=== PATIENT | female | born 1945 | race American Indian/Alaskan Native ===

== ENCOUNTER → 2016-10-28 | Outpatient (CLI) | payer MEDICARE, OTHER ==
--- NOTE | 2016-11-01 11:00 | CR ---
EXAM DATE: 10/28/16 PATIENT'S AGE: 71 Patient: KARLEE GATES Facility: [place], [place] Site . Site : 1945 Study: XRay Chest [id number] 4:37:14 PM Ordering Physician: Jamal Calzada Final Report: INDICATIONS: COPD. TECHNIQUE: Chest 2 view. COMPARISON: Chest radiograph September 05, 2016. FINDINGS: No pneumothorax. Trace bilateral pleural effusions. Mild bibasilar atelectasis. Lungs are otherwise clear. No evidence of pulmonary edema. Aortic atherosclerosis. Cardiomegaly, unchanged. Upper abdomen and osseous structures show no acute abnormality. Degenerative changes of the spine. IMPRESSION: Trace bilateral pleural effusions and mild bibasilar atelectasis. . Cardiomegaly, unchanged. No evidence of pulmonary edema. Dictated by David Lou MD @ Nov 01 2016 12:25AM (Electronic Signature) Report Signed by Proxy and Original Signed Document filed in the Medical Record. MTDD
== END ==
LOC: MW.CHIM 16:19
PROVIDERS: ATTEND Internal Medicine
DX: J44.9 Chronic obstructive pulmonary disease, unspecified (principal); I50.9 Heart failure, unspecified; I48.91 Unspecified atrial fibrillation; I10 Essential (primary) hypertension
CPT/HCPCS: 71020; 71020-26; 99214

== ENCOUNTER 2018-12-02 12:41 | Emergency (ER) | payer MEDICARE, OTHER ==
--- NOTE | 2018-12-02 14:40 | EDM.PDOC ---
ED HPI GENERAL MEDICAL PROBLEM - General Chief Complaint: Lower Extremity Injury/Pain Stated Complaint: RIGHT FOOT PAIN Time Seen by Provider: 12/02/18 14:39 Source of Information: Reports: Patient - History of Present Illness INITIAL COMMENTS - FREE TEXT/NARRATIVE: HISTORY AND PHYSICAL: History of present illness: [Patient presents with right foot pain history of gout has redness and swelling over the right foot focal over the great toe consistent with gout She was initially noted to be slightly hypoxic after ambulation, which improved at rest, hence further workup however we have learned that she is home oxygen dependent and noncompliant Also noted be hypotensive she has been hypotensive in the past improved with fluid bolus, see Dr. Staton's previous note for details, I did provide a fluid bolus and Solu-Medrol for the gout With Coumadin therapy and creatinine of 1.4 and elected to treat with Medrol Dosepak also exacerbating her gout she requires diuretic as well as discontinued allopurinol increasing her acute flare Uric acid is elevated she has no fever nausea vomiting chills sweats chest pain shortness breath headache dizziness or palpitation no bowel or urine symptoms] Review of systems: As per history of present illness and below otherwise all systems reviewed and negative. Past medical history: As per history of present illness and as reviewed below otherwise noncontributory. Surgical history: As per history of present illness and as reviewed below otherwise noncontributory. Social history: No reported history of drug or alcohol abuse. Family history: As per history of present illness and as reviewed below otherwise noncontributory. Physical exam: HEENT: Atraumatic, normocephalic, pupils reactive, negative for conjunctival pallor or scleral icterus, mucous membranes moist, throat clear, neck supple, nontender, trachea midline. Lungs: Clear to auscultation, breath sounds equal bilaterally, chest nontender. Heart: S1S2, regular, negative for clicks, rubs, or JVD. Abdomen: Soft, nondistended, nontender. Negative for masses or hepatosplenomegaly. Negative for costovertebral tenderness. Pelvis: Stable nontender. Genitourinary: Deferred. Rectal: Deferred. Extremities: Atraumatic, negative for cords or calf pain. Neurovascular unremarkable. Neuro: Awake, alert, oriented. Cranial nerves II through XII unremarkable. Cerebellum unremarkable. Motor and sensory unremarkable throughout. Exam nonfocal. Diagnostics: [CBC CMP troponin UA uric acid EKG Chest 1 view ] Therapeutics: NS 500 mL bolus ] Impression: Foot pain-acute gout [Hypoxia-oxygen noncompliant "hypo Tension-improved baseline Chronic history of baseline ] Definitive disposition and diagnosis as appropriate pending reevaluation and review of above. Left Foot Pain Score (Numeric/FACES): 9 - Related Data Allergies Allergy/AdvReac Type Severity Reaction Status Date / Time amoxicillin [Amoxicillin] Allergy Cannot Verified 12/02/18 13:22 Remember tramadol Allergy Dizziness Verified 12/02/18 13:22 Home Meds: Home Meds Captopril [Capoten] 12.5 mg PO DAILY 02/27/14 [History] Omeprazole 20 mg PO DAILY 02/27/14 [History] Simvastatin [Zocor] 20 mg PO DAILY 02/27/14 [History] Warfarin [Coumadin] 5 mg PO ASDIRECTED 02/27/14 [History] Furosemide 2 tab PO DAILY 01/03/15 [History] Gabapentin [Neurontin] 300 mg PO BEDTIME #45 cap 01/10/15 [Rx] Carvedilol [Coreg] 1 tab PO BID 09/03/16 [History] Potassium Chloride 8 meq PO DAILY 09/03/16 [History] Warfarin [Coumadin] 2.5 mg ASDIRECTED 09/03/16 [History] Diltiazem [Cardizem CD] 180 mg PO DAILY 30 Days cap.cd 09/07/16 [Rx] hydrALAZINE [Apresoline] 50 mg PO Q8H 30 Days tablet 09/07/16 [Rx] Past Medical History HEENT History: Reports: None Cardiovascular History: Reports: Afib, Cardiomyopathy, Hypertension Respiratory History: Reports: COPD, SOB Other Respiratory History: history of pneumonia 5 years ago Gastrointestinal History: Reports: GERD Genitourinary History: Reports: Diabetic Nephropathy LEAD CASTER History: Reports: Other LEAD CASTER History: Hysterectomy Neurological History: Reports: Neuropathy, Peripheral Psychiatric History: Reports: None Endocrine/Metabolic History: Reports: Diabetes, Type II Hematologic History: Reports: None Immunologic History: Reports: None Oncologic (Cancer) History: Reports: None Dermatologic History: Reports: None - Infectious Disease History Infectious Disease History: Reports: Chicken Pox, Measles, Mumps - Past Surgical History HEENT Surgical History: Reports: None GI Surgical History: Reports: Appendectomy, Cholecystectomy, Hernia, Abdominal Musculoskeletal Surgical History: Reports: Knee Replacement Social & Family History - Family History Family Medical History: Noncontributory HEENT: Reports: None Cardiac: Reports: None Respiratory: Reports: Other (See Below) Other Respiratory Family Hisory: emphysema GI: Reports: None : Reports: None OBGYN: Reports: None Musculoskeletal: Reports: None Neurological: Reports: None Psychiatric: Reports: None Endocrine/Metabolic: Reports: Diabetes, type II Hematologic: Reports: None Immunologic: Reports: None Dermatologic: Reports: None Oncologic: Reports: None - Tobacco Use Smoking Status *Q: Never Smoker Second Hand Smoke Exposure: No - Caffeine Use Caffeine Use: Reports: None - Alcohol Use Days Per Week of Alcohol Use: 3 Number of Drinks Per Day: 3 Total Drinks Per Week: 9 - Recreational Drug Use Recreational Drug Use: No Review of Systems - Review of Systems Review Of Systems: See Below ED EXAM, GENERAL - Physical Exam Exam: See Below Course - Vital Signs Last Recorded V/S: Last Vital Signs Temp 98.2 F 12/02/18 13:19 Pulse 97 12/02/18 13:19 Resp 20 12/02/18 13:19 BP 94/52 L 12/02/18 13:19 Pulse Ox 88 L 12/02/18 13:19 - Orders/Labs/Meds Orders: Active Orders 24 hr Category Date Time Status EKG Documentation Completion [RC] STAT Care 12/02/18 14:36 Active Sodium Chloride 0.9% [Normal Saline] 1,000 ml Med 12/02/18 15:30 Active IV .Bolus Sodium Chloride 0.9% [Normal Saline] 500 ml Med 12/02/18 14:45 Active IV STAT Medication Orders Sodium Chloride (Normal Saline) 500 mls @ 999 mls/hr IV STAT KOBE Sodium Chloride (Normal Saline) 1,000 mls @ 999 mls/hr IV .Bolus ONE Stop: 12/02/18 16:30 Last Admin: 12/02/18 15:31 Dose: 999 mls/hr Labs: Laboratory Tests 12/02/18 12/02/18 Range/Units 14:46 14:46 WBC 10.09 (4.0-11.0) K/uL RBC 3.63 L (4.30-5.90) M/uL Hgb 11.5 L (12.0-16.0) g/dL Hct 34.8 L (36.0-46.0) % MCV 95.9 (80.0-98.0) fL MCH 31.7 (27.0-32.0) pg MCHC 33.0 (31.0-37.0) g/dL RDW Std Deviation 47.6 (28.0-62.0) fl RDW Coeff of Yovani 14 (11.0-15.0) % Plt Count 172 (150-400) K/uL MPV 9.70 (7.40-12.00) fL Neut % (Auto) 82.9 H (48.0-80.0) % Lymph % (Auto) 7.8 L (16.0-40.0) % [place] % (Auto) 8.6 (0.0-15.0) % Eos % (Auto) 0.5 (0.0-7.0) % Baso % (Auto) 0.2 (0.0-1.5) % Neut # (Auto) 8.4 H (1.4-5.7) K/uL Lymph # (Auto) 0.8 (0.6-2.4) K/uL [place] # (Auto) 0.9 H (0.0-0.8) K/uL Eos # (Auto) 0.1 (0.0-0.7) K/uL Baso # (Auto) 0.0 (0.0-0.1) K/uL Nucleated RBC % 0.0 /100WBC Nucleated RBCs # 0 K/uL Sodium 140 (136-145) mmol/L Potassium 3.9 (3.5-5.1) mmol/L Chloride 100 (98-107) mmol/L Carbon Dioxide 31.5 (21.0-32.0) mmol/L BUN 26 H (7.0-18.0) mg/dL Creatinine 1.4 H (0.6-1.0) mg/dL Est Cr Clr Drug Dosing 29.15 mL/min Estimated GFR (MDRD) 37.1 ml/min Glucose 157 H (74-106) mg/dL Uric Acid 8.6 H (2.6-7.2) mg/dL Calcium 9.7 (8.5-10.1) mg/dL Total Bilirubin 1.2 H (0.2-1.0) mg/dL AST 14 L (15-37) IU/L ALT 17 (14-63) IU/L Alkaline Phosphatase 78 (46-116) U/L Troponin I < 0.050 (0.000-0.056) ng/mL Total Protein 8.2 (6.4-8.2) g/dL Albumin 3.3 L (3.4-5.0) g/dL Globulin 4.9 H (2.6-4.0) g/dL Albumin/Globulin Ratio 0.7 L (0.9-1.6) Ethyl Alcohol < 3.0 mg/dL Meds: Medications Generic Name Dose Route Start Last Admin Trade Name Freq PRN Reason Stop Dose Admin Sodium Chloride 500 mls @ 999 mls/hr 12/02/18 14:45 Normal Saline IV STAT KOBE Sodium Chloride 1,000 mls @ 999 mls/hr 12/02/18 15:30 12/02/18 15:31 Normal Saline IV 12/02/18 16:30 999 mls/hr .Bolus ONE Administration Discontinued Medications Generic Name Dose Route Start Last Admin Trade Name Freq PRN Reason Stop Dose Admin Methylprednisolone Sodium Succinate 125 mg 12/02/18 15:16 12/02/18 15:35 Solu-Medrol IVPUSH 12/02/18 15:17 125 mg ONETIME ONE Administration Departure - Departure Time of Disposition: 16:18 Disposition: Home, Self-Care 01 Condition: Good Clinical Impression: Acute gout - Discharge Information Referrals: Mercedes Peres MD [Primary Care Provider] - Forms: ED Department Discharge Additional Instructions: Prednisone 20 mg by mouth daily #5 no refill Hydrocodone as prescribed Stop allopurinol during acute gout flare Follow-up with primary care as needed Current if symptoms persist or worsen Strongly encouraged to use home oxygen as directed [facility] [address] [place] [address] The following information is given to patients seen in the emergency department who are being discharged to home. This information is to outline your options for follow-up care. We provide all patients seen in our emergency department with a follow-up referral. The need for follow-up, as well as the timing and circumstances, are variable depending upon the specifics of your emergency department visit. If you don't have a primary care physician on staff, we will provide you with a referral. We always advise you to contact your personal physician following an emergency department visit to inform them of the circumstance of the visit and for follow-up with them and/or the need for any referrals to a consulting specialist. The emergency department will also refer you to a specialist when appropriate. This referral assures that you have the opportunity for follow-up care with a specialist. All of these measure are taken in an effort to provide you with optimal care, which includes your follow-up. Under all circumstances we always encourage you to contact your private physician who remains a resource for coordinating your care. When calling for follow-up care, please make the office aware that this follow-up is from your recent emergency room visit. If for any reason you are refused follow-up, please contact the [facility] emergency department at and asked to speak to the emergency department charge nurse. - My Orders Last 24 Hours: My Active Orders 12/02/18 14:36 EKG Documentation Completion [RC] STAT 12/02/18 14:45 Sodium Chloride 0.9% [Normal Saline] 500 ml IV STAT 12/02/18 15:30 Sodium Chloride 0.9% [Normal Saline] 1,000 ml IV .Bolus - Assessment/Plan Last 24 Hours: My Active Orders 12/02/18 14:36 EKG Documentation Completion [RC] STAT 12/02/18 14:45 Sodium Chloride 0.9% [Normal Saline] 500 ml IV STAT 12/02/18 15:30 Sodium Chloride 0.9% [Normal Saline] 1,000 ml IV .Bolus
[2018-12-02] MEDS ORDERED: Sodium Chloride 0.9% 500 ML IV SCH (14:45)
--- NOTE | 2018-12-02 14:51 | CR ---
HISTORY: Gout flare. TECHNIQUE: Two views of the right foot. COMPARISON: No prior. FINDINGS: Soft tissue swelling involves the dorsum of the foot. Mild degenerative changes at the midfoot-forefoot junction. Plantar calcaneal spur. No definite erosions. No acute fracture. Vascular calcifications. IMPRESSION: 1. Soft tissue swelling dorsally. 2. No erosions. Dictated by Nikolai Patel MD @ 12/02/2018 2:48:04 PM Dictated by: Nikolai Patel MD @ 12/02/2018 14:48:10 (Electronically Signed)
[2018-12-02] MEDS ORDERED: methylPREDNISolone Sodium Succinate 125 MG/2 ML SDV IVPUSH ONE (15:16)
[2018-12-02 15:26] LABS: CHLORIDE,CL 100 mmol/L (98-107); SODIUM,NA 140 mmol/L (136-145)
[2018-12-02] MEDS ORDERED: Sodium Chloride 0.9% 1,000 ML IV ONE (15:30)
--- NOTE | 2018-12-02 15:40 | CR ---
HISTORY: Hypoxia. TECHNIQUE: One view of the chest. COMPARISON: No prior. FINDINGS: Linear atelectasis or scarring within the left mid to lower lung zone. Slight thickening of the minor fissure on the right. There is no consolidation or pulmonary edema. No pneumothorax. No moderate or large pleural effusion. Cardiac size is prominent but exaggerated by the portable AP technique. IMPRESSION: 1. Linear atelectasis or scarring within the left lung. 2. No consolidation or definite pulmonary edema. 3. Cardiac size is prominent but exaggerated by the technique. Dictated by Nikolai Patel MD @ 12/02/2018 3:39:55 PM Dictated by: Nikolai Patel MD @ 12/02/2018 15:40:00 (Electronically Signed)
[2018-12-02 16:46] VITALS: BP 116/65
== END 2018-12-02 16:37 | disposition home or self-care (01) ==
LOC: MW.ED 12:41
DX: M10.9 Gout, unspecified (principal); I95.9 Hypotension, unspecified; Z88.1 Allergy status to other antibiotic agents; Z88.6 Allergy status to analgesic agent; Z79.899 Other long term (current) drug therapy; E11.21 Type 2 diabetes mellitus with diabetic nephropathy
CPT/HCPCS: 36415; 71045; 73620; 80053; 84484; 84550; 85025; 93005; 96374; 99284; G0480; J2930; J7040

== ENCOUNTER 2019-07-17 14:53 | Observation (INO) | payer MEDICARE, OTHER ==
--- NOTE | 2019-07-17 15:27 | EDM.PDOC ---
ED HPI GENERAL MEDICAL PROBLEM - General Chief Complaint: Chest Pain Stated Complaint: CHEST PAIN Time Seen by Provider: 07/17/19 14:57 Source of Information: Reports: Patient History Limitations: Reports: No Limitations - History of Present Illness INITIAL COMMENTS - FREE TEXT/NARRATIVE: HISTORY AND PHYSICAL: History of present illness: Patient is a 73-year-old female who presents to the ED today with concern of an episode of chest tightness since 5 this morning. Patient states the chest tightness woke her up from sleep. Patient states that over the course of the day this has improved and she is not currently having this symptom at this time. Patient states over the course of the past several weeks she's had worsening shortness of breath and dizziness so increased her oxygen at home from 2 L to 4 L without seeing a primary care provider. Patient denies any other symptoms or concerns. Patient has a history of atrial fibrillation, type 2 diabetes, and COPD on chronic oxygen at home on 4 L. Patient states she also has constant swelling of her lower extremities and has not noticed a change in the swelling. Patient denies fever, chills, chest pain, shortness of breath, or cough. Denies headache, neck stiff ness, change in vision, syncope, or near syncope. Denies nausea, vomiting, abdominal pain, diarrhea, constipation, or dysuria. Has not noted any blood in urine or stool. Patient has been eating and drinking appropriately. Review of systems: As per history of present illness and below otherwise all systems reviewed and negative. Past medical history: As per history of present illness and as reviewed below otherwise noncontributory. Surgical history: As per history of present illness and as reviewed below otherwise noncontributory. Social history: See social history for further information Family history: As per history of present illness and as reviewed below otherwise noncontributory. Physical exam: General: Patient is alert, oriented, and in no acute distress. Patient laying comfortably on exam table. HEENT: Atraumatic, normocephalic, pupils equal and reactive bilaterally, negative for conjunctival pallor or scleral icterus, mucous membranes moist, TMs normal bilaterally, throat clear, neck supple, nontender, trachea midline. No drooling or trismus noted. No meningeal signs. No hot potato voice noted. Lungs: Clear to auscultation, breath sounds equal bilaterally, chest nontender. Heart: S1S2, regular rate and rhythm with systolic ejection murmur best heard at the LUSB Abdomen: Soft, nondistended, nontender. Negative for masses or hepatosplenomegaly. Negative for costovertebral tenderness. Pelvis: Stable nontender. Genitourinary: Deferred. Rectal: Deferred. Skin: Intact, warm, dry. No lesions or rashes noted. Extremities: Atraumatic, negative for cords or calf pain. Neurovascular unremarkable. 2+ non pitting edema of bilateral lower extremities to the knees Neuro: Awake, alert, oriented. Cranial nerves II through XII unremarkable. Cerebellum unremarkable. Motor and sensory unremarkable throughout. Exam nonfocal. Notes: Dr. Natarajan consulted on patient and will admit to observation. Voices understanding and is agreeable to plan of care. Denies any further questions or concerns at this time. Diagnostics: CBC, CMP, UA, EKG, chest x-ray, troponin, lipase, BNP Therapeutics: ASA Impression: Chest pain r/o ACS Plan: Admit to observation to Dr. Natarajan with telemetry Definitive disposition and diagnosis as appropriate pending reevaluation and review of above. Left Chest Pain Score (Numeric/FACES): 7 - Related Data Allergies Allergy/AdvReac Type Severity Reaction Status Date / Time amoxicillin [Amoxicillin] Allergy Cannot Verified 07/17/19 15:05 Remember tramadol Allergy Dizziness Verified 07/17/19 15:05 Home Meds: Home Meds Omeprazole 20 mg PO DAILY 02/27/14 [History] Simvastatin [Zocor] 20 mg PO DAILY 02/27/14 [History] captopriL [Capoten] 12.5 mg PO DAILY 02/27/14 [History] Furosemide 2 tab PO DAILY 01/03/15 [History] Gabapentin [Neurontin] 300 mg PO BEDTIME #45 cap 01/10/15 [Rx] Carvedilol [Coreg] 1 tab PO BID 09/03/16 [History] Potassium Chloride 8 meq PO DAILY 09/03/16 [History] Diltiazem [Cardizem CD] 180 mg PO DAILY 30 Days cap.cd 09/07/16 [Rx] Allopurinol [Zyloprim] 100 mg PO DAILY 07/17/19 [History] Apixaban [Eliquis] 5 mg PO BID 07/17/19 [History] glipiZIDE [Glucotrol XL] 10 mg PO DAILY 07/17/19 [History] Past Medical History HEENT History: Reports: None Cardiovascular History: Reports: Afib, Heart Murmur, Hypertension, Other (See Below) Other Cardiovascular History: CHF Respiratory History: Reports: COPD, SOB Other Respiratory History: history of pneumonia 5 years ago Gastrointestinal History: Reports: GERD Genitourinary History: Reports: Diabetic Nephropathy TOPOGRAPHICAL SURVEYOR History: Reports: Other TOPOGRAPHICAL SURVEYOR History: Hysterectomy Neurological History: Reports: Neuropathy, Peripheral Psychiatric History: Reports: Depression, Mood Swings Endocrine/Metabolic History: Reports: Diabetes, Type II Hematologic History: Reports: None Immunologic History: Reports: None Oncologic (Cancer) History: Reports: None Dermatologic History: Reports: None - Infectious Disease History Infectious Disease History: Reports: Chicken Pox, Measles, Mumps - Past Surgical History HEENT Surgical History: Reports: None GI Surgical History: Reports: Appendectomy, Cholecystectomy, Colonoscopy, EGD, Hernia, Abdominal Musculoskeletal Surgical History: Reports: Knee Replacement Social & Family History - Family History Family Medical History: Noncontributory HEENT: Reports: None Cardiac: Reports: None Respiratory: Reports: Other (See Below) Other Respiratory Family Hisory: emphysema GI: Reports: None : Reports: None OBGYN: Reports: None Musculoskeletal: Reports: None Neurological: Reports: None Psychiatric: Reports: None Endocrine/Metabolic: Reports: Diabetes, type II Hematologic: Reports: None Immunologic: Reports: None Dermatologic: Reports: None Oncologic: Reports: None - Tobacco Use Smoking Status *Q: Former Smoker Used Tobacco, but Quit: Yes Month/Year Tobacco Last Used: 1998 - Caffeine Use Caffeine Use: Reports: None - Recreational Drug Use Recreational Drug Use: No ED ROS GENERAL - Review of Systems Review Of Systems: Comprehensive ROS is negative, except as noted in HPI. ED EXAM, GENERAL - Physical Exam Exam: See Below (see dictation) Course - Vital Signs Last Recorded V/S: Last Vital Signs Temp 97.5 F 07/17/19 15:02 Pulse 83 07/17/19 16:00 Resp 16 07/17/19 15:30 BP 134/63 07/17/19 16:00 Pulse Ox 97 07/17/19 16:00 - Orders/Labs/Meds Orders: Active Orders 24 hr Category Date Time Status Admission Status [Patient Status] [ADT] Stat ADT 07/17/19 16:47 Ordered EKG Documentation Completion [RC] STAT Care 07/17/19 15:14 Active B-TYPE NATRIURETIC PEPTIDE,BNP [CHEM] Stat Lab 07/17/19 15:09 Received CULTURE URINE [RM] Stat Lab 07/17/19 15:00 Received Labs: Laboratory Tests 07/17/19 07/17/19 07/17/19 Range/Units 15:00 15:01 15:09 WBC 7.30 (4.0-11.0) K/uL RBC 3.80 L (4.30-5.90) M/uL Hgb 11.9 L (12.0-16.0) g/dL Hct 35.8 L (36.0-46.0) % MCV 94.2 (80.0-98.0) fL MCH 31.3 (27.0-32.0) pg MCHC 33.2 (31.0-37.0) g/dL RDW Std Deviation 49.6 (28.0-62.0) fl RDW Coeff of Yovani 14 (11.0-15.0) % Plt Count 159 (150-400) K/uL MPV 9.80 (7.40-12.00) fL Neut % (Auto) 77.6 (48.0-80.0) % Lymph % (Auto) 14.0 L (16.0-40.0) % [place] % (Auto) 5.9 (0.0-15.0) % Eos % (Auto) 2.1 (0.0-7.0) % Baso % (Auto) 0.4 (0.0-1.5) % Neut # (Auto) 5.7 (1.4-5.7) K/uL Lymph # (Auto) 1.0 (0.6-2.4) K/uL [place] # (Auto) 0.4 (0.0-0.8) K/uL Eos # (Auto) 0.2 (0.0-0.7) K/uL Baso # (Auto) 0.0 (0.0-0.1) K/uL Nucleated RBC % 0.0 /100WBC Nucleated RBCs # 0 K/uL INR Sodium (136-145) mmol/L Potassium (3.5-5.1) mmol/L Chloride (98-107) mmol/L Carbon Dioxide (21.0-32.0) mmol/L BUN (7.0-18.0) mg/dL Creatinine (0.6-1.0) mg/dL Est Cr Clr Drug Dosing mL/min Estimated GFR (MDRD) ml/min Glucose (74-106) mg/dL POC Glucose 261 H (60-110) mg/dL Calcium (8.5-10.1) mg/dL Total Bilirubin (0.2-1.0) mg/dL AST (15-37) IU/L ALT (14-63) IU/L Alkaline Phosphatase (46-116) U/L Troponin I (0.000-0.056) ng/mL Total Protein (6.4-8.2) g/dL Albumin (3.4-5.0) g/dL Globulin (2.6-4.0) g/dL Albumin/Globulin Ratio (0.9-1.6) Lipase (73-393) U/L Urine Color YELLOW Urine Appearance CLEAR Urine pH 6.5 (5.0-8.0) Ur Specific [place] 1.010 (1.001-1.035) Urine Protein NEGATIVE (NEGATIVE) mg/dL Urine Glucose (UA) 100 H (NEGATIVE) mg/dL Urine Ketones NEGATIVE (NEGATIVE) mg/dL Urine Occult Blood NEGATIVE (NEGATIVE) Urine Nitrite NEGATIVE (NEGATIVE) Urine Bilirubin NEGATIVE (NEGATIVE) Urine Urobilinogen 0.2 (<2.0) EU/dL Ur Leukocyte Esterase TRACE H (NEGATIVE) Urine RBC 0-2 (0-2/HPF) Urine WBC 3-5 (0-5/HPF) Ur Epithelial Cells FEW (NONE-FEW) Urine Bacteria FEW (NEGATIVE) 07/17/19 07/17/19 07/17/19 Range/Units 15:09 15:09 15:09 WBC (4.0-11.0) K/uL RBC (4.30-5.90) M/uL Hgb (12.0-16.0) g/dL Hct (36.0-46.0) % MCV (80.0-98.0) fL MCH (27.0-32.0) pg MCHC (31.0-37.0) g/dL RDW Std Deviation (28.0-62.0) fl RDW Coeff of Yovani (11.0-15.0) % Plt Count (150-400) K/uL MPV (7.40-12.00) fL Neut % (Auto) (48.0-80.0) % Lymph % (Auto) (16.0-40.0) % [place] % (Auto) (0.0-15.0) % Eos % (Auto) (0.0-7.0) % Baso % (Auto) (0.0-1.5) % Neut # (Auto) (1.4-5.7) K/uL Lymph # (Auto) (0.6-2.4) K/uL [place] # (Auto) (0.0-0.8) K/uL Eos # (Auto) (0.0-0.7) K/uL Baso # (Auto) (0.0-0.1) K/uL Nucleated RBC % /100WBC Nucleated RBCs # K/uL INR 1.03 Sodium 141 (136-145) mmol/L Potassium 3.8 (3.5-5.1) mmol/L Chloride 100 (98-107) mmol/L Carbon Dioxide 32.8 H (21.0-32.0) mmol/L BUN 56 H (7.0-18.0) mg/dL Creatinine 2.0 H (0.6-1.0) mg/dL Est Cr Clr Drug Dosing 20.41 mL/min Estimated GFR (MDRD) 24.6 ml/min Glucose 267 H (74-106) mg/dL POC Glucose (60-110) mg/dL Calcium 9.6 (8.5-10.1) mg/dL Total Bilirubin 0.3 (0.2-1.0) mg/dL AST 12 L (15-37) IU/L ALT 17 (14-63) IU/L Alkaline Phosphatase 67 (46-116) U/L Troponin I < 0.050 (0.000-0.056) ng/mL Total Protein 8.4 H (6.4-8.2) g/dL Albumin 4.1 (3.4-5.0) g/dL Globulin 4.3 H (2.6-4.0) g/dL Albumin/Globulin Ratio 1.0 (0.9-1.6) Lipase 393 (73-393) U/L Urine Color Urine Appearance Urine pH (5.0-8.0) Ur Specific [place] (1.001-1.035) Urine Protein (NEGATIVE) mg/dL Urine Glucose (UA) (NEGATIVE) mg/dL Urine Ketones (NEGATIVE) mg/dL Urine Occult Blood (NEGATIVE) Urine Nitrite (NEGATIVE) Urine Bilirubin (NEGATIVE) Urine Urobilinogen (<2.0) EU/dL Ur Leukocyte Esterase (NEGATIVE) Urine RBC (0-2/HPF) Urine WBC (0-5/HPF) Ur Epithelial Cells (NONE-FEW) Urine Bacteria (NEGATIVE) Meds: Medications Discontinued Medications Generic Name Dose Route Start Last Admin Trade Name Freq PRN Reason Stop Dose Admin Aspirin 324 mg 07/17/19 16:37 Aspirin PO 07/17/19 16:38 ONETIME ONE Departure - Departure Time of Disposition: 16:49 Disposition: Refer to Observation Clinical Impression: Chest pain Qualifiers: Chest pain type: unspecified Qualified Code(s): R07.9 - Chest pain, unspecified - Discharge Information Referrals: Paloma Myers PA-C [Primary Care Provider] - Forms: ED Department Discharge - My Orders Last 24 Hours: My Active Orders 07/17/19 15:00 CULTURE URINE [RM] Stat 07/17/19 15:09 B-TYPE NATRIURETIC PEPTIDE,BNP [CHEM] Stat 07/17/19 15:14 EKG Documentation Completion [RC] STAT 07/17/19 16:47 Admission Status [Patient Status] [ADT] Stat - Assessment/Plan Last 24 Hours: My Active Orders 07/17/19 15:00 CULTURE URINE [RM] Stat 07/17/19 15:09 B-TYPE NATRIURETIC PEPTIDE,BNP [CHEM] Stat 07/17/19 15:14 EKG Documentation Completion [RC] STAT 07/17/19 16:47 Admission Status [Patient Status] [ADT] Stat
[2019-07-17 15:51] LABS: BLOOD UREA NITROGEN,BUN 56 mg/dL (7.0-18.0); CARBON DIOXIDE,CO2 32.8 mmol/L (21.0-32.0); CHLORIDE,CL 100 mmol/L (98-107); GLUCOSE RANDOM 267 mg/dL (74-106); POTASSIUM,K 3.8 mmol/L (3.5-5.1); SODIUM,NA 141 mmol/L (136-145)
--- NOTE | 2019-07-17 16:06 | CR ---
EXAM DATE: 07/17/19 PATIENT'S AGE: 73 Chest: AP view of the chest was obtained. Comparison: Prior chest x-ray of 12/02/18. Heart size is slightly enlarged but accentuated from AP technique. Scarring is noted within the left base. Lungs otherwise are clear with no acute parenchymal change. Bony structures are grossly intact. Impression: 1. Findings as noted above. 2. Nothing acute is definitely appreciated. Diagnostic code #2 This report was dictated in [place] Standard Time Report Signed by Proxy. [facility]ITALAng[facility]
[2019-07-17] MEDS ORDERED: Aspirin 81 MG Tab.Chew PO ONE (16:37)
[2019-07-17] MEDS ORDERED: Heparin Sodium 5,000 Units/ML Vial SUBCUT SCH (17:45)
[2019-07-17] MEDS: Pantoprazole 40 MG Tab.CR PO SCH (18:15)
[2019-07-17] MEDS ORDERED: Furosemide 40 MG Tab PO SCH (19:45)
[2019-07-17] MEDS ORDERED: Sodium Chloride 0.9% 500 ML IV ONE (20:19)
[2019-07-17] MEDS ORDERED: Aluminum Hydroxide/Magnesium Hydroxide/Simethicone Susp 30 ML Cup PO ONE (20:21)
[2019-07-17] MEDS ORDERED: Albuterol/Ipratropium 3.0-0.5 MG/3 ML Neb Soln NEB ONE (20:22)
[2019-07-17] MEDS ORDERED: Furosemide 40 MG in Sodium Chloride 0.9% 50 ML IV SCH (20:30)
[2019-07-17] MEDS: Apixaban 5 MG Tab PO SCH (20:45)
[2019-07-17] MEDS: Carvedilol 25 MG Tab PO SCH (20:47)
[2019-07-17] MEDS ORDERED: Gabapentin 300 MG Cap PO SCH (21:00)
--- NOTE | 2019-07-17 21:01 | PCM.HP.2 ---
<Michel Arreola M - Last Filed: 07/17/19 21:08> H&P History of Present Illness - General Date of Service: 07/17/19 Admit Problem/Dx: Admission Diagnosis/Problem Admission Diagnosis/Problem Chest pain Source of Information: Patient History Limitations: Reports: No Limitations - History of Present Illness Initial Comments - Free Text/Narative: 73-year-old female presents to ER with complaints of chest pain that started at 5 AM this morning. The pain is located substernally, characterized as "heavy" in nature, unrelated to activity, no radiation, 7/10 on a pain scale. She has a PMH of atrial fibrillation, DM type 2, COPD on home oxygen and CHF. Patient reports an increase in her home oxygen from 3L at baseline to 4L over the past week. Denies any fevers, sweats, nausea, vomiting, blurry vision or cough. She also denies any recent weight gain. Patient is a non-smoker. In the ER, patient was given a full-dose of aspirin. EKG showed rate-controlled atrial fibrillation. Patient admitted for further evaluation. Left Chest Pain Score (Numeric/FACES): 7 - Related Data Allergies/Adverse Reactions: Allergies Allergy/AdvReac Type Severity Reaction Status Date / Time amoxicillin [Amoxicillin] Allergy Cannot Verified 07/17/19 18:00 Remember tramadol Allergy Dizziness Verified 07/17/19 18:00 Home Medications: Home Meds Omeprazole 20 mg PO DAILY 02/27/14 [History] Simvastatin [Zocor] 20 mg PO DAILY 02/27/14 [History] captopriL [Capoten] 12.5 mg PO DAILY 02/27/14 [History] Gabapentin [Neurontin] 300 mg PO BEDTIME #45 cap 01/10/15 [Rx] Carvedilol [Coreg] 1 tab PO BID 09/03/16 [History] Potassium Chloride 8 meq PO BID 09/03/16 [History] Diltiazem [Cardizem CD] 180 mg PO DAILY 30 Days cap.cd 09/07/16 [Rx] Allopurinol [Zyloprim] 100 mg PO DAILY 07/17/19 [History] Apixaban [Eliquis] 5 mg PO BID 07/17/19 [History] Furosemide 1.5 tab PO BID 07/17/19 [History] glipiZIDE [Glucotrol XL] 10 mg PO DAILY 07/17/19 [History] Albuterol [Proventil Neb Soln] 2.5 mg NEB Q4H PRN #1 box 07/18/19 [Rx] Albuterol [Ventolin HFA] 1 - 2 puff INH Q4H PRN #1 inh 07/18/19 [Rx] predniSONE [Prednisone] 20 mg PO DAILY #6 tablet 07/18/19 [Rx] Past Medical History HEENT History: Reports: None Cardiovascular History: Reports: Afib, Heart Murmur, Hypertension, Other (See Below) Other Cardiovascular History: CHF Respiratory History: Reports: COPD, SOB Other Respiratory History: history of pneumonia 5 years ago Gastrointestinal History: Reports: GERD 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: Reports: Other OB/BYN History: Hysterectomy Neurological History: Reports: Neuropathy, Peripheral Psychiatric History: Reports: Depression, Mood Swings Endocrine/Metabolic History: Reports: Diabetes, Type II Hematologic History: Reports: None Immunologic History: Reports: None Oncologic (Cancer) History: Reports: None Dermatologic History: Reports: None - Infectious Disease History Infectious Disease History: Reports: Chicken Pox, Measles, Mumps - Past Surgical History HEENT Surgical History: Reports: None GI Surgical History: Reports: Appendectomy, Cholecystectomy, Colonoscopy, EGD, Hernia, Abdominal Female Surgical History: Reports: Hysterectomy Musculoskeletal Surgical History: Reports: Knee Replacement Social & Family History - Family History Family Medical History: Noncontributory HEENT: Reports: None Cardiac: Reports: None Respiratory: Reports: Other (See Below) Other Respiratory Family Hisory: emphysema GI: Reports: None : Reports: None OBGYN: Reports: None Musculoskeletal: Reports: None Neurological: Reports: None Psychiatric: Reports: None Endocrine/Metabolic: Reports: Diabetes, type II Hematologic: Reports: None Immunologic: Reports: None Dermatologic: Reports: None Oncologic: Reports: None - Tobacco Use Smoking Status *Q: Former Smoker Used Tobacco, but Quit: Yes Month/Year Tobacco Last Used: 1998 Second Hand Smoke Exposure: No - Caffeine Use Caffeine Use: Reports: Coffee - Alcohol Use Days Per Week of Alcohol Use: 7 Number of Drinks Per Day: 2 Total Drinks Per Week: 14 Date of Last Drink: 07/16/19 - Recreational Drug Use Recreational Drug Use: No H&P Review of Systems - Review of Systems: Review Of Systems: Comprehensive ROS is negative, except as noted in HPI. Exam - Exam Exam: See Below - Vital Signs Vital Signs: Last Vital Signs Temp 97.8 F 07/17/19 17:37 Pulse 84 07/17/19 17:37 Resp 18 07/17/19 17:37 BP 143/72 H 07/17/19 17:37 Pulse Ox 99 07/17/19 17:37 Weight: 118.3 kg - Exam General: Alert, Oriented, Cooperative, Other (NAD) HEENT: Conjunctiva Clear, EOMI Lungs: Other (quiet breath sounds bilaterally) Cardiovascular: Regular Rate, Regular Rhythm GI/Abdominal Exam: Normal Bowel Sounds, Soft, Non-Tender, No Distention Extremities: Other (trace edema bilaterally, no calf pain bilaterally) Skin: Warm, Dry, Intact Neurological: Cranial Nerves Intact, Strength Equal Bilateral, Normal Speech Psychiatric: Alert, Normal Affect, Normal Mood - Patient Data Lab Results Last 24 hrs: Laboratory Results - last 24 hr 07/17/19 07/17/19 07/17/19 Range/Units 15:00 15:01 15:09 WBC 7.30 (4.0-11.0) K/uL RBC 3.80 L (4.30-5.90) M/uL Hgb 11.9 L (12.0-16.0) g/dL Hct 35.8 L (36.0-46.0) % MCV 94.2 (80.0-98.0) fL MCH 31.3 (27.0-32.0) pg MCHC 33.2 (31.0-37.0) g/dL RDW Std Deviation 49.6 (28.0-62.0) fl RDW Coeff of Yovani 14 (11.0-15.0) % Plt Count 159 (150-400) K/uL MPV 9.80 (7.40-12.00) fL Neut % (Auto) 77.6 (48.0-80.0) % Lymph % (Auto) 14.0 L (16.0-40.0) % [place] % (Auto) 5.9 (0.0-15.0) % Eos % (Auto) 2.1 (0.0-7.0) % Baso % (Auto) 0.4 (0.0-1.5) % Neut # (Auto) 5.7 (1.4-5.7) K/uL Lymph # (Auto) 1.0 (0.6-2.4) K/uL [place] # (Auto) 0.4 (0.0-0.8) K/uL Eos # (Auto) 0.2 (0.0-0.7) K/uL Baso # (Auto) 0.0 (0.0-0.1) K/uL Nucleated RBC % 0.0 /100WBC Nucleated RBCs # 0 K/uL INR Sodium (136-145) mmol/L Potassium (3.5-5.1) mmol/L Chloride (98-107) mmol/L Carbon Dioxide (21.0-32.0) mmol/L BUN (7.0-18.0) mg/dL Creatinine (0.6-1.0) mg/dL Est Cr Clr Drug Dosing mL/min Estimated GFR (MDRD) ml/min Glucose (74-106) mg/dL POC Glucose 261 H (60-110) mg/dL Calcium (8.5-10.1) mg/dL Total Bilirubin (0.2-1.0) mg/dL AST (15-37) IU/L ALT (14-63) IU/L Alkaline Phosphatase (46-116) U/L Troponin I (0.000-0.056) ng/mL Total Protein (6.4-8.2) g/dL Albumin (3.4-5.0) g/dL Globulin (2.6-4.0) g/dL Albumin/Globulin Ratio (0.9-1.6) Lipase (73-393) U/L Urine Color YELLOW Urine Appearance CLEAR Urine pH 6.5 (5.0-8.0) Ur Specific [place] 1.010 (1.001-1.035) Urine Protein NEGATIVE (NEGATIVE) mg/dL Urine Glucose (UA) 100 H (NEGATIVE) mg/dL Urine Ketones NEGATIVE (NEGATIVE) mg/dL Urine Occult Blood NEGATIVE (NEGATIVE) Urine Nitrite NEGATIVE (NEGATIVE) Urine Bilirubin NEGATIVE (NEGATIVE) Urine Urobilinogen 0.2 (<2.0) EU/dL Ur Leukocyte Esterase TRACE H (NEGATIVE) Urine RBC 0-2 (0-2/HPF) Urine WBC 3-5 (0-5/HPF) Ur Epithelial Cells FEW (NONE-FEW) Urine Bacteria FEW (NEGATIVE) 07/17/19 07/17/19 07/17/19 Range/Units 15:09 15:09 15:09 WBC (4.0-11.0) K/uL RBC (4.30-5.90) M/uL Hgb (12.0-16.0) g/dL Hct (36.0-46.0) % MCV (80.0-98.0) fL MCH (27.0-32.0) pg MCHC (31.0-37.0) g/dL RDW Std Deviation (28.0-62.0) fl RDW Coeff of Yovani (11.0-15.0) % Plt Count (150-400) K/uL MPV (7.40-12.00) fL Neut % (Auto) (48.0-80.0) % Lymph % (Auto) (16.0-40.0) % [place] % (Auto) (0.0-15.0) % Eos % (Auto) (0.0-7.0) % Baso % (Auto) (0.0-1.5) % Neut # (Auto) (1.4-5.7) K/uL Lymph # (Auto) (0.6-2.4) K/uL [place] # (Auto) (0.0-0.8) K/uL Eos # (Auto) (0.0-0.7) K/uL Baso # (Auto) (0.0-0.1) K/uL Nucleated RBC % /100WBC Nucleated RBCs # K/uL INR 1.03 Sodium 141 (136-145) mmol/L Potassium 3.8 (3.5-5.1) mmol/L Chloride 100 (98-107) mmol/L Carbon Dioxide 32.8 H (21.0-32.0) mmol/L BUN 56 H (7.0-18.0) mg/dL Creatinine 2.0 H (0.6-1.0) mg/dL Est Cr Clr Drug Dosing 20.41 mL/min Estimated GFR (MDRD) 24.6 ml/min Glucose 267 H (74-106) mg/dL POC Glucose (60-110) mg/dL Calcium 9.6 (8.5-10.1) mg/dL Total Bilirubin 0.3 (0.2-1.0) mg/dL AST 12 L (15-37) IU/L ALT 17 (14-63) IU/L Alkaline Phosphatase 67 (46-116) U/L Troponin I < 0.050 (0.000-0.056) ng/mL Total Protein 8.4 H (6.4-8.2) g/dL Albumin 4.1 (3.4-5.0) g/dL Globulin 4.3 H (2.6-4.0) g/dL Albumin/Globulin Ratio 1.0 (0.9-1.6) Lipase 393 (73-393) U/L Urine Color Urine Appearance Urine pH (5.0-8.0) Ur Specific [place] (1.001-1.035) Urine Protein (NEGATIVE) mg/dL Urine Glucose (UA) (NEGATIVE) mg/dL Urine Ketones (NEGATIVE) mg/dL Urine Occult Blood (NEGATIVE) Urine Nitrite (NEGATIVE) Urine Bilirubin (NEGATIVE) Urine Urobilinogen (<2.0) EU/dL Ur Leukocyte Esterase (NEGATIVE) Urine RBC (0-2/HPF) Urine WBC (0-5/HPF) Ur Epithelial Cells (NONE-FEW) Urine Bacteria (NEGATIVE) 07/17/19 Range/Units 17:53 WBC (4.0-11.0) K/uL RBC (4.30-5.90) M/uL Hgb (12.0-16.0) g/dL Hct (36.0-46.0) % MCV (80.0-98.0) fL MCH (27.0-32.0) pg MCHC (31.0-37.0) g/dL RDW Std Deviation (28.0-62.0) fl RDW Coeff of Yovani (11.0-15.0) % Plt Count (150-400) K/uL MPV (7.40-12.00) fL Neut % (Auto) (48.0-80.0) % Lymph % (Auto) (16.0-40.0) % [place] % (Auto) (0.0-15.0) % Eos % (Auto) (0.0-7.0) % Baso % (Auto) (0.0-1.5) % Neut # (Auto) (1.4-5.7) K/uL Lymph # (Auto) (0.6-2.4) K/uL [place] # (Auto) (0.0-0.8) K/uL Eos # (Auto) (0.0-0.7) K/uL Baso # (Auto) (0.0-0.1) K/uL Nucleated RBC % /100WBC Nucleated RBCs # K/uL INR Sodium (136-145) mmol/L Potassium (3.5-5.1) mmol/L Chloride (98-107) mmol/L Carbon Dioxide (21.0-32.0) mmol/L BUN (7.0-18.0) mg/dL Creatinine (0.6-1.0) mg/dL Est Cr Clr Drug Dosing mL/min Estimated GFR (MDRD) ml/min Glucose (74-106) mg/dL POC Glucose (60-110) mg/dL Calcium (8.5-10.1) mg/dL Total Bilirubin (0.2-1.0) mg/dL AST (15-37) IU/L ALT (14-63) IU/L Alkaline Phosphatase (46-116) U/L Troponin I < 0.050 (0.000-0.056) ng/mL Total Protein (6.4-8.2) g/dL Albumin (3.4-5.0) g/dL Globulin (2.6-4.0) g/dL Albumin/Globulin Ratio (0.9-1.6) Lipase (73-393) U/L Urine Color Urine Appearance Urine pH (5.0-8.0) Ur Specific [place] (1.001-1.035) Urine Protein (NEGATIVE) mg/dL Urine Glucose (UA) (NEGATIVE) mg/dL Urine Ketones (NEGATIVE) mg/dL Urine Occult Blood (NEGATIVE) Urine Nitrite (NEGATIVE) Urine Bilirubin (NEGATIVE) Urine Urobilinogen (<2.0) EU/dL Ur Leukocyte Esterase (NEGATIVE) Urine RBC (0-2/HPF) Urine WBC (0-5/HPF) Ur Epithelial Cells (NONE-FEW) Urine Bacteria (NEGATIVE) Result Diagrams: 07/17/19 15:09 07/17/19 15:09 Problem List Initiated/Reviewed/Updated: Yes Orders Last 24hrs: Active Orders 24 hr Category Date Time Status Admission Status [Patient Status] [ADT] Stat ADT 07/17/19 16:47 Active Accu Check [Blood Glucose Check, Bedside] [RC] TIDAC Care 07/17/19 19:36 Active Oxygen Therapy [RC] PRN Care 07/17/19 17:37 Active RT Aerosol Therapy [RC] ASDIRECTED Care 07/17/19 20:22 Active Telemetry Monitoring [Cardiac Monitoring] [RC] . Care 07/17/19 17:42 Active DIRECTED Up ad Ashly [RC] ASDIRECTED Care 07/17/19 17:37 Active VTE/DVT Education [RC] PER UNIT ROUTINE Care 07/17/19 17:37 Active Vital Signs [RC] Q4H Care 07/17/19 17:37 Active [employer] Diet [DIET] Diet 07/17/19 Dinner Active B-TYPE NATRIURETIC PEPTIDE,BNP [CHEM] Stat Lab 07/17/19 15:09 Received CULTURE URINE [RM] Stat Lab 07/17/19 15:00 Received TROPONIN I [CHEM] Q3H Lab 07/17/19 21:00 Ordered Allopurinol [Zyloprim] Med 07/18/19 09:00 Active 100 mg PO DAILY Apixaban [Eliquis] Med 07/17/19 21:00 Active 5 mg PO BID Diltiazem [Cardizem CD] Med 07/18/19 09:00 Active 180 mg PO DAILY Gabapentin [Neurontin] Med 07/17/19 21:00 Active 300 mg PO BEDTIME Insulin Aspart [NovoLOG] Med 07/18/19 07:30 Active See Protocol SUBCUT TIDAC Pantoprazole [ProTONIX] Med 07/17/19 17:45 Active 40 mg PO DAILY Simvastatin [Zocor] Med 07/18/19 09:00 Active 20 mg PO DAILY captopriL [Capoten] Med 07/18/19 09:00 Active 12.5 mg PO DAILY carvediloL [Coreg] Med 07/17/19 21:00 Active 25 mg PO BID Resuscitation Status Routine Resus Stat 07/17/19 17:37 Ordered Medication Orders Allopurinol (Zyloprim) 100 mg PO DAILY [facility] Apixaban (Eliquis) 5 mg PO BID [facility] Captopril (Capoten) 12.5 mg PO DAILY [facility] Carvedilol (Coreg) 25 mg PO BID [facility] Diltiazem HCl (Cardizem Cd) 180 mg PO DAILY [facility] Gabapentin (Neurontin) 300 mg PO BEDTIME [facility] Insulin Aspart (Novolog) 0 unit SUBCUT TIDAC [facility]; Protocol Pantoprazole Sodium (Protonix) 40 mg PO DAILY [facility] Last Admin: 07/17/19 18:15 Dose: 40 mg Simvastatin (Zocor) 20 mg PO DAILY [facility] Assessment/Plan Comment:: Assessment: 1. Chest pain, ACS rule out. 2. Acute on chronic hypoxic respiratory failure likely secondary to COPD exacerbation. 3. Acute kidney injury. 4. Past medical history of atrial fibrillation, DM type 2 and CHF. Plan: 1. For chest pain, will trend troponins q3h and patient will be on telemetry. Initial troponin was negative. 2. For acute hypoxic respiratory failure, supplemental oxygen, duonebs x1 and prednisone 40 mg q12h. 3. For EUGENE, will fluid bolus 500 cc NS. 4. For PMH will continue with home medications. <Lavon Natarajan - Last Filed: 07/18/19 20:29> H&P History of Present Illness - General Admit Problem/Dx: Admission Diagnosis/Problem Admission Diagnosis/Problem Chest pain Exam - Vital Signs Vital Signs: Last Vital Signs Temp 36.1 C 07/18/19 08:10 Pulse 102 H 07/18/19 08:45 Resp 16 07/18/19 08:10 BP 126/75 07/18/19 08:47 Pulse Ox 96 07/18/19 08:10 - Patient Data Lab Results Last 24 hrs: Laboratory Results - last 24 hr 07/17/19 07/17/19 07/18/19 Range/Units 15:09 20:48 05:53 WBC 8.07 (4.0-11.0) K/uL RBC 3.61 L (4.30-5.90) M/uL Hgb 11.1 L (12.0-16.0) g/dL Hct 34.0 L (36.0-46.0) % MCV 94.2 (80.0-98.0) fL MCH 30.7 (27.0-32.0) pg MCHC 32.6 (31.0-37.0) g/dL RDW Std Deviation 48.9 (28.0-62.0) fl RDW Coeff of Yovani 14 (11.0-15.0) % Plt Count 151 (150-400) K/uL MPV 9.80 (7.40-12.00) fL Neut % (Auto) 88.4 H (48.0-80.0) % Lymph % (Auto) 10.0 L (16.0-40.0) % [place] % (Auto) 1.0 (0.0-15.0) % Eos % (Auto) 0.4 (0.0-7.0) % Baso % (Auto) 0.2 (0.0-1.5) % Neut # (Auto) 7.1 H (1.4-5.7) K/uL Lymph # (Auto) 0.8 (0.6-2.4) K/uL [place] # (Auto) 0.1 (0.0-0.8) K/uL Eos # (Auto) 0.0 (0.0-0.7) K/uL Baso # (Auto) 0.0 (0.0-0.1) K/uL Nucleated RBC % 0.0 /100WBC Nucleated RBCs # 0 K/uL Sodium (136-145) mmol/L Potassium (3.5-5.1) mmol/L Chloride (98-107) mmol/L Carbon Dioxide (21.0-32.0) mmol/L BUN (7.0-18.0) mg/dL Creatinine (0.6-1.0) mg/dL Est Cr Clr Drug Dosing mL/min Estimated GFR (MDRD) ml/min Glucose (74-106) mg/dL POC Glucose (60-110) mg/dL Calcium (8.5-10.1) mg/dL Total Bilirubin (0.2-1.0) mg/dL AST (15-37) IU/L ALT (14-63) IU/L Alkaline Phosphatase (46-116) U/L Troponin I < 0.050 (0.000-0.056) ng/mL B-Natriuretic Peptide 192 H (<100) PG/ML Total Protein (6.4-8.2) g/dL Albumin (3.4-5.0) g/dL Globulin (2.6-4.0) g/dL Albumin/Globulin Ratio (0.9-1.6) 07/18/19 07/18/19 Range/Units 05:53 06:17 WBC (4.0-11.0) K/uL RBC (4.30-5.90) M/uL Hgb (12.0-16.0) g/dL Hct (36.0-46.0) % MCV (80.0-98.0) fL MCH (27.0-32.0) pg MCHC (31.0-37.0) g/dL RDW Std Deviation (28.0-62.0) fl RDW Coeff of Yovani (11.0-15.0) % Plt Count (150-400) K/uL MPV (7.40-12.00) fL Neut % (Auto) (48.0-80.0) % Lymph % (Auto) (16.0-40.0) % [place] % (Auto) (0.0-15.0) % Eos % (Auto) (0.0-7.0) % Baso % (Auto) (0.0-1.5) % Neut # (Auto) (1.4-5.7) K/uL Lymph # (Auto) (0.6-2.4) K/uL [place] # (Auto) (0.0-0.8) K/uL Eos # (Auto) (0.0-0.7) K/uL Baso # (Auto) (0.0-0.1) K/uL Nucleated RBC % /100WBC Nucleated RBCs # K/uL Sodium 139 (136-145) mmol/L Potassium 4.2 (3.5-5.1) mmol/L Chloride 100 (98-107) mmol/L Carbon Dioxide 33.6 H (21.0-32.0) mmol/L BUN 56 H (7.0-18.0) mg/dL Creatinine 1.9 H (0.6-1.0) mg/dL Est Cr Clr Drug Dosing 21.48 mL/min Estimated GFR (MDRD) 26.1 ml/min Glucose 264 H (74-106) mg/dL POC Glucose 241 H (60-110) mg/dL Calcium 9.6 (8.5-10.1) mg/dL Total Bilirubin 0.5 (0.2-1.0) mg/dL AST 13 L (15-37) IU/L ALT 14 (14-63) IU/L Alkaline Phosphatase 61 (46-116) U/L Troponin I (0.000-0.056) ng/mL B-Natriuretic Peptide (<100) PG/ML Total Protein 8.1 (6.4-8.2) g/dL Albumin 3.9 (3.4-5.0) g/dL Globulin 4.2 H (2.6-4.0) g/dL Albumin/Globulin Ratio 0.9 (0.9-1.6) Result Diagrams: 07/18/19 05:53 07/18/19 05:53 Orders Last 24hrs: Active Orders 24 hr Category Date Time Status Accu Check [Blood Glucose Check, Bedside] [RC] TIDAC Care 07/17/19 19:36 Active RT Aerosol Therapy [RC] ASDIRECTED Care 07/17/19 20:22 Active Ready for Discharge [RC] PER UNIT ROUTINE Care 07/18/19 09:56 Active Assessment/Plan Comment:: I performed a history and physical exam of the patient and discussed management with resident. I have reviewed the residents note and agree with documented findings and plan unless otherwise specified in my note.
[2019-07-18] MEDS: predniSONE 10 MG Tab PO SCH ×2 (01:27→08:45)
[2019-07-18 06:29] LABS: CARBON DIOXIDE,CO2 33.6 mmol/L (21.0-32.0); POTASSIUM,K 4.2 mmol/L (3.5-5.1)
[2019-07-18] MEDS ORDERED: Insulin Aspart 100 Units/ML 3 ML Pen SUBCUT SCH (07:30)
[2019-07-18] MEDS ORDERED: Furosemide 40 MG Tab PO SCH (08:00)
[2019-07-18 08:12] VITALS: PULSE 102
[2019-07-18] MEDS: Carvedilol 25 MG Tab PO SCH (08:45)
[2019-07-18] MEDS: Pantoprazole 40 MG Tab.CR PO SCH (08:46)
[2019-07-18] MEDS: Apixaban 5 MG Tab PO SCH (08:46)
[2019-07-18 08:48] VITALS: BP 126/75
[2019-07-18] MEDS ORDERED: Simvastatin 20 MG Tab PO SCH (09:00)
[2019-07-18] MEDS ORDERED: Diltiazem 180 MG Cap.CD PO SCH (09:00)
[2019-07-18] MEDS ORDERED: Omeprazole 20 MG Cap.CR PO SCH (09:00)
[2019-07-18] MEDS ORDERED: Allopurinol 100 MG Tab PO SCH (09:00)
--- NOTE | 2019-07-18 11:17 | PCM.DCSUM1 ---
Discharge Summary - Hospital Course Brief History: 73-year-old female presents to ER with complaints of chest pain that started at 5 AM this morning. The pain is located substernally, characterized as "heavy" in nature, unrelated to activity, no radiation, 7/10 on a pain scale. She has a PMH of atrial fibrillation, DM type 2, COPD on home oxygen and CHF. Patient reports an increase in her home oxygen from 3L at baseline to 4L over the past week. Denies any fevers, sweats, nausea, vomiting, blurry vision or cough. She also denies any recent weight gain. Patient is a non -smoker. In the ER, patient was given a full-dose of aspirin. EKG showed rate- controlled atrial fibrillation. Patient admitted for further evaluation. Diagnosis: Stroke: No - Discharge Data Discharge Date: 07/18/19 Discharge Disposition: Home, Self-Care 01 Condition: Stable - Referral to Home Health Primary Care Physician: Paloma Myers PA-C - Discharge Diagnosis/Problem(s) (1) Chest pain SNOMED Code(s): 22521143 ICD Code: R07.9 - CHEST PAIN, UNSPECIFIED Status: Acute Qualifiers: Chest pain type: unspecified Qualified Code(s): R07.9 - Chest pain, unspecified (2) COPD exacerbation SNOMED Code(s): 587600331, 219696183 ICD Code: J44.1 - CHRONIC OBSTRUCTIVE PULMONARY DISEASE W (ACUTE) EXACERBATION Status: Acute Priority: High (3) Pulmonary hypertension SNOMED Code(s): 64358621 ICD Code: I27.2 - OTHER SECONDARY PULMONARY HYPERTENSION * DO NOT USE * Status: Acute - Patient Instructions Diet: Heart Healthy Diet, Diabetic Diet Activity: As Tolerated, No Strenuous Activities Notify Provider of: Fever, Increased Pain, Swelling and Redness, Drainage, Nausea and/or Vomiting - Discharge Plan *PRESCRIPTION DRUG MONITORING PROGRAM REVIEWED*: Not Applicable *COPY OF PRESCRIPTION DRUG MONITORING REPORT IN PATIENT JULISSA: Not Applicable Prescriptions/Med Rec: Albuterol [Ventolin HFA] 1 - 2 puff INH Q4H PRN #1 inh PRN Reason: shortness of breath/wheezing Albuterol [Proventil Neb Soln] 2.5 mg NEB Q4H PRN #1 box PRN Reason: sob/wheezing predniSONE [Prednisone] 20 mg PO DAILY #6 tablet Home Medications: Home Meds Omeprazole 20 mg PO DAILY 02/27/14 [History] Simvastatin [Zocor] 20 mg PO DAILY 02/27/14 [History] captopriL [Capoten] 12.5 mg PO DAILY 02/27/14 [History] Gabapentin [Neurontin] 300 mg PO BEDTIME #45 cap 01/10/15 [Rx] Carvedilol [Coreg] 1 tab PO BID 09/03/16 [History] Potassium Chloride 8 meq PO BID 09/03/16 [History] Diltiazem [Cardizem CD] 180 mg PO DAILY 30 Days cap.cd 09/07/16 [Rx] Allopurinol [Zyloprim] 100 mg PO DAILY 07/17/19 [History] Apixaban [Eliquis] 5 mg PO BID 07/17/19 [History] Furosemide 1.5 tab PO BID 07/17/19 [History] glipiZIDE [Glucotrol XL] 10 mg PO DAILY 07/17/19 [History] Albuterol [Proventil Neb Soln] 2.5 mg NEB Q4H PRN #1 box 07/18/19 [Rx] Albuterol [Ventolin HFA] 1 - 2 puff INH Q4H PRN #1 inh 07/18/19 [Rx] predniSONE [Prednisone] 20 mg PO DAILY #6 tablet 07/18/19 [Rx] Oxygen Therapy Mode: Nasal Cannula Patient Handouts: Albuterol inhalation aerosol, Nonspecific Chest Pain, Easy-to -Read, Prednisone tablets Referrals: Zheng Berry MD [Physician] - 08/03/19 10:00 am Mercedes Peres MD [Physician] - 07/23/19 2:30 pm - Discharge Summary/Plan Comment DC Time >30 min.: No Discharge Summary/Plan Comment: Admitting Diagnoses: Chest pain COPD exacerbation Discharge Diagnoses: Chest pain-resolved COPD exacerbation Debbi was admitted and monitored overnight for ACS, troponins negative, no EKG changes and no recurrent chest pain. She was started on Prednisone 40 mg PO BID and was weaned back to 3 L NC which is baseline. This morning she was feeling much improved and requested discharge home. I will send her home with short Prednisone taper, I also refilled her albuterol nebulizers. She is recommended to have stress test and consider PFTs as outpatient as well. She is to follow up with PCP and Dr Berry. Debbi is to return to ED or clinic if concerns should arise. - General Info Date of Service: 07/18/19 Admission Dx/Problem (Free Text: Admission Diagnosis/Problem Admission Diagnosis/Problem Chest pain Subjective Update: Denies concerns. No chest pain or SOB. Asking for discharge. Functional Status: Reports: Pain Controlled - Review of Systems HEENT: Reports: No Symptoms Pulmonary: Reports: No Symptoms. Denies: Shortness of Breath Cardiovascular: Reports: No Symptoms. Denies: Chest Pain Gastrointestinal: Reports: No Symptoms Skin: Reports: No Symptoms Neurological: Reports: No Symptoms Psychiatric: Reports: No Symptoms - Patient Data Vitals - Most Recent: Last Vital Signs Temp 97.0 F 07/18/19 08:10 Pulse 102 H 07/18/19 08:45 Resp 16 07/18/19 08:10 BP 126/75 07/18/19 08:47 Pulse Ox 96 07/18/19 08:10 Weight - Most Recent: 118.4 kg I&O - Last 24 hours: Intake & Output 07/17/19 07/18/19 07/18/19 22:59 06:59 14:59 Intake Total 1340 Output Total 1050 Balance 290 Lab Results - Last 24 hrs: Laboratory Results - last 24 hr 07/17/19 07/17/19 07/17/19 Range/Units 15:00 15:01 15:09 WBC 7.30 (4.0-11.0) K/uL RBC 3.80 L (4.30-5.90) M/uL Hgb 11.9 L (12.0-16.0) g/dL Hct 35.8 L (36.0-46.0) % MCV 94.2 (80.0-98.0) fL MCH 31.3 (27.0-32.0) pg MCHC 33.2 (31.0-37.0) g/dL RDW Std Deviation 49.6 (28.0-62.0) fl RDW Coeff of Yovani 14 (11.0-15.0) % Plt Count 159 (150-400) K/uL MPV 9.80 (7.40-12.00) fL Neut % (Auto) 77.6 (48.0-80.0) % Lymph % (Auto) 14.0 L (16.0-40.0) % [place] % (Auto) 5.9 (0.0-15.0) % Eos % (Auto) 2.1 (0.0-7.0) % Baso % (Auto) 0.4 (0.0-1.5) % Neut # (Auto) 5.7 (1.4-5.7) K/uL Lymph # (Auto) 1.0 (0.6-2.4) K/uL [place] # (Auto) 0.4 (0.0-0.8) K/uL Eos # (Auto) 0.2 (0.0-0.7) K/uL Baso # (Auto) 0.0 (0.0-0.1) K/uL Nucleated RBC % 0.0 /100WBC Nucleated RBCs # 0 K/uL INR Sodium (136-145) mmol/L Potassium (3.5-5.1) mmol/L Chloride (98-107) mmol/L Carbon Dioxide (21.0-32.0) mmol/L BUN (7.0-18.0) mg/dL Creatinine (0.6-1.0) mg/dL Est Cr Clr Drug Dosing mL/min Estimated GFR (MDRD) ml/min Glucose (74-106) mg/dL POC Glucose 261 H (60-110) mg/dL Calcium (8.5-10.1) mg/dL Total Bilirubin (0.2-1.0) mg/dL AST (15-37) IU/L ALT (14-63) IU/L Alkaline Phosphatase (46-116) U/L Troponin I (0.000-0.056) ng/mL Total Protein (6.4-8.2) g/dL Albumin (3.4-5.0) g/dL Globulin (2.6-4.0) g/dL Albumin/Globulin Ratio (0.9-1.6) Lipase (73-393) U/L Urine Color YELLOW Urine Appearance CLEAR Urine pH 6.5 (5.0-8.0) Ur Specific [place] 1.010 (1.001-1.035) Urine Protein NEGATIVE (NEGATIVE) mg/dL Urine Glucose (UA) 100 H (NEGATIVE) mg/dL Urine Ketones NEGATIVE (NEGATIVE) mg/dL Urine Occult Blood NEGATIVE (NEGATIVE) Urine Nitrite NEGATIVE (NEGATIVE) Urine Bilirubin NEGATIVE (NEGATIVE) Urine Urobilinogen 0.2 (<2.0) EU/dL Ur Leukocyte Esterase TRACE H (NEGATIVE) Urine RBC 0-2 (0-2/HPF) Urine WBC 3-5 (0-5/HPF) Ur Epithelial Cells FEW (NONE-FEW) Urine Bacteria FEW (NEGATIVE) 07/17/19 07/17/19 07/17/19 Range/Units 15:09 15:09 15:09 WBC (4.0-11.0) K/uL RBC (4.30-5.90) M/uL Hgb (12.0-16.0) g/dL Hct (36.0-46.0) % MCV (80.0-98.0) fL MCH (27.0-32.0) pg MCHC (31.0-37.0) g/dL RDW Std Deviation (28.0-62.0) fl RDW Coeff of Yovani (11.0-15.0) % Plt Count (150-400) K/uL MPV (7.40-12.00) fL Neut % (Auto) (48.0-80.0) % Lymph % (Auto) (16.0-40.0) % [place] % (Auto) (0.0-15.0) % Eos % (Auto) (0.0-7.0) % Baso % (Auto) (0.0-1.5) % Neut # (Auto) (1.4-5.7) K/uL Lymph # (Auto) (0.6-2.4) K/uL [place] # (Auto) (0.0-0.8) K/uL Eos # (Auto) (0.0-0.7) K/uL Baso # (Auto) (0.0-0.1) K/uL Nucleated RBC % /100WBC Nucleated RBCs # K/uL INR 1.03 Sodium 141 (136-145) mmol/L Potassium 3.8 (3.5-5.1) mmol/L Chloride 100 (98-107) mmol/L Carbon Dioxide 32.8 H (21.0-32.0) mmol/L BUN 56 H (7.0-18.0) mg/dL Creatinine 2.0 H (0.6-1.0) mg/dL Est Cr Clr Drug Dosing 20.41 mL/min Estimated GFR (MDRD) 24.6 ml/min Glucose 267 H (74-106) mg/dL POC Glucose (60-110) mg/dL Calcium 9.6 (8.5-10.1) mg/dL Total Bilirubin 0.3 (0.2-1.0) mg/dL AST 12 L (15-37) IU/L ALT 17 (14-63) IU/L Alkaline Phosphatase 67 (46-116) U/L Troponin I < 0.050 (0.000-0.056) ng/mL Total Protein 8.4 H (6.4-8.2) g/dL Albumin 4.1 (3.4-5.0) g/dL Globulin 4.3 H (2.6-4.0) g/dL Albumin/Globulin Ratio 1.0 (0.9-1.6) Lipase 393 (73-393) U/L Urine Color Urine Appearance Urine pH (5.0-8.0) Ur Specific [place] (1.001-1.035) Urine Protein (NEGATIVE) mg/dL Urine Glucose (UA) (NEGATIVE) mg/dL Urine Ketones (NEGATIVE) mg/dL Urine Occult Blood (NEGATIVE) Urine Nitrite (NEGATIVE) Urine Bilirubin (NEGATIVE) Urine Urobilinogen (<2.0) EU/dL Ur Leukocyte Esterase (NEGATIVE) Urine RBC (0-2/HPF) Urine WBC (0-5/HPF) Ur Epithelial Cells (NONE-FEW) Urine Bacteria (NEGATIVE) 07/17/19 07/17/19 07/18/19 Range/Units 17:53 20:48 05:53 WBC 8.07 (4.0-11.0) K/uL RBC 3.61 L (4.30-5.90) M/uL Hgb 11.1 L (12.0-16.0) g/dL Hct 34.0 L (36.0-46.0) % MCV 94.2 (80.0-98.0) fL MCH 30.7 (27.0-32.0) pg MCHC 32.6 (31.0-37.0) g/dL RDW Std Deviation 48.9 (28.0-62.0) fl RDW Coeff of Yovani 14 (11.0-15.0) % Plt Count 151 (150-400) K/uL MPV 9.80 (7.40-12.00) fL Neut % (Auto) 88.4 H (48.0-80.0) % Lymph % (Auto) 10.0 L (16.0-40.0) % [place] % (Auto) 1.0 (0.0-15.0) % Eos % (Auto) 0.4 (0.0-7.0) % Baso % (Auto) 0.2 (0.0-1.5) % Neut # (Auto) 7.1 H (1.4-5.7) K/uL Lymph # (Auto) 0.8 (0.6-2.4) K/uL [place] # (Auto) 0.1 (0.0-0.8) K/uL Eos # (Auto) 0.0 (0.0-0.7) K/uL Baso # (Auto) 0.0 (0.0-0.1) K/uL Nucleated RBC % 0.0 /100WBC Nucleated RBCs # 0 K/uL INR Sodium (136-145) mmol/L Potassium (3.5-5.1) mmol/L Chloride (98-107) mmol/L Carbon Dioxide (21.0-32.0) mmol/L BUN (7.0-18.0) mg/dL Creatinine (0.6-1.0) mg/dL Est Cr Clr Drug Dosing mL/min Estimated GFR (MDRD) ml/min Glucose (74-106) mg/dL POC Glucose (60-110) mg/dL Calcium (8.5-10.1) mg/dL Total Bilirubin (0.2-1.0) mg/dL AST (15-37) IU/L ALT (14-63) IU/L Alkaline Phosphatase (46-116) U/L Troponin I < 0.050 < 0.050 (0.000-0.056) ng/mL Total Protein (6.4-8.2) g/dL Albumin (3.4-5.0) g/dL Globulin (2.6-4.0) g/dL Albumin/Globulin Ratio (0.9-1.6) Lipase (73-393) U/L Urine Color Urine Appearance Urine pH (5.0-8.0) Ur Specific [place] (1.001-1.035) Urine Protein (NEGATIVE) mg/dL Urine Glucose (UA) (NEGATIVE) mg/dL Urine Ketones (NEGATIVE) mg/dL Urine Occult Blood (NEGATIVE) Urine Nitrite (NEGATIVE) Urine Bilirubin (NEGATIVE) Urine Urobilinogen (<2.0) EU/dL Ur Leukocyte Esterase (NEGATIVE) Urine RBC (0-2/HPF) Urine WBC (0-5/HPF) Ur Epithelial Cells (NONE-FEW) Urine Bacteria (NEGATIVE) 07/18/19 07/18/19 Range/Units 05:53 06:17 WBC (4.0-11.0) K/uL RBC (4.30-5.90) M/uL Hgb (12.0-16.0) g/dL Hct (36.0-46.0) % MCV (80.0-98.0) fL MCH (27.0-32.0) pg MCHC (31.0-37.0) g/dL RDW Std Deviation (28.0-62.0) fl RDW Coeff of Yovani (11.0-15.0) % Plt Count (150-400) K/uL MPV (7.40-12.00) fL Neut % (Auto) (48.0-80.0) % Lymph % (Auto) (16.0-40.0) % [place] % (Auto) (0.0-15.0) % Eos % (Auto) (0.0-7.0) % Baso % (Auto) (0.0-1.5) % Neut # (Auto) (1.4-5.7) K/uL Lymph # (Auto) (0.6-2.4) K/uL [place] # (Auto) (0.0-0.8) K/uL Eos # (Auto) (0.0-0.7) K/uL Baso # (Auto) (0.0-0.1) K/uL Nucleated RBC % /100WBC Nucleated RBCs # K/uL INR Sodium 139 (136-145) mmol/L Potassium 4.2 (3.5-5.1) mmol/L Chloride 100 (98-107) mmol/L Carbon Dioxide 33.6 H (21.0-32.0) mmol/L BUN 56 H (7.0-18.0) mg/dL Creatinine 1.9 H (0.6-1.0) mg/dL Est Cr Clr Drug Dosing 21.48 mL/min Estimated GFR (MDRD) 26.1 ml/min Glucose 264 H (74-106) mg/dL POC Glucose 241 H (60-110) mg/dL Calcium 9.6 (8.5-10.1) mg/dL Total Bilirubin 0.5 (0.2-1.0) mg/dL AST 13 L (15-37) IU/L ALT 14 (14-63) IU/L Alkaline Phosphatase 61 (46-116) U/L Troponin I (0.000-0.056) ng/mL Total Protein 8.1 (6.4-8.2) g/dL Albumin 3.9 (3.4-5.0) g/dL Globulin 4.2 H (2.6-4.0) g/dL Albumin/Globulin Ratio 0.9 (0.9-1.6) Lipase (73-393) U/L Urine Color Urine Appearance Urine pH (5.0-8.0) Ur Specific [place] (1.001-1.035) Urine Protein (NEGATIVE) mg/dL Urine Glucose (UA) (NEGATIVE) mg/dL Urine Ketones (NEGATIVE) mg/dL Urine Occult Blood (NEGATIVE) Urine Nitrite (NEGATIVE) Urine Bilirubin (NEGATIVE) Urine Urobilinogen (<2.0) EU/dL Ur Leukocyte Esterase (NEGATIVE) Urine RBC (0-2/HPF) Urine WBC (0-5/HPF) Ur Epithelial Cells (NONE-FEW) Urine Bacteria (NEGATIVE) Med Orders - Current: Current Medications Allopurinol (Zyloprim) 100 mg PO DAILY [facility] Last Admin: 07/18/19 08:45 Dose: 100 mg Apixaban (Eliquis) 5 mg PO BID [facility] Last Admin: 07/18/19 08:46 Dose: 5 mg Captopril (Capoten) 12.5 mg PO DAILY [facility] Last Admin: 07/18/19 08:47 Dose: 12.5 mg Carvedilol (Coreg) 25 mg PO BID [facility] Last Admin: 07/18/19 08:45 Dose: 25 mg Diltiazem HCl (Cardizem Cd) 180 mg PO DAILY [facility] Last Admin: 07/18/19 08:47 Dose: 180 mg Furosemide (Lasix) 60 mg PO BIDDIURETIC [facility] Last Admin: 07/18/19 08:46 Dose: 60 mg Gabapentin (Neurontin) 300 mg PO BEDTIME [facility] Last Admin: 07/17/19 20:45 Dose: 300 mg Insulin Aspart (Novolog) 0 unit SUBCUT TIDAC [facility]; Protocol Last Admin: 07/18/19 08:43 Dose: 4 units Pantoprazole Sodium (Protonix) 40 mg PO DAILY [facility] Last Admin: 07/18/19 08:46 Dose: 40 mg Prednisone (Prednisone) 40 mg PO BID [facility] Last Admin: 07/18/19 08:45 Dose: 40 mg Simvastatin (Zocor) 20 mg PO DAILY [facility] Last Admin: 07/18/19 08:47 Dose: 20 mg Discontinued Medications Al Hydroxide/Mg Hydroxide (Mag-Al Plus) 30 ml PO ONETIME ONE Stop: 07/17/19 20:22 Last Admin: 07/17/19 20:46 Dose: 30 ml Albuterol/Ipratropium (Duoneb 3.0-0.5 Mg/3 Ml) 3 ml NEB ONETIME ONE Stop: 07/17/19 20:23 Last Admin: 07/17/19 20:50 Dose: 3 ml Aspirin (Aspirin) 324 mg PO ONETIME ONE Stop: 07/17/19 16:38 Last Admin: 07/17/19 16:56 Dose: 324 mg Furosemide (Lasix) 120 mg PO BIDDIURETIC [facility] Last Admin: 07/18/19 02:04 Dose: Not Given Heparin Sodium (Porcine) (Heparin Sodium) 5,000 units SUBCUT Q8H [facility] Furosemide 40 mg/ Sodium (Chloride) 54 mls @ 100 mls/hr IV DAILY [facility] Sodium Chloride (Normal Saline) 500 mls @ 999 mls/hr IV .BOLUS ONE Stop: 07/17/19 20:49 Last Admin: 07/17/19 20:45 Dose: 999 mls/hr Omeprazole (Omeprazole) 20 mg PO DAILY [facility] - Exam Quality Assessment: Reports: Supplemental Oxygen (at baseline, 3 L) General: Reports: Alert, Oriented Lungs: Reports: Clear to Auscultation, Normal Respiratory Effort Cardiovascular: Reports: Regular Rate, Regular Rhythm GI/Abdominal Exam: Normal Bowel Sounds, Soft, Non-Tender Extremities: Pedal Edema (+2 edema, at baseline, no change.) Neurological: Reports: No New Focal Deficit Psy/Mental Status: Reports: Alert, Normal Affect, Normal Mood
== END 2019-07-18 11:35 | disposition home or self-care (01) ==
LOC: MW.ED 14:53 → MW.MS 17:06
PROVIDERS: ADMIT Student in an Organized Health Care Education/Training Program; ATTEND Student in an Organized Health Care Education/Training Program
DX: R07.2 Precordial pain (principal); J44.1 Chronic obstructive pulmonary disease with (acute) exacerbation; J96.21 Acute and chronic respiratory failure with hypoxia; I11.0 Hypertensive heart disease with heart failure; I50.9 Heart failure, unspecified; I27.29 Other secondary pulmonary hypertension; I48.91 Unspecified atrial fibrillation; E11.9 Type 2 diabetes mellitus without complications; K21.9 Gastro-esophageal reflux disease without esophagitis; N17.9 Acute kidney failure, unspecified; Z99.81 Dependence on supplemental oxygen; Z79.899 Other long term (current) drug therapy; Z79.01 Long term (current) use of anticoagulants; Z88.0 Allergy status to penicillin; Z79.891 Long term (current) use of opiate analgesic; Z87.891 Personal history of nicotine dependence
CPT/HCPCS: 36415; 71045; 80053; 81001; 82962; 83690; 83880; 84484; 85025; 85610; 87086; 87088; 87186; 93005; 94640; 99285; A9270; J1815; J7040; G0378; J7620-GY

== ENCOUNTER 2020-01-28 13:51 | Observation (INO) | payer MEDICARE, OTHER ==
--- NOTE | 2020-01-28 14:23 | EDM.PDOC ---
ED HPI GENERAL MEDICAL PROBLEM - General Chief Complaint: Neuro Symptoms/Deficits Stated Complaint: STROKE CODE Time Seen by Provider: 01/28/20 13:51 Source of Information: Reports: Patient History Limitations: Reports: No Limitations - History of Present Illness INITIAL COMMENTS - FREE TEXT/NARRATIVE: 74-year-old female with history of CHF, Afib with RVR, aortic stenosis, COPD on 2.5L oxygen, diabetes presents with right-sided numbness upon waking up at 7 AM. She went to sleep last night at midnight. She denies fever, chills, nausea , vomiting, chest pain, shortness of breath, abdominal pain. She did wake up with a mild right-sided frontal headache that is nonradiating. She is currently on Eliquis. ROS: A 10-point review of systems, other than pertinent positives and negatives as stated per HPI, is otherwise negative PHYSICAL EXAM General: AOx4, GCS = 15, No distress, morbid obesity HEENT: dry mucous membrane Neck: supple, no meningismus, no Kernig or Brudzinski Cardiac: S1S2 RRR with systolic murmur Respiratory: CTAB, no crackles or rales, no wheezing Abdomen: Soft, nontender, no rebound or guarding, nondistended, no pulsatile mass. Back: nontender Musculoskeletal: NVI distally, no deformity Neuro: No focal deficits, CN 2 - 12 WNL. NIHSS = 0 MEDICAL DECISION MAKING: I reviewed the patients past medical records, lab and radiographic findings. I discussed the case with family members. My differential diagnosis included: CVA, TIA, electrolyte abnormality. tPA was considered but withheld due to NIHSS = 0 and prolonged last known well. Patient 's creatinine is 1.8 today, which is at baseline. - Related Data Allergies Allergy/AdvReac Type Severity Reaction Status Date / Time amoxicillin [Amoxicillin] Allergy Cannot Verified 01/28/20 14:27 Remember tramadol Allergy Dizziness Verified 01/28/20 14:27 Home Meds: Home Meds Omeprazole 20 mg PO ACBREAKFAST 02/27/14 [History] Simvastatin [Zocor] 20 mg PO DAILY 02/27/14 [History] Carvedilol [Coreg] 1 tab PO BID 09/03/16 [History] Potassium Chloride 8 meq PO BID 09/03/16 [History] Apixaban [Eliquis] 5 mg PO BID 07/17/19 [History] Furosemide 120 tab PO DAILY 07/17/19 [History] allopurinoL [Zyloprim] 100 mg PO BID 07/17/19 [History] glipiZIDE [Glucotrol XL] 10 mg PO DAILY 07/17/19 [History] Bumetanide 1 mg PO DAILY 01/28/20 [History] ClonazePAM [KlonoPIN] 0.5 mg PO BEDTIME 01/28/20 [History] Diltiazem [Dilacor XR] 120 mg PO DAILY 01/28/20 [History] Insulin Detemir [Levemir Flextouch] 30 unit SQ QAM 01/28/20 [History] metOLazone [Metolazone] 2.5 mg PO DAILY 01/28/20 [History] Past Medical History HEENT History: Reports: None Cardiovascular History: Reports: Afib, Heart Murmur, Hypertension, Other (See Below) Other Cardiovascular History: CHF Respiratory History: Reports: COPD, SOB Other Respiratory History: history of pneumonia 5 years ago Gastrointestinal History: Reports: GERD Genitourinary History: Reports: Diabetic Nephropathy GENERAL DENTIST/OWNER History: Reports: Other GENERAL DENTIST/OWNER History: Hysterectomy Neurological History: Reports: Neuropathy, Peripheral Psychiatric History: Reports: Depression, Mood Swings Endocrine/Metabolic History: Reports: Diabetes, Type II Hematologic History: Reports: None Immunologic History: Reports: None Oncologic (Cancer) History: Reports: None Dermatologic History: Reports: None - Infectious Disease History Infectious Disease History: Reports: Chicken Pox, Measles, Mumps - Past Surgical History HEENT Surgical History: Reports: None GI Surgical History: Reports: Appendectomy, Cholecystectomy, Colonoscopy, EGD, Hernia, Abdominal Female Surgical History: Reports: Hysterectomy Musculoskeletal Surgical History: Reports: Knee Replacement Social & Family History - Family History Family Medical History: Noncontributory HEENT: Reports: None Cardiac: Reports: None Respiratory: Reports: Other (See Below) Other Respiratory Family Hisory: emphysema GI: Reports: None : Reports: None OBGYN: Reports: None Musculoskeletal: Reports: None Neurological: Reports: None Psychiatric: Reports: None Endocrine/Metabolic: Reports: Diabetes, type II Hematologic: Reports: None Immunologic: Reports: None Dermatologic: Reports: None Oncologic: Reports: None - Caffeine Use Caffeine Use: Reports: Coffee ED ROS GENERAL - Review of Systems Review Of Systems: See Below (see dictation) ED EXAM, NEURO - Physical Exam Exam: See Below (see dictation) EKG INTERPRETATION EKG Interpretation Comments: 92 Bpm, Afib, normal QRS interval, no STEMI. EKG and rhythm strip interpreted by me at 1425 Course - Vital Signs Last Recorded V/S: Last Vital Signs Temp 97.5 F 01/28/20 13:51 Pulse 100 01/28/20 13:51 Resp 17 01/28/20 13:51 BP 145/91 H 01/28/20 13:51 Pulse Ox 93 L 01/28/20 13:51 - Orders/Labs/Meds Orders: Active Orders 24 hr Category Date Time Status EKG Documentation Completion [RC] STAT Care 01/28/20 14:05 Active Labs: Laboratory Tests 01/28/20 01/28/20 01/28/20 Range/Units 13:57 13:57 13:57 WBC 7.33 (4.0-11.0) K/uL RBC 3.94 L (4.30-5.90) M/uL Hgb 12.2 (12.0-16.0) g/dL Hct 36.6 (36.0-46.0) % MCV 92.9 (80.0-98.0) fL MCH 31.0 (27.0-32.0) pg MCHC 33.3 (31.0-37.0) g/dL RDW Std Deviation 51.4 (28.0-62.0) fl RDW Coeff of Yovani 15 (11.0-15.0) % Plt Count 161 (150-400) K/uL MPV 9.70 (7.40-12.00) fL Neut % (Auto) 74.2 (48.0-80.0) % Lymph % (Auto) 14.3 L (16.0-40.0) % [place] % (Auto) 7.5 (0.0-15.0) % Eos % (Auto) 3.5 (0.0-7.0) % Baso % (Auto) 0.5 (0.0-1.5) % Neut # (Auto) 5.4 (1.4-5.7) K/uL Lymph # (Auto) 1.1 (0.6-2.4) K/uL [place] # (Auto) 0.6 (0.0-0.8) K/uL Eos # (Auto) 0.3 (0.0-0.7) K/uL Baso # (Auto) 0.0 (0.0-0.1) K/uL Nucleated RBC % 0.0 /100WBC Nucleated RBCs # 0 K/uL INR 1.07 Sodium 140 (136-145) mmol/L Potassium 3.5 (3.5-5.1) mmol/L Chloride 95 L (98-107) mmol/L Carbon Dioxide 34.6 H (21.0-32.0) mmol/L BUN 35 H (7.0-18.0) mg/dL Creatinine 1.8 H (0.6-1.0) mg/dL Est Cr Clr Drug Dosing TNP Estimated GFR (MDRD) 27.7 ml/min Glucose 73 L (74-106) mg/dL Calcium 9.0 (8.5-10.1) mg/dL Total Bilirubin 0.6 (0.2-1.0) mg/dL AST 23 (15-37) IU/L ALT 15 (14-63) IU/L Alkaline Phosphatase 59 (46-116) U/L Troponin I < 0.050 (0.000-0.056) ng/mL Total Protein 7.9 (6.4-8.2) g/dL Albumin 3.9 (3.4-5.0) g/dL Globulin 4.0 (2.6-4.0) g/dL Albumin/Globulin Ratio 1.0 (0.9-1.6) Urine Color Urine Appearance Urine pH (5.0-8.0) Ur Specific [place] (1.001-1.035) Urine Protein (NEGATIVE) mg/dL Urine Glucose (UA) (NEGATIVE) mg/dL Urine Ketones (NEGATIVE) mg/dL Urine Occult Blood (NEGATIVE) Urine Nitrite (NEGATIVE) Urine Bilirubin (NEGATIVE) Urine Urobilinogen (<2.0) EU/dL Ur Leukocyte Esterase (NEGATIVE) 01/28/20 Range/Units 14:46 WBC (4.0-11.0) K/uL RBC (4.30-5.90) M/uL Hgb (12.0-16.0) g/dL Hct (36.0-46.0) % MCV (80.0-98.0) fL MCH (27.0-32.0) pg MCHC (31.0-37.0) g/dL RDW Std Deviation (28.0-62.0) fl RDW Coeff of Yovani (11.0-15.0) % Plt Count (150-400) K/uL MPV (7.40-12.00) fL Neut % (Auto) (48.0-80.0) % Lymph % (Auto) (16.0-40.0) % [place] % (Auto) (0.0-15.0) % Eos % (Auto) (0.0-7.0) % Baso % (Auto) (0.0-1.5) % Neut # (Auto) (1.4-5.7) K/uL Lymph # (Auto) (0.6-2.4) K/uL [place] # (Auto) (0.0-0.8) K/uL Eos # (Auto) (0.0-0.7) K/uL Baso # (Auto) (0.0-0.1) K/uL Nucleated RBC % /100WBC Nucleated RBCs # K/uL INR Sodium (136-145) mmol/L Potassium (3.5-5.1) mmol/L Chloride (98-107) mmol/L Carbon Dioxide (21.0-32.0) mmol/L BUN (7.0-18.0) mg/dL Creatinine (0.6-1.0) mg/dL Est Cr Clr Drug Dosing Estimated GFR (MDRD) ml/min Glucose (74-106) mg/dL Calcium (8.5-10.1) mg/dL Total Bilirubin (0.2-1.0) mg/dL AST (15-37) IU/L ALT (14-63) IU/L Alkaline Phosphatase (46-116) U/L Troponin I (0.000-0.056) ng/mL Total Protein (6.4-8.2) g/dL Albumin (3.4-5.0) g/dL Globulin (2.6-4.0) g/dL Albumin/Globulin Ratio (0.9-1.6) Urine Color YELLOW Urine Appearance CLEAR Urine pH 7.0 (5.0-8.0) Ur Specific [place] 1.010 (1.001-1.035) Urine Protein NEGATIVE (NEGATIVE) mg/dL Urine Glucose (UA) NEGATIVE (NEGATIVE) mg/dL Urine Ketones NEGATIVE (NEGATIVE) mg/dL Urine Occult Blood NEGATIVE (NEGATIVE) Urine Nitrite NEGATIVE (NEGATIVE) Urine Bilirubin NEGATIVE (NEGATIVE) Urine Urobilinogen 0.2 (<2.0) EU/dL Ur Leukocyte Esterase NEGATIVE (NEGATIVE) Meds: Medications Discontinued Medications Generic Name Dose Route Start Last Admin Trade Name Freq PRN Reason Stop Dose Admin Dextrose/Water 10 ml 01/28/20 14:45 01/28/20 14:38 Dextrose 25% In Water IVPUSH 01/28/20 14:46 10 ml ONETIME ONE Administration Iopamidol 100 ml 01/28/20 14:30 01/28/20 14:31 Isovue Multipack-370 (76%) IVPUSH 01/28/20 14:31 100 ml ONETIME ONE Administration - Re-Assessments/Exams Free Text/Narrative Re-Assessment/Exam: 01/28/20 15:48 Case discussed with FP resident, will admit to obs/tele and assume care at this point. The hospitalist's documentation supersedes all other documentation on this patient with regard to any conflicts or discrepancies from this point forward. Any emergency conditions have been treated to the ability of the ED prior to admission. Departure - Departure Time of Disposition: 15:48 Disposition: Refer to Observation Condition: Good Clinical Impression: TIA (transient ischemic attack), Paresthesia of arm - Discharge Information *PRESCRIPTION DRUG MONITORING PROGRAM REVIEWED*: Not Applicable *COPY OF PRESCRIPTION DRUG MONITORING REPORT IN PATIENT JULISSA: Not Applicable Referrals: Mercedes Peres MD [Primary Care Provider] - Forms: ED Department Discharge Sepsis Event Note - Focused Exam Vital Signs: Vital Signs Temp Pulse Resp BP Pulse Ox 01/28/20 13:51 97.5 F 100 17 145/91 H 93 L Date Exam was Performed: 01/28/20 Time Exam was Performed: 15:47 - My Orders Last 24 Hours: My Active Orders 01/28/20 14:05 EKG Documentation Completion [RC] STAT - Assessment/Plan Last 24 Hours: My Active Orders 01/28/20 14:05 EKG Documentation Completion [RC] STAT
[2020-01-28] MEDS ORDERED: 25% Dextrose in Water 10 ML Syringe IVPUSH ONE ×2 (14:24→14:45)
[2020-01-28] MEDS ORDERED: Iopamidol 755 MG/ML 500 ML Multipack Bottle IVPUSH ONE (14:30)
[2020-01-28 14:32] LABS: BLOOD UREA NITROGEN,BUN 35 mg/dL (7.0-18.0); CARBON DIOXIDE,CO2 34.6 mmol/L (21.0-32.0); CHLORIDE,CL 95 mmol/L (98-107); GLUCOSE RANDOM 73 mg/dL (74-106); POTASSIUM,K 3.5 mmol/L (3.5-5.1); SODIUM,NA 140 mmol/L (136-145)
--- NOTE | 2020-01-28 14:50 | CT ---
CT angiogram of brain Technique: Multiple axial sections through the brain were obtained. Intravenous contrast was utilized. Study center to the [facility] [place]. Findings: Both distal vertebral arteries are patent into the basilar artery. Basilar artery is patent into the posterior cerebral arteries. Carotid siphon is patent into the middle and anterior cerebral arteries. No focal areas of stenosis or occlusion are appreciated. No discrete aneurysm is appreciated. Impression: 1. No abnormality is appreciated on CT angiogram of the brain Diagnostic code #[address] Technique: Multiple axial sections through the brain were obtained. Intravenous contrast was not utilized. Cesar: No prior intracranial imaging is available. Findings: Ventricles along with basal cisterns and sulci over the convexities are mildly prominent. Atherosclerotic calcification is seen within the vertebral vessels and carotid siphon. Minimal diminished density is noted within the periventricular white matter most likely due to small vessel ischemic demyelination change. No other abnormal parenchymal densities are seen. No evidence of intracranial hemorrhage. No midline shift or mass-effect is seen. Bone window settings were reviewed which show minimal retention cyst within the right maxillary sinus. No acute paranasal sinus findings are seen. No acute mastoid sinus findings are seen. Are no acute calvarial finding is seen. Impression: 1. Mild senescent change as noted above. 2. Small retention cyst within the left maxillary sinus. 3. No acute intracranial abnormality is appreciated. Diagnostic code #3 This report was dictated in MDT
--- NOTE | 2020-01-28 14:52 | CT ---
CT angiogram of neck Technique: Multiple axial sections through the neck were obtained. Intravenous contrast was utilized. Multiple MIP images were obtained. Findings: Atherosclerotic calcification is seen within the thoracic aorta and branch vessels. Both common carotid arteries are patent. Atherosclerotic calcification is seen within the carotid bulb which limits evaluation for stenosis in this area. More proximal and distal internal carotid arteries are patent into the carotid siphon. External carotid arteries are felt to be patent. Both vertebral arteries are patent. Impression: 1. Common carotid arteries and vertebral arteries are patent without significant stenosis or occlusion. 2. Significant calcified plaque within the carotid bulb which makes evaluation for stenosis in this area impossible. MR angiogram with contrast would be needed or ultrasound study. 3. Other portions of the internal carotid artery are patent. Diagnostic code #3 This report was dictated in MDT
--- NOTE | 2020-01-28 15:34 | CR ---
Chest: Portable view of the chest was obtained. Comparison: Prior chest x-ray of 07/17/19. Heart is enlarged. Lungs are clear with no acute parenchymal change. Bony structures are grossly intact. Impression: 1. Stable cardiomegaly. 2. Nothing acute is otherwise seen. Diagnostic code #2 This report was dictated in MDT
[2020-01-28] MEDS ORDERED: Aspirin 325 MG Tab PO ONE (16:18)
--- NOTE | 2020-01-28 16:32 | PCM.HP.2 ---
H&P History of Present Illness - General Date of Service: 01/28/20 Admit Problem/Dx: Admission Diagnosis/Problem Admission Diagnosis/Problem TIA, Transient ischemic attack Source of Information: Patient History Limitations: Reports: No Limitations - History of Present Illness Initial Comments - Free Text/Narative: 74 old female with a significant past medical history of congestive heart failure, A. fib with RVR, aortic stenosis, COPD requiring supplemental oxygen, diabetes presenting to the ED via personal vehicle secondary to right-sided numbness of upper and right lower extremity. Symptoms began at 7 AM upon awakening; contacted son and proceeded to emergency department denied fevers, chills, body aches, shortness of breath did have a mild right-sided headache however no longer complaining of headache. pt slept at around midnight yesterday; went to sleep w.o symptoms. ED course: stroke code called. CT had: No acute intracranial abnormality CTA neck: Significant calcified plaque within the carotid bulb; requiring further analysis however internal carotid arteries are patent Chest x-ray: No acute infiltrates; stable cardiomegaly vitals stable in the ED; irregular however rate controlled. Afebrile. O2 sats 90% on 2 L however patient has COPD Bedside; patient endorsing some mild weakness and fatigue; denies fevers, chills , body aches, chest pain, shortness of breath. Endorses lower extremity edema but this has been going on and is a chronic issue. Does endorse right arm and right lower extremity weakness however sensation is intact. No other acute complaints at this time. Onset of Symptoms: Reports: Today - Related Data Allergies/Adverse Reactions: Allergies Allergy/AdvReac Type Severity Reaction Status Date / Time amoxicillin [Amoxicillin] Allergy Cannot Verified 01/28/20 22:58 Remember tramadol Allergy Dizziness Verified 01/28/20 22:58 Home Medications: Home Meds Omeprazole 20 mg PO ACBREAKFAST 02/27/14 [History] Simvastatin [Zocor] 20 mg PO BEDTIME 02/27/14 [History] Carvedilol [Coreg] 25 mg PO BID 09/03/16 [History] Potassium Chloride 8 meq PO BID 09/03/16 [History] Apixaban [Eliquis] 5 mg PO BID 07/17/19 [History] Furosemide 120 mg PO DAILY 07/17/19 [History] allopurinoL [Zyloprim] 100 mg PO BID 07/17/19 [History] glipiZIDE [Glucotrol XL] 10 mg PO DAILY 07/17/19 [History] Bumetanide 1 mg PO DAILY 01/28/20 [History] ClonazePAM [KlonoPIN] 0.5 mg PO BEDTIME 01/28/20 [History] Diltiazem [Dilacor XR] 120 mg PO DAILY 01/28/20 [History] Insulin Detemir [Levemir Flextouch] 30 unit SQ QAM 01/28/20 [History] metOLazone [Metolazone] 2.5 mg PO DAILY 01/28/20 [History] Past Medical History HEENT History: Reports: None Cardiovascular History: Reports: Afib, Heart Murmur, Hypertension, Other (See Below) Other Cardiovascular History: CHF Respiratory History: Reports: COPD, SOB Other Respiratory History: history of pneumonia 5 years ago Gastrointestinal History: Reports: GERD Genitourinary History: Reports: Diabetic Nephropathy RADAR TESTER History: Reports: Other OB/BYN History: Hysterectomy Musculoskeletal History: Reports: None Neurological History: Reports: Neuropathy, Peripheral Psychiatric History: Reports: Depression, Mood Swings Endocrine/Metabolic History: Reports: Diabetes, Type II Hematologic History: Reports: None Immunologic History: Reports: None Oncologic (Cancer) History: Reports: None Dermatologic History: Reports: None - Infectious Disease History Infectious Disease History: Reports: Chicken Pox, Measles, Mumps - Past Surgical History HEENT Surgical History: Reports: None GI Surgical History: Reports: Appendectomy, Cholecystectomy, Colonoscopy, EGD, Hernia, Abdominal Female Surgical History: Reports: Hysterectomy Musculoskeletal Surgical History: Reports: Knee Replacement Social & Family History - Family History Family Medical History: Noncontributory HEENT: Reports: None Cardiac: Reports: None Respiratory: Reports: Other (See Below) Other Respiratory Family Hisory: emphysema GI: Reports: None : Reports: None OBGYN: Reports: None Musculoskeletal: Reports: None Neurological: Reports: None Psychiatric: Reports: None Endocrine/Metabolic: Reports: Diabetes, type II Hematologic: Reports: None Immunologic: Reports: None Dermatologic: Reports: None Oncologic: Reports: None - Tobacco Use Smoking Status *Q: Never Smoker - Caffeine Use Caffeine Use: Reports: Coffee - Alcohol Use Days Per Week of Alcohol Use: 7 Number of Drinks Per Day: 3 Total Drinks Per Week: 21 - Recreational Drug Use Recreational Drug Use: No H&P Review of Systems - Review of Systems: Review Of Systems: See Below General: Denies: Fever, Chills, Malaise, Weakness, Fatigue HEENT: Reports: No Symptoms Pulmonary: Reports: No Symptoms. Denies: Shortness of Breath, Cough Cardiovascular: Reports: No Symptoms, Orthopnea, Edema. Denies: Chest Pain Gastrointestinal: Reports: No Symptoms. Denies: Abdominal Pain Genitourinary: Reports: No Symptoms Musculoskeletal: Reports: No Symptoms Skin: Reports: No Symptoms Psychiatric: Reports: No Symptoms Neurological: Reports: Numbness, Paresthesia, Trouble Speaking. Denies: Confusion, Dizziness, Headache, Seizure Hematologic/Lymphatic: Reports: No Symptoms Immunologic: Reports: No Symptoms Exam - Exam Exam: See Below - Vital Signs Vital Signs: Last Vital Signs Temp 97.5 F 01/28/20 13:51 Pulse 100 01/28/20 13:51 Resp 17 01/28/20 13:51 BP 145/91 H 01/28/20 13:51 Pulse Ox 93 L 01/28/20 13:51 Weight: 126 kg - Exam Quality Assessment: No: Supplemental Oxygen General: Alert, Oriented, Cooperative HEENT: EOMI, Hearing Intact, Mucosa Moist & [place] Neck: Supple, Trachea Midline Lungs: Clear to Auscultation, Normal Respiratory Effort Cardiovascular: Regular Rate, Regular Rhythm, Other (+systolic heart murmur ) GI/Abdominal Exam: Soft, Non-Tender, Other (obese; no fluid wave ) Extremities: Other (b/l lower extremity +4 pitting edema; skin tense but no breakdown ; sensation intact ) Skin: Warm, Dry, Intact Neurological: Other (mild slurring of speech; right lower lip droop; can furrow brow b/l ; right hand dominant : 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 Sensation of lower extrmeity intact. Oriontation to person/ place/time. no tongue deviation. ) Neuro Extensive - Motor, Sensory, Reflexes: Facial Palsy (R). No: Tongue Deviation (L), Tongue Deviation (R) Psychiatric: Alert, Normal Affect, Normal Mood - Patient Data Lab Results Last 24 hrs: Laboratory Results - last 24 hr 01/28/20 01/28/20 01/28/20 Range/Units 13:57 13:57 13:57 WBC 7.33 (4.0-11.0) K/uL RBC 3.94 L (4.30-5.90) M/uL Hgb 12.2 (12.0-16.0) g/dL Hct 36.6 (36.0-46.0) % MCV 92.9 (80.0-98.0) fL MCH 31.0 (27.0-32.0) pg MCHC 33.3 (31.0-37.0) g/dL RDW Std Deviation 51.4 (28.0-62.0) fl RDW Coeff of Yovani 15 (11.0-15.0) % Plt Count 161 (150-400) K/uL MPV 9.70 (7.40-12.00) fL Neut % (Auto) 74.2 (48.0-80.0) % Lymph % (Auto) 14.3 L (16.0-40.0) % [place] % (Auto) 7.5 (0.0-15.0) % Eos % (Auto) 3.5 (0.0-7.0) % Baso % (Auto) 0.5 (0.0-1.5) % Neut # (Auto) 5.4 (1.4-5.7) K/uL Lymph # (Auto) 1.1 (0.6-2.4) K/uL [place] # (Auto) 0.6 (0.0-0.8) K/uL Eos # (Auto) 0.3 (0.0-0.7) K/uL Baso # (Auto) 0.0 (0.0-0.1) K/uL Nucleated RBC % 0.0 /100WBC Nucleated RBCs # 0 K/uL INR 1.07 Sodium 140 (136-145) mmol/L Potassium 3.5 (3.5-5.1) mmol/L Chloride 95 L (98-107) mmol/L Carbon Dioxide 34.6 H (21.0-32.0) mmol/L BUN 35 H (7.0-18.0) mg/dL Creatinine 1.8 H (0.6-1.0) mg/dL Est Cr Clr Drug Dosing TNP Estimated GFR (MDRD) 27.7 ml/min Glucose 73 L (74-106) mg/dL Calcium 9.0 (8.5-10.1) mg/dL Total Bilirubin 0.6 (0.2-1.0) mg/dL AST 23 (15-37) IU/L ALT 15 (14-63) IU/L Alkaline Phosphatase 59 (46-116) U/L Troponin I < 0.050 (0.000-0.056) ng/mL Total Protein 7.9 (6.4-8.2) g/dL Albumin 3.9 (3.4-5.0) g/dL Globulin 4.0 (2.6-4.0) g/dL Albumin/Globulin Ratio 1.0 (0.9-1.6) Urine Color Urine Appearance Urine pH (5.0-8.0) Ur Specific [place] (1.001-1.035) Urine Protein (NEGATIVE) mg/dL Urine Glucose (UA) (NEGATIVE) mg/dL Urine Ketones (NEGATIVE) mg/dL Urine Occult Blood (NEGATIVE) Urine Nitrite (NEGATIVE) Urine Bilirubin (NEGATIVE) Urine Urobilinogen (<2.0) EU/dL Ur Leukocyte Esterase (NEGATIVE) 01/28/20 Range/Units 14:46 WBC (4.0-11.0) K/uL RBC (4.30-5.90) M/uL Hgb (12.0-16.0) g/dL Hct (36.0-46.0) % MCV (80.0-98.0) fL MCH (27.0-32.0) pg MCHC (31.0-37.0) g/dL RDW Std Deviation (28.0-62.0) fl RDW Coeff of Yovani (11.0-15.0) % Plt Count (150-400) K/uL MPV (7.40-12.00) fL Neut % (Auto) (48.0-80.0) % Lymph % (Auto) (16.0-40.0) % [place] % (Auto) (0.0-15.0) % Eos % (Auto) (0.0-7.0) % Baso % (Auto) (0.0-1.5) % Neut # (Auto) (1.4-5.7) K/uL Lymph # (Auto) (0.6-2.4) K/uL [place] # (Auto) (0.0-0.8) K/uL Eos # (Auto) (0.0-0.7) K/uL Baso # (Auto) (0.0-0.1) K/uL Nucleated RBC % /100WBC Nucleated RBCs # K/uL INR Sodium (136-145) mmol/L Potassium (3.5-5.1) mmol/L Chloride (98-107) mmol/L Carbon Dioxide (21.0-32.0) mmol/L BUN (7.0-18.0) mg/dL Creatinine (0.6-1.0) mg/dL Est Cr Clr Drug Dosing Estimated GFR (MDRD) ml/min Glucose (74-106) mg/dL Calcium (8.5-10.1) mg/dL Total Bilirubin (0.2-1.0) mg/dL AST (15-37) IU/L ALT (14-63) IU/L Alkaline Phosphatase (46-116) U/L Troponin I (0.000-0.056) ng/mL Total Protein (6.4-8.2) g/dL Albumin (3.4-5.0) g/dL Globulin (2.6-4.0) g/dL Albumin/Globulin Ratio (0.9-1.6) Urine Color YELLOW Urine Appearance CLEAR Urine pH 7.0 (5.0-8.0) Ur Specific [place] 1.010 (1.001-1.035) Urine Protein NEGATIVE (NEGATIVE) mg/dL Urine Glucose (UA) NEGATIVE (NEGATIVE) mg/dL Urine Ketones NEGATIVE (NEGATIVE) mg/dL Urine Occult Blood NEGATIVE (NEGATIVE) Urine Nitrite NEGATIVE (NEGATIVE) Urine Bilirubin NEGATIVE (NEGATIVE) Urine Urobilinogen 0.2 (<2.0) EU/dL Ur Leukocyte Esterase NEGATIVE (NEGATIVE) Result Diagrams: 01/29/20 05:20 01/29/20 05:20 Problem List Initiated/Reviewed/Updated: Yes Orders Last 24hrs: Active Orders 24 hr Category Date Time Status Admission Status [Patient Status] [ADT] Stat ADT 01/28/20 15:50 Active EKG Documentation Completion [RC] STAT Care 01/28/20 14:05 Active Up With Assistance [RC] ASDIRECTED Care 01/28/20 16:14 Active Vital Signs [RC] PER UNIT ROUTINE Care 01/28/20 16:13 Active Ang Head wo Cont [MR] Urgent Exams 01/28/20 16:24 Ordered Ang Neck w Cont [MR] Urgent Exams 01/28/20 16:22 Ordered Brain w wo Cont [MR] Urgent Exams 01/28/20 16:21 Ordered MRA Head Without Contrast [Ang Head wo Cont] [MR] Exams 01/28/20 16:22 Stop Req Routine Code Status [Resuscitation Status] Stat Resus Stat 01/28/20 16:13 Ordered Assessment/Plan Comment:: Assessment 1. Upper and lower extremity paresthesias/weakness in the setting of possible TIA versus stroke with a negative head CT. 2. Past medical history: Diabetes, congestive heart failure, COPD, hypertension , obesity, alcohol use Plan Admit to observation. Full code. Up with assistance. Vitals routine. Neurochecks every 4 hours. ASA ordered. Diet; diabetic. Telemetry DVT prophylaxis; Eliquis/home medication GI prophylaxis omeprazole daily pt. was not a TPA candidate per ED 1. TIA versus stroke; CT head negative; symptoms improving subjectively per patient; right facial mild drooping: Imaging; brain MRI with and without contrast; MRA head without contrast; angio neck with contrast We will follow-up with imaging and treat and consult as necessary. Continue neurochecks every 4 hours for now. Echocardiogram also ordered; last echo greater than 1 year; awaiting outside facility records. 2. Continue home medications except for p.o. diabetic drugs and blood pressure medications. Will allow for permissive hypertension; advised to notify provider if blood pressure greater than 180 systolics. 3. Past medical history; continue home medication unless otherwise specified. 4. We will consult physical therapy/Occupational Therapy to assess for balance and strength; dexterity of right upper extremity. 5. Sepsis Event Note - Evaluation Sepsis Screening Result: No Definite Risk - Focused Exam Vital Signs: Vital Signs Temp Pulse Resp BP Pulse Ox 01/28/20 13:51 97.5 F 100 17 145/91 H 93 L Date Exam was Performed: 01/29/20 Time Exam was Performed: 11:46
[2020-01-28] MEDS ORDERED: ClonazePAM 0.5 MG Tab PO SCH (21:00)
[2020-01-28] MEDS: Apixaban 5 MG Tab PO SCH (22:01)
[2020-01-28] MEDS ORDERED: 25% Dextrose in Water 10 ML Syringe IVPUSH PRN (23:36)
[2020-01-29 06:19] LABS: CARBON DIOXIDE,CO2 37.8 mmol/L (21.0-32.0); POTASSIUM,K 2.9 mmol/L (3.5-5.1)
[2020-01-29] MEDS: Insulin Aspart 100 Units/ML 3 ML Pen SUBCUT SCH ×3 (07:25→17:35)
[2020-01-29] MEDS ORDERED: Omeprazole 20 MG Cap.CR PO SCH (07:30)
[2020-01-29] MEDS ORDERED: Bumetanide 1 MG Tab PO SCH (09:00)
[2020-01-29] MEDS ORDERED: Insulin Detemir 100 Units/ML 3 ML Pen SUBCUT SCH (09:00)
[2020-01-29] MEDS ORDERED: Furosemide 80 MG Tab PO SCH (09:00)
[2020-01-29] MEDS ORDERED: Potassium Chloride 20 MEQ Tab.ER PO SCH (09:00)
--- NOTE | 2020-01-29 09:15 | PCM.PN ---
- General Info Date of Service: 01/29/20 Subjective Update: No acute complaints; endorses weakness is improving; exertional dyspnea which she states is her baseline - Review of Systems General: Reports: Fatigue HEENT: Reports: No Symptoms Pulmonary: Denies: Shortness of Breath, Pleuritic Chest Pain, Cough Cardiovascular: Reports: Dyspnea on Exertion, Edema. Denies: Chest Pain, Palpitations, Lightheadedness Gastrointestinal: Reports: No Symptoms Genitourinary: Reports: No Symptoms Musculoskeletal: Reports: Back Pain Skin: Reports: No Symptoms Neurological: Reports: Paresthesia (improving) Psychiatric: Reports: No Symptoms - Patient Data Vitals - Most Recent: Last Vital Signs Temp 99.0 F 01/29/20 04:00 Pulse 97 01/29/20 04:00 Resp 20 01/29/20 04:00 BP 118/59 L 01/29/20 04:00 Pulse Ox 92 L 01/29/20 04:00 Weight - Most Recent: 112.219 kg I&O - Last 24 Hours: Intake & Output 01/28/20 01/29/20 01/29/20 22:59 06:59 14:59 Intake Total 1360 Output Total 850 Balance 510 Lab Results Last 24 Hours: Laboratory Results - last 24 hr 01/28/20 01/28/20 01/28/20 Range/Units 13:57 13:57 13:57 WBC 7.33 (4.0-11.0) K/uL RBC 3.94 L (4.30-5.90) M/uL Hgb 12.2 (12.0-16.0) g/dL Hct 36.6 (36.0-46.0) % MCV 92.9 (80.0-98.0) fL MCH 31.0 (27.0-32.0) pg MCHC 33.3 (31.0-37.0) g/dL RDW Std Deviation 51.4 (28.0-62.0) fl RDW Coeff of Yovani 15 (11.0-15.0) % Plt Count 161 (150-400) K/uL MPV 9.70 (7.40-12.00) fL Neut % (Auto) 74.2 (48.0-80.0) % Lymph % (Auto) 14.3 L (16.0-40.0) % Grant % (Auto) 7.5 (0.0-15.0) % Eos % (Auto) 3.5 (0.0-7.0) % Baso % (Auto) 0.5 (0.0-1.5) % Neut # (Auto) 5.4 (1.4-5.7) K/uL Lymph # (Auto) 1.1 (0.6-2.4) K/uL Grant # (Auto) 0.6 (0.0-0.8) K/uL Eos # (Auto) 0.3 (0.0-0.7) K/uL Baso # (Auto) 0.0 (0.0-0.1) K/uL Nucleated RBC % 0.0 /100WBC Nucleated RBCs # 0 K/uL INR 1.07 Sodium 140 (136-145) mmol/L Potassium 3.5 (3.5-5.1) mmol/L Chloride 95 L (98-107) mmol/L Carbon Dioxide 34.6 H (21.0-32.0) mmol/L BUN 35 H (7.0-18.0) mg/dL Creatinine 1.8 H (0.6-1.0) mg/dL Est Cr Clr Drug Dosing TNP Estimated GFR (MDRD) 27.7 ml/min Glucose 73 L (74-106) mg/dL POC Glucose (60-110) mg/dL Hemoglobin A1c (4.5-6.2) % Calcium 9.0 (8.5-10.1) mg/dL Total Bilirubin 0.6 (0.2-1.0) mg/dL AST 23 (15-37) IU/L ALT 15 (14-63) IU/L Alkaline Phosphatase 59 (46-116) U/L Troponin I < 0.050 (0.000-0.056) ng/mL Total Protein 7.9 (6.4-8.2) g/dL Albumin 3.9 (3.4-5.0) g/dL Globulin 4.0 (2.6-4.0) g/dL Albumin/Globulin Ratio 1.0 (0.9-1.6) Triglycerides (0-200) mg/dL Cholesterol (50-200) mg/dL LDL Cholesterol, Calc (60-180) mg/dL VLDL Cholesterol (5-55) mg/dL HDL Cholesterol (40-60) mg/dL Cholesterol/HDL Ratio (3.3-6.0) Urine Color Urine Appearance Urine pH (5.0-8.0) Ur Specific Good[place] (1.001-1.035) Urine Protein (NEGATIVE) mg/dL Urine Glucose (UA) (NEGATIVE) mg/dL Urine Ketones (NEGATIVE) mg/dL Urine Occult Blood (NEGATIVE) Urine Nitrite (NEGATIVE) Urine Bilirubin (NEGATIVE) Urine Urobilinogen (<2.0) EU/dL Ur Leukocyte Esterase (NEGATIVE) 01/28/20 01/28/20 01/28/20 Range/Units 13:57 13:57 14:46 WBC (4.0-11.0) K/uL RBC (4.30-5.90) M/uL Hgb (12.0-16.0) g/dL Hct (36.0-46.0) % MCV (80.0-98.0) fL MCH (27.0-32.0) pg MCHC (31.0-37.0) g/dL RDW Std Deviation (28.0-62.0) fl RDW Coeff of Yovani (11.0-15.0) % Plt Count (150-400) K/uL MPV (7.40-12.00) fL Neut % (Auto) (48.0-80.0) % Lymph % (Auto) (16.0-40.0) % Grant % (Auto) (0.0-15.0) % Eos % (Auto) (0.0-7.0) % Baso % (Auto) (0.0-1.5) % Neut # (Auto) (1.4-5.7) K/uL Lymph # (Auto) (0.6-2.4) K/uL Grant # (Auto) (0.0-0.8) K/uL Eos # (Auto) (0.0-0.7) K/uL Baso # (Auto) (0.0-0.1) K/uL Nucleated RBC % /100WBC Nucleated RBCs # K/uL INR Sodium (136-145) mmol/L Potassium (3.5-5.1) mmol/L Chloride (98-107) mmol/L Carbon Dioxide (21.0-32.0) mmol/L BUN (7.0-18.0) mg/dL Creatinine (0.6-1.0) mg/dL Est Cr Clr Drug Dosing Estimated GFR (MDRD) ml/min Glucose (74-106) mg/dL POC Glucose (60-110) mg/dL Hemoglobin A1c 6.0 (4.5-6.2) % Calcium (8.5-10.1) mg/dL Total Bilirubin (0.2-1.0) mg/dL AST (15-37) IU/L ALT (14-63) IU/L Alkaline Phosphatase (46-116) U/L Troponin I (0.000-0.056) ng/mL Total Protein (6.4-8.2) g/dL Albumin (3.4-5.0) g/dL Globulin (2.6-4.0) g/dL Albumin/Globulin Ratio (0.9-1.6) Triglycerides 78 (0-200) mg/dL Cholesterol 120 (50-200) mg/dL LDL Cholesterol, Calc 47 L (60-180) mg/dL VLDL Cholesterol 15 (5-55) mg/dL HDL Cholesterol 57 (40-60) mg/dL Cholesterol/HDL Ratio 2.1 L (3.3-6.0) Urine Color YELLOW Urine Appearance CLEAR Urine pH 7.0 (5.0-8.0) Ur Specific [place] 1.010 (1.001-1.035) Urine Protein NEGATIVE (NEGATIVE) mg/dL Urine Glucose (UA) NEGATIVE (NEGATIVE) mg/dL Urine Ketones NEGATIVE (NEGATIVE) mg/dL Urine Occult Blood NEGATIVE (NEGATIVE) Urine Nitrite NEGATIVE (NEGATIVE) Urine Bilirubin NEGATIVE (NEGATIVE) Urine Urobilinogen 0.2 (<2.0) EU/dL Ur Leukocyte Esterase NEGATIVE (NEGATIVE) 01/28/20 01/28/20 01/28/20 Range/Units 17:59 18:47 22:01 WBC (4.0-11.0) K/uL RBC (4.30-5.90) M/uL Hgb (12.0-16.0) g/dL Hct (36.0-46.0) % MCV (80.0-98.0) fL MCH (27.0-32.0) pg MCHC (31.0-37.0) g/dL RDW Std Deviation (28.0-62.0) fl RDW Coeff of Yovani (11.0-15.0) % Plt Count (150-400) K/uL MPV (7.40-12.00) fL Neut % (Auto) (48.0-80.0) % Lymph % (Auto) (16.0-40.0) % Grant % (Auto) (0.0-15.0) % Eos % (Auto) (0.0-7.0) % Baso % (Auto) (0.0-1.5) % Neut # (Auto) (1.4-5.7) K/uL Lymph # (Auto) (0.6-2.4) K/uL Grant # (Auto) (0.0-0.8) K/uL Eos # (Auto) (0.0-0.7) K/uL Baso # (Auto) (0.0-0.1) K/uL Nucleated RBC % /100WBC Nucleated RBCs # K/uL INR Sodium (136-145) mmol/L Potassium (3.5-5.1) mmol/L Chloride (98-107) mmol/L Carbon Dioxide (21.0-32.0) mmol/L BUN (7.0-18.0) mg/dL Creatinine (0.6-1.0) mg/dL Est Cr Clr Drug Dosing Estimated GFR (MDRD) ml/min Glucose (74-106) mg/dL POC Glucose 40 L 93 97 (60-110) mg/dL Hemoglobin A1c (4.5-6.2) % Calcium (8.5-10.1) mg/dL Total Bilirubin (0.2-1.0) mg/dL AST (15-37) IU/L ALT (14-63) IU/L Alkaline Phosphatase (46-116) U/L Troponin I (0.000-0.056) ng/mL Total Protein (6.4-8.2) g/dL Albumin (3.4-5.0) g/dL Globulin (2.6-4.0) g/dL Albumin/Globulin Ratio (0.9-1.6) Triglycerides (0-200) mg/dL Cholesterol (50-200) mg/dL LDL Cholesterol, Calc (60-180) mg/dL VLDL Cholesterol (5-55) mg/dL HDL Cholesterol (40-60) mg/dL Cholesterol/HDL Ratio (3.3-6.0) Urine Color Urine Appearance Urine pH (5.0-8.0) Ur Specific [place] (1.001-1.035) Urine Protein (NEGATIVE) mg/dL Urine Glucose (UA) (NEGATIVE) mg/dL Urine Ketones (NEGATIVE) mg/dL Urine Occult Blood (NEGATIVE) Urine Nitrite (NEGATIVE) Urine Bilirubin (NEGATIVE) Urine Urobilinogen (<2.0) EU/dL Ur Leukocyte Esterase (NEGATIVE) 01/29/20 01/29/20 Range/Units 05:20 05:20 WBC 6.98 (4.0-11.0) K/uL RBC 3.44 L (4.30-5.90) M/uL Hgb 10.5 L (12.0-16.0) g/dL Hct 32.6 L (36.0-46.0) % MCV 94.8 (80.0-98.0) fL MCH 30.5 (27.0-32.0) pg MCHC 32.2 (31.0-37.0) g/dL RDW Std Deviation 52.8 (28.0-62.0) fl RDW Coeff of Yovani 16 H (11.0-15.0) % Plt Count 137 L (150-400) K/uL MPV 9.70 (7.40-12.00) fL Neut % (Auto) 73.8 (48.0-80.0) % Lymph % (Auto) 13.6 L (16.0-40.0) % Grant % (Auto) 8.7 (0.0-15.0) % Eos % (Auto) 3.3 (0.0-7.0) % Baso % (Auto) 0.6 (0.0-1.5) % Neut # (Auto) 5.2 (1.4-5.7) K/uL Lymph # (Auto) 1.0 (0.6-2.4) K/uL Grant # (Auto) 0.6 (0.0-0.8) K/uL Eos # (Auto) 0.2 (0.0-0.7) K/uL Baso # (Auto) 0.0 (0.0-0.1) K/uL Nucleated RBC % 0.0 /100WBC Nucleated RBCs # 0 K/uL INR Sodium 141 (136-145) mmol/L Potassium 2.9 L (3.5-5.1) mmol/L Chloride 98 (98-107) mmol/L Carbon Dioxide 37.8 H (21.0-32.0) mmol/L BUN 37 H (7.0-18.0) mg/dL Creatinine 1.7 H (0.6-1.0) mg/dL Est Cr Clr Drug Dosing 23.66 Estimated GFR (MDRD) 29.5 ml/min Glucose 95 (74-106) mg/dL POC Glucose (60-110) mg/dL Hemoglobin A1c (4.5-6.2) % Calcium 8.0 L (8.5-10.1) mg/dL Total Bilirubin 0.4 (0.2-1.0) mg/dL AST 15 (15-37) IU/L ALT 15 (14-63) IU/L Alkaline Phosphatase 53 (46-116) U/L Troponin I (0.000-0.056) ng/mL Total Protein 6.8 (6.4-8.2) g/dL Albumin 3.2 L (3.4-5.0) g/dL Globulin 3.6 (2.6-4.0) g/dL Albumin/Globulin Ratio 0.9 (0.9-1.6) Triglycerides (0-200) mg/dL Cholesterol (50-200) mg/dL LDL Cholesterol, Calc (60-180) mg/dL VLDL Cholesterol (5-55) mg/dL HDL Cholesterol (40-60) mg/dL Cholesterol/HDL Ratio (3.3-6.0) Urine Color Urine Appearance Urine pH (5.0-8.0) Ur Specific [place] (1.001-1.035) Urine Protein (NEGATIVE) mg/dL Urine Glucose (UA) (NEGATIVE) mg/dL Urine Ketones (NEGATIVE) mg/dL Urine Occult Blood (NEGATIVE) Urine Nitrite (NEGATIVE) Urine Bilirubin (NEGATIVE) Urine Urobilinogen (<2.0) EU/dL Ur Leukocyte Esterase (NEGATIVE) Med Orders - Current: Current Medications Apixaban (Eliquis) 5 mg PO BID KOBE Last Admin: 01/28/20 22:01 Dose: 5 mg Bumetanide (Bumex) 1 mg PO DAILY KOBE Clonazepam (Klonopin) 0.5 mg PO BEDTIME KOBE Last Admin: 01/28/20 22:04 Dose: 0.5 mg Dextrose/Water (Dextrose 25% In Water) 10 ml IVPUSH ONETIME PRN PRN Reason: Hypoglycemia Last Admin: 01/29/20 07:13 Dose: 10 ml Insulin Aspart (Novolog) 0 unit SUBCUT TIDAC [facility]; Protocol Last Admin: 01/29/20 07:25 Dose: Not Given Insulin Detemir (Levemir) 30 unit SUBCUT QAM KOBE Omeprazole (Omeprazole) 20 mg PO ACBREAKFAST KOBE Last Admin: 01/29/20 07:12 Dose: 20 mg Potassium Chloride (Klor-Con M20) 40 meq PO BID KOBE Simvastatin (Zocor) 20 mg PO BEDTIME KOBE Discontinued Medications Aspirin (Aspirin) 325 mg PO ONETIME ONE Stop: 01/28/20 16:19 Last Admin: 01/28/20 17:13 Dose: Not Given Dextrose/Water (Dextrose 25% In Water) 10 ml IVPUSH ONETIME ONE Stop: 01/28/20 14:46 Last Admin: 01/28/20 14:38 Dose: 10 ml Furosemide (Lasix) 9,600 mg PO DAILY [facility] Iopamidol (Isovue Multipack-370 (76%)) 100 ml IVPUSH ONETIME ONE Stop: 01/28/20 14:31 Last Admin: 01/28/20 14:31 Dose: 100 ml - Exam Quality Assessment: Supplemental Oxygen General: Alert, Oriented, Cooperative, No Acute Distress HEENT: EOMI, Mucous Membr. Moist/Juda Neck: Supple Lungs: Clear to Auscultation, Normal Respiratory Effort Cardiovascular: Regular Rate, Regular Rhythm, Murmurs GI/Abdominal Exam: Soft, Non-Tender Extremities: Pedal Edema Skin: Warm, Dry Neurological: No New Focal Deficit, Normal Speech, Other (asymmetrical smile ) Psy/Mental Status: Alert, Normal Affect, Normal Mood - Problem List Review Problem List Initiated/Reviewed/Updated: Yes - My Orders Last 24 Hours: My Active Orders 01/28/20 16:13 Vital Signs [RC] Q4H Code Status [Resuscitation Status] Stat 01/28/20 16:14 Up With Assistance [RC] ASDIRECTED 01/28/20 16:21 Brain w wo Cont [MR] Urgent 01/28/20 16:22 Ang Neck w Cont [MR] Urgent MRA Head Without Contrast [Ang Head wo Cont] [MR] Routine 01/28/20 16:24 Ang Head wo Cont [MR] Urgent 01/28/20 17:11 Assess Neurological Status [RC] Q4H Consult to Physical Therapy [PT Evaluation and Treatment] [CONS] Routine 01/28/20 17:28 Accu Check [Blood Glucose Check, Bedside] [RC] TIDMEALS 01/28/20 21:00 Apixaban [Eliquis] 5 mg PO BID ClonazePAM [KlonoPIN] 0.5 mg PO BEDTIME 01/29/20 Echo Comp wo Cont [US] Urgent 01/29/20 07:30 Insulin Aspart [NovoLOG] See Protocol SUBCUT TIDAC Omeprazole 20 mg PO ACBREAKFAST 01/29/20 08:07 Fecal Occult Blood Collection [RC] ASDIRECTED 01/29/20 09:00 Bumetanide [Bumex] 1 mg PO DAILY Insulin Detemir [Levemir] 30 unit SUBCUT QAM Potassium Chloride [Klor-Con M20] 40 meq PO BID 01/29/20 21:00 Simvastatin [Zocor] 20 mg PO BEDTIME 01/29/20 Breakfast [place] Diet [DIET] 01/30/20 05:11 CBC WITH AUTO DIFF [HEME] AM COMPREHENSIVE METABOLIC PN,CMP [CHEM] AM - Plan Plan:: Assessment 1. Upper and lower extremity paresthesias/weakness in the setting of possible TIA versus stroke with a negative head CT. 2. Past medical history: Diabetes, congestive heart failure, COPD, hypertension , obesity, alcohol use Plan Admit to observation. Full code. Up with assistance. Vitals routine. Neurochecks every 4 hours. Diet; diabetic. Telemetry DVT prophylaxis; Eliquis/home medication GI prophylaxis omeprazole daily pt. was not a TPA candidate per ED 1. TIA versus stroke; CT head negative; symptoms improving subjectively per patient; right facial mild drooping: Imaging; brain MRI with and without contrast; MRA head without contrast; angio neck with contrast:pending We will follow-up with imaging and treat and consult as necessary. Continue neurochecks every 4 hours for now. Echocardiogram also ordered; last echo greater than 1 year; awaiting outside facility records. ASA was offered to patient ; pt. refused ASA secondary to concerns regarding increased bleeding. explained to pt. risks vs benefits of ASA despite anticoagulation in the setting for concerns of TIA vs. Stroke; pt understood but is still refusing. Will notify PCP on discharge about our recommendation. pt also states not being complaint with her diet/fluid intake (mentioned drinking multiple ETOH drinks w. high salt content recently); will continue to monitor; L/E edema is 4+; one time dose of IV 40 mg Lasix will be ordered this AM.; will continue to monitor; continue home Lasix/Bumex as well. 2. Continue home medications except for p.o. diabetic drugs and blood pressure medications. Will allow for permissive hypertension; advised to notify provider if blood pressure greater than 180 systolics. 3. Past medical history; continue home medication unless otherwise specified. 4. We will consult physical therapy/Occupational Therapy to assess for balance and strength; dexterity of right upper extremity. 5. Refusing ASA Sepsis Event Note - Evaluation Sepsis Screening Result: No Definite Risk - Focused Exam Vital Signs: Vital Signs Temp Pulse Resp BP BP Pulse Ox 01/29/20 04:00 99.0 F 97 20 118/59 L 92 L 01/29/20 00:00 99.4 F 97 20 107/55 L 92 L Date Exam was Performed: 01/29/20 Time Exam was Performed: 11:32
[2020-01-29] MEDS: Apixaban 5 MG Tab PO SCH (10:03)
[2020-01-29] MEDS ORDERED: Furosemide 40 MG/4 ML VIAL IVPUSH ONE ×2 (10:43→17:55)
[2020-01-29] MEDS ORDERED: Gadobenate Dimeglumine 529 MG/ML 20 ML SDV IVPUSH STA (10:45)
--- NOTE | 2020-01-29 12:04 | MR ---
MR angiogram of brain Comparison: Previous CT angiogram of brain dated 01/28/20. Technique: [id number] MR angiogram sequence was obtained centered of the pilot point of Sainz. Multiple MIP images were obtained. Findings: Both distal vertebral arteries are patent into the basilar artery. Both posterior cerebral arteries are patent without focal stenosis. Carotid siphon appears patent. Middle cerebral arteries are patent. Anterior cerebral arteries are patent. No focal stenosis or occlusion is seen. No discrete aneurysm is appreciated. Impression: 1. No abnormality is identified on MR angiogram study of the brain. Diagnostic code #1 This report was dictated in MDT
--- NOTE | 2020-01-29 12:22 | MR ---
MR angiogram of neck Technique: MR angiogram study was obtained following intravenous gadolinium administration of the neck. Multiple reconstructed MIP images were obtained. Findings: Motion artifact is noted. Mild diffuse stenosis appears to be present within the proximal left internal carotid artery. Stenosis appears to be less than 50 percent. Focal stenosis appears to be present within the proximal external carotid artery on the right side. Proximal right internal carotid artery shows minimal narrowing which is less than 50 percent. Other portions of the internal carotid arteries are patent. Vertebral arteries are felt to be patent. Impression: 1. Mild stenosis of less than 50 percent as described above. Diagnostic code #3 This report was dictated in MDT
--- NOTE | 2020-01-29 12:22 | MR ---
MRI brain (without and with intravenous contrast) Technique: T1 sagittal and coronal; T2, FLAIR, T1 and diffusion axial; postcontrast T1 fat-suppressed axial, coronal and sagittal images were obtained. Findings: Ventricles along with basal cisterns and sulci over the convexities are mildly prominent. Multiple areas of increased signal are noted within the subcortical and periventricular white matter most likely representing multiple areas of small vessel ischemic demyelination change. No acute diffusion abnormalities are appreciated. Normal signal void is seen within the renal arteries within the skull base. Motion artifact is noted most noticeable on the postcontrast images. No definite areas of abnormal enhancement are seen. Impression: 1. Motion artifact. 2. Multiple areas of increased signal best noted on the FLAIR sequence within the subcortical and periventricular white matter most likely representing small vessel ischemic demyelination change. 3. No acute diffusion abnormalities are seen. No definite abnormal enhancement is seen. Diagnostic code #3 This report was dictated in MDT
[2020-01-29 16:45] VITALS: BP 122/72; PULSE 108
--- NOTE | 2020-01-29 18:16 | PCM.DCSUM1 ---
Discharge Summary - Hospital Course Free Text/Narrative:: Patient is a 74-year-old female with a significant past medical history of hypertension, CHF, daily alcohol use, medical noncompliance presenting yesterday after waking up in the morning with right arm right leg weakness and slurring of the speech. Patient proceeded to the ED via personal vehicle and a stroke code was called. ED course ;CT head was negative CTA neck; significant calcified plaque within the carotid bulb Chest x-ray no acute infiltrates stable cardiomegaly. TIA versus stroke; CT head negative; symptoms improving subjectively per patient ; right facial mild drooping: Imaging; brain MRI with and without contrast; MRA head without contrast; angio neck with contrast:no acute findings Echocardiogram also ordered; last echo greater than 1 year; awaiting outside facility records:Pending ASA was offered to patient ; pt. refused ASA secondary to concerns regarding increased bleeding. explained to pt. risks vs benefits of ASA despite anticoagulation in the setting for concerns of TIA vs. Stroke; pt understood but is still refusing. Will notify PCP on discharge about our recommendation.pt also states not being complaint with her diet/fluid intake (mentioned drinking multiple ETOH drinks w. high salt content recently); L/E edema is 4+; additonal IV lasix 40 mg given. continued home Lasix/Bumex as well. Discharge: pt. at discharge was stable and at her baseline per patient. Echo results still pending. advised to discontinue use of ETOH and consumption of excess sodium. Advised to follow up in outpatient setting regarding her heart failure and concners for TIA. Again discussed benefits of daily ASA but pt. states she will like to think about this. - Discharge Data Discharge Date: 01/29/20 Discharge Disposition: Home, Self-Care 01 Condition: Fair - Referral to Home Health Primary Care Physician: Mercedes Peres MD - Patient Summary/Data Consults: Consultations 01/28/20 17:11 Consult to Physical Therapy [PT Evaluation and Treatment] [CONS] Routine - Patient Instructions Diet: Low Sodium, Fluid Restriction Notify Provider of: Fever, Increased Pain, Nausea and/or Vomiting Other/Special Instructions: At this time no signs of an acute stroke were appreciated. However, we belive you are a good candidate to be on Aspirin daily. If you are hesitant about being on this medication; please notify your Primary care regarding your hesitations. I would also advise you to avoid any alcoholic drinks and excess amount of salt in your diet as you have a history of heart failure. Heart failure is controlled with your water pills (Furosemide and Bumetanide); please continue your home medications and follow up with your primary care doctor regarding your baseline health. - Discharge Plan *PRESCRIPTION DRUG MONITORING PROGRAM REVIEWED*: Not Applicable *COPY OF PRESCRIPTION DRUG MONITORING REPORT IN PATIENT JULISSA: Not Applicable Prescriptions/Med Rec: Aspirin [Lo-Dose Aspirin EC] 81 mg PO DAILY 30 Days #30 tablet. Home Medications: Home Meds Omeprazole 20 mg PO ACBREAKFAST 02/27/14 [History] Simvastatin [Zocor] 20 mg PO BEDTIME 02/27/14 [History] Carvedilol [Coreg] 25 mg PO BID 09/03/16 [History] Potassium Chloride 8 meq PO BID 09/03/16 [History] Apixaban [Eliquis] 5 mg PO BID 07/17/19 [History] Furosemide 120 mg PO DAILY 07/17/19 [History] allopurinoL [Zyloprim] 100 mg PO BID 07/17/19 [History] glipiZIDE [Glucotrol XL] 10 mg PO DAILY 07/17/19 [History] Bumetanide 1 mg PO DAILY 01/28/20 [History] ClonazePAM [KlonoPIN] 0.5 mg PO BEDTIME 01/28/20 [History] Diltiazem [Dilacor XR] 120 mg PO DAILY 01/28/20 [History] Insulin Detemir [Levemir Flextouch] 30 unit SQ QAM 01/28/20 [History] metOLazone [Metolazone] 2.5 mg PO DAILY 01/28/20 [History] Aspirin [Lo-Dose Aspirin EC] 81 mg PO DAILY 30 Days #30 tablet. 01/29/20 [Rx] Patient Handouts: Transient Ischemic Attack, [id number] Referrals: Mercedes Peres MD [Primary Care Provider] - 02/05/20 2:15 pm - Discharge Summary/Plan Comment DC Time >30 min.: No - Patient Data Vitals - Most Recent: Last Vital Signs Temp 98 F 01/29/20 16:43 Pulse 108 H 01/29/20 16:43 Resp 18 01/29/20 16:43 BP 122/72 01/29/20 16:43 Pulse Ox 93 L 01/29/20 16:43 Weight - Most Recent: 126 kg I&O - Last 24 hours: Intake & Output 01/29/20 01/29/20 01/29/20 06:59 14:59 22:59 Intake Total 1360 540 Output Total 850 1300 Balance 510 -760 Lab Results - Last 24 hrs: Laboratory Results - last 24 hr 01/28/20 01/28/20 01/29/20 Range/Units 18:47 22:01 05:20 WBC 6.98 (4.0-11.0) K/uL RBC 3.44 L (4.30-5.90) M/uL Hgb 10.5 L (12.0-16.0) g/dL Hct 32.6 L (36.0-46.0) % MCV 94.8 (80.0-98.0) fL MCH 30.5 (27.0-32.0) pg MCHC 32.2 (31.0-37.0) g/dL RDW Std Deviation 52.8 (28.0-62.0) fl RDW Coeff of Yovani 16 H (11.0-15.0) % Plt Count 137 L (150-400) K/uL MPV 9.70 (7.40-12.00) fL Neut % (Auto) 73.8 (48.0-80.0) % Lymph % (Auto) 13.6 L (16.0-40.0) % [place] % (Auto) 8.7 (0.0-15.0) % Eos % (Auto) 3.3 (0.0-7.0) % Baso % (Auto) 0.6 (0.0-1.5) % Neut # (Auto) 5.2 (1.4-5.7) K/uL Lymph # (Auto) 1.0 (0.6-2.4) K/uL [place] # (Auto) 0.6 (0.0-0.8) K/uL Eos # (Auto) 0.2 (0.0-0.7) K/uL Baso # (Auto) 0.0 (0.0-0.1) K/uL Nucleated RBC % 0.0 /100WBC Nucleated RBCs # 0 K/uL Sodium (136-145) mmol/L Potassium (3.5-5.1) mmol/L Chloride (98-107) mmol/L Carbon Dioxide (21.0-32.0) mmol/L BUN (7.0-18.0) mg/dL Creatinine (0.6-1.0) mg/dL Est Cr Clr Drug Dosing mL/min Estimated GFR (MDRD) ml/min Glucose (74-106) mg/dL POC Glucose 93 97 (60-110) mg/dL Calcium (8.5-10.1) mg/dL Total Bilirubin (0.2-1.0) mg/dL AST (15-37) IU/L ALT (14-63) IU/L Alkaline Phosphatase (46-116) U/L Total Protein (6.4-8.2) g/dL Albumin (3.4-5.0) g/dL Globulin (2.6-4.0) g/dL Albumin/Globulin Ratio (0.9-1.6) 01/29/20 01/29/20 01/29/20 Range/Units 05:20 06:47 07:33 WBC (4.0-11.0) K/uL RBC (4.30-5.90) M/uL Hgb (12.0-16.0) g/dL Hct (36.0-46.0) % MCV (80.0-98.0) fL MCH (27.0-32.0) pg MCHC (31.0-37.0) g/dL RDW Std Deviation (28.0-62.0) fl RDW Coeff of Yovani (11.0-15.0) % Plt Count (150-400) K/uL MPV (7.40-12.00) fL Neut % (Auto) (48.0-80.0) % Lymph % (Auto) (16.0-40.0) % [place] % (Auto) (0.0-15.0) % Eos % (Auto) (0.0-7.0) % Baso % (Auto) (0.0-1.5) % Neut # (Auto) (1.4-5.7) K/uL Lymph # (Auto) (0.6-2.4) K/uL [place] # (Auto) (0.0-0.8) K/uL Eos # (Auto) (0.0-0.7) K/uL Baso # (Auto) (0.0-0.1) K/uL Nucleated RBC % /100WBC Nucleated RBCs # K/uL Sodium 141 (136-145) mmol/L Potassium 2.9 L (3.5-5.1) mmol/L Chloride 98 (98-107) mmol/L Carbon Dioxide 37.8 H (21.0-32.0) mmol/L BUN 37 H (7.0-18.0) mg/dL Creatinine 1.7 H (0.6-1.0) mg/dL Est Cr Clr Drug Dosing 23.66 mL/min Estimated GFR (MDRD) 29.5 ml/min Glucose 95 (74-106) mg/dL POC Glucose 87 138 H (60-110) mg/dL Calcium 8.0 L (8.5-10.1) mg/dL Total Bilirubin 0.4 (0.2-1.0) mg/dL AST 15 (15-37) IU/L ALT 15 (14-63) IU/L Alkaline Phosphatase 53 (46-116) U/L Total Protein 6.8 (6.4-8.2) g/dL Albumin 3.2 L (3.4-5.0) g/dL Globulin 3.6 (2.6-4.0) g/dL Albumin/Globulin Ratio 0.9 (0.9-1.6) 01/29/20 01/29/20 01/29/20 Range/Units 09:55 12:08 16:46 WBC (4.0-11.0) K/uL RBC (4.30-5.90) M/uL Hgb (12.0-16.0) g/dL Hct (36.0-46.0) % MCV (80.0-98.0) fL MCH (27.0-32.0) pg MCHC (31.0-37.0) g/dL RDW Std Deviation (28.0-62.0) fl RDW Coeff of Yovani (11.0-15.0) % Plt Count (150-400) K/uL MPV (7.40-12.00) fL Neut % (Auto) (48.0-80.0) % Lymph % (Auto) (16.0-40.0) % [place] % (Auto) (0.0-15.0) % Eos % (Auto) (0.0-7.0) % Baso % (Auto) (0.0-1.5) % Neut # (Auto) (1.4-5.7) K/uL Lymph # (Auto) (0.6-2.4) K/uL [place] # (Auto) (0.0-0.8) K/uL Eos # (Auto) (0.0-0.7) K/uL Baso # (Auto) (0.0-0.1) K/uL Nucleated RBC % /100WBC Nucleated RBCs # K/uL Sodium (136-145) mmol/L Potassium (3.5-5.1) mmol/L Chloride (98-107) mmol/L Carbon Dioxide (21.0-32.0) mmol/L BUN (7.0-18.0) mg/dL Creatinine (0.6-1.0) mg/dL Est Cr Clr Drug Dosing mL/min Estimated GFR (MDRD) ml/min Glucose (74-106) mg/dL POC Glucose 149 H 154 H 178 H (60-110) mg/dL Calcium (8.5-10.1) mg/dL Total Bilirubin (0.2-1.0) mg/dL AST (15-37) IU/L ALT (14-63) IU/L Alkaline Phosphatase (46-116) U/L Total Protein (6.4-8.2) g/dL Albumin (3.4-5.0) g/dL Globulin (2.6-4.0) g/dL Albumin/Globulin Ratio (0.9-1.6) Med Orders - Current: Current Medications Apixaban (Eliquis) 5 mg PO BID [facility] Last Admin: 01/29/20 10:03 Dose: 5 mg Bumetanide (Bumex) 1 mg PO DAILY [facility] Last Admin: 01/29/20 10:03 Dose: 1 mg Clonazepam (Klonopin) 0.5 mg PO BEDTIME [facility] Last Admin: 01/28/20 22:04 Dose: 0.5 mg Dextrose/Water (Dextrose 25% In Water) 10 ml IVPUSH ONETIME PRN PRN Reason: Hypoglycemia Last Admin: 01/29/20 07:13 Dose: 10 ml Insulin Aspart (Novolog) 0 unit SUBCUT TIDAC [facility]; Protocol Last Admin: 01/29/20 17:35 Dose: 2 units Insulin Detemir (Levemir) 30 unit SUBCUT QAM [facility] Last Admin: 01/29/20 09:59 Dose: 30 units Omeprazole (Omeprazole) 20 mg PO ACBREAKFAST [facility] Last Admin: 01/29/20 07:12 Dose: 20 mg Potassium Chloride (Klor-Con M20) 40 meq PO BID [facility] Last Admin: 01/29/20 10:03 Dose: 40 meq Simvastatin (Zocor) 20 mg PO BEDTIME [facility] Discontinued Medications Aspirin (Aspirin) 325 mg PO ONETIME ONE Stop: 01/28/20 16:19 Last Admin: 01/28/20 17:13 Dose: Not Given Dextrose/Water (Dextrose 25% In Water) 10 ml IVPUSH ONETIME ONE Stop: 01/28/20 14:46 Last Admin: 01/28/20 14:38 Dose: 10 ml Furosemide (Lasix) 9,600 mg PO DAILY [facility] Furosemide (Lasix) 40 mg IVPUSH NOW ONE Stop: 01/29/20 10:44 Last Admin: 01/29/20 11:59 Dose: 40 mg Furosemide (Lasix) 40 mg IVPUSH NOW ONE Stop: 01/29/20 17:56 Last Admin: 01/29/20 18:13 Dose: 40 mg Gadobenate Dimeglumine (Multihance) 20 ml IVPUSH ONETIME STA Stop: 01/29/20 10:46 Last Admin: 01/29/20 11:59 Dose: 17 ml Iopamidol (Isovue Multipack-370 (76%)) 100 ml IVPUSH ONETIME ONE Stop: 01/28/20 14:31 Last Admin: 01/28/20 14:31 Dose: 100 ml
[2020-01-29] MEDS ORDERED: Simvastatin 20 MG Tab PO SCH (21:00)
--- NOTE | 2020-02-01 16:22 | ECHO ---
The echocardiogram report can be seen in this patient's EMR (Electronic Medical Record) in the REPORTS section. The report has also been scanned into PACS. NATASHA
== END 2020-01-29 18:50 | disposition home or self-care (01) ==
LOC: MW.ED 13:51 → MW.MS 16:00
PROVIDERS: ADMIT Student in an Organized Health Care Education/Training Program; ATTEND Student in an Organized Health Care Education/Training Program
DX: R53.1 Weakness (principal); R20.2 Paresthesia of skin; R20.0 Anesthesia of skin; R47.81 Slurred speech; E11.9 Type 2 diabetes mellitus without complications; J44.9 Chronic obstructive pulmonary disease, unspecified; I11.0 Hypertensive heart disease with heart failure; I48.91 Unspecified atrial fibrillation; I35.0 Nonrheumatic aortic (valve) stenosis; I50.9 Heart failure, unspecified; E66.9 Obesity, unspecified; Z88.0 Allergy status to penicillin; Z88.8 Allergy status to other drugs, medicaments and biological substances; Z79.84 Long term (current) use of oral hypoglycemic drugs; Z79.899 Other long term (current) drug therapy; Z68.43 Body mass index [BMI] 50.0-59.9, adult
CPT/HCPCS: 36415; 70496; 70498; 70544; 70548; 70553; 71045; 80053; 80061; 81003; 82962; 83036; 84484; 85025; 85610; 93005; 93306; 96374; 96376; 97161; A9270; A9577; G0378; J1815; J1940; Q9967; 99285; 99285-25

== ENCOUNTER 2020-05-14 06:19 | Observation (INO) | payer MEDICARE, OTHER ==
[2020-05-14] MEDS ORDERED: Sodium Chloride 0.9% 2.5 ML Syringe FLUSH PRN ×2 (06:26→10:01)
[2020-05-14] MEDS ORDERED: Sodium Chloride 0.9% 10 ML Syringe FLUSH PRN (06:26)
[2020-05-14] MEDS ORDERED: Sodium Chloride 0.9% 10 ML SDV IV PRN (06:26)
--- NOTE | 2020-05-14 06:40 | EDM.PDOC ---
<Ashutosh Ordaz - Last Filed: 05/14/20 06:42> ED HPI GENERAL MEDICAL PROBLEM - General Stated Complaint: STROKE Time Seen by Provider: 05/14/20 06:25 - History of Present Illness INITIAL COMMENTS - FREE TEXT/NARRATIVE: HISTORY AND PHYSICAL: History of present illness: This is a 74-year-old female with a history significant for COPD, hypertension, diabetes, aortic stenosis, TIA, atrial fibrillation (currently on Eliquis), who presents to the ER today secondary to right upper and lower extremity weakness and slurred speech was noticed approximately 5:15 AM. Patient's last known well was 3 AM. According to EMS, the patient was watching TV at 3 the morning when her brother saw her and talked her and her brother reports that at that time she had normal speech. Patient reports that she fell asleep approximately 3:30 in the morning and woke up at 515 and noticed that she had slurring of her speech with weakness in her right upper and right lower extremity. Patient reports that up until this morning she was in her usual state of health. Patient denies any recent fevers, shakes, chills, nausea, vomiting, diarrhea, dysuria, frequency, urgency, chest pain, shortness of breath, abdominal pain. Patient reports that approximately 3-6 mo she had a TIA but had no residual symptoms after it. At the time of her TIA, she reports that she had right-sided upper and lower extremity weakness which completely resolved. Patient admits to tobacco use and drinking approximately 3 alcoholic beverages daily. Patient is allergic to amoxicillin and tramadol. Review of systems: As per history of present illness and below otherwise all systems reviewed and negative. Past medical history: As per history of present illness and as reviewed below otherwise noncontributory. Surgical history: As per history of present illness and as reviewed below otherwise noncontributory. Social history: No reported history of drug or alcohol abuse. Family history: As per history of present illness and as reviewed below otherwise noncontributory. Physical exam: HEENT: Atraumatic, normocephalic, pupils reactive, negative for conjunctival pallor or scleral icterus, mucous membranes moist, throat clear, neck supple, nontender, trachea midline. Lungs: Clear to auscultation, breath sounds equal bilaterally, chest nontender. Heart: Irregularly irregular Abdomen: Soft, nondistended, nontender. Negative for masses or hepatosplen omegaly. Negative for costovertebral tenderness. Pelvis: Stable nontender. Genitourinary: Deferred. Rectal: Deferred. Extremities: Atraumatic, negative for cords or calf pain. Neurovascular unremarkable. Neuro: Awake, alert, oriented. Cranial nerves II through XII unremarkable. Slight right facial droop. Cerebellum unremarkable. Patient still with slurring of her speech. Patient with slight difficulty with word finding. Patient has 5 out of 5 upper and lower extremity strength bilaterally. Patient reports objectively feels slightly weak. 1a) Level of consciousness: 0=alert; 1=not alert but arousable by minor stimulation; 2=not alert: requires repeated stimulation to attend or is obtunded and requires strong or painful stimulation to make movements; 3=responds only with reflex motor or autonomic effects or totally unresponsive, flaccid and areflexic SCORE 0 1b) LOC questions ("what month is it?", "how old are you?"): 0=answers both correctly; 1=answers one correctly; 2=answers neither correctly SCORE 0 1c) LOC commands (command patient to "open and close your eyes. Passenger Brakeman and release your hand.): 0=performs both correctly; 1=performs one correctly; 2=performs neither correctly SCORE 0 2) Best gaze ("follow my finger"): 0=normal; 1=partial gaze palsy; 2=forced deviation or total gaze paresis SCORE 0 3) Visual gonzales (use confrontation, finger counting, or visual threat. confront upper/lower quadrants of visual field): 0=no visual loss; 1=partial hemianopsia; 2=complete hemianopsia; 3=bilateral hemianopsia SCORE 0 4) Facial palsy (by words or pantomime, encourage patient to: "Show me your teeth. Raise your eyebrows. Close your eyes."): 0=normal symmetrical movement; 1=minor paralysis (flattened nasolabial fold, asymmetry on smiling); 2=partial p aralysis (lower face); 3=complete paralysis SCORE 1 5) Arm motor (alternately position patient's arms. extend each arm with palms down [90 degrees if sitting, 45 degrees if supine] - test each arm in turn and start with nonparetic arm first): 0=no drift; 1=drift (arm falls before 10 seconds); 2=some effort vs. gravity; 3=no effort vs. gravity; 4=no movement; UN (untestable)=amputation or joint fusion SCORE 0 6) Leg motor (alternately position patient's legs. extend each leg [30 degrees, always while supine] - test nonparetic leg first): 0=no drift; 1=drift (leg falls before 5 seconds); 2=some effort vs. gravity; 3= no effort vs. gravity; 4=no movement; UN=amputation or joint fusion SCORE 0 7) Limb ataxia (ask patient [eyes open] to: "touch your finger to your nose. touch your heel to your chandler"): 0=absent; 1=present in one limb; 2=present in two or more limbs; UN=amputation or joint fusion SCORE 0 8) Sensory (test as many body parts as possible [arms and not hands, legs, t runk, face] for sensation using pinprick or noxious stimuli [in the obtunded or aphasic patient]): 0=normal; 1=mild to moderate sensory loss; 2=severe to total sensory loss SCORE 0 9) Best language (using pictures and a sentence list, ask patient to "describe what you see in this picture. Name the items in this picture. Read these sentences"): 0=no aphasia, 1=mild to moderate aphasia; 2=severe aphasia; 3=mute, global aphasia SCORE 0 10) Dysarthria (using a simple word list, ask patient to: "read these words" or "repeat these words"): 0=normal articulation; 1=mild to moderate dysarthria; 2=severe dysarthria; UN=intubated or other physical barrier SCORE 0 11) Extinction and inattention (sufficient information to determine these scores may have been obtained during the prior testing): 0=no abnormality; 1=visual, tactile, auditory, spatial or personal inattention; 2=profound austin-inattention or extinction to more than one modality SCORE 1 TOTAL NIHSS Score: Diagnostics: CTA head and neck CT head EKG CBC, CMP, troponin Therapeutics: [] Assessment and plan: This is a 74-year-old lady with history significant for atrial fibrillation, diabetes, hypertension, TIA, COPD, who presents to the ER today secondary to weakness to her right upper and lower extremities with slurring her speech that started approximately 5:15 AM. Patient's last known well was 3 AM. In the ED upon arrival patient symptoms appear to have significantly improved. Patient's NIH score currently is 1. Patient speech is back to baseline and has normal motor function of her upper and lower extre mities. CT scan of the head and CTA of head and neck have been ordered. Definitive disposition and diagnosis as appropriate pending reevaluation and review of above. - Related Data Allergies Allergy/AdvReac Type Severity Reaction Status Date / Time amoxicillin [Amoxicillin] Allergy Cannot Verified 05/14/20 06:46 Remember tramadol Allergy Dizziness Verified 05/14/20 06:46 Home Meds: Home Meds Omeprazole 20 mg PO ACBREAKFAST 02/27/14 [History] Simvastatin [Zocor] 20 mg PO BEDTIME 02/27/14 [History] Carvedilol [Coreg] 25 mg PO BID 09/03/16 [History] Potassium Chloride 8 meq PO BID 09/03/16 [History] Apixaban [Eliquis] 5 mg PO BID 07/17/19 [History] Furosemide 120 mg PO DAILY 07/17/19 [History] allopurinoL [Zyloprim] 100 mg PO BID 07/17/19 [History] glipiZIDE [Glucotrol XL] 10 mg PO DAILY 07/17/19 [History] Bumetanide 1 mg PO DAILY 01/28/20 [History] ClonazePAM [KlonoPIN] 0.5 mg PO BEDTIME 01/28/20 [History] Diltiazem [Dilacor XR] 120 mg PO DAILY 01/28/20 [History] Insulin Detemir [Levemir Flextouch] 30 unit SQ QAM 01/28/20 [History] metOLazone [Metolazone] 2.5 mg PO DAILY 01/28/20 [History] Aspirin [Lo-Dose Aspirin EC] 81 mg PO DAILY 30 Days #30 tablet. 01/29/20 [Rx] Past Medical History HEENT History: Reports: None Cardiovascular History: Reports: Afib, Heart Murmur, Hypertension, Other (See Below) Other Cardiovascular History: CHF Respiratory History: Reports: COPD, SOB Other Respiratory History: history of pneumonia 5 years ago Gastrointestinal History: Reports: GERD Genitourinary History: Reports: Diabetic Nephropathy [employer] History: Reports: Other [employer] History: Hysterectomy Musculoskeletal History: Reports: None Neurological History: Reports: Neuropathy, Peripheral Psychiatric History: Reports: Depression, Mood Swings Endocrine/Metabolic History: Reports: Diabetes, Type II Hematologic History: Reports: None Immunologic History: Reports: None Oncologic (Cancer) History: Reports: None Dermatologic History: Reports: None Other Dermatologic History: scaley patchy skin over right leg - Infectious Disease History Infectious Disease History: Reports: Chicken Pox, Measles, Mumps - Past Surgical History HEENT Surgical History: Reports: None GI Surgical History: Reports: Appendectomy, Cholecystectomy, Colonoscopy, EGD, Hernia, Abdominal Female Surgical History: Reports: Hysterectomy Musculoskeletal Surgical History: Reports: Knee Replacement Social & Family History - Family History Family Medical History: Noncontributory HEENT: Reports: None Cardiac: Reports: None Respiratory: Reports: Other (See Below) Other Respiratory Family Hisory: emphysema GI: Reports: None : Reports: None OBGYN: Reports: None Musculoskeletal: Reports: None Neurological: Reports: None Psychiatric: Reports: None Endocrine/Metabolic: Reports: Diabetes, type II Hematologic: Reports: None Immunologic: Reports: None Dermatologic: Reports: None Oncologic: Reports: None Other Oncologic Family History: father had esophageal CA - Caffeine Use Caffeine Use: Reports: Coffee ED ROS GENERAL - Review of Systems Review Of Systems: See Below ED EXAM, GENERAL - Physical Exam Exam: See Below Departure - Departure Disposition: Refer to Observation Clinical Impression: Hypokalemia, TIA (transient ischemic attack) - Discharge Information Referrals: PCP,None [Primary Care Provider] - <Curry Martinez - Last Filed: 05/14/20 07:46> EKG INTERPRETATION EKG Date: 05/14/20 Time: 07:01 EKG Interpretation Comments: atrial fibrillation ventricular rate of 93, low voltage in the precordial leads, no acute ischemia and normal axis, QTc prolonged at 520 Course - Vital Signs Last Recorded V/S: Last Vital Signs Temp 97.4 F 05/14/20 06:30 Pulse 92 05/14/20 06:30 Resp 18 05/14/20 06:30 BP 150/76 H 05/14/20 06:30 Pulse Ox 92 L 05/14/20 06:30 - Orders/Labs/Meds Orders: Active Orders 24 hr Category Date Time Status Patient Status [ADT] Routine ADT 05/14/20 07:42 Ordered Assess Neurological Status [RC] ASDIRECTED Care 05/14/20 06:26 Active Bedrest [RC] ASDIRECTED Care 05/14/20 06:26 Active Cardiac Monitoring [RC] . DIRECTED Care 05/14/20 06:26 Active EKG Documentation Completion [RC] STAT Care 05/14/20 06:26 Active Height and Weight [RC] UPON Care 05/14/20 06:26 Active Initiate Acute Stroke Protocol [RC] STAT Care 05/14/20 06:26 Active NIH Stroke Scale [RC] ASDIRECTED Care 05/14/20 06:26 Active Nursing Bedside Swallow Screen [RC] ASDIRECTED Care 05/14/20 06:26 Active Oxygen Therapy [RC] ASDIRECTED Care 05/14/20 06:26 Active Stroke Education, General [] Click to Edit Care 05/14/20 06:26 Active Vital Signs [RC] Q15M Care 05/14/20 06:26 Active Potassium Chloride Riders [KCL 40 MEQ in Water 100 ML] Med 05/14/20 07:28 Active 40 meq Premix Bag 1 bag IV ONETIME Sodium Chloride 0.9% [Normal Saline] Med 05/14/20 06:26 Active 10 ml IV ASDIRECTED PRN Sodium Chloride 0.9% [Saline Flush] Med 05/14/20 06:26 Active 10 ml FLUSH ASDIRECTED PRN Sodium Chloride 0.9% [Saline Flush] Med 05/14/20 06:26 Active 2.5 ml FLUSH ASDIRECTED PRN Peripheral IV Insertion Adult [OM.PC] Stat Ot 05/14/20 06:26 Ordered Peripheral IV Insertion Adult [OM.PC] Stat Ot 05/14/20 06:26 Ordered Resuscitation Status Stat Resus Stat 05/14/20 06:26 Ordered Medication Orders Potassium Chloride 40 meq/ (Premix) 100 mls @ 25 mls/hr IV ONETIME ONE Stop: 05/14/20 11:27 Sodium Chloride (Saline Flush) 10 ml FLUSH ASDIRECTED PRN PRN Reason: Keep Vein Open Sodium Chloride (Saline Flush) 2.5 ml FLUSH ASDIRECTED PRN PRN Reason: Keep Vein Open Sodium Chloride (Normal Saline) 10 ml IV ASDIRECTED PRN PRN Reason: IV Use Labs: Laboratory Tests 05/14/20 05/14/2020 Range/Units 06:21 06:21 06:21 WBC 7.29 (4.0-11.0) K/uL RBC 3.64 L (4.30-5.90) M/uL Hgb 11.6 L (12.0-16.0) g/dL Hct 34.3 L (36.0-46.0) % MCV 94.2 (80.0-98.0) fL MCH 31.9 (27.0-32.0) pg MCHC 33.8 (31.0-37.0) g/dL RDW Std Deviation 48.7 (28.0-62.0) fl RDW Coeff of Yovani 14 (11.0-15.0) % Plt Count 153 (150-400) K/uL MPV 9.90 (7.40-12.00) fL Neut % (Auto) 72.8 (48.0-80.0) % Lymph % (Auto) 10.2 L (16.0-40.0) % [place]pson % (Auto) 7.8 (0.0-15.0) % Eos % (Auto) 8.8 H (0.0-7.0) % Baso % (Auto) 0.4 (0.0-1.5) % Neut # (Auto) 5.3 (1.4-5.7) K/uL Lymph # (Auto) 0.7 (0.6-2.4) K/uL Upson # (Auto) 0.6 (0.0-0.8) K/uL Eos # (Auto) 0.6 (0.0-0.7) K/uL Baso # (Auto) 0.0 (0.0-0.1) K/uL Nucleated RBC % 0.0 /100WBC Nucleated RBCs # 0 K/uL INR 1.06 APTT 31.1 (18.6-31.3) SEC Sodium 134 L (136-145) mmol/L Potassium 2.7 L (3.5-5.1) mmol/L Chloride 92 L (98-107) mmol/L Carbon Dioxide 30.8 (21.0-32.0) mmol/L BUN 52 H (7.0-18.0) mg/dL Creatinine 2.0 H (0.6-1.0) mg/dL Est Cr Clr Drug Dosing TNP Estimated GFR (MDRD) 24.5 ml/min Glucose 67 L (74-106) mg/dL Calcium 8.3 L (8.5-10.1) mg/dL Magnesium (1.8-2.4) mg/dL Total Bilirubin 0.3 (0.2-1.0) mg/dL AST 18 (15-37) IU/L ALT 17 (14-63) IU/L Alkaline Phosphatase 61 (46-116) U/L Troponin I < 0.050 (0.000-0.056) ng/mL Total Protein 8.2 (6.4-8.2) g/dL Albumin 4.0 (3.4-5.0) g/dL Globulin 4.2 H (2.6-4.0) g/dL Albumin/Globulin Ratio 1.0 (0.9-1.6) Free T4 (0.76-1.46) ng/dL TSH 3rd Generation 5.09 H (0.36-3.74) uIU/mL Urine Color Urine Appearance Urine pH (5.0-8.0) Ur Specific [place] (1.001-1.035) Urine Protein (NEGATIVE) mg/dL Urine Glucose (UA) (NEGATIVE) mg/dL Urine Ketones (NEGATIVE) mg/dL Urine Occult Blood (NEGATIVE) Urine Nitrite (NEGATIVE) Urine Bilirubin (NEGATIVE) Urine Urobilinogen (<2.0) EU/dL Ur Leukocyte Esterase (NEGATIVE) Urine RBC (0-2/HPF) Urine WBC (0-5/HPF) Ur Epithelial Cells (NONE-FEW) Urine Bacteria (NEGATIVE) Urine Mucus (NONE-MOD) Ethyl Alcohol 3 mg/dL 05/14/20 05/14/20 Range/Units 06:21 07:04 WBC (4.0-11.0) K/uL RBC (4.30-5.90) M/uL Hgb (12.0-16.0) g/dL Hct (36.0-46.0) % MCV (80.0-98.0) fL MCH (27.0-32.0) pg MCHC (31.0-37.0) g/dL RDW Std Deviation (28.0-62.0) fl RDW Coeff of Yovani (11.0-15.0) % Plt Count (150-400) K/uL MPV (7.40-12.00) fL Neut % (Auto) (48.0-80.0) % Lymph % (Auto) (16.0-40.0) % [place]pson % (Auto) (0.0-15.0) % Eos % (Auto) (0.0-7.0) % Baso % (Auto) (0.0-1.5) % Neut # (Auto) (1.4-5.7) K/uL Lymph # (Auto) (0.6-2.4) K/uL [place]pson # (Auto) (0.0-0.8) K/uL Eos # (Auto) (0.0-0.7) K/uL Baso # (Auto) (0.0-0.1) K/uL Nucleated RBC % /100WBC Nucleated RBCs # K/uL INR APTT (18.6-31.3) SEC Sodium (136-145) mmol/L Potassium (3.5-5.1) mmol/L Chloride (98-107) mmol/L Carbon Dioxide (21.0-32.0) mmol/L BUN (7.0-18.0) mg/dL Creatinine (0.6-1.0) mg/dL Est Cr Clr Drug Dosing Estimated GFR (MDRD) ml/min Glucose (74-106) mg/dL Calcium (8.5-10.1) mg/dL Magnesium 1.2 L (1.8-2.4) mg/dL Total Bilirubin (0.2-1.0) mg/dL AST (15-37) IU/L ALT (14-63) IU/L Alkaline Phosphatase (46-116) U/L Troponin I (0.000-0.056) ng/mL Total Protein (6.4-8.2) g/dL Albumin (3.4-5.0) g/dL Globulin (2.6-4.0) g/dL Albumin/Globulin Ratio (0.9-1.6) Free T4 0.92 (0.76-1.46) ng/dL TSH 3rd Generation (0.36-3.74) uIU/mL Urine Color YELLOW Urine Appearance HAZY Urine pH 5.5 (5.0-8.0) Ur Specific [place] 1.020 (1.001-1.035) Urine Protein NEGATIVE (NEGATIVE) mg/dL Urine Glucose (UA) NEGATIVE (NEGATIVE) mg/dL Urine Ketones NEGATIVE (NEGATIVE) mg/dL Urine Occult Blood NEGATIVE (NEGATIVE) Urine Nitrite NEGATIVE (NEGATIVE) Urine Bilirubin NEGATIVE (NEGATIVE) Urine Urobilinogen 0.2 (<2.0) EU/dL Ur Leukocyte Esterase SMALL H (NEGATIVE) Urine RBC 0-2 (0-2/HPF) Urine WBC 8-12 (0-5/HPF) Ur Epithelial Cells FEW (NONE-FEW) Urine Bacteria 2+ H (NEGATIVE) Urine Mucus LIGHT (NONE-MOD) Ethyl Alcohol mg/dL Meds: Medications Generic Name Dose Route Start Last Admin Trade Name Freq PRN Reason Stop Dose Admin Potassium Chloride 40 meq/ 100 mls @ 25 mls/hr 05/14/20 07:28 Premix IV 05/14/20 11:27 ONETIME ONE Sodium Chloride 10 ml 05/14/20 06:26 Saline Flush FLUSH ASDIRECTED PRN Keep Vein Open Sodium Chloride 2.5 ml 05/14/20 06:26 Saline Flush FLUSH ASDIRECTED PRN Keep Vein Open Sodium Chloride 10 ml 05/14/20 06:26 Normal Saline IV ASDIRECTED PRN IV Use Discontinued Medications Generic Name Dose Route Start Last Admin Trade Name Freq PRN Reason Stop Dose Admin Iopamidol 100 ml 05/14/20 07:15 05/14/20 07:16 Isovue-370 (76%) IVPUSH 05/14/20 07:16 100 ml ONETIME STA Administration - Re-Assessments/Exams Free Text/Narrative Re-Assessment/Exam: 05/14/20 07:24 I received this patient from Dr. Ordaz at 0700. The patient's current NIHSS score is 1 for right nasolabial fold flattening. Overall her symptoms have nearly completely resolved. Pt's EKG is w/out concerning finding. Her labs are notable again for significant hypokalemia, magnesium level added given her hx. Her renal insufficiency is minimally increased, barely meeting criteria for EUGENE. Trop is negative, UA w/out infection. CT brain is w/out acute process. CTA demonstrates a high grade stenosis at the right ICA which is unchanged from prior. 05/14/20 07:[address] Natarajan. Will admit for stroke / TIA work up and hypokalemia. Refer to tele obs. Departure - Departure Time of Disposition: 07:45 Condition: Good - Discharge Information *PRESCRIPTION DRUG MONITORING PROGRAM REVIEWED*: Not Applicable *COPY OF PRESCRIPTION DRUG MONITORING REPORT IN PATIENT JULISSA: Not Applicable Sepsis Event Note (ED) - Focused Exam Vital Signs: Vital Signs Temp Pulse Resp BP Pulse Ox 05/14/20 06:30 97.4 F 92 18 150/76 H 92 L - My Orders Last 24 Hours: My Active Orders 05/14/20 07:28 Potassium Chloride Riders [KCL 40 MEQ in Water 100 ML] 40 meq Premix Bag 1 bag IV ONETIME 05/14/20 07:42 Patient Status [ADT] Routine - Assessment/Plan Last 24 Hours: My Active Orders 05/14/20 07:28 Potassium Chloride Riders [KCL 40 MEQ in Water 100 ML] 40 meq Premix Bag 1 bag IV ONETIME 05/14/20 07:42 Patient Status [ADT] Routine
[2020-05-14 07:10] LABS: BLOOD UREA NITROGEN,BUN 52 mg/dL (7.0-18.0); CARBON DIOXIDE,CO2 30.8 mmol/L (21.0-32.0); CHLORIDE,CL 92 mmol/L (98-107); GLUCOSE RANDOM 67 mg/dL (74-106); POTASSIUM,K 2.7 mmol/L (3.5-5.1); SODIUM,NA 134 mmol/L (136-145)
--- NOTE | 2020-05-14 07:10 | CT ---
INDICATION: Stroke COMPARISON: None TECHNIQUE: CT examination of the head was performed as axial sections without intravenous contrast. Images were obtained from the vertex of the skull through the skull base. Please note that all CT scans at this facility use dose modulation, iterative reconstruction, and/or weight-based dosing when appropriate to reduce radiation dose to as low as reasonably achievable. FINDINGS: The brain shows no sign of mass lesion, mass effect, hemorrhage, or edema. There are involutional changes. There is mild cortical atrophy and there is mild white matter disease. There is no hydrocephalus. The visualized portions of the orbits are normal in appearance. The osseous structures are normal in appearance with no sign of abnormality in the skull base or calvarium. IMPRESSION: Involutional changes. No acute-appearing findings. Please note that all CT scans at this facility use dose modulation, iterative reconstruction, and/or weight-based dosing when appropriate to reduce radiation dose to as low as reasonably achievable. Dictated by Nelson Poole MD @ May 14 2020 7:08AM Signed by Dr. Nelson Poole @ May 14 2020 7:09AM
[2020-05-14] MEDS ORDERED: Iopamidol 755 Mg/ML 100 ML Bottle IVPUSH STA (07:15)
--- NOTE | 2020-05-14 07:22 | CT ---
CT ANGIOGRAM HEAD AND NECK DATE: 05/14/2020 CLINICAL HISTORY: Patient with focal neurological deficits. TECHNIQUE: Standard helical CT image acquisition through the head and neck was performed after intravenous contrast bolus enhancement. Multiplanar reconstructed images were performed and interpreted. COMPARISON: CTA 01/28/2020. FINDINGS: There is no proximal intracranial large vessel occlusion. There is mild intracranial atherosclerosis in the carotid siphons. The origins of the great vessels from the aortic arch are patent. The origin of the right vertebral artery is patent. The origin of the left vertebral artery is patent. The common carotid arteries are patent. There is a severe (77%) stenosis at the origin of the right internal carotid artery by NASCET criteria. This is caused by calcified and non-calcified plaque with a 1mm residual lumen. There is a mild (<50%) stenosis at the origin of the left internal carotid artery by NASCET criteria. This is caused by calcified plaque with a >2mm residual lumen. The rest of the cervical segments of the internal carotid arteries are patent up to their intracranial segments. The vertebral arteries are codominant. The cervical segments of the vertebral arteries are patent. The intracranial segments of the vertebral arteries are patent. The middle cerebral arteries are normal without aneurysm or proximal occlusion identified. The anterior cerebral arteries are normal without aneurysm or proximal occlusion identified. The anterior communicating artery is well visualized and appears normal. The basilar artery is normal without aneurysm or occlusion. The posterior cerebral arteries are normal without aneurysm or proximal occlusion. The visualized lung apices are unremarkable The thyroid gland is unremarkable. The soft tissues of the neck are unremarkable. There are degenerative changes in the cervical spine. IMPRESSION: 1. No proximal intracranial large vessel occlusion. Mild intracranial atherosclerosis in the carotid siphons. 2. Grossly unchanged severe (77%) stenosis at the origin of the right internal carotid artery by NASCET criteria caused by calcified and non-calcified plaque with a 1mm residual lumen. 3. Unchanged mild (<50%) stenosis at the origin of the left internal carotid artery by NASCET criteria caused by calcified plaque with a >2mm residual lumen. Please note that all CT scans at this facility use dose modulation, iterative reconstruction, and/or weight-based dosing when appropriate to reduce radiation dose to as low as reasonably achievable. Dictated by: Hanny Rodrigues MD @ 05/14/2020 14:19:12 (Electronically Signed)
[2020-05-14] MEDS ORDERED: Potassium Chloride Riders 40 MEQ in Premix Bag 1 BAG IV ONE (07:28)
--- NOTE | 2020-05-14 07:35 | CR ---
INDICATION: Stroke COMPARISON: January 28, 2020 TECHNIQUE: PA and lateral views of the chest were acquired FINDINGS: TUBES AND LINES: None. HEART AND MEDIASTINUM: The heart is enlarged but appears unchanged. There are atherosclerotic vascular calcifications.. LUNGS AND PLEURAL SPACES: Linear opacities in the mid and basilar portion of the lungs are likely related to atelectasis.No pleural effusion or pneumothorax. OSSEOUS STRUCTURES: Age-appropriate appearance. No acute focal finding. IMPRESSION: Enlarged heart. Linear opacities in the left midlung and left base are likely related to atelectasis. Dictated by Nelson Poole MD @ May 14 2020 7:31AM Signed by Dr. Nelson Poole @ May 14 2020 7:33AM
[2020-05-14] MEDS ORDERED: Sodium Chloride 0.9% 1,000 ML IV SCH (08:30)
[2020-05-14] MEDS ORDERED: SODIUM CHLORIDE 0.9% IV SCH (08:45)
[2020-05-14] MEDS ORDERED: MAGNESIUM SULFATE IV SCH (08:45)
[2020-05-14] MEDS ORDERED: Acetaminophen 325 MG Tab PO PRN (10:01)
[2020-05-14] MEDS ORDERED: Ondansetron 4 MG/2 ML SDV IVPUSH PRN (10:01)
[2020-05-14] MEDS ORDERED: LORazepam 2 MG/ML SDV IVPUSH ONE (12:38)
--- NOTE | 2020-05-14 12:38 | PCM.HP.2 ---
H&P History of Present Illness - General Date of Service: 05/14/20 Admit Problem/Dx: Admission Diagnosis/Problem Admission Diagnosis/Problem TIA/CVA and hypokalemia Source of Information: Patient History Limitations: Reports: No Limitations - History of Present Illness Initial Comments - Free Text/Narative: This 74 year old female with significant pmh of CHF, COPD with chronic oxygen, afib, aortic stenosis, DM Type 2, and R ICA stenosis presented to the ED with complaints of R sided upper and lower extremity starting at 5:15 am when she woke up. She reports she was awake at 3:30 am watching TV and felt fine. By the time she came to the ED she was nearly resolved. She denies fevers, chills or neck pain. No headache or blurred vision. She denies chest pain or SOB no p alpitations.She denies abdominal pain and no urinary concerns. She reports she was doing well up until this morning. She is feeling better now. She denies recreational drug use, no tobacco use. She uses alcohol daily, 3-4 drinks daily. She had similar events a couple months ago and was seen by Dr Modi. She has known ICA on R side. In the ED CBC WNL, BMP reveals mild EUGENE, with hypokalemia 2.7, Mg 1.2 glucose 67, head CT negative. CTA head and neck revealed no acute findings in the head, but high grade stenosis in the R ICA. She was given Potassium and Mg in the ED. UA revealed +1 bacteria with pyuria and small leukocyte esterase. She was admitted for TIA and hypokalemia - Related Data Allergies/Adverse Reactions: Allergies Allergy/AdvReac Type Severity Reaction Status Date / Time amoxicillin [Amoxicillin] Allergy Cannot Verified 05/14/20 11:16 Remember tramadol Allergy Dizziness Verified 05/14/20 11:16 Home Medications: Home Meds Omeprazole 20 mg PO ACBREAKFAST 02/27/14 [History] Simvastatin [Zocor] 20 mg PO BEDTIME 02/27/14 [History] Carvedilol [Coreg] 25 mg PO BID 09/03/16 [History] Potassium Chloride 24 meq PO BID 09/03/16 [History] Apixaban [Eliquis] 5 mg PO BID 07/17/19 [History] Furosemide 120 mg PO Q12H 07/17/19 [History] allopurinoL [Zyloprim] 200 mg PO DAILY 07/17/19 [History] glipiZIDE [Glucotrol XL] 10 mg PO DAILY 07/17/19 [History] Bumetanide 1 mg PO DAILY 01/28/20 [History] ClonazePAM [KlonoPIN] 0.5 mg PO BEDTIME PRN 01/28/20 [History] Diltiazem [Dilacor XR] 120 mg PO DAILY 01/28/20 [History] Insulin Detemir [Levemir Flextouch] 30 unit SQ QAM 01/28/20 [History] metOLazone [Metolazone] 2.5 mg PO DAILY 01/28/20 [History] Aspirin [Lo-Dose Aspirin EC] 81 mg PO DAILY 30 Days #30 tablet. 01/29/20 [Rx] Albuterol [Ventolin HFA] 1 - 2 inhalation IH Q4H PRN 05/14/20 [History] Benzonatate 100 mg PO TID PRN 05/14/20 [History] Budesonide [Pulmicort] 0.5 mg NEB BID 05/14/20 [History] Cyanocobalamin (Vitamin B-12) [Cyanocobalamin Injection] 1,000 mcg IM Q30D 05/14/20 [History] Mometasone Furoate 1 applic TOP DAILY PRN 05/14/20 [History] levalbuterol HCL [Levalbuterol HCl] 1.25 mg NEB Q6H PRN 05/14/20 [History] Past Medical History HEENT History: Reports: None Cardiovascular History: Reports: Afib, Heart Murmur, Hypertension, Other (See Below) Other Cardiovascular History: CHF Respiratory History: Reports: COPD, SOB Other Respiratory History: history of pneumonia 5 years ago Gastrointestinal History: Reports: GERD Genitourinary History: Reports: Diabetic Nephropathy 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 OB/BYN History: Hysterectomy Musculoskeletal History: Reports: None Neurological History: Reports: Neuropathy, Peripheral Psychiatric History: Reports: Depression, Mood Swings Endocrine/Metabolic History: Reports: Diabetes, Type II Hematologic History: Reports: None Immunologic History: Reports: None Oncologic (Cancer) History: Reports: None Dermatologic History: Reports: None Other Dermatologic History: scaley patchy skin over right leg - Infectious Disease History Infectious Disease History: Reports: Chicken Pox, Measles, Mumps - Past Surgical History HEENT Surgical History: Reports: None GI Surgical History: Reports: Appendectomy, Cholecystectomy, Colonoscopy, EGD, Hernia, Abdominal Female Surgical History: Reports: Hysterectomy Musculoskeletal Surgical History: Reports: Knee Replacement Social & Family History - Family History Family Medical History: Noncontributory HEENT: Reports: None Cardiac: Reports: None Respiratory: Reports: Other (See Below) Other Respiratory Family Hisory: emphysema GI: Reports: None : Reports: None OBGYN: Reports: None Musculoskeletal: Reports: None Neurological: Reports: None Psychiatric: Reports: None Endocrine/Metabolic: Reports: Diabetes, type II Hematologic: Reports: None Immunologic: Reports: None Dermatologic: Reports: None Oncologic: Reports: None Other Oncologic Family History: father had esophageal CA - Caffeine Use Caffeine Use: Reports: Coffee - Recreational Drug Use Recreational Drug Use: No H&P Review of Systems - Review of Systems: Review Of Systems: See Below General: Reports: No Symptoms. Denies: Fever, Chills, Malaise, Weakness HEENT: Reports: No Symptoms. Denies: Headaches, Sinus Congestion, Visual Changes Pulmonary: Reports: No Symptoms. Denies: Shortness of Breath Cardiovascular: Reports: No Symptoms. Denies: Chest Pain Gastrointestinal: Reports: No Symptoms. Denies: Abdominal Pain, Black Stool, Bloody Stool, Distension, Nausea Genitourinary: Reports: No Symptoms. Denies: Dysuria, Frequency, Burning Skin: Reports: No Symptoms Neurological: Reports: No Symptoms, Weakness (she did have R upper and lower extremity weakness, none now.). Denies: Headache, Numbness, Difficulty Walking Hematologic/Lymphatic: Reports: No Symptoms Immunologic: Reports: No Symptoms Exam - Exam Exam: See Below - Vital Signs Vital Signs: Last Vital Signs Temp 97.4 F 05/14/20 06:30 Pulse 85 05/14/20 09:41 Resp 18 05/14/20 06:30 BP 127/67 05/14/20 09:41 Pulse Ox 98 05/14/20 10:01 Weight: 102 kg - Exam Quality Assessment: Supplemental Oxygen, DVT Prophylaxis General: Alert, Oriented, Cooperative Neck: Supple, Trachea Midline Lungs: Clear to Auscultation, Normal Respiratory Effort Cardiovascular: Regular Rate, Irregular Rhythm GI/Abdominal Exam: Normal Bowel Sounds, Soft, No Distention Back Exam: Normal Inspection, Full Range of Motion Extremities: Normal Inspection, Normal Range of Motion, Non-Tender, No Pedal Edema Neurological: Cranial Nerves Intact, Normal Gait, Normal Speech Neuro Extensive - Mental Status: Alert, Oriented x3, Normal Mood/Affect Neuro Extensive - Motor, Sensory, Reflexes: CN II-XII Intact. No: Ataxia, Facial palsy (L), Facial Palsy (R) Psychiatric: Alert, Normal Affect, Normal Mood - Patient Data Lab Results Last 24 hrs: Laboratory Results - last 24 hr 05/14/20 05/14/20 05/14/20 Range/Units 06:21 06:21 06:21 WBC 7.29 (4.0-11.0) K/uL RBC 3.64 L (4.30-5.90) M/uL Hgb 11.6 L (12.0-16.0) g/dL Hct 34.3 L (36.0-46.0) % MCV 94.2 (80.0-98.0) fL MCH 31.9 (27.0-32.0) pg MCHC 33.8 (31.0-37.0) g/dL RDW Std Deviation 48.7 (28.0-62.0) fl RDW Coeff of Yovani 14 (11.0-15.0) % Plt Count 153 (150-400) K/uL MPV 9.90 (7.40-12.00) fL Neut % (Auto) 72.8 (48.0-80.0) % Lymph % (Auto) 10.2 L (16.0-40.0) % [place] % (Auto) 7.8 (0.0-15.0) % Eos % (Auto) 8.8 H (0.0-7.0) % Baso % (Auto) 0.4 (0.0-1.5) % Neut # (Auto) 5.3 (1.4-5.7) K/uL Lymph # (Auto) 0.7 (0.6-2.4) K/uL [place] # (Auto) 0.6 (0.0-0.8) K/uL Eos # (Auto) 0.6 (0.0-0.7) K/uL Baso # (Auto) 0.0 (0.0-0.1) K/uL Nucleated RBC % 0.0 /100WBC Nucleated RBCs # 0 K/uL INR 1.06 APTT 31.1 (18.6-31.3) SEC Sodium 134 L (136-145) mmol/L Potassium 2.7 L (3.5-5.1) mmol/L Chloride 92 L (98-107) mmol/L Carbon Dioxide 30.8 (21.0-32.0) mmol/L BUN 52 H (7.0-18.0) mg/dL Creatinine 2.0 H (0.6-1.0) mg/dL Est Cr Clr Drug Dosing TNP Estimated GFR (MDRD) 24.5 ml/min Glucose 67 L (74-106) mg/dL POC Glucose (60-110) mg/dL Calcium 8.3 L (8.5-10.1) mg/dL Magnesium (1.8-2.4) mg/dL Total Bilirubin 0.3 (0.2-1.0) mg/dL AST 18 (15-37) IU/L ALT 17 (14-63) IU/L Alkaline Phosphatase 61 (46-116) U/L Troponin I < 0.050 (0.000-0.056) ng/mL Total Protein 8.2 (6.4-8.2) g/dL Albumin 4.0 (3.4-5.0) g/dL Globulin 4.2 H (2.6-4.0) g/dL Albumin/Globulin Ratio 1.0 (0.9-1.6) Free T4 (0.76-1.46) ng/dL TSH 3rd Generation 5.09 H (0.36-3.74) uIU/mL Urine Color Urine Appearance Urine pH (5.0-8.0) Ur Specific [place] (1.001-1.035) Urine Protein (NEGATIVE) mg/dL Urine Glucose (UA) (NEGATIVE) mg/dL Urine Ketones (NEGATIVE) mg/dL Urine Occult Blood (NEGATIVE) Urine Nitrite (NEGATIVE) Urine Bilirubin (NEGATIVE) Urine Urobilinogen (<2.0) EU/dL Ur Leukocyte Esterase (NEGATIVE) Urine RBC (0-2/HPF) Urine WBC (0-5/HPF) Ur Epithelial Cells (NONE-FEW) Urine Bacteria (NEGATIVE) Urine Mucus (NONE-MOD) Ethyl Alcohol 3 mg/dL SARS-CoV-2 RNA (FLOYD) (NEGATIVE) 05/14/20 05/14/20 05/14/20 Range/Units 06:21 07:04 08:10 WBC (4.0-11.0) K/uL RBC (4.30-5.90) M/uL Hgb (12.0-16.0) g/dL Hct (36.0-46.0) % MCV (80.0-98.0) fL MCH (27.0-32.0) pg MCHC (31.0-37.0) g/dL RDW Std Deviation (28.0-62.0) fl RDW Coeff of Yovani (11.0-15.0) % Plt Count (150-400) K/uL MPV (7.40-12.00) fL Neut % (Auto) (48.0-80.0) % Lymph % (Auto) (16.0-40.0) % [place] % (Auto) (0.0-15.0) % Eos % (Auto) (0.0-7.0) % Baso % (Auto) (0.0-1.5) % Neut # (Auto) (1.4-5.7) K/uL Lymph # (Auto) (0.6-2.4) K/uL [place] # (Auto) (0.0-0.8) K/uL Eos # (Auto) (0.0-0.7) K/uL Baso # (Auto) (0.0-0.1) K/uL Nucleated RBC % /100WBC Nucleated RBCs # K/uL INR APTT (18.6-31.3) SEC Sodium (136-145) mmol/L Potassium (3.5-5.1) mmol/L Chloride (98-107) mmol/L Carbon Dioxide (21.0-32.0) mmol/L BUN (7.0-18.0) mg/dL Creatinine (0.6-1.0) mg/dL Est Cr Clr Drug Dosing Estimated GFR (MDRD) ml/min Glucose (74-106) mg/dL POC Glucose (60-110) mg/dL Calcium (8.5-10.1) mg/dL Magnesium 1.2 L (1.8-2.4) mg/dL Total Bilirubin (0.2-1.0) mg/dL AST (15-37) IU/L ALT (14-63) IU/L Alkaline Phosphatase (46-116) U/L Troponin I (0.000-0.056) ng/mL Total Protein (6.4-8.2) g/dL Albumin (3.4-5.0) g/dL Globulin (2.6-4.0) g/dL Albumin/Globulin Ratio (0.9-1.6) Free T4 0.92 (0.76-1.46) ng/dL TSH 3rd Generation (0.36-3.74) uIU/mL Urine Color YELLOW Urine Appearance HAZY Urine pH 5.5 (5.0-8.0) Ur Specific [place] 1.020 (1.001-1.035) Urine Protein NEGATIVE (NEGATIVE) mg/dL Urine Glucose (UA) NEGATIVE (NEGATIVE) mg/dL Urine Ketones NEGATIVE (NEGATIVE) mg/dL Urine Occult Blood NEGATIVE (NEGATIVE) Urine Nitrite NEGATIVE (NEGATIVE) Urine Bilirubin NEGATIVE (NEGATIVE) Urine Urobilinogen 0.2 (<2.0) EU/dL Ur Leukocyte Esterase SMALL H (NEGATIVE) Urine RBC 0-2 (0-2/HPF) Urine WBC 8-12 (0-5/HPF) Ur Epithelial Cells FEW (NONE-FEW) Urine Bacteria 2+ H (NEGATIVE) Urine Mucus LIGHT (NONE-MOD) Ethyl Alcohol mg/dL SARS-CoV-2 RNA (FLOYD) NEGATIVE (NEGATIVE) 05/14/20 Range/Units 11:50 WBC (4.0-11.0) K/uL RBC (4.30-5.90) M/uL Hgb (12.0-16.0) g/dL Hct (36.0-46.0) % MCV (80.0-98.0) fL MCH (27.0-32.0) pg MCHC (31.0-37.0) g/dL RDW Std Deviation (28.0-62.0) fl RDW Coeff of Yovani (11.0-15.0) % Plt Count (150-400) K/uL MPV (7.40-12.00) fL Neut % (Auto) (48.0-80.0) % Lymph % (Auto) (16.0-40.0) % [place] % (Auto) (0.0-15.0) % Eos % (Auto) (0.0-7.0) % Baso % (Auto) (0.0-1.5) % Neut # (Auto) (1.4-5.7) K/uL Lymph # (Auto) (0.6-2.4) K/uL [place] # (Auto) (0.0-0.8) K/uL Eos # (Auto) (0.0-0.7) K/uL Baso # (Auto) (0.0-0.1) K/uL Nucleated RBC % /100WBC Nucleated RBCs # K/uL INR APTT (18.6-31.3) SEC Sodium (136-145) mmol/L Potassium (3.5-5.1) mmol/L Chloride (98-107) mmol/L Carbon Dioxide (21.0-32.0) mmol/L BUN (7.0-18.0) mg/dL Creatinine (0.6-1.0) mg/dL Est Cr Clr Drug Dosing Estimated GFR (MDRD) ml/min Glucose (74-106) mg/dL POC Glucose 134 H (60-110) mg/dL Calcium (8.5-10.1) mg/dL Magnesium (1.8-2.4) mg/dL Total Bilirubin (0.2-1.0) mg/dL AST (15-37) IU/L ALT (14-63) IU/L Alkaline Phosphatase (46-116) U/L Troponin I (0.000-0.056) ng/mL Total Protein (6.4-8.2) g/dL Albumin (3.4-5.0) g/dL Globulin (2.6-4.0) g/dL Albumin/Globulin Ratio (0.9-1.6) Free T4 (0.76-1.46) ng/dL TSH 3rd Generation (0.36-3.74) uIU/mL Urine Color Urine Appearance Urine pH (5.0-8.0) Ur Specific [place] (1.001-1.035) Urine Protein (NEGATIVE) mg/dL Urine Glucose (UA) (NEGATIVE) mg/dL Urine Ketones (NEGATIVE) mg/dL Urine Occult Blood (NEGATIVE) Urine Nitrite (NEGATIVE) Urine Bilirubin (NEGATIVE) Urine Urobilinogen (<2.0) EU/dL Ur Leukocyte Esterase (NEGATIVE) Urine RBC (0-2/HPF) Urine WBC (0-5/HPF) Ur Epithelial Cells (NONE-FEW) Urine Bacteria (NEGATIVE) Urine Mucus (NONE-MOD) Ethyl Alcohol mg/dL SARS-CoV-2 RNA (FLOYD) (NEGATIVE) Result Diagrams: 05/14/20 06:21 05/14/20 06:21 Sepsis Event Note - Evaluation Sepsis Screening Result: No Definite Risk - Focused Exam Vital Signs: Vital Signs Temp Pulse Resp BP Pulse Ox Pulse Ox 05/14/20 10:01 98 05/14/20 09:41 85 127/67 93 L 05/14/20 08:41 80 124/57 L 94 L 05/14/20 07:56 93 107/54 L 93 L 05/14/20 07:11 84 112/60 95 05/14/20 06:30 97.4 F 92 18 150/76 H 92 L - Problem List (1) TIA (transient ischemic attack) SNOMED Code(s): 259407413 ICD Code: G45.9 - TRANSIENT CEREBRAL ISCHEMIC ATTACK, UNSPECIFIED Status: Acute Current Visit: Yes (2) Hypomagnesemia SNOMED Code(s): 247481628 ICD Code: E83.42 - HYPOMAGNESEMIA Status: Acute Priority: High Current Visit: No (3) Hypokalemia SNOMED Code(s): 46578021 ICD Code: E87.6 - HYPOKALEMIA Status: Acute Current Visit: Yes (4) UTI (urinary tract infection) SNOMED Code(s): 71427513 ICD Code: N39.0 - URINARY TRACT INFECTION, SITE NOT SPECIFIED Status: Acute Current Visit: No Qualifiers: Urinary tract infection type: acute cystitis Hematuria presence: without hematuria Qualified Code(s): N30.00 - Acute cystitis without hematuria (5) COPD (chronic obstructive pulmonary disease) SNOMED Code(s): 43470635 ICD Code: J44.9 - CHRONIC OBSTRUCTIVE PULMONARY DISEASE, UNSPECIFIED Status: Chronic Current Visit: Yes Qualifiers: COPD type: chronic bronchitis Chronic bronchitis type: simple Qualified Code(s): J41.0 - Simple chronic bronchitis (6) Oxygen dependent SNOMED Code(s): 796919113323 ICD Code: Z99.81 - DEPENDENCE ON SUPPLEMENTAL OXYGEN Status: Chronic Current Visit: Yes (7) Carotid stenosis, right SNOMED Code(s): 427053302341940 ICD Code: I65.21 - OCCLUSION AND STENOSIS OF RIGHT CAROTID ARTERY Status: Chronic Current Visit: Yes (8) Anticoagulation adequate SNOMED Code(s): 095411744, 324943036 ICD Code: Z79.01 - REMOTE OPERATIONS PRODUCER (CURRENT) USE OF ANTICOAGULANTS Status: Chronic Current Visit: Yes (9) HLD (hyperlipidemia) SNOMED Code(s): 77204979 ICD Code: E78.5 - HYPERLIPIDEMIA, UNSPECIFIED Status: Chronic Current Visit: Yes Qualifiers: Hyperlipidemia type: mixed hyperlipidemia Qualified Code(s): E78.2 - Mixed hyperlipidemia (10) DM type 2 (diabetes mellitus, type 2) SNOMED Code(s): 28881643 ICD Code: E11.9 - TYPE 2 DIABETES MELLITUS WITHOUT COMPLICATIONS Status: Chronic Current Visit: Yes Qualifiers: Diabetes mellitus detention insulin use: without joint terminal attack controller use Diabetes mellitus complication status: with kidney complications (11) GERD (gastroesophageal reflux disease) SNOMED Code(s): 581351919 ICD Code: K21.9 - GASTRO-ESOPHAGEAL REFLUX DISEASE WITHOUT ESOPHAGITIS Status: Chronic Current Visit: Yes Qualifiers: Esophagitis presence: without esophagitis Qualified Code(s): K21.9 - Gastro-esophageal reflux disease without esophagitis (12) CKD (chronic kidney disease) SNOMED Code(s): 595404929 ICD Code: N18.9 - CHRONIC KIDNEY DISEASE, UNSPECIFIED Status: Acute Current Visit: Yes (13) Aortic stenosis, mild SNOMED Code(s): 26421615 ICD Code: I35.0 - NONRHEUMATIC AORTIC (VALVE) STENOSIS Status: Chronic Current Visit: No (14) Congestive heart failure SNOMED Code(s): 75425546 ICD Code: I50.9 - HEART FAILURE, UNSPECIFIED Status: Chronic Current Visit: No (15) Hypertension SNOMED Code(s): 99906623 ICD Code: I10 - ESSENTIAL (PRIMARY) HYPERTENSION Status: Chronic Priority: High Current Visit: No Qualifiers: Hypertension type: essential hypertension Qualified Code(s): I10 - Essential (primary) hypertension (16) Morbid obesity SNOMED Code(s): 215150414 ICD Code: E66.01 - MORBID (SEVERE) OBESITY DUE TO EXCESS CALORIES Status: Chronic Current Visit: No (17) Pulmonary hypertension SNOMED Code(s): 14872147 ICD Code: I27.2 - OTHER SECONDARY PULMONARY HYPERTENSION * DO NOT USE * Status: Chronic Priority: High Current Visit: No Problem List Initiated/Reviewed/Updated: Yes Orders Last 24hrs: Active Orders 24 hr Category Date Time Status Patient Status [ADT] Routine ADT 05/14/20 07:42 Active Blood Glucose Check, Bedside [RC] ONETIME Care 05/14/20 11:47 Active Intake and Output [RC] Q12H Care 05/14/20 10:02 Active NIH Stroke Scale [RC] ASDIRECTED Care 05/14/20 06:26 Active Notify Provider Consults [RC] ASDIRECTED Care 05/14/20 12:38 Ordered Nursing Bedside Swallow Screen [RC] ASDIRECTED Care 05/14/20 06:26 Active Oxygen Therapy [RC] PRN Care 05/14/20 10:01 Active Stroke Education, General [RC] Click to Edit Care 05/14/20 06:26 Active Up With Assistance [RC] ASDIRECTED Care 05/14/20 10:01 Active VTE/DVT Education [RC] PER UNIT ROUTINE Care 05/14/20 10:01 Active Vital Signs [RC] Q4H Care 05/14/20 10:01 Active Consult to Physician [CONS] Routine Cons 05/14/20 12:38 Ordered Brain wo Cont [MR] Routine Exams 05/14/20 11:47 Ordered Acetaminophen [TylenoL] Med 05/14/20 10:01 Active 650 mg PO Q4H PRN Magnesium Sulfate [Magnesium Sulfate 50%] 5 gm Med 05/14/20 08:45 Active Sodium Chloride 0.9% [Normal Saline] 50 ml IV ASDIRECTED Ondansetron [Zofran] Med 05/14/20 10:01 Active 4 mg IVPUSH Q4H PRN Sodium Chloride 0.9% [Normal Saline] Med 05/14/20 06:26 Active 10 ml IV ASDIRECTED PRN Sodium Chloride 0.9% [Normal Saline] 1,000 ml Med 05/14/20 08:30 Active IV ASDIRECTED Sodium Chloride 0.9% [Saline Flush] Med 05/14/20 06:26 Active 10 ml FLUSH ASDIRECTED PRN Sodium Chloride 0.9% [Saline Flush] Med 05/14/20 06:26 Active 2.5 ml FLUSH ASDIRECTED PRN Sodium Chloride 0.9% [Saline Flush] Med 05/14/20 10:01 Active 2.5 ml FLUSH ASDIRECTED PRN Peripheral IV Insertion Adult [OM.PC] Stat Oth 05/14/20 06:26 Ordered Peripheral IV Insertion Adult [OM.PC] Stat Oth 05/14/20 06:26 Ordered Saline Lock Insert [OM.PC] Routine Oth 05/14/20 10:01 Ordered Resuscitation Status Stat Resus Stat 05/14/20 06:26 Ordered Medication Orders Acetaminophen (Tylenol) 650 mg PO Q4H PRN PRN Reason: Pain (Mild 1-3)/fever Sodium Chloride (Normal Saline) 1,000 mls @ 50 mls/hr IV ASDIRECTED KOBE Last Admin: 05/14/20 08:19 Dose: 50 mls/hr Documented by: WYATTRI Magnesium Sulfate 5 gm/ Sodium (Chloride) 60 mls @ 24 mls/hr IV ASDIRECTED KOBE; Protocol Last Admin: 05/14/20 11:06 Dose: 2 gm/hr, 24 mls/hr Documented by: SONDRA Ondansetron HCl (Zofran) 4 mg IVPUSH Q4H PRN PRN Reason: Nausea Sodium Chloride (Saline Flush) 10 ml FLUSH ASDIRECTED PRN PRN Reason: Keep Vein Open Last Admin: 05/14/20 08:27 Dose: 10 ml Documented by: WYATTRI Sodium Chloride (Saline Flush) 2.5 ml FLUSH ASDIRECTED PRN PRN Reason: Keep Vein Open Last Admin: 05/14/20 08:27 Dose: 2.5 ml Documented by: SLATBRI Sodium Chloride (Normal Saline) 10 ml IV ASDIRECTED PRN PRN Reason: IV Use Sodium Chloride (Saline Flush) 2.5 ml FLUSH ASDIRECTED PRN PRN Reason: Keep Vein Open Assessment/Plan Comment:: This 74 year old female admitted with TIA, hypokalemia and UTI 1. TIA vs CVA - Neck CTA reveales high grade stenosis to R ICA, though not correlating with symptoms - MRI brain wo contrast ordered due to renal function - Increased Simvastatin to 40 mg at bedtime - ASA every other day - Consulted Dr Modi, she will see patient and requested carotid ultrasound as well - 2. Hypokalemia/hypomagnesemia - Significant deficiency noted - Replaced IV and PO today, recheck this evening - Is taking Lasix, Bumex and Metalozone at home, hold for now 3. UTI - UC pending - Will add Rocephin 4. PMH CHF/Pulmonary HTN/COPD/Oxygen dependence/Afib - Continue Coreg and Eliqius - Hold Bumex/Lasix/metalozone due to hypokalemia. - Gentle hydration today then stop. Monitor for overload. - Continue all inhalers 5. Alcohol use -Discussed alcohol intake with her and the need to stop this. At this time she does not feel like it is an issue. - Thiamine and folic acid - CIWAA PRN VTE prophylaxis: Mick. Dispo: 1 day
[2020-05-14] MEDS ORDERED: Potassium Chloride 20 MEQ Tab.ER PO ONE (13:04)
[2020-05-14] MEDS ORDERED: LORazepam 2 MG/ML SDV IVPUSH PRN (13:23)
--- NOTE | 2020-05-14 13:48 | PCM.SN.2 ---
- Free Text/Narrative Note: I attempted to evaluate Ms. Baldwin but she was being brought to MRI. She reports that she had right sided weakness/numbness that has resolved. I will try again tomorrow. In the meantime, I recommend carotid US and agree with brain MRI and increasing statin
[2020-05-14] MEDS: cefTRIAXone 1 GM in Premix Bag 1 BAG IV SCH (14:13)
[2020-05-14] MEDS ORDERED: ClonazePAM 0.5 MG Tab PO PRN (14:23)
[2020-05-14] MEDS ORDERED: Albuterol HFA 18 Gm Inhaler INH PRN (14:23)
[2020-05-14] MEDS ORDERED: MOMETASONE FUROATE TOP PRN (14:23)
[2020-05-14 15:50] LABS: POTASSIUM,K 3.4 mmol/L (3.5-5.1)
--- NOTE | 2020-05-14 16:15 | US ---
Carotid ultrasound: Multiple real-time images were obtained. Comparison: Previous MR angiogram of neck dated 01/29/20. Findings: Plaque: Mild amount of scattered plaque. Velocity measurements: Right side: CCA has a peak systolic velocity of 0.62 m/s. ICA has a peak systolic velocity of 0.83 m/s and peak end-diastolic velocity of 0.29 m/s. ECA has a peak systolic velocity of 1.82 m/s. Vertebral artery has a peak systolic velocity of 0.26 m/s. ICA/CCA ratio is 1.33. Left side: CCA has a peak systolic velocity of 0.54 m/s. ICA has a peak systolic velocity of 0.73 m/s and peak end-diastolic velocity of 0.25 m/s. ECA has a peak systolic velocity of .07 m/s. Vertebral artery has a peak systolic velocity of 0.44 m/s. ICA/CCA ratio is 1.53. Impression: 1. Mild amount of scattered plaque. 2. Velocity measurements within both internal carotid arteries correspond to stenosis in the range 1-49 percent. Diagnostic code #2 This report was dictated in MDT
[2020-05-14] MEDS: Insulin Aspart 100 Units/ML 3 ML Pen SUBCUT SCH (17:49)
[2020-05-14] MEDS ORDERED: Thiamine 100 MG Tab PO SCH (21:00)
[2020-05-14] MEDS ORDERED: Simvastatin 20 MG Tab PO SCH (21:00)
[2020-05-14] MEDS ORDERED: Folic Acid 1 MG Tab PO SCH (21:00)
[2020-05-14] MEDS: Apixaban 5 MG Tab PO SCH (21:02)
[2020-05-14] MEDS: Carvedilol 25 MG Tab PO SCH (21:02)
[2020-05-14] MEDS: Budesonide 0.5 MG/2 ML Neb Susp NEB SCH (21:58)
[2020-05-15 06:07] LABS: CARBON DIOXIDE,CO2 31.5 mmol/L (21.0-32.0); POTASSIUM,K 3.3 mmol/L (3.5-5.1)
[2020-05-15] MEDS: Insulin Aspart 100 Units/ML 3 ML Pen SUBCUT SCH ×2 (07:29→14:00)
[2020-05-15] MEDS ORDERED: Omeprazole 20 MG Cap.CR PO SCH (07:30)
--- NOTE | 2020-05-15 07:40 | PCM.CONS ---
H&P History of Present Illness - General Date of Service: 05/15/20 Admit Problem/Dx: Admission Diagnosis/Problem Admission Diagnosis/Problem TIA/CVA and hypokalemia - History of Present Illness Initial Comments - Free Text/Narative: On night of 05-13 / morning of 05-14, she was up until 3 am and felt fine. When she woke around 5 am, she had weakness of the right arm and leg and slurred speech without word finding difficulty. Symptoms were the same as TIA she had in December. - Related Data Allergies/Adverse Reactions: Allergies Allergy/AdvReac Type Severity Reaction Status Date / Time amoxicillin [Amoxicillin] Allergy Cannot Verified 05/14/20 11:16 Remember tramadol Allergy Dizziness Verified 05/14/20 11:16 Home Medications: Home Meds Omeprazole 20 mg PO ACBREAKFAST 02/27/14 [History] Simvastatin [Zocor] 20 mg PO BEDTIME 02/27/14 [History] Carvedilol [Coreg] 25 mg PO BID 09/03/16 [History] Potassium Chloride 24 meq PO BID 09/03/16 [History] Apixaban [Eliquis] 5 mg PO BID 07/17/19 [History] Furosemide 120 mg PO Q12H 07/17/19 [History] allopurinoL [Zyloprim] 200 mg PO DAILY 07/17/19 [History] glipiZIDE [Glucotrol XL] 10 mg PO DAILY 07/17/19 [History] Bumetanide 1 mg PO DAILY 01/28/20 [History] ClonazePAM [KlonoPIN] 0.5 mg PO BEDTIME PRN 01/28/20 [History] Diltiazem [Dilacor XR] 120 mg PO DAILY 01/28/20 [History] Insulin Detemir [Levemir Flextouch] 30 unit SQ QAM 01/28/20 [History] metOLazone [Metolazone] 2.5 mg PO DAILY 01/28/20 [History] Aspirin [Lo-Dose Aspirin EC] 81 mg PO DAILY 30 Days #30 tablet. 01/29/20 [Rx] Albuterol [Ventolin HFA] 1 - 2 inhalation IH Q4H PRN 05/14/20 [History] Benzonatate 100 mg PO TID PRN 05/14/20 [History] Budesonide [Pulmicort] 0.5 mg NEB BID 05/14/20 [History] Cyanocobalamin (Vitamin B-12) [Cyanocobalamin Injection] 1,000 mcg IM Q30D 05/14/20 [History] Mometasone Furoate 1 applic TOP DAILY PRN 05/14/20 [History] levalbuterol HCL [Levalbuterol HCl] 1.25 mg NEB Q6H PRN 05/14/20 [History] Past Medical History HEENT History: Reports: None Cardiovascular History: Reports: Afib, Heart Murmur, Hypertension, Other (See Below) Other Cardiovascular History: CHF Respiratory History: Reports: COPD, SOB Other Respiratory History: history of pneumonia 5 years ago Gastrointestinal History: Reports: GERD Genitourinary History: Reports: Diabetic Nephropathy 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 OB/BYN History: Hysterectomy Musculoskeletal History: Reports: None Neurological History: Reports: Neuropathy, Peripheral Psychiatric History: Reports: Depression, Mood Swings Endocrine/Metabolic History: Reports: Diabetes, Type II Hematologic History: Reports: None Immunologic History: Reports: None Oncologic (Cancer) History: Reports: None Dermatologic History: Reports: None Other Dermatologic History: scaley patchy skin over right leg - Infectious Disease History Infectious Disease History: Reports: Chicken Pox, Measles, Mumps - Past Surgical History HEENT Surgical History: Reports: None GI Surgical History: Reports: Appendectomy, Cholecystectomy, Colonoscopy, EGD, Hernia, Abdominal Female Surgical History: Reports: Hysterectomy Musculoskeletal Surgical History: Reports: Knee Replacement Social & Family History - Family History Family Medical History: Noncontributory HEENT: Reports: None Cardiac: Reports: None Respiratory: Reports: Other (See Below) Other Respiratory Family Hisory: emphysema GI: Reports: None : Reports: None OBGYN: Reports: None Musculoskeletal: Reports: None Neurological: Reports: None Psychiatric: Reports: None Endocrine/Metabolic: Reports: Diabetes, type II Hematologic: Reports: None Immunologic: Reports: None Dermatologic: Reports: None Oncologic: Reports: None Other Oncologic Family History: father had esophageal CA - Tobacco Use Smoking Status *Q: Former Smoker Used Tobacco, but Quit: No - Caffeine Use Caffeine Use: Reports: Coffee - Recreational Drug Use Recreational Drug Use: No H&P Review of Systems - Review of Systems: Review Of Systems: Comprehensive ROS is negative, except as noted in HPI. Exam - Exam Exam: See Below - Vital Signs Vital Signs: Last Vital Signs Temp 36.8 C 05/15/20 04:30 Pulse 100 05/15/20 04:30 Resp 16 05/15/20 04:30 BP 113/58 L 05/15/20 04:30 Pulse Ox 96 05/15/20 04:30 Weight: 108.7 kg - Exam Physical Exam Comments:: MS: NOrmal naming and repeat. Fluent language. A and O X 4. CN: R pupil 2 mm and minimally reactive CN 3- 12 intact M: no drift, normal power S: Normal light touch sensation Coord: FTN and HTS intact. - Patient Data Lab Results Last 24 hrs: Laboratory Results - last 24 hr 05/14/20 05/14/20 05/14/20 Range/Units 06:21 08:10 11:50 WBC (4.0-11.0) K/uL RBC (4.30-5.90) M/uL Hgb (12.0-16.0) g/dL Hct (36.0-46.0) % MCV (80.0-98.0) fL MCH (27.0-32.0) pg MCHC (31.0-37.0) g/dL RDW Std Deviation (28.0-62.0) fl RDW Coeff of Yovani (11.0-15.0) % Plt Count (150-400) K/uL MPV (7.40-12.00) fL Neut % (Auto) (48.0-80.0) % Lymph % (Auto) (16.0-40.0) % Bland % (Auto) (0.0-15.0) % Eos % (Auto) (0.0-7.0) % Baso % (Auto) (0.0-1.5) % Neut # (Auto) (1.4-5.7) K/uL Lymph # (Auto) (0.6-2.4) K/uL Bland # (Auto) (0.0-0.8) K/uL Eos # (Auto) (0.0-0.7) K/uL Baso # (Auto) (0.0-0.1) K/uL Nucleated RBC % /100WBC Nucleated RBCs # K/uL Sodium (136-145) mmol/L Potassium (3.5-5.1) mmol/L Chloride (98-107) mmol/L Carbon Dioxide (21.0-32.0) mmol/L BUN (7.0-18.0) mg/dL Creatinine (0.6-1.0) mg/dL Est Cr Clr Drug Dosing mL/min Estimated GFR (MDRD) ml/min Glucose (74-106) mg/dL POC Glucose 134 H (60-110) mg/dL Calcium (8.5-10.1) mg/dL Magnesium 1.2 L (1.8-2.4) mg/dL Free T4 0.92 (0.76-1.46) ng/dL SARS-CoV-2 RNA (FLOYD) NEGATIVE (NEGATIVE) 05/14/20 05/14/20 05/15/20 Range/Units 15:15 16:25 05:37 WBC 6.72 (4.0-11.0) K/uL RBC 3.36 L (4.30-5.90) M/uL Hgb 10.7 L (12.0-16.0) g/dL Hct 32.6 L (36.0-46.0) % MCV 97.0 (80.0-98.0) fL MCH 31.8 (27.0-32.0) pg MCHC 32.8 (31.0-37.0) g/dL RDW Std Deviation 51.1 (28.0-62.0) fl RDW Coeff of Yovani 15 (11.0-15.0) % Plt Count 134 L (150-400) K/uL MPV 9.70 (7.40-12.00) fL Neut % (Auto) 71.1 (48.0-80.0) % Lymph % (Auto) 10.3 L (16.0-40.0) % Bland % (Auto) 9.1 (0.0-15.0) % Eos % (Auto) 8.8 H (0.0-7.0) % Baso % (Auto) 0.7 (0.0-1.5) % Neut # (Auto) 4.8 (1.4-5.7) K/uL Lymph # (Auto) 0.7 (0.6-2.4) K/uL Bland # (Auto) 0.6 (0.0-0.8) K/uL Eos # (Auto) 0.6 (0.0-0.7) K/uL Baso # (Auto) 0.1 (0.0-0.1) K/uL Nucleated RBC % 0.0 /100WBC Nucleated RBCs # 0 K/uL Sodium (136-145) mmol/L Potassium 3.4 L (3.5-5.1) mmol/L Chloride (98-107) mmol/L Carbon Dioxide (21.0-32.0) mmol/L BUN (7.0-18.0) mg/dL Creatinine (0.6-1.0) mg/dL Est Cr Clr Drug Dosing mL/min Estimated GFR (MDRD) ml/min Glucose (74-106) mg/dL POC Glucose 135 H (60-110) mg/dL Calcium (8.5-10.1) mg/dL Magnesium 2.6 H (1.8-2.4) mg/dL Free T4 (0.76-1.46) ng/dL SARS-CoV-2 RNA (FLOYD) (NEGATIVE) 05/15/20 05/15/20 Range/Units 05:37 06:02 WBC (4.0-11.0) K/uL RBC (4.30-5.90) M/uL Hgb (12.0-16.0) g/dL Hct (36.0-46.0) % MCV (80.0-98.0) fL MCH (27.0-32.0) pg MCHC (31.0-37.0) g/dL RDW Std Deviation (28.0-62.0) fl RDW Coeff of Yovani (11.0-15.0) % Plt Count (150-400) K/uL MPV (7.40-12.00) fL Neut % (Auto) (48.0-80.0) % Lymph % (Auto) (16.0-40.0) % Bland % (Auto) (0.0-15.0) % Eos % (Auto) (0.0-7.0) % Baso % (Auto) (0.0-1.5) % Neut # (Auto) (1.4-5.7) K/uL Lymph # (Auto) (0.6-2.4) K/uL Bland # (Auto) (0.0-0.8) K/uL Eos # (Auto) (0.0-0.7) K/uL Baso # (Auto) (0.0-0.1) K/uL Nucleated RBC % /100WBC Nucleated RBCs # K/uL Sodium 138 (136-145) mmol/L Potassium 3.3 L (3.5-5.1) mmol/L Chloride 98 (98-107) mmol/L Carbon Dioxide 31.5 (21.0-32.0) mmol/L BUN 49 H (7.0-18.0) mg/dL Creatinine 1.7 H (0.6-1.0) mg/dL Est Cr Clr Drug Dosing 23.66 mL/min Estimated GFR (MDRD) 29.5 ml/min Glucose 179 H (74-106) mg/dL POC Glucose 188 H (60-110) mg/dL Calcium 8.2 L (8.5-10.1) mg/dL Magnesium 2.4 (1.8-2.4) mg/dL Free T4 (0.76-1.46) ng/dL SARS-CoV-2 RNA (FLOYD) (NEGATIVE) Result Diagrams: 05/15/20 05:37 05/15/20 05:37 Imaging Impressions Last 24 hrs: CTA showed bilateral carotid stenosis. Right side read and severe but ultrasound c/w mild bilateral stenosis. Sepsis Event Note - Evaluation Sepsis Screening Result: No Definite Risk - Focused Exam Vital Signs: Vital Signs Temp Pulse Pulse Resp BP BP Pulse Ox 05/15/20 04:30 36.8 C 100 16 113/58 L 96 05/15/20 00:00 36.8 C 95 18 117/53 L 96 05/14/20 21:02 95 129/68 05/14/20 20:00 36.7 C 88 20 126/70 96 Consult PN Assessment/Plan Procedures: Procedures AIRWAY INHALATION TREATMENT (07/17/19) ASSAY OF BLOOD/URIC ACID (12/02/18) ASSAY OF CREATININE (06/20/18) ASSAY OF LIPASE (07/17/19) ASSAY OF MAGNESIUM (09/03/16) ASSAY OF NATRIURETIC PEPTIDE (07/17/19) ASSAY OF PHOSPHORUS (09/03/16) ASSAY OF TROPONIN QUANT (01/28/20) BLOOD CULTURE FOR BACTERIA (01/06/15) BLOOD TYPING SEROLOGIC ABO (01/06/15) BLOOD TYPING SEROLOGIC RH(D) (01/06/15) CARDIOVASCULAR STRESS TEST (10/05/16) CHEST X-RAY 1 VIEW FRONTAL (09/03/16) CHEST X-RAY 2VW FRONTAL&LATL (10/28/16) COMPLETE CBC AUTOMATED (09/03/16) COMPLETE CBC W/AUTO DIFF WBC (01/28/20) COMPREHEN METABOLIC PANEL (01/28/20) CONTROL OF NOSEBLEED (02/27/14) CT ABD & PELVIS W/O CONTRAST (06/23/18) CT ANGIOGRAPHY HEAD (01/28/20) CT ANGIOGRAPHY NECK (01/28/20) CT THORAX W/O & W/DYE (01/03/15) DECALCIFY TISSUE (01/06/15) ELECTROCARDIOGRAM TRACING (01/28/20) EMERGENCY DEPT VISIT (01/28/20) EMERGENCY DEPT VISIT (12/02/18) EMERGENCY DEPT VISIT (09/02/18) EMERGENCY DEPT VISIT (03/02/14) EMERGENCY DEPT VISIT (02/27/14) EVALUATE PT USE OF INHALER (09/03/16) EVALUATION OF WHEEZING (11/02/17) GAIT TRAINING THERAPY (01/06/15) GLUCOSE BLOOD TEST (01/28/20) GLYCOSYLATED HEMOGLOBIN TEST (01/28/20) HT MUSCLE IMAGE SPECT SING (10/11/16) HYDRATE IV INFUSION ADD-ON (09/02/18) LIPID PANEL (01/28/20) MEDICAL NUTRITION INDIV IN (01/06/15) METABOLIC PANEL TOTAL CA (09/03/16) MICROBE SUSCEPTIBLE MARISA (07/17/19) MR ANGIOGRAPHY HEAD W/O DYE (01/28/20) MR ANGIOGRAPHY NECK W/DYE (01/28/20) MRI BRAIN STEM W/O & W/DYE (01/28/20) MRI JNT OF LWR EXTRE W/O DYE (12/03/14) OFFICE/OUTPATIENT VISIT NEW (10/08/14) PROTHROMBIN TIME (01/28/20) PT EVAL LOW COMPLEX 20 MIN (01/28/20) PT EVALUATION (01/06/15) RBC ANTIBODY SCREEN (01/06/15) ROUTINE VENIPUNCTURE (01/28/20) THER/PROPH/DIAG INJ IV PUSH (01/28/20) THERAPEUTIC EXERCISES (01/06/15) TISSUE EXAM BY PATHOLOGIST (01/06/15) TTE W/DOPPLER COMPLETE (01/28/20) TX/PRO/DX INJ NEW DRUG ADDON (09/02/18) TX/PRO/DX INJ SAME DRUG PUBLIC RELATIONS ANALYST (01/28/20) URINALYSIS AUTO W/O SCOPE (01/28/20) URINALYSIS AUTO W/SCOPE (07/17/19) URINE BACTERIA CULTURE (07/17/19) URINE CULTURE/COLONY COUNT (07/17/19) X-RAY EXAM CHEST 1 VIEW (01/28/20) X-RAY EXAM OF FOOT (12/02/18) X-RAY EXAM OF KNEE 1 OR 2 (01/06/15) X-RAY EXAM OF KNEE 3 (03/20/15) X-RAY EXAM OF WRIST (10/17/18) (1) TIA (transient ischemic attack) SNOMED Code(s): 314887889 Code(s): G45.9 - TRANSIENT CEREBRAL ISCHEMIC ATTACK, UNSPECIFIED Current Visit: Yes Assessment:: Likely TIA agree with statin increase continue Eliquis and ASA every other day Problem List Initiated/Reviewed/Updated: Yes
[2020-05-15] MEDS: Carvedilol 25 MG Tab PO SCH (09:00)
[2020-05-15] MEDS ORDERED: Aspirin 81 MG Tab.EC PO SCH (09:00)
[2020-05-15] MEDS ORDERED: Insulin Detemir 100 Units/ML 3 ML Pen SUBCUT SCH (09:00)
[2020-05-15] MEDS: Apixaban 5 MG Tab PO SCH (09:00)
[2020-05-15] MEDS ORDERED: Diltiazem 120 MG Cap.CD PO SCH (09:00)
[2020-05-15] MEDS ORDERED: Potassium Chloride Riders 40 MEQ in Premix Bag 1 BAG IV ONE (09:59)
[2020-05-15] MEDS: Budesonide 0.5 MG/2 ML Neb Susp NEB SCH (10:05)
[2020-05-15] MEDS ORDERED: Potassium Chloride 20 MEQ Tab.ER PO ONE (10:37)
[2020-05-15 11:33] VITALS: BP 111/58; PULSE 103
--- NOTE | 2020-05-15 11:42 | MR ---
Indication: Stroke versus transient ischemic attack. Technique: Performed without IV contrast. Comparison : None available. Findings : Multiple foci of T2 signal abnormality are scattered in the cerebral white matter typical for moderate small vessel ischemic change. No evidence for acute infarct. No mass lesion or ventricular obstruction. No evidence for recent or remote intracranial hemorrhage. No focal cortical abnormality is identified. There is mild symmetric cerebral atrophy. Grossly normal flow voids are maintained in the intracranial vascular structures. The craniovertebral junction is unremarkable, with a patent foramen magnum. Both temporal bones are well aerated. The paranasal sinuses are clear. Impression: 1. Moderate small vessel ischemic changes. 2. No recent infarct or other acute intracranial pathology identified. 3. Mild cerebral atrophy. Dictated by Clemente Marcial MD @ May 15 2020 11:34AM Signed by Dr. Clemente Marcial @ May 15 2020 11:41AM
--- NOTE | 2020-05-15 12:32 | PCM.DCSUM1 ---
Discharge Summary - Hospital Course Free Text/Narrative:: This 74 year old female with significant pmh of CHF, COPD with chronic oxygen, afib, aortic stenosis, DM Type 2, and R ICA stenosis presented to the ED with complaints of R sided upper and lower extremity starting at 5:15 am when she woke up. She reports she was awake at 3:30 am watching TV and felt fine. By the time she came to the ED she was nearly resolved. She denies fevers, chills or neck pain. No headache or blurred vision. She denies chest pain or SOB no palpitations.She denies abdominal pain and no urinary concerns. She reports she was doing well up until this morning. She is feeling better now. She denies recreational drug use, no tobacco use. She uses alcohol daily, 3-4 drinks daily. She had similar events a couple months ago and was seen by Dr Modi. She has known ICA on R side. In the ED CBC WNL, BMP reveals mild EUGENE, with hypokalemia 2.7, Mg 1.2 glucose 67, head CT negative. CTA head and neck revealed no acute findings in the head, but high grade stenosis in the R ICA, She was given Potassium and Mg in the ED. UA revealed +1 bacteria with pyuria and small leukocyte esterase. She was admitted for TIA and hypokalemia. Patient underwent MRI of brain, which didnt show a new stroke, Doppler of the carotids was recommended by neurology which showed 1-49% stenosis based on the velocity measurements, neurology recommended increasing the dose of statin and cont ASA and Eliquis same as home dose. Patient was medically stable for dc and recommended to fu with her PCP upon dc. Diagnosis: Stroke: No - Discharge Data Discharge Date: 05/15/20 Discharge Disposition: Home, Self-Care 01 Condition: Good - Referral to Home Health Primary Care Physician: PCP None - Patient Summary/Data Consults: Consultations 05/14/20 12:38 Consult to Physician [CONS] Routine 05/14/20 13:11 PT Evaluation and Treatment [CONS] Routine - Discharge Plan *PRESCRIPTION DRUG MONITORING PROGRAM REVIEWED*: Not Applicable *COPY OF PRESCRIPTION DRUG MONITORING REPORT IN PATIENT JULISSA: Not Applicable Prescriptions/Med Rec: Folic Acid 1 mg PO BEDTIME #30 tablet nitrofurantoin macrocrystaL [Nitrofurantoin] 100 mg PO BID #8 capsule Simvastatin 40 mg PO BEDTIME #30 tablet Thiamine [Vitamin B-1] 100 mg PO BEDTIME #30 tablet Home Medications: Home Meds Omeprazole 20 mg PO ACBREAKFAST 02/27/14 [History] Carvedilol [Coreg] 25 mg PO BID 09/03/16 [History] Potassium Chloride 24 meq PO BID 09/03/16 [History] Apixaban [Eliquis] 5 mg PO BID 07/17/19 [History] Furosemide 120 mg PO Q12H 07/17/19 [History] allopurinoL [Zyloprim] 200 mg PO DAILY 07/17/19 [History] glipiZIDE [Glucotrol XL] 10 mg PO DAILY 07/17/19 [History] Bumetanide 1 mg PO DAILY 01/28/20 [History] ClonazePAM [KlonoPIN] 0.5 mg PO BEDTIME PRN 01/28/20 [History] Diltiazem [Dilacor XR] 120 mg PO DAILY 01/28/20 [History] Insulin Detemir [Levemir Flextouch] 30 unit SQ QAM 01/28/20 [History] metOLazone [Metolazone] 2.5 mg PO DAILY 01/28/20 [History] Aspirin [Lo-Dose Aspirin EC] 81 mg PO DAILY 30 Days #30 tablet. 01/29/20 [Rx] Albuterol [Ventolin HFA] 1 - 2 inhalation IH Q4H PRN 05/14/20 [History] Benzonatate 100 mg PO TID PRN 05/14/20 [History] Budesonide [Pulmicort] 0.5 mg NEB BID 05/14/20 [History] Cyanocobalamin (Vitamin B-12) [Cyanocobalamin Injection] 1,000 mcg IM Q30D 05/14/20 [History] Mometasone Furoate 1 applic TOP DAILY PRN 05/14/20 [History] levalbuterol HCL [Levalbuterol HCl] 1.25 mg NEB Q6H PRN 05/14/20 [History] Folic Acid 1 mg PO BEDTIME #30 tablet 05/15/20 [Rx] Simvastatin 40 mg PO BEDTIME #30 tablet 05/15/20 [Rx] Thiamine [Vitamin B-1] 100 mg PO BEDTIME #30 tablet 05/15/20 [Rx] nitrofurantoin macrocrystaL [Nitrofurantoin] 100 mg PO BID #8 capsule 05/15/20 [Rx] Patient Handouts: Nitrofurantoin tablets or capsules, Transient Ischemic Attack, [id number], Thiamine, Vitamin B1 tablets, Simvastatin tablets, Folic Acid, Vitamin B9 tablets Referrals: Mercedes Peres MD [Physician] - Lis Butler NP [Ordering Only Provider] - 05/29/20 3:15 pm (An appointment could not be made with Dr. Peres due to her schedule. Please arrive 15 minutes early with your identification, insurance and your own facemask.) - Discharge Summary/Plan Comment DC Time >30 min.: No - Patient Data Vitals - Most Recent: Last Vital Signs Temp 36.7 C 05/15/20 11:30 Pulse 103 H 05/15/20 11:30 Resp 20 05/15/20 11:30 BP 111/58 L 05/15/20 11:30 Pulse Ox 95 05/15/20 11:30 Weight - Most Recent: 108.6 kg I&O - Last 24 hours: Intake & Output 05/14/20 05/15/20 05/15/20 22:59 06:59 14:59 Intake Total 350 680 Output Total 600 960 Balance -250 -280 Lab Results - Last 24 hrs: Laboratory Results - last 24 hr 05/14/20 05/14/20 05/15/20 Range/Units 15:15 16:25 05:37 WBC 6.72 (4.0-11.0) K/uL RBC 3.36 L (4.30-5.90) M/uL Hgb 10.7 L (12.0-16.0) g/dL Hct 32.6 L (36.0-46.0) % MCV 97.0 (80.0-98.0) fL MCH 31.8 (27.0-32.0) pg MCHC 32.8 (31.0-37.0) g/dL RDW Std Deviation 51.1 (28.0-62.0) fl RDW Coeff of Yovani 15 (11.0-15.0) % Plt Count 134 L (150-400) K/uL MPV 9.70 (7.40-12.00) fL Neut % (Auto) 71.1 (48.0-80.0) % Lymph % (Auto) 10.3 L (16.0-40.0) % Ford % (Auto) 9.1 (0.0-15.0) % Eos % (Auto) 8.8 H (0.0-7.0) % Baso % (Auto) 0.7 (0.0-1.5) % Neut # (Auto) 4.8 (1.4-5.7) K/uL Lymph # (Auto) 0.7 (0.6-2.4) K/uL Ford # (Auto) 0.6 (0.0-0.8) K/uL Eos # (Auto) 0.6 (0.0-0.7) K/uL Baso # (Auto) 0.1 (0.0-0.1) K/uL Nucleated RBC % 0.0 /100WBC Nucleated RBCs # 0 K/uL Sodium (136-145) mmol/L Potassium 3.4 L (3.5-5.1) mmol/L Chloride (98-107) mmol/L Carbon Dioxide (21.0-32.0) mmol/L BUN (7.0-18.0) mg/dL Creatinine (0.6-1.0) mg/dL Est Cr Clr Drug Dosing mL/min Estimated GFR (MDRD) ml/min Glucose (74-106) mg/dL POC Glucose 135 H (60-110) mg/dL Calcium (8.5-10.1) mg/dL Magnesium 2.6 H (1.8-2.4) mg/dL 05/15/20 05/15/20 05/15/20 Range/Units 05:37 06:02 12:00 WBC (4.0-11.0) K/uL RBC (4.30-5.90) M/uL Hgb (12.0-16.0) g/dL Hct (36.0-46.0) % MCV (80.0-98.0) fL MCH (27.0-32.0) pg MCHC (31.0-37.0) g/dL RDW Std Deviation (28.0-62.0) fl RDW Coeff of Yovani (11.0-15.0) % Plt Count (150-400) K/uL MPV (7.40-12.00) fL Neut % (Auto) (48.0-80.0) % Lymph % (Auto) (16.0-40.0) % Ford % (Auto) (0.0-15.0) % Eos % (Auto) (0.0-7.0) % Baso % (Auto) (0.0-1.5) % Neut # (Auto) (1.4-5.7) K/uL Lymph # (Auto) (0.6-2.4) K/uL Ford # (Auto) (0.0-0.8) K/uL Eos # (Auto) (0.0-0.7) K/uL Baso # (Auto) (0.0-0.1) K/uL Nucleated RBC % /100WBC Nucleated RBCs # K/uL Sodium 138 (136-145) mmol/L Potassium 3.3 L (3.5-5.1) mmol/L Chloride 98 (98-107) mmol/L Carbon Dioxide 31.5 (21.0-32.0) mmol/L BUN 49 H (7.0-18.0) mg/dL Creatinine 1.7 H (0.6-1.0) mg/dL Est Cr Clr Drug Dosing 23.66 mL/min Estimated GFR (MDRD) 29.5 ml/min Glucose 179 H (74-106) mg/dL POC Glucose 188 H 264 H (60-110) mg/dL Calcium 8.2 L (8.5-10.1) mg/dL Magnesium 2.4 (1.8-2.4) mg/dL Med Orders - Current: Current Medications Acetaminophen (Tylenol) 650 mg PO Q4H PRN PRN Reason: Pain (Mild 1-3)/fever Albuterol (Ventolin Hfa) 0 gm INH Q4H PRN PRN Reason: Shortness of Breath Apixaban (Eliquis) 5 mg PO BID [facility] Last Admin: 05/15/20 09:00 Dose: 5 mg Documented by: Aspirin (Halfprin) 81 mg PO Q48H [facility] Last Admin: 05/15/20 09:00 Dose: 81 mg Documented by: Budesonide (Pulmicort) 0.5 mg NEB BID [facility] Last Admin: 05/15/20 10:05 Dose: 0.5 mg Documented by: Carvedilol (Coreg) 25 mg PO BID [facility] Last Admin: 05/15/20 09:00 Dose: 25 mg Documented by: Clonazepam (Klonopin) 0.5 mg PO BEDTIME PRN PRN Reason: Anxiety Diltiazem HCl (Cardizem Cd) 120 mg PO DAILY [facility] Last Admin: 05/15/20 09:03 Dose: 120 mg Documented by: Folic Acid (Folic Acid) 1 mg PO BEDTIME [facility] Last Admin: 05/14/20 21:02 Dose: 1 mg Documented by: Ceftriaxone Sodium/Dextrose 1 (gm/ Premix) 50 mls @ 100 mls/hr IV Q24H [facility] Last Admin: 05/14/20 14:13 Dose: 100 mls/hr Documented by: Insulin Aspart (Novolog) 0 unit SUBCUT TIDAC [facility]; Protocol Last Admin: 05/15/20 07:29 Dose: 2 units Documented by: Insulin Detemir (Levemir) [facility] [place] [facility] Admin: 05/15/20 09:12 Dose: 20 units Documented by: Lorazepam (Ativan) 0 mg IVPUSH Q4H PRN; Protocol PRN Reason: CIWAA Omeprazole (Omeprazole) 20 mg PO ACBREAKFAST [facility] Last Admin: 05/15/20 07:31 Dose: 20 mg Documented by: Ondansetron HCl (Zofran) 4 mg IVPUSH Q4H PRN PRN Reason: Nausea Mometasone Furoate [ Mometasone Furoate] 1 Applic 1 each TOP DAILY PRN PRN Reason: Rash Simvastatin (Zocor) 40 mg PO BEDTIME [facility] Last Admin: 05/14/20 21:03 Dose: 40 mg Documented by: Sodium Chloride (Saline Flush) 2.5 ml FLUSH ASDIRECTED PRN PRN Reason: Keep Vein Open Thiamine HCl (Vitamin B-1) 100 mg PO BEDTIME [facility] Last Admin: 05/14/20 21:02 Dose: 100 mg Documented by: Discontinued Medications Potassium Chloride 40 meq/ (Premix) 100 mls @ 25 mls/hr IV ONETIME ONE Stop: 05/14/20 11:27 Last Admin: 05/14/20 08:28 Dose: 25 mls/hr Documented by: Sodium Chloride (Normal Saline) 1,000 mls @ 50 mls/hr IV ASDIRECTED KOBE Last Admin: 05/14/20 08:19 Dose: 50 mls/hr Documented by: Magnesium Sulfate 5 gm/ Sodium (Chloride) 60 mls @ 24 mls/hr IV ASDIRECTED KOBE; Protocol Last Admin: 05/14/20 11:06 Dose: 2 gm/hr, 24 mls/hr Documented by: Potassium Chloride 40 meq/ (Premix) 100 mls @ 25 mls/hr IV ONETIME ONE Stop: 05/15/20 13:58 Last Admin: 05/15/20 11:57 Dose: Not Given Documented by: Iopamidol (Isovue-370 (76%)) 100 ml IVPUSH ONETIME STA Stop: 05/14/20 07:16 Last Admin: 05/14/20 07:16 Dose: 100 ml Documented by: Lorazepam (Ativan) 0.5 mg IVPUSH ONETIME ONE Stop: 05/14/20 12:39 Last Admin: 05/14/20 12:54 Dose: 0.5 mg Documented by: Potassium Chloride (Klor-Con M20) 40 meq PO ONETIME ONE Stop: 05/14/20 13:05 Last Admin: 05/14/20 14:12 Dose: 40 meq Documented by: Potassium Chloride (Klor-Con M20) 40 meq PO ONETIME ONE Stop: 05/15/20 10:38 Last Admin: 05/15/20 11:22 Dose: 40 meq Documented by: Sodium Chloride (Saline Flush) 10 ml FLUSH ASDIRECTED PRN PRN Reason: Keep Vein Open Last Admin: 05/14/20 08:27 Dose: 10 ml Documented by: Sodium Chloride (Saline Flush) 2.5 ml FLUSH ASDIRECTED PRN PRN Reason: Keep Vein Open Last Admin: 05/14/20 08:27 Dose: 2.5 ml Documented by: Sodium Chloride (Normal Saline) 10 ml IV ASDIRECTED PRN PRN Reason: IV Use
[2020-05-15] MEDS: cefTRIAXone 1 GM in Premix Bag 1 BAG IV SCH (14:30)
== END 2020-05-15 15:40 | disposition home or self-care (01) ==
LOC: MW.ED 06:19 → MW.MS 07:42
PROVIDERS: ADMIT Student in an Organized Health Care Education/Training Program; ATTEND Student in an Organized Health Care Education/Training Program
DX: E87.6 Hypokalemia (principal); N17.9 Acute kidney failure, unspecified; I35.0 Nonrheumatic aortic (valve) stenosis; E83.42 Hypomagnesemia; I48.91 Unspecified atrial fibrillation; N30.00 Acute cystitis without hematuria; Z20.828 Contact with and (suspected) exposure to other viral communicable diseases; E11.22 Type 2 diabetes mellitus with diabetic chronic kidney disease; I65.21 Occlusion and stenosis of right carotid artery; I27.20 Pulmonary hypertension, unspecified; E78.2 Mixed hyperlipidemia; E66.01 Morbid (severe) obesity due to excess calories; I13.0 Hypertensive heart and chronic kidney disease with heart failure and stage 1 through stage 4 chronic kidney disease, or unspecified chronic kidney disease; N18.9 Chronic kidney disease, unspecified; J41.0 Simple chronic bronchitis; I50.9 Heart failure, unspecified; E11.42 Type 2 diabetes mellitus with diabetic polyneuropathy; E11.21 Type 2 diabetes mellitus with diabetic nephropathy; Z79.01 Long term (current) use of anticoagulants; Z88.0 Allergy status to penicillin; Z88.5 Allergy status to narcotic agent; Z79.899 Other long term (current) drug therapy; Z79.4 Long term (current) use of insulin; Z79.82 Long term (current) use of aspirin; Z87.891 Personal history of nicotine dependence; Z99.81 Dependence on supplemental oxygen; Z72.89 Other problems related to lifestyle; Z68.41 Body mass index [BMI] 40.0-44.9, adult
CPT/HCPCS: 36415; 70450; 70496; 70498; 70551; 71045; 80048; 80053; 80307; 81001; 82962; 83735; 84132; 84439; 84443; 84484; 85025; 85610; 85730; 87086; 87088; 87186; 93005; 93880; 96365; 96366; 97161; 99285; A9270; J0696; J1815; J2060; J3475; J3480; J7030; J7050; Q9967; U0002

== ENCOUNTER 2021-03-18 15:30 | Inpatient (IN) | payer MEDICARE, OTHER ==
[2021-03-18] MEDS ORDERED: Sodium Chloride 0.9% 10 ML Syringe FLUSH PRN (15:32)
[2021-03-18] MEDS ORDERED: Acetaminophen 325 MG Tab PO ONE (15:35)
[2021-03-18] MEDS ORDERED: Lactated Ringers 500 ML IV ONE (15:38)
[2021-03-18] MEDS ORDERED: Cefepime 2 GM in Premix Bag 1 BAG IV ONE (15:42)
[2021-03-18] MEDS ORDERED: Diltiazem 25 MG/5 ML SDV IVPUSH ONE ×2 (15:43→17:05)
--- NOTE | 2021-03-18 15:44 | EDM.PDOC ---
ED HPI GENERAL MEDICAL PROBLEM - General Chief Complaint: General Stated Complaint: SHAKY, LOW OXYGEN LEVEL Time Seen by Provider: 03/18/21 15:32 Source of Information: Reports: Patient - History of Present Illness INITIAL COMMENTS - FREE TEXT/NARRATIVE: Patient presents to the emergency department complaining of fall and generalized weakness. The patient was in a standing position felt weak and fell to the ground. There was no head trauma. The patient is on a blood thinner. History of CHF and COPD and A. fib. Patient does complain of some shortness of breath. There is no green or yellow productive sputum. No fevers. Patient has not Covid immunized and has not had any Covid exposures. Patient denies any chest pain. No vomiting or diarrhea. No red or black stools. No exacerbating or relieving factors Headache Pain Score (Numeric/FACES): 5 - Related Data Allergies Allergy/AdvReac Type Severity Reaction Status Date / Time tramadol Allergy Severe Difficulty Verified 03/19/21 02:56 Breathing amoxicillin [Amoxicillin] Allergy Mild Rash Verified 03/19/21 02:57 Home Meds: Home Meds Omeprazole 20 mg PO ACBREAKFAST 02/27/14 [History] Carvedilol [Coreg] 25 mg PO BID 09/03/16 [History] Potassium Chloride 24 meq PO BID 09/03/16 [History] Apixaban [Eliquis] 5 mg PO BID 07/17/19 [History] Furosemide 120 mg PO DAILY 07/17/19 [History] allopurinoL [Zyloprim] 200 mg PO DAILY 07/17/19 [History] glipiZIDE [Glucotrol XL] 10 mg PO DAILY 07/17/19 [History] Bumetanide 1 mg PO TID 01/28/20 [History] ClonazePAM [KlonoPIN] 0.5 mg PO BEDTIME PRN 01/28/20 [History] Diltiazem [Dilacor XR] 120 mg PO DAILY 01/28/20 [History] Insulin Detemir [Levemir Flextouch] 30 unit SQ QAM 01/28/20 [History] metOLazone [Metolazone] 2.5 mg PO DAILY 01/28/20 [History] Aspirin [Lo-Dose Aspirin EC] 81 mg PO DAILY 30 Days #30 tablet. 01/29/20 [Rx] Albuterol [Ventolin HFA] 1 - 2 inhalation IH Q4H PRN 05/14/20 [History] Benzonatate 100 mg PO TID PRN 05/14/20 [History] Budesonide [Pulmicort] 0.5 mg NEB BID 05/14/20 [History] Cyanocobalamin (Vitamin B-12) [Cyanocobalamin Injection] 1,000 mcg IM Q30D 05/14/20 [History] Mometasone Furoate 1 applic TOP DAILY PRN 05/14/20 [History] levalbuterol HCL [Levalbuterol HCl] 1.25 mg NEB Q6H PRN 05/14/20 [History] Folic Acid 1 mg PO BEDTIME #30 tablet 05/15/20 [Rx] Simvastatin 40 mg PO BEDTIME #30 tablet 05/15/20 [Rx] Thiamine [Vitamin B-1] 100 mg PO BEDTIME #30 tablet 05/15/20 [Rx] nitrofurantoin macrocrystaL [Nitrofurantoin] 100 mg PO BID #8 capsule 05/15/20 [Rx] Past Medical History HEENT History: Reports: None Cardiovascular History: Reports: Afib, Heart Murmur, Hypertension, Other (See Below) Other Cardiovascular History: CHF Respiratory History: Reports: COPD, SOB Other Respiratory History: history of pneumonia 5 years ago Gastrointestinal History: Reports: GERD Genitourinary History: Reports: Diabetic Nephropathy HOME CARE ASSISTANT History: Reports: Other HOME CARE ASSISTANT History: Hysterectomy Musculoskeletal History: Reports: None Neurological History: Reports: Neuropathy, Peripheral Psychiatric History: Reports: Depression, Mood Swings Endocrine/Metabolic History: Reports: Diabetes, Type II Hematologic History: Reports: None Immunologic History: Reports: None Oncologic (Cancer) History: Reports: None Dermatologic History: Reports: None Other Dermatologic History: scaley patchy skin over right leg - Infectious Disease History Infectious Disease History: Reports: Chicken Pox, Measles, Mumps - Past Surgical History HEENT Surgical History: Reports: None GI Surgical History: Reports: Appendectomy, Cholecystectomy, Colonoscopy, EGD, Hernia, Abdominal Female Surgical History: Reports: Hysterectomy Musculoskeletal Surgical History: Reports: Knee Replacement Social & Family History - Family History Family Medical History: No Pertinent Family History HEENT: Reports: None Cardiac: Reports: None Respiratory: Reports: Other (See Below) Other Respiratory Family Hisory: emphysema GI: Reports: None : Reports: None OBGYN: Reports: None Musculoskeletal: Reports: None Neurological: Reports: None Psychiatric: Reports: None Endocrine/Metabolic: Reports: Diabetes, type II Hematologic: Reports: None Immunologic: Reports: None Dermatologic: Reports: None Oncologic: Reports: None Other Oncologic Family History: father had esophageal CA - Caffeine Use Caffeine Use: Reports: Coffee ED ROS GENERAL - Review of Systems Review Of Systems: See Below Free Text/Narrative/Comment: Constitutional: No fevers, chills Respiratory: No cough. No productive sputum. Positive shortness of breath Cardiovascular: No Chest pain, palpitations Gastrointestinal: No nausea, vomiting, diarrhea no abdominal pain Genitourinary: No pain with urination. No frequency Jordy/Lymph: Negative for bruising tendency Musculoskeletal: decreased range of motion, trauma Integumentary: No rash, bruising Neurologic: No numbness or weakness Psychiatric: No anxiety, depression ED EXAM, GENERAL - Physical Exam Exam: See Below Free Text/Narrative:: CONSTITUTIONAL: well appearing in no acute distress SKIN: Warm, dry, and intact without rash HENT: Normocephalic, atraumatic, PULMONARY: clear to ausculation bilaterally. No rales, rhonchi, wheezing CARDIOVASCULAR: Irregular tachycardia. No murmurs or gallops. GASTROINTESTINAL: Soft, nondistended, nontender NEUROLOGIC: normal speech, II-XII intact. light touch/5/5 power equal and symmetric in upper and lower extremities without deficit MUSCULOSKELETAL: no gross deformities, atraumatic PSYCHIATRIC: normal mood and affect : Patient has a tender indurated area to the left vulvar area and she states it has been there for a while. There is no marked surrounding erythema or discharge. Ultrasound does not show any fluctuance to this area. There is no evidence of erythema or infection to the perineum #1 Interpretation EKG Date: 03/18/21 Time: 15:47 EKG Interpretation Comments: 35, atrial fibrillation with rapid ventricular rate, nonspecific ST/T findings Course - Vital Signs Text/Narrative:: Differential Diagnosis: Traumatic injury, dehydration, anemia, infection, sepsis, CHF, COPD, other Patient presents to the emergency department after fall. Fortunately patient did not hit her head and there does not appear to be any significant traumatic injury. Patient was found to be febrile to greater than 102 and found to be in urosepsis. Patient received broad-spectrum antibiotics as well as some fluid resuscitation. Patient with a history of CHF and with some hypoxia and evidence of pulmonary edema on chest x-ray. A 500 mL boluses were given and these were slowed down when the patient had interval hypoxia. Patient is on a baseline of 3 L of O2 at home. Additionally she has COPD and was treated with steroids and DuoNeb. Patient was in A. fib with RVR even prior to albuterol. Diltiazem was used and successfully lowered her rate. Patient admitted for IV antibiotics, follow cultures, rate controlled, fluid management and continue treatment and management. Patient admitted to the ICU in fair condition improved Critical care: I spent 60 minutes of critical care time with this patient not including reportable procedures. There was an acute impairment of an organ system with a high probability of imminent or life threatening deterioration in the patient`s condition. Interventions and changes required in the course of therapy are located in the chart. Time involved was spent in direct patient care, reviewing ancillary data, old records, consulting with decision makers, EMS, other doctors, giving orders and documenting. Last Recorded V/S: Last Vital Signs Temp 36.4 C 03/19/21 04:00 Pulse 112 H 03/18/21 18:57 Resp 19 03/19/21 07:00 BP 130/58 L 03/19/21 07:00 Pulse Ox 92 L 03/19/21 07:00 - Orders/Labs/Meds Orders: Active Orders 24 hr Category Date Time Status Cardiac Monitoring [RC] . DIRECTED Care 03/18/21 15:32 Active Pulse Oximetry [RC] ASDIRECTED Care 03/18/21 15:32 Active BLOOD CULTURE ID [MREF] Stat Lab 03/18/21 15:32 Received CULTURE BLOOD [BC] Stat Lab 03/18/21 15:32 Results CULTURE BLOOD [BC] Stat Lab 03/18/21 15:41 Results CULTURE URINE [MREF] Stat Lab 03/18/21 17:40 Received Diltiazem 5 mg Med 03/18/21 16:34 Active Sodium Chloride 0.9% [Normal Saline] 100 ml IV NOW Sodium Chloride 0.9% [Saline Flush] Med 03/18/21 15:32 Active 10 ml FLUSH ASDIRECTED PRN Sodium Chloride 0.9% [Saline Flush] Med 03/18/21 15:32 Active 2.5 ml FLUSH ASDIRECTED PRN Blood Culture x2 Reflex Set [OM.PC] Stat Oth 03/18/21 15:33 Ordered Isolation [COMM] Routine Ot 03/18/21 15:34 Active Saline Lock Insert [OM.PC] Stat Ot 03/18/21 15:32 Ordered Medication Orders Acetaminophen (Acetaminophen 325 Mg Tab) 650 mg PO Q4H PRN PRN Reason: Pain/Fever Last Admin: 03/19/21 05:42 Dose: 650 mg Documented by: Admin: 03/18/21 21:28 Dose: 650 mg Documented by: VICTORINA Albuterol/Ipratropium (Albuterol/Ipratropium 3.0-0.5 Mg/3 Ml Neb Soln) 3 ml NEB Q4HRRT PRN PRN Reason: Shortness Of Breath/wheezing Apixaban (Apixaban 5 Mg Tab) 5 mg PO BID [facility] Last Admin: 03/18/21 21:25 Dose: 5 mg Documented by: VICTORINA Aspirin (Aspirin 81 Mg Tab.Ec) 81 mg PO DAILY [facility] Budesonide (Budesonide 0.5 Mg/2 Ml Neb Susp) 0.5 mg NEB BIDRT KOBE Clonazepam (Clonazepam 0.5 Mg Tab) 0.5 mg PO BEDTIME PRN PRN Reason: Anxiety Dextrose/Water (50% Dextrose In Water 50 Ml Syringe) 50 ml IVPUSH ASDIRECTED PRN PRN Reason: Hypoglycemia Glucagon (Glucagon,Human Recombinant 1 Mg Vial) 1 mg IM ASDIRECTED PRN PRN Reason: Hypoglycemia Diltiazem HCl 5 mg/ Sodium (Chloride) 101 mls @ 5 mls/hr IV NOW STA Stop: 03/19/21 12:45 Last Admin: 03/18/21 17:07 Dose: Not Given Documented by: NADINE Cefepime HCl 2 gm/ Premix 50 mls @ 100 mls/hr IV Q8H [facility] Last Admin: 03/19/21 08:05 Dose: 100 mls/hr Documented by: Infusion: 03/19/21 00:36 Dose: 100 mls/hr Documented by: Admin: 03/19/21 00:06 Dose: 100 mls/hr Documented by: VICTORINA Sodium Chloride (Normal Saline) 500 mls @ 50 mls/hr IV ASDIRECTED KOBE Last Infusion: 03/19/21 05:39 Dose: 0 mls/hr Documented by: Admin: 03/19/21 00:51 Dose: 50 mls/hr Documented by: VICTORINA Insulin Aspart (Insulin Aspart 100 Units/Ml 3 Ml Pen) 0 unit SUBCUT TIDAC KOBE; Protocol Last Admin: 03/19/21 07:52 Dose: 4 unit Documented by: GUSTAVO Omeprazole (Omeprazole 20 Mg Cap.Cr) 20 mg PO ACBREAKFAST KOBE Last Admin: 03/19/21 07:51 Dose: 20 mg Documented by: GUSTAVO Sodium Chloride (Sodium Chloride 0.9% 10 Ml Syringe) 10 ml FLUSH ASDIRECTED PRN PRN Reason: Keep Vein Open Sodium Chloride (Sodium Chloride 0.9% 2.5 Ml Syringe) 2.5 ml FLUSH ASDIRECTED PRN PRN Reason: Keep Vein Open Labs: Laboratory Tests 03/18/21 03/18/21 03/18/21 Range/Units 15:32 15:32 15:32 WBC 12.52 H (4.0-11.0) K/uL RBC 3.49 L (4.30-5.90) M/uL Hgb 11.0 L (12.0-16.0) g/dL Hct 31.7 L (36.0-46.0) % MCV 90.8 (80.0-98.0) fL MCH 31.5 (27.0-32.0) pg MCHC 34.7 (31.0-37.0) g/dL RDW Std Deviation 47.7 (28.0-62.0) fl RDW Coeff of Yovani 14 (11.0-15.0) % Plt Count 107 L (150-400) K/uL MPV 9.90 (7.40-12.00) fL Neut % (Auto) 90.8 H (48.0-80.0) % Lymph % (Auto) 3.0 L (16.0-40.0) % [place] % (Auto) 5.9 (0.0-15.0) % Eos % (Auto) 0.2 (0.0-7.0) % Baso % (Auto) 0.1 (0.0-1.5) % Neut # (Auto) 11.4 H (1.4-5.7) K/uL Lymph # (Auto) 0.4 L (0.6-2.4) K/uL [place] # (Auto) 0.7 (0.0-0.8) K/uL Eos # (Auto) 0.0 (0.0-0.7) K/uL Baso # (Auto) 0.0 (0.0-0.1) K/uL Nucleated RBC % 0.0 /100WBC Nucleated RBCs # 0 K/uL INR 1.28 Sodium 129 L (136-145) mmol/L Potassium 3.2 L (3.5-5.1) mmol/L Chloride 90 L (98-107) mmol/L Carbon Dioxide 28.8 (21.0-32.0) mmol/L BUN 51 H (7.0-18.0) mg/dL Creatinine 2.1 H (0.6-1.0) mg/dL Est Cr Clr Drug Dosing 18.87 mL/min Estimated GFR (MDRD) 23.1 ml/min Glucose 83 (74-106) mg/dL Lactic Acid (0.4-2.0) mmol/L Calcium 8.2 L (8.5-10.1) mg/dL Magnesium (1.8-2.4) mg/dL Total Bilirubin 0.5 (0.2-1.0) mg/dL AST 28 (15-37) IU/L ALT 19 (14-63) IU/L Alkaline Phosphatase 68 (46-116) U/L Troponin I < 0.050 (0.000-0.056) ng/mL B-Natriuretic Peptide (<100) PG/ML Total Protein 7.9 (6.4-8.2) g/dL Albumin 3.5 (3.4-5.0) g/dL Globulin 4.4 H (2.6-4.0) g/dL Albumin/Globulin Ratio 0.8 L (0.9-1.6) Lipase 127 (73-393) U/L Urine Color Urine Appearance Urine pH (5.0-8.0) Ur Specific [place] (1.001-1.035) Urine Protein (NEGATIVE) mg/dL Urine Glucose (UA) (NEGATIVE) mg/dL Urine Ketones (NEGATIVE) mg/dL Urine Occult Blood (NEGATIVE) Urine Nitrite (NEGATIVE) Urine Bilirubin (NEGATIVE) Urine Urobilinogen (<2.0) EU/dL Ur Leukocyte Esterase (NEGATIVE) Urine RBC (0-2/HPF) Urine WBC (0-5/HPF) Ur Epithelial Cells (NONE-FEW) Urine Bacteria (NEGATIVE) Influenza Type A RNA (NEGATIVE) Influenza Type B RNA (NEGATIVE) SARS-CoV-2 RNA (FLOYD) (NEGATIVE) 03/18/21 03/18/21 03/18/21 Range/Units 15:32 15:32 15:41 WBC (4.0-11.0) K/uL RBC (4.30-5.90) M/uL Hgb (12.0-16.0) g/dL Hct (36.0-46.0) % MCV (80.0-98.0) fL MCH (27.0-32.0) pg MCHC (31.0-37.0) g/dL RDW Std Deviation (28.0-62.0) fl RDW Coeff of Yovani (11.0-15.0) % Plt Count (150-400) K/uL MPV (7.40-12.00) fL Neut % (Auto) (48.0-80.0) % Lymph % (Auto) (16.0-40.0) % [place] % (Auto) (0.0-15.0) % Eos % (Auto) (0.0-7.0) % Baso % (Auto) (0.0-1.5) % Neut # (Auto) (1.4-5.7) K/uL Lymph # (Auto) (0.6-2.4) K/uL [place] # (Auto) (0.0-0.8) K/uL Eos # (Auto) (0.0-0.7) K/uL Baso # (Auto) (0.0-0.1) K/uL Nucleated RBC % /100WBC Nucleated RBCs # K/uL INR Sodium (136-145) mmol/L Potassium (3.5-5.1) mmol/L Chloride (98-107) mmol/L Carbon Dioxide (21.0-32.0) mmol/L BUN (7.0-18.0) mg/dL Creatinine (0.6-1.0) mg/dL Est Cr Clr Drug Dosing mL/min Estimated GFR (MDRD) ml/min Glucose (74-106) mg/dL Lactic Acid 2.8 H* (0.4-2.0) mmol/L Calcium (8.5-10.1) mg/dL Magnesium 0.8 L (1.8-2.4) mg/dL Total Bilirubin (0.2-1.0) mg/dL AST (15-37) IU/L ALT (14-63) IU/L Alkaline Phosphatase (46-116) U/L Troponin I (0.000-0.056) ng/mL B-Natriuretic Peptide 232 H (<100) PG/ML Total Protein (6.4-8.2) g/dL Albumin (3.4-5.0) g/dL Globulin (2.6-4.0) g/dL Albumin/Globulin Ratio (0.9-1.6) Lipase (73-393) U/L Urine Color Urine Appearance Urine pH (5.0-8.0) Ur Specific [place] (1.001-1.035) Urine Protein (NEGATIVE) mg/dL Urine Glucose (UA) (NEGATIVE) mg/dL Urine Ketones (NEGATIVE) mg/dL Urine Occult Blood (NEGATIVE) Urine Nitrite (NEGATIVE) Urine Bilirubin (NEGATIVE) Urine Urobilinogen (<2.0) EU/dL Ur Leukocyte Esterase (NEGATIVE) Urine RBC (0-2/HPF) Urine WBC (0-5/HPF) Ur Epithelial Cells (NONE-FEW) Urine Bacteria (NEGATIVE) Influenza Type A RNA (NEGATIVE) Influenza Type B RNA (NEGATIVE) SARS-CoV-2 RNA (FLOYD) (NEGATIVE) 03/18/21 03/18/21 Range/Units 16:01 17:40 WBC (4.0-11.0) K/uL RBC (4.30-5.90) M/uL Hgb (12.0-16.0) g/dL Hct (36.0-46.0) % MCV (80.0-98.0) fL MCH (27.0-32.0) pg MCHC (31.0-37.0) g/dL RDW Std Deviation (28.0-62.0) fl RDW Coeff of Yovani (11.0-15.0) % Plt Count (150-400) K/uL MPV (7.40-12.00) fL Neut % (Auto) (48.0-80.0) % Lymph % (Auto) (16.0-40.0) % [place] % (Auto) (0.0-15.0) % Eos % (Auto) (0.0-7.0) % Baso % (Auto) (0.0-1.5) % Neut # (Auto) (1.4-5.7) K/uL Lymph # (Auto) (0.6-2.4) K/uL [place] # (Auto) (0.0-0.8) K/uL Eos # (Auto) (0.0-0.7) K/uL Baso # (Auto) (0.0-0.1) K/uL Nucleated RBC % /100WBC Nucleated RBCs # K/uL INR Sodium (136-145) mmol/L Potassium (3.5-5.1) mmol/L Chloride (98-107) mmol/L Carbon Dioxide (21.0-32.0) mmol/L BUN (7.0-18.0) mg/dL Creatinine (0.6-1.0) mg/dL Est Cr Clr Drug Dosing mL/min Estimated GFR (MDRD) ml/min Glucose (74-106) mg/dL Lactic Acid (0.4-2.0) mmol/L Calcium (8.5-10.1) mg/dL Magnesium (1.8-2.4) mg/dL Total Bilirubin (0.2-1.0) mg/dL AST (15-37) IU/L ALT (14-63) IU/L Alkaline Phosphatase (46-116) U/L Troponin I (0.000-0.056) ng/mL B-Natriuretic Peptide (<100) PG/ML Total Protein (6.4-8.2) g/dL Albumin (3.4-5.0) g/dL Globulin (2.6-4.0) g/dL Albumin/Globulin Ratio (0.9-1.6) Lipase (73-393) U/L Urine Color YELLOW Urine Appearance CLOUDY Urine pH 6.0 (5.0-8.0) Ur Specific [place] 1.020 (1.001-1.035) Urine Protein 100 H (NEGATIVE) mg/dL Urine Glucose (UA) NEGATIVE (NEGATIVE) mg/dL Urine Ketones NEGATIVE (NEGATIVE) mg/dL Urine Occult Blood LARGE H (NEGATIVE) Urine Nitrite NEGATIVE (NEGATIVE) Urine Bilirubin NEGATIVE (NEGATIVE) Urine Urobilinogen 0.2 (<2.0) EU/dL Ur Leukocyte Esterase LARGE H (NEGATIVE) Urine RBC 5-10 (0-2/HPF) Urine WBC TO NUMEROUS TO COUNT H (0-5/HPF) Ur Epithelial Cells FEW (NONE-FEW) Urine Bacteria FEW (NEGATIVE) Influenza Type A RNA NEGATIVE (NEGATIVE) Influenza Type B RNA NEGATIVE (NEGATIVE) SARS-CoV-2 RNA (FLOYD) NEGATIVE (NEGATIVE) Meds: Medications Generic Name Dose Route Start Last Admin Trade Name Freq PRN Reason Stop Dose Admin Acetaminophen 650 mg 03/18/21 21:09 03/19/21 05:42 Acetaminophen 325 Mg Tab PO 650 mg Q4H PRN Administration Pain/Fever Albuterol/Ipratropium 3 ml 03/18/21 20:27 Albuterol/Ipratropium 3.0-0.5 Mg/3 Ml Neb Soln NEB Q4HRRT PRN Shortness Of Breath/wheezing Apixaban 5 mg 03/18/21 21:00 03/18/21 21:25 Apixaban 5 Mg Tab PO 5 mg BID KOBE Administration Aspirin 81 mg 03/19/21 09:00 Aspirin 81 Mg Tab.Ec PO DAILY KOBE Budesonide 0.5 mg 03/19/21 09:00 Budesonide 0.5 Mg/2 Ml Neb Susp NEB BIDRT KOBE Clonazepam 0.5 mg 03/18/21 20:45 Clonazepam 0.5 Mg Tab PO BEDTIME PRN Anxiety Dextrose/Water 50 ml 03/19/21 00:32 50% Dextrose In Water 50 Ml Syringe IVPUSH ASDIRECTED PRN Hypoglycemia Glucagon 1 mg 03/19/21 00:32 Glucagon,Human Recombinant 1 Mg Vial IM ASDIRECTED PRN Hypoglycemia Diltiazem HCl 5 mg/ Sodium 101 mls @ 5 mls/hr 03/18/21 16:34 03/18/21 17:07 Chloride IV 03/19/21 12:45 Not Given NOW STA Cefepime HCl 2 gm/ Premix 50 mls @ 100 mls/hr 03/19/21 00:00 03/19/21 08:05 IV 100 mls/hr Q8H KOBE Administration Sodium Chloride 500 mls @ 50 mls/hr 03/19/21 00:45 03/19/21 05:39 Normal Saline IV 0 mls/hr ASDIRECTED KOBE Infusion Insulin Aspart 0 unit 03/19/21 07:30 03/19/21 07:52 Insulin Aspart 100 Units/Ml 3 Ml Pen SUBCUT 4 unit TIDAC KOBE Administration Protocol Omeprazole 20 mg 03/19/21 07:30 03/19/21 07:51 Omeprazole 20 Mg Cap.Cr PO 20 mg ACBREAKFAST KOBE Administration Sodium Chloride 10 ml 03/18/21 15:32 Sodium Chloride 0.9% 10 Ml Syringe FLUSH ASDIRECTED PRN Keep Vein Open Sodium Chloride 2.5 ml 03/18/21 15:32 Sodium Chloride 0.9% 2.5 Ml Syringe FLUSH ASDIRECTED PRN Keep Vein Open Discontinued Medications Generic Name Dose Route Start Last Admin Trade Name Freq PRN Reason Stop Dose Admin Acetaminophen 975 mg 03/18/21 15:35 03/18/21 15:57 Acetaminophen 325 Mg Tab PO 03/18/21 15:36 975 mg NOW ONE Administration Albuterol/Ipratropium 3 ml 03/18/21 16:34 03/18/21 17:07 Albuterol/Ipratropium 3.0-0.5 Mg/3 Ml Neb Soln NEB 03/18/21 16:35 Not Given ONETIME ONE Carvedilol 25 mg 03/18/21 21:00 03/18/21 21:10 Carvedilol 25 Mg Tab PO Not Given BID KOBE Diltiazem HCl 5 mg 03/18/21 15:43 03/18/21 15:56 Diltiazem 25 Mg/5 Ml Sdv IVPUSH 03/18/21 15:44 5 mg ONETIME ONE Administration Diltiazem HCl 5 mg 03/18/21 17:05 03/18/21 17:07 Diltiazem 25 Mg/5 Ml Sdv IVPUSH 03/18/21 17:06 5 mg ONETIME ONE Administration Diltiazem HCl 120 mg 03/19/21 09:00 Diltiazem 120 Mg Cap.Cd PO DAILY KOBE Lactated Ringer's 500 mls @ 999 mls/min 03/18/21 15:38 03/18/21 15:56 Ringers, Lactated IV 03/18/21 15:39 999 mls/min .BOLUS ONE Administration Cefepime HCl 2 gm/ Premix 50 mls @ 100 mls/hr 03/18/21 15:42 03/18/21 16:33 IV 03/18/21 16:11 100 mls/hr ONETIME ONE Administration Sodium Chloride 500 mls @ 999 mls/min 03/18/21 18:18 03/18/21 18:23 Normal Saline IV 03/18/21 18:19 Not Given STAT STA Sodium Chloride 1,000 mls @ 250 mls/hr 03/18/21 18:32 03/18/21 18:37 Normal Saline IV 03/18/21 22:31 Not Given .Bolus ONE Lactated Ringer's 1,000 mls @ 250 mls/hr 03/18/21 18:45 03/18/21 18:20 Ringers, Lactated IV 250 mls/hr ASDIRECTED KOBE Administration Magnesium Sulfate 2 gm/ Premix 50 mls @ 12.5 mls/hr 03/18/21 19:18 03/18/21 19:27 IV 03/18/21 23:17 12.5 mls/hr ONETIME ONE Administration Cefepime HCl 2 gm/ Premix 50 mls @ 100 mls/hr 03/18/21 20:30 IV Q8H KOBE Cefepime HCl 2 gm/ Premix 50 mls @ 100 mls/hr 03/19/21 02:00 IV Q8H KOBE Cefepime HCl 2 gm/ Premix 50 mls @ 100 mls/hr 03/19/21 12:00 IV Q8H KOBE Sodium Chloride 500 mls @ 999 mls/hr 03/18/21 21:20 03/18/21 21:40 Normal Saline IV 03/18/21 21:50 999 mls/hr ONETIME ONE Administration Magnesium Sulfate 2 gm/ Premix 50 mls @ 12.5 mls/hr 03/19/21 00:32 03/19/21 03:00 IV 03/19/21 04:31 0 mls/hr ONETIME ONE Infusion Potassium Chloride 40 meq/ 100 mls @ 25 mls/hr 03/19/21 00:32 03/19/21 00:52 Premix IV 03/19/21 04:31 25 mls/hr ONETIME ONE Administration Sodium Chloride 1,000 mls @ 50 mls/hr 03/19/21 00:45 Normal Saline IV ASDIRECTED KOBE Methylprednisolone Sodium Succinate 125 mg 03/18/21 16:36 03/18/21 17:30 Methylprednisolone Sodium Succinate 125 Mg/2 Ml Sdv IVPUSH 03/18/21 16:37 125 mg ONETIME ONE Administration Potassium Chloride 40 meq 03/18/21 20:52 03/18/21 21:25 Potassium Chloride 20 Meq Tab.Er PO 03/18/21 20:53 40 meq ONETIME ONE Administration Departure - Departure Time of Disposition: 08:19 Disposition: Admitted As Inpatient 68 Clinical Impression: Sepsis, Atrial fibrillation with RVR, Hypotension UTI (urinary tract infection) Qualifiers: Urinary tract infection type: acute cystitis Hematuria presence: without hematuria Qualified Code(s): N30.00 - Acute cystitis without hematuria - Discharge Information - My Orders Last 24 Hours: My Active Orders 03/18/21 15:32 Cardiac Monitoring [RC] . DIRECTED Pulse Oximetry [RC] ASDIRECTED BLOOD CULTURE ID [MREF] Stat CULTURE BLOOD [BC] Stat Sodium Chloride 0.9% [Saline Flush] 10 ml FLUSH ASDIRECTED PRN Sodium Chloride 0.9% [Saline Flush] 2.5 ml FLUSH ASDIRECTED PRN Saline Lock Insert [OM.PC] Stat 03/18/21 15:33 Blood Culture x2 Reflex Set [OM.PC] Stat 03/18/21 15:34 Isolation [COMM] Routine 03/18/21 15:41 CULTURE BLOOD [BC] Stat 03/18/21 16:34 Diltiazem 5 mg Sodium Chloride 0.9% [Normal Saline] 100 ml IV NOW 03/18/21 17:40 CULTURE URINE [MREF] Stat - Assessment/Plan Last 24 Hours: My Active Orders 03/18/21 15:32 Cardiac Monitoring [RC] . DIRECTED Pulse Oximetry [RC] ASDIRECTED BLOOD CULTURE ID [MREF] Stat CULTURE BLOOD [BC] Stat Sodium Chloride 0.9% [Saline Flush] 10 ml FLUSH ASDIRECTED PRN Sodium Chloride 0.9% [Saline Flush] 2.5 ml FLUSH ASDIRECTED PRN Saline Lock Insert [OM.PC] Stat 03/18/21 15:33 Blood Culture x2 Reflex Set [OM.PC] Stat 03/18/21 15:34 Isolation [COMM] Routine 03/18/21 15:41 CULTURE BLOOD [BC] Stat 03/18/21 16:34 Diltiazem 5 mg Sodium Chloride 0.9% [Normal Saline] 100 ml IV NOW 03/18/21 17:40 CULTURE URINE [MREF] Stat
--- NOTE | 2021-03-18 16:31 | CR ---
Indication: SOB Technique: Chest 1 view Comparison: 05/14/2020 Findings/Impression: Cardiovascular and mediastinum: Cardiomegaly, stable. An unfolded, calcified aorta again seen. Lungs and pleural space: Left lower lung subsegmental atelectasis or scarring again seen. Subtle interstitial opacities in the lower lungs which could be partially related to overlying soft tissues, however concerning for evolving interstitial infiltrates or interstitial edema, in the correct clinical setting. No gross pleural effusions. No pneumothorax seen. Bones and soft tissues: No significant change. Dictated by Leland Corbin MD @ 03/18/2021 4:29:[address] Leland Corbin @ Mar 18 2021 4:29PM
[2021-03-18 16:33] LABS: BLOOD UREA NITROGEN,BUN 51 mg/dL (7.0-18.0); CARBON DIOXIDE,CO2 28.8 mmol/L (21.0-32.0); CHLORIDE,CL 90 mmol/L (98-107); GLUCOSE RANDOM 83 mg/dL (74-106); LIPASE 127 U/L (73-393); POTASSIUM,K 3.2 mmol/L (3.5-5.1); SODIUM,NA 129 mmol/L (136-145)
[2021-03-18] MEDS ORDERED: Albuterol/Ipratropium 3.0-0.5 MG/3 ML Neb Soln NEB ONE (16:34)
[2021-03-18] MEDS ORDERED: methylPREDNISolone Sodium Succinate 125 MG/2 ML SDV IVPUSH ONE (16:36)
[2021-03-18 16:55] LABS: CORONAVIRUS COVID-19 NAA NEGATIVE (NEGATIVE); INFLUENZA A NAA NEGATIVE (NEGATIVE); INFLUENZA B NAA NEGATIVE (NEGATIVE)
--- NOTE | 2021-03-18 18:03 | CT ---
INDICATION: Abdominal pain, questioning pelvic abscess. TECHNIQUE: CT of the abdomen and pelvis without intravenous contrast. Coronal and sagittal reconstructions. COMPARISON: CT of the abdomen and pelvis 06/23/2018. FINDINGS: The liver is enlarged measuring 22.4 cm length. This is slightly decreased compared to prior exam. Non cirrhotic configuration. Cholecystectomy. No biliary dilation. The unenhanced spleen, pancreas, and adrenal glands are normal in appearance. Extensive vascular calcifications within the renal karlos bilaterally. No hydronephrosis or ureteral dilation. No obstructing urinary calculi. Diffuse bladder wall thickening and prominent perivesical fat stranding suggesting inflammation. Fat stranding extends along distal ureters as well. Hysterectomy. No abnormality in the adnexa. No bowel dilation. Colonic diverticulosis without evidence of diverticulitis. The appendix is not identified. No intraperitoneal free air or fluid. No evidence of a pelvic abscess. Small fat containing midline ventral hernia containing a stable serpiginous calcified density. Extensive vascular calcifications. No lymphadenopathy. Degenerative changes of the spine. Chronic L1 superior endplate compression fracture. Relatively stable ground-glass and reticular opacities throughout the lung bases. Mild cardiomegaly. IMPRESSION: 1. Diffuse bladder wall thickening and prominent perivesical fat stranding suggesting inflammation. Correlate with urinalysis. 2. Hepatomegaly, slightly decreased since prior exam. 3. Extensive vascular calcifications throughout the abdomen and pelvis including the renal karlos. 4. Relatively stable ground-glass and reticular opacities throughout the lung bases. Please note that all CT scans at this facility use dose modulation, iterative reconstruction, and/or weight-based dosing when appropriate to reduce radiation dose to as low as reasonably achievable. Dictated by Pearl Olivera MD @ 03/18/2021 6:02:[address] Pearl Olivera @ Mar 18 2021 6:02PM
[2021-03-18] MEDS ORDERED: Sodium Chloride 0.9% 500 ML IV STA (18:18)
[2021-03-18] MEDS: Sodium Chloride 0.9% 1,000 ML IV ONE ×2 (18:37→21:29)
[2021-03-18] MEDS ORDERED: Lactated Ringers 1,000 ML IV SCH (18:45)
--- NOTE | 2021-03-18 19:11 | PCM.HP.2 ---
H&P History of Present Illness - General Date of Service: 03/18/21 Admit Problem/Dx: Admission Diagnosis/Problem Admission Diagnosis/Problem Sepsis - History of Present Illness Initial Comments - Free Text/Narative: 75-year-old female presents emergency department due to dizziness, low oxygen saturation (family member noted O2 saturation to be 87% at home) generalized weakness, and a fall, no head trauma noted.. Patient also states that she has not taken her Lasix medication for the past 2 days because pharmacy would not renew prescription. Patient admitted to the medical floor for sepsis, EUGENE, CHF. Past medical history to include A. fib teated with Eliquis, heart murmur, hypertension, CHF, COPD, GERD, diabetes type 2. Upon admission patient denies chest pain, fever, chills, nausea, vomiting, abdominal pain. Patient denies dysuria, hematuria, denies suprapubic pain. Patient states mild shortness of breath, orthopnea, generalized fatigue. Laboratory findings include white blood cell count 12.5, sodium 129, potassium 2.2, BUN 51, creatinine 2.1, magnesium 0.8. Initial lactic acid noted to be 2.8 will recheck. BNP elevated at 232. Urinalysis positive for urine protein, urine occult blood, leukocyte Estrace, urine white blood cell. CT abdomen pelvis impression to include hepatomegaly, stable ground-glass and reticular opacities throughout the lung bases, diffuse bladder wall thickening. Chest x-ray impression, cardiomegaly stable. Left lower lung atelectasis or scarring. Interstitial opacities in the lower lungs which may represent interstitial infiltrates or edema. EKG interpretation to include atrial fibrillation with RVR, nonspecific ST/T findings. Blood cultures pending. In the ED patient was given 1 L fluid, cefepime 2 g, diltiazem 5 mg IV push, Solu-Medrol 125 mg X 1. Patient also started on 2 g magnesium. Will continue IV antibiotics, recheck Lactic Acid, trend daily BMPs, IV fluids as needed, resume home medications for CHF and A. fib in the AM, cardiac telemetry, strict I's and O's. - Related Data Allergies/Adverse Reactions: Allergies Allergy/AdvReac Type Severity Reaction Status Date / Time amoxicillin [Amoxicillin] Allergy Cannot Verified 03/18/21 15:40 Remember tramadol Allergy Dizziness Verified 03/18/21 15:40 Home Medications: Home Meds Omeprazole 20 mg PO ACBREAKFAST 02/27/14 [History] Carvedilol [Coreg] 25 mg PO BID 09/03/16 [History] Potassium Chloride 24 meq PO BID 09/03/16 [History] Apixaban [Eliquis] 5 mg PO BID 07/17/19 [History] Furosemide 120 mg PO Q12H 07/17/19 [History] allopurinoL [Zyloprim] 200 mg PO DAILY 07/17/19 [History] glipiZIDE [Glucotrol XL] 10 mg PO DAILY 07/17/19 [History] Bumetanide 1 mg PO DAILY 01/28/20 [History] ClonazePAM [KlonoPIN] 0.5 mg PO BEDTIME PRN 01/28/20 [History] Diltiazem [Dilacor XR] 120 mg PO DAILY 01/28/20 [History] Insulin Detemir [Levemir Flextouch] 30 unit SQ QAM 01/28/20 [History] metOLazone [Metolazone] 2.5 mg PO DAILY 01/28/20 [History] Aspirin [Lo-Dose Aspirin EC] 81 mg PO DAILY 30 Days #30 tablet. 01/29/20 [Rx] Albuterol [Ventolin HFA] 1 - 2 inhalation IH Q4H PRN 05/14/20 [History] Benzonatate 100 mg PO TID PRN 05/14/20 [History] Budesonide [Pulmicort] 0.5 mg NEB BID 05/14/20 [History] Cyanocobalamin (Vitamin B-12) [Cyanocobalamin Injection] 1,000 mcg IM Q30D 05/14/20 [History] Mometasone Furoate 1 applic TOP DAILY PRN 05/14/20 [History] levalbuterol HCL [Levalbuterol HCl] 1.25 mg NEB Q6H PRN 05/14/20 [History] Folic Acid 1 mg PO BEDTIME #30 tablet 05/15/20 [Rx] Simvastatin 40 mg PO BEDTIME #30 tablet 05/15/20 [Rx] Thiamine [Vitamin B-1] 100 mg PO BEDTIME #30 tablet 05/15/20 [Rx] nitrofurantoin macrocrystaL [Nitrofurantoin] 100 mg PO BID #8 capsule 05/15/20 [Rx] Past Medical History HEENT History: Reports: None Cardiovascular History: Reports: Afib, Heart Murmur, Hypertension, Other (See Below) Other Cardiovascular History: CHF Respiratory History: Reports: COPD, SOB Other Respiratory History: history of pneumonia 5 years ago Gastrointestinal History: Reports: GERD Genitourinary History: Reports: Diabetic Nephropathy LOAN CONSULTANT 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: 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: Other OB/BYN History: Hysterectomy Musculoskeletal History: Reports: None Neurological History: Reports: Neuropathy, Peripheral Psychiatric History: Reports: Depression, Mood Swings Endocrine/Metabolic History: Reports: Diabetes, Type II Hematologic History: Reports: None Immunologic History: Reports: None Oncologic (Cancer) History: Reports: None Dermatologic History: Reports: None Other Dermatologic History: scaley patchy skin over right leg - Infectious Disease History Infectious Disease History: Reports: Chicken Pox, Measles, Mumps - Past Surgical History HEENT Surgical History: Reports: None GI Surgical History: Reports: Appendectomy, Cholecystectomy, Colonoscopy, EGD, Hernia, Abdominal Female Surgical History: Reports: Hysterectomy Musculoskeletal Surgical History: Reports: Knee Replacement Social & Family History - Family History Family Medical History: No Pertinent Family History HEENT: Reports: None Cardiac: Reports: None Respiratory: Reports: Other (See Below) Other Respiratory Family Hisory: emphysema GI: Reports: None : Reports: None OBGYN: Reports: None Musculoskeletal: Reports: None Neurological: Reports: None Psychiatric: Reports: None Endocrine/Metabolic: Reports: Diabetes, type II Hematologic: Reports: None Immunologic: Reports: None Dermatologic: Reports: None Oncologic: Reports: None Other Oncologic Family History: father had esophageal CA - Tobacco Use Tobacco Use Status *Q: Never Tobacco User - Caffeine Use Caffeine Use: Reports: Coffee - Recreational Drug Use Recreational Drug Use: No H&P Review of Systems - Review of Systems: Review Of Systems: See Below General: Reports: Weakness, Decreased Appetite. Denies: Fever, Chills Pulmonary: Denies: Shortness of Breath, Wheezing, Cough Cardiovascular: Reports: Orthopnea. Denies: Chest Pain, Palpitations Gastrointestinal: Reports: Abdominal Pain. Denies: Constipation, Diarrhea Genitourinary: Denies: Dysuria, Burning, Flank Pain Neurological: Reports: Headache. Denies: Dizziness Exam - Exam Exam: See Below - Vital Signs Vital Signs: Last Vital Signs Temp 99.8 F 03/18/21 15:36 Pulse 112 H 03/18/21 18:57 Resp 20 03/18/21 18:57 BP 110/40 L 03/18/21 18:57 Pulse Ox 92 L 03/18/21 18:57 Weight: 235 lb 14.314 oz - Exam General: Alert, Oriented HEENT: Hearing Intact Lungs: Clear to Auscultation, Normal Respiratory Effort Cardiovascular: Irregular Rhythm, Tachycardia GI/Abdominal Exam: Soft, Non-Tender Extremities: No Pedal Edema Neuro Extensive - Mental Status: Alert, Oriented x3 Psychiatric: Alert - Patient Data Lab Results Last 24 hrs: Laboratory Results - last 24 hr 03/18/21 03/18/21 03/18/21 Range/Units 15:32 15:32 15:32 WBC 12.52 H (4.0-11.0) K/uL RBC 3.49 L (4.30-5.90) M/uL Hgb 11.0 L (12.0-16.0) g/dL Hct 31.7 L (36.0-46.0) % MCV 90.8 (80.0-98.0) fL MCH 31.5 (27.0-32.0) pg MCHC 34.7 (31.0-37.0) g/dL RDW Std Deviation 47.7 (28.0-62.0) fl RDW Coeff of Yovani 14 (11.0-15.0) % Plt Count 107 L (150-400) K/uL MPV 9.90 (7.40-12.00) fL Neut % (Auto) 90.8 H (48.0-80.0) % Lymph % (Auto) 3.0 L (16.0-40.0) % Sullivan % (Auto) 5.9 (0.0-15.0) % Eos % (Auto) 0.2 (0.0-7.0) % Baso % (Auto) 0.1 (0.0-1.5) % Neut # (Auto) 11.4 H (1.4-5.7) K/uL Lymph # (Auto) 0.4 L (0.6-2.4) K/uL Sullivan # (Auto) 0.7 (0.0-0.8) K/uL Eos # (Auto) 0.0 (0.0-0.7) K/uL Baso # (Auto) 0.0 (0.0-0.1) K/uL Nucleated RBC % 0.0 /100WBC Nucleated RBCs # 0 K/uL INR 1.28 Sodium 129 L (136-145) mmol/L Potassium 3.2 L (3.5-5.1) mmol/L Chloride 90 L (98-107) mmol/L Carbon Dioxide 28.8 (21.0-32.0) mmol/L BUN 51 H (7.0-18.0) mg/dL Creatinine 2.1 H (0.6-1.0) mg/dL Est Cr Clr Drug Dosing 18.87 mL/min Estimated GFR (MDRD) 23.1 ml/min Glucose 83 (74-106) mg/dL Lactic Acid (0.4-2.0) mmol/L Calcium 8.2 L (8.5-10.1) mg/dL Total Bilirubin 0.5 (0.2-1.0) mg/dL AST 28 (15-37) IU/L ALT 19 (14-63) IU/L Alkaline Phosphatase 68 (46-116) U/L Troponin I < 0.050 (0.000-0.056) ng/mL B-Natriuretic Peptide (<100) PG/ML Total Protein 7.9 (6.4-8.2) g/dL Albumin 3.5 (3.4-5.0) g/dL Globulin 4.4 H (2.6-4.0) g/dL Albumin/Globulin Ratio 0.8 L (0.9-1.6) Lipase 127 (73-393) U/L Urine Color Urine Appearance Urine pH (5.0-8.0) Ur Specific Solon (1.001-1.035) Urine Protein (NEGATIVE) mg/dL Urine Glucose (UA) (NEGATIVE) mg/dL Urine Ketones (NEGATIVE) mg/dL Urine Occult Blood (NEGATIVE) Urine Nitrite (NEGATIVE) Urine Bilirubin (NEGATIVE) Urine Urobilinogen (<2.0) EU/dL Ur Leukocyte Esterase (NEGATIVE) Urine RBC (0-2/HPF) Urine WBC (0-5/HPF) Ur Epithelial Cells (NONE-FEW) Urine Bacteria (NEGATIVE) Influenza Type A RNA (NEGATIVE) Influenza Type B RNA (NEGATIVE) SARS-CoV-2 RNA (FLOYD) (NEGATIVE) 03/18/21 03/18/21 03/18/21 Range/Units 15:32 15:41 16:01 WBC (4.0-11.0) K/uL RBC (4.30-5.90) M/uL Hgb (12.0-16.0) g/dL Hct (36.0-46.0) % MCV (80.0-98.0) fL MCH (27.0-32.0) pg MCHC (31.0-37.0) g/dL RDW Std Deviation (28.0-62.0) fl RDW Coeff of Yovani (11.0-15.0) % Plt Count (150-400) K/uL MPV (7.40-12.00) fL Neut % (Auto) (48.0-80.0) % Lymph % (Auto) (16.0-40.0) % Sullivan % (Auto) (0.0-15.0) % Eos % (Auto) (0.0-7.0) % Baso % (Auto) (0.0-1.5) % Neut # (Auto) (1.4-5.7) K/uL Lymph # (Auto) (0.6-2.4) K/uL Sullivan # (Auto) (0.0-0.8) K/uL Eos # (Auto) (0.0-0.7) K/uL Baso # (Auto) (0.0-0.1) K/uL Nucleated RBC % /100WBC Nucleated RBCs # K/uL INR Sodium (136-145) mmol/L Potassium (3.5-5.1) mmol/L Chloride (98-107) mmol/L Carbon Dioxide (21.0-32.0) mmol/L BUN (7.0-18.0) mg/dL Creatinine (0.6-1.0) mg/dL Est Cr Clr Drug Dosing mL/min Estimated GFR (MDRD) ml/min Glucose (74-106) mg/dL Lactic Acid 2.8 H* (0.4-2.0) mmol/L Calcium (8.5-10.1) mg/dL Total Bilirubin (0.2-1.0) mg/dL AST (15-37) IU/L ALT (14-63) IU/L Alkaline Phosphatase (46-116) U/L Troponin I (0.000-0.056) ng/mL B-Natriuretic Peptide 232 H (<100) PG/ML Total Protein (6.4-8.2) g/dL Albumin (3.4-5.0) g/dL Globulin (2.6-4.0) g/dL Albumin/Globulin Ratio (0.9-1.6) Lipase (73-393) U/L Urine Color Urine Appearance Urine pH (5.0-8.0) Ur Specific Solon (1.001-1.035) Urine Protein (NEGATIVE) mg/dL Urine Glucose (UA) (NEGATIVE) mg/dL Urine Ketones (NEGATIVE) mg/dL Urine Occult Blood (NEGATIVE) Urine Nitrite (NEGATIVE) Urine Bilirubin (NEGATIVE) Urine Urobilinogen (<2.0) EU/dL Ur Leukocyte Esterase (NEGATIVE) Urine RBC (0-2/HPF) Urine WBC (0-5/HPF) Ur Epithelial Cells (NONE-FEW) Urine Bacteria (NEGATIVE) Influenza Type A RNA NEGATIVE (NEGATIVE) Influenza Type B RNA NEGATIVE (NEGATIVE) SARS-CoV-2 RNA (FLOYD) NEGATIVE (NEGATIVE) 03/18/21 Range/Units 17:40 WBC (4.0-11.0) K/uL RBC (4.30-5.90) M/uL Hgb (12.0-16.0) g/dL Hct (36.0-46.0) % MCV (80.0-98.0) fL MCH (27.0-32.0) pg MCHC (31.0-37.0) g/dL RDW Std Deviation (28.0-62.0) fl RDW Coeff of Yovani (11.0-15.0) % Plt Count (150-400) K/uL MPV (7.40-12.00) fL Neut % (Auto) (48.0-80.0) % Lymph % (Auto) (16.0-40.0) % Sullivan % (Auto) (0.0-15.0) % Eos % (Auto) (0.0-7.0) % Baso % (Auto) (0.0-1.5) % Neut # (Auto) (1.4-5.7) K/uL Lymph # (Auto) (0.6-2.4) K/uL Sullivan # (Auto) (0.0-0.8) K/uL Eos # (Auto) (0.0-0.7) K/uL Baso # (Auto) (0.0-0.1) K/uL Nucleated RBC % /100WBC Nucleated RBCs # K/uL INR Sodium (136-145) mmol/L Potassium (3.5-5.1) mmol/L Chloride (98-107) mmol/L Carbon Dioxide (21.0-32.0) mmol/L BUN (7.0-18.0) mg/dL Creatinine (0.6-1.0) mg/dL Est Cr Clr Drug Dosing mL/min Estimated GFR (MDRD) ml/min Glucose (74-106) mg/dL Lactic Acid (0.4-2.0) mmol/L Calcium (8.5-10.1) mg/dL Total Bilirubin (0.2-1.0) mg/dL AST (15-37) IU/L ALT (14-63) IU/L Alkaline Phosphatase (46-116) U/L Troponin I (0.000-0.056) ng/mL B-Natriuretic Peptide (<100) PG/ML Total Protein (6.4-8.2) g/dL Albumin (3.4-5.0) g/dL Globulin (2.6-4.0) g/dL Albumin/Globulin Ratio (0.9-1.6) Lipase (73-393) U/L Urine Color YELLOW Urine Appearance CLOUDY Urine pH 6.0 (5.0-8.0) Ur Specific Solon 1.020 (1.001-1.035) Urine Protein 100 H (NEGATIVE) mg/dL Urine Glucose (UA) NEGATIVE (NEGATIVE) mg/dL Urine Ketones NEGATIVE (NEGATIVE) mg/dL Urine Occult Blood LARGE H (NEGATIVE) Urine Nitrite NEGATIVE (NEGATIVE) Urine Bilirubin NEGATIVE (NEGATIVE) Urine Urobilinogen 0.2 (<2.0) EU/dL Ur Leukocyte Esterase LARGE H (NEGATIVE) Urine RBC 5-10 (0-2/HPF) Urine WBC TO NUMEROUS TO COUNT H (0-5/HPF) Ur Epithelial Cells FEW (NONE-FEW) Urine Bacteria FEW (NEGATIVE) Influenza Type A RNA (NEGATIVE) Influenza Type B RNA (NEGATIVE) SARS-CoV-2 RNA (FLOYD) (NEGATIVE) Result Diagrams: 03/18/21 15:32 03/18/21 15:32 Sepsis Event Note - Evaluation Sepsis Screening Result: No Definite Risk - Focused Exam Vital Signs: Vital Signs Temp Pulse Resp BP Pulse Ox 03/18/21 18:57 112 H 20 110/40 L 92 L 03/18/21 18:10 113 H 20 105/40 L 93 L 03/18/21 17:30 116 H 20 102/47 L 88 L 03/18/21 16:35 121 H 25 H 109/52 L 92 L 03/18/21 15:36 99.8 F 138 H 19 105/51 L 89 L - Problem List (1) COPD (chronic obstructive pulmonary disease) SNOMED Code(s): 55049899 ICD Code: J44.9 - CHRONIC OBSTRUCTIVE PULMONARY DISEASE, UNSPECIFIED Status: Acute Current Visit: Yes (2) Atrial fibrillation with RVR SNOMED Code(s): 513985516999467 ICD Code: I48.91 - UNSPECIFIED ATRIAL FIBRILLATION Status: Acute Priority: High Current Visit: Yes (3) Atypical chest pain SNOMED Code(s): 239549215 ICD Code: R07.89 - OTHER CHEST PAIN Status: Acute Current Visit: No (4) Hypokalemia SNOMED Code(s): 85086372 ICD Code: E87.6 - HYPOKALEMIA Status: Acute Current Visit: Yes (5) Hypomagnesemia SNOMED Code(s): 449439413 ICD Code: E83.42 - HYPOMAGNESEMIA Status: Acute Priority: High Current Visit: Yes (6) UTI (urinary tract infection) SNOMED Code(s): 37474453 ICD Code: N39.0 - URINARY TRACT INFECTION, SITE NOT SPECIFIED Status: Acute Current Visit: Yes Qualifiers: Urinary tract infection type: acute cystitis Hematuria presence: without hematuria Qualified Code(s): N30.00 - Acute cystitis without hematuria (7) Anticoagulation adequate SNOMED Code(s): 012020460, 254868333 ICD Code: Z79.01 - SPECIAL LIBRARIAN (CURRENT) USE OF ANTICOAGULANTS Status: Chronic Current Visit: Yes (8) Congestive heart failure SNOMED Code(s): 88826083 ICD Code: I50.9 - HEART FAILURE, UNSPECIFIED Status: Chronic Current Visit: Yes (9) DM type 2 (diabetes mellitus, type 2) SNOMED Code(s): 85248543 ICD Code: E11.9 - TYPE 2 DIABETES MELLITUS WITHOUT COMPLICATIONS Status: Chronic Current Visit: Yes Qualifiers: Diabetes mellitus rn long term care insulin use: without nursing home use Diabetes mellitus complication status: with kidney complications (10) GERD (gastroesophageal reflux disease) SNOMED Code(s): 158432380 ICD Code: K21.9 - GASTRO-ESOPHAGEAL REFLUX DISEASE WITHOUT ESOPHAGITIS Status: Chronic Current Visit: Yes Qualifiers: Esophagitis presence: without esophagitis Qualified Code(s): K21.9 - Gastro-esophageal reflux disease without esophagitis (11) HLD (hyperlipidemia) SNOMED Code(s): 03490450 ICD Code: E78.5 - HYPERLIPIDEMIA, UNSPECIFIED Status: Chronic Current Visit: Yes Qualifiers: Hyperlipidemia type: mixed hyperlipidemia Qualified Code(s): E78.2 - Mixed hyperlipidemia (12) Hypertension SNOMED Code(s): 12999481 ICD Code: I10 - ESSENTIAL (PRIMARY) HYPERTENSION Status: Chronic Priority: High Current Visit: Yes Qualifiers: Hypertension type: essential hypertension (13) Morbid obesity SNOMED Code(s): 275113983 ICD Code: E66.01 - MORBID (SEVERE) OBESITY DUE TO EXCESS CALORIES Status: Chronic Current Visit: Yes Problem List Initiated/Reviewed/Updated: Yes Orders Last 24hrs: Active Orders 24 hr Category Date Time Status Patient Status [ADT] ONETIME ADT 03/18/21 18:20 Ordered Cardiac Monitoring [RC] . DIRECTED Care 03/18/21 15:32 Active EKG 12 Lead [EKG Documentation Completion] [RC] STAT Care 03/18/21 15:36 Active Pulse Oximetry [RC] ASDIRECTED Care 03/18/21 15:32 Active RT Aerosol Therapy [RC] ASDIRECTED Care 03/18/21 16:36 Active CULTURE BLOOD [BC] Stat Lab 03/18/21 15:32 Received CULTURE BLOOD [BC] Stat Lab 03/18/21 15:41 Received CULTURE URINE [MREF] Stat Lab 03/18/21 17:40 Received MAGNESIUM [CHEM] Stat Lab 03/18/21 15:32 Received REFLEX LACTIC ACID YES OR NO [CHEM] Routine Lab 03/18/21 16:17 Received Diltiazem 5 mg Med 03/18/21 16:34 Active Sodium Chloride 0.9% [Normal Saline] 100 ml IV NOW Lactated Ringers [Ringers, Lactated] 1,000 ml Med 03/18/21 18:45 Active IV ASDIRECTED Sodium Chloride 0.9% [Normal Saline] 1,000 ml Med 03/18/21 18:32 Active IV .Bolus Sodium Chloride 0.9% [Saline Flush] Med 03/18/21 15:32 Active 10 ml FLUSH ASDIRECTED PRN Sodium Chloride 0.9% [Saline Flush] [facility] 03/18/21 15:32 Active 2.5 ml FLUSH ASDIRECTED PRN Blood Culture x2 Reflex Set [OM.PC] Stat Ot 03/18/21 15:33 Ordered Isolation [COMM] Routine Ot 03/18/21 15:34 Active Saline Lock Insert [OM.PC] Stat Ot 03/18/21 15:32 Ordered Medication Orders Diltiazem HCl 5 mg/ Sodium (Chloride) 101 mls @ 5 mls/hr IV NOW STA Stop: 03/19/21 12:45 Last Admin: 03/18/21 17:07 Dose: Not Given Documented by: CARERIC Sodium Chloride (Normal Saline) 1,000 mls @ 250 mls/hr IV .Bolus ONE Stop: 03/18/21 22:31 Last Admin: 03/18/21 18:37 Dose: Not Given Documented by: CARERIC Lactated Ringer's (Ringers, Lactated) 1,000 mls @ 250 mls/hr IV ASDIRECTED [facility] Last Admin: 03/18/21 18:20 Dose: 250 mls/hr Documented by: CARERIC Sodium Chloride (Sodium Chloride 0.9% 10 Ml Syringe) 10 ml FLUSH ASDIRECTED PRN PRN Reason: Keep Vein Open Sodium Chloride (Sodium Chloride 0.9% 2.5 Ml Syringe) 2.5 ml FLUSH ASDIRECTED PRN PRN Reason: Keep Vein Open Assessment/Plan Comment:: Sepsis Cefepime 2 g every 8HR, will adjust as needed. Ideology of infection most likely urinary based on UA, blood and urine cultures pending. Repeat lactate pending. 500ml N/S Bolus X 1 EUGENE- Trend daily BMP, IV fluids as needed, patient has received 1L in the ED prior to admission CHF- Resume medications to include Lasix 80 mg, carvedilol 25 mg in the AM. (will monitor volume status/BP prior to resuming) Monitor electrolytes, potassium over 4+, magnesium over 2+, strict I&O C-Ppk-cyypol home medications include Eliquis 5 mg twice daily, will hold diltiazem 120 mg daily till the AM. COPD- Resume home meds, Duo Neb PRN.
[2021-03-18] MEDS ORDERED: Magnesium Sulfate/Water 2 GM in Premix Bag 1 BAG IV ONE (19:18)
--- NOTE | 2021-03-18 20:01 | PN ---
THC Physician - Brief Progress [id number]/28/2021 19:59[facility] Es Taylor, LAQUITA - KATHRIN (DARCIE) - KATHRIN VASQUEZKARLEE MillerErvinDate of Service 03/18/2021 19:59HPI/Events of Note eICU Admission [id number] admitted for sepsis attributed to UTI. History obtained from review of E MR, limited as admitting team documentation not complete during time of evaluation.Camera exam: Layin g in bed, being connected to vitals monitor eICU Recommendations:Continue antibioticsBlood and urine cultures if not already drawnIV fluids to target euvolemia, trend lactate until normalizedStrict I/O, trend creatinineReplace electrolytes as needed, continuous telemetry monitoringTarget HR <110bpm, de louisa choice of agent to bedside. Diltiazem is a reasonable choice as long as patient remains hemodynam ically stableDefer anticoagulation for afib to bedside, we can comment further as desiredeICU will co ntinue to follow and assist as desiredDVT and GI prophylaxis as appropriate.Thank you for allowing us to participate in the care of this patient.The above note transcribed with the assistance of dictati on software. Please excuse any errors.Interventions Major-Sepsis - evaluation and managementElectroni cinthya Signed by: ANUEL SNYDER) on 03/18/2021 20:00
[2021-03-18] MEDS ORDERED: Albuterol/Ipratropium 3.0-0.5 MG/3 ML Neb Soln NEB PRN (20:27)
[2021-03-18] MEDS ORDERED: Cefepime 2 GM in Premix Bag 1 BAG IV SCH (20:30)
[2021-03-18] MEDS ORDERED: ClonazePAM 0.5 MG Tab PO PRN (20:45)
[2021-03-18] MEDS ORDERED: Potassium Chloride 20 MEQ Tab.ER PO ONE (20:52)
[2021-03-18] MEDS ORDERED: Carvedilol 25 MG Tab PO SCH (21:00)
[2021-03-18] MEDS ORDERED: Sodium Chloride 0.9% 500 ML IV ONE (21:20)
[2021-03-18] MEDS: Apixaban 5 MG Tab PO SCH (21:25)
[2021-03-18] MEDS: Acetaminophen 325 MG Tab PO PRN (21:28)
[2021-03-18 23:23] LABS: CARBON DIOXIDE,CO2 28.6 mmol/L (21.0-32.0); POTASSIUM,K 3.2 mmol/L (3.5-5.1)
[2021-03-19] MEDS: Cefepime 2 GM in Premix Bag 1 BAG IV SCH ×4 (00:06→23:16)
--- NOTE | 2021-03-19 00:29 | PN ---
THC Physician - Brief Progress [id number]/29/2021 00:28[facility] lexis [place], [place] - KATHRIN ([facility] SERVICESCherise) - KARLEE VALLADARESDate of Service 03/19/2021 00:28HPI/Events of Note Discussed with RN: will replace K and mag, add SSI and follow glu.Interventions Minor-Communica tion with other healthcare providers and/or familyElectronically Signed by: SARA BURGOS () on 0 03/19/2021 00:29
[2021-03-19] MEDS ORDERED: Magnesium Sulfate/Water 2 GM in Premix Bag 1 BAG IV ONE (00:32)
[2021-03-19] MEDS ORDERED: Potassium Chloride Riders 40 MEQ in Premix Bag 1 BAG IV ONE (00:32)
[2021-03-19] MEDS ORDERED: 50% Dextrose in Water 50 ML Syringe IVPUSH PRN (00:32)
[2021-03-19] MEDS ORDERED: Glucagon,Human Recombinant 1 MG Vial IM PRN (00:32)
[2021-03-19] MEDS ORDERED: Sodium Chloride 0.9% 500 ML IV SCH (00:45)
[2021-03-19] MEDS ORDERED: Sodium Chloride 0.9% 1,000 ML IV SCH (00:45)
[2021-03-19] MEDS ORDERED: Cefepime 2 GM in Premix Bag 1 BAG IV SCH ×2 (02:00→12:00)
[2021-03-19] MEDS: Acetaminophen 325 MG Tab PO PRN (05:42)
[2021-03-19 07:16] LABS: CARBON DIOXIDE,CO2 28.9 mmol/L (21.0-32.0); POTASSIUM,K 3.9 mmol/L (3.5-5.1)
[2021-03-19] MEDS: Omeprazole 20 MG Cap.CR PO SCH (07:51)
[2021-03-19] MEDS: Insulin Aspart 100 Units/ML 3 ML Pen SUBCUT SCH ×3 (07:52→17:31)
[2021-03-19] MEDS: Budesonide 0.5 MG/2 ML Neb Susp NEB SCH ×2 (08:35→20:35)
[2021-03-19] MEDS: Apixaban 5 MG Tab PO SCH ×2 (08:59→20:35)
[2021-03-19] MEDS ORDERED: Aspirin 81 MG Tab.EC PO SCH (09:00)
[2021-03-19] MEDS ORDERED: Diltiazem 120 MG Cap.CD PO SCH (09:00)
[2021-03-19] MEDS: Diltiazem IR 30 MG Tab PO SCH ×3 (12:28→23:16)
--- NOTE | 2021-03-19 17:09 | PCM.PN ---
- General Info Date of Service: 03/19/21 Subjective Update: Patient states she feels better today, denies shortness of breath, chest pain, abdominal pain, dysuria, fever, chills, nausea, vomiting. - Review of Systems General: Denies: Fever, Chills Pulmonary: Denies: Shortness of Breath, Cough Cardiovascular: Denies: Chest Pain, Palpitations Gastrointestinal: Denies: Abdominal Pain, Constipation, Decreased Appetite, Diarrhea, Nausea, Vomiting Genitourinary: Denies: Dysuria, Frequency Neurological: Denies: Confusion, Dizziness, Headache - Patient Data Vitals - Most Recent: Last Vital Signs Temp 97.3 F 03/19/21 16:00 Pulse 112 H 03/18/21 18:57 Resp 17 03/19/21 16:00 BP 132/64 03/19/21 16:00 Pulse Ox 97 03/19/21 16:00 Weight - Most Recent: 244 lb 14.937 oz I&O - Last 24 Hours: Intake & Output 03/19/21 03/19/21 03/19/21 06:59 14:59 22:59 Intake Total 836 Output Total 950 Balance -114 Lab Results Last 24 Hours: Laboratory Results - last 24 hr 03/18/21 03/18/21 03/18/21 Range/Units 15:32 15:32 17:40 WBC (4.0-11.0) K/uL RBC (4.30-5.90) M/uL Hgb (12.0-16.0) g/dL Hct (36.0-46.0) % MCV (80.0-98.0) fL MCH (27.0-32.0) pg MCHC (31.0-37.0) g/dL RDW Std Deviation (28.0-62.0) fl RDW Coeff of Yovani (11.0-15.0) % Plt Count (150-400) K/uL MPV (7.40-12.00) fL Neut % (Auto) (48.0-80.0) % Lymph % (Auto) (16.0-40.0) % Irion % (Auto) (0.0-15.0) % Eos % (Auto) (0.0-7.0) % Baso % (Auto) (0.0-1.5) % Neut # (Auto) (1.4-5.7) K/uL Lymph # (Auto) (0.6-2.4) K/uL Irion # (Auto) (0.0-0.8) K/uL Eos # (Auto) (0.0-0.7) K/uL Baso # (Auto) (0.0-0.1) K/uL Nucleated RBC % /100WBC Nucleated RBCs # K/uL Sodium (136-145) mmol/L Potassium (3.5-5.1) mmol/L Chloride (98-107) mmol/L Carbon Dioxide (21.0-32.0) mmol/L BUN (7.0-18.0) mg/dL Creatinine (0.6-1.0) mg/dL Est Cr Clr Drug Dosing mL/min Estimated GFR (MDRD) ml/min Glucose (74-106) mg/dL POC Glucose (70-99) mg/dL Lactic Acid (0.4-2.0) mmol/L Calcium (8.5-10.1) mg/dL Phosphorus (2.6-4.7) mg/dL Magnesium 0.8 L (1.8-2.4) mg/dL Total Bilirubin (0.2-1.0) mg/dL AST (15-37) IU/L ALT (14-63) IU/L Alkaline Phosphatase (46-116) U/L B-Natriuretic Peptide 232 H (<100) PG/ML Total Protein (6.4-8.2) g/dL Albumin (3.4-5.0) g/dL Globulin (2.6-4.0) g/dL Albumin/Globulin Ratio (0.9-1.6) Urine Color YELLOW Urine Appearance CLOUDY Urine pH 6.0 (5.0-8.0) Ur Specific [place] 1.020 (1.001-1.035) Urine Protein 100 H (NEGATIVE) mg/dL Urine Glucose (UA) NEGATIVE (NEGATIVE) mg/dL Urine Ketones NEGATIVE (NEGATIVE) mg/dL Urine Occult Blood LARGE H (NEGATIVE) Urine Nitrite NEGATIVE (NEGATIVE) Urine Bilirubin NEGATIVE (NEGATIVE) Urine Urobilinogen 0.2 (<2.0) EU/dL Ur Leukocyte Esterase LARGE H (NEGATIVE) Urine RBC 5-10 (0-2/HPF) Urine WBC TO NUMEROUS TO COUNT H (0-5/HPF) Ur Epithelial Cells FEW (NONE-FEW) Urine Bacteria FEW (NEGATIVE) 03/18/21 03/18/21 03/19/21 Range/Units 20:28 23:04 06:10 WBC (4.0-11.0) K/uL RBC (4.30-5.90) M/uL Hgb (12.0-16.0) g/dL Hct (36.0-46.0) % MCV (80.0-98.0) fL MCH (27.0-32.0) pg MCHC (31.0-37.0) g/dL RDW Std Deviation (28.0-62.0) fl RDW Coeff of Yovani (11.0-15.0) % Plt Count (150-400) K/uL MPV (7.40-12.00) fL Neut % (Auto) (48.0-80.0) % Lymph % (Auto) (16.0-40.0) % Irion % (Auto) (0.0-15.0) % Eos % (Auto) (0.0-7.0) % Baso % (Auto) (0.0-1.5) % Neut # (Auto) (1.4-5.7) K/uL Lymph # (Auto) (0.6-2.4) K/uL Irion # (Auto) (0.0-0.8) K/uL Eos # (Auto) (0.0-0.7) K/uL Baso # (Auto) (0.0-0.1) K/uL Nucleated RBC % /100WBC Nucleated RBCs # K/uL Sodium 130 L 132 L (136-145) mmol/L Potassium 3.2 L 3.9 (3.5-5.1) mmol/L Chloride 90 L 94 L (98-107) mmol/L Carbon Dioxide 28.6 28.9 (21.0-32.0) mmol/L BUN 49 H 53 H (7.0-18.0) mg/dL Creatinine 2.2 H 2.0 H (0.6-1.0) mg/dL Est Cr Clr Drug Dosing 18.01 19.81 mL/min Estimated GFR (MDRD) 21.9 24.4 ml/min Glucose 242 H 286 H (74-106) mg/dL POC Glucose (70-99) mg/dL Lactic Acid 0.7 (0.4-2.0) mmol/L Calcium 7.8 L 8.1 L (8.5-10.1) mg/dL Phosphorus 4.4 (2.6-4.7) mg/dL Magnesium 1.5 L 1.8 (1.8-2.4) mg/dL Total Bilirubin 0.8 (0.2-1.0) mg/dL AST 15 (15-37) IU/L ALT 16 (14-63) IU/L Alkaline Phosphatase 57 (46-116) U/L B-Natriuretic Peptide (<100) PG/ML Total Protein 7.3 (6.4-8.2) g/dL Albumin 3.2 L (3.4-5.0) g/dL Globulin 4.1 H (2.6-4.0) g/dL Albumin/Globulin Ratio 0.8 L (0.9-1.6) Urine Color Urine Appearance Urine pH (5.0-8.0) Ur Specific Green[place] (1.001-1.035) Urine Protein (NEGATIVE) mg/dL Urine Glucose (UA) (NEGATIVE) mg/dL Urine Ketones (NEGATIVE) mg/dL Urine Occult Blood (NEGATIVE) Urine Nitrite (NEGATIVE) Urine Bilirubin (NEGATIVE) Urine Urobilinogen (<2.0) EU/dL Ur Leukocyte Esterase (NEGATIVE) Urine RBC (0-2/HPF) Urine WBC (0-5/HPF) Ur Epithelial Cells (NONE-FEW) Urine Bacteria (NEGATIVE) 03/19/21 03/19/21 03/19/21 Range/Units 06:10 07:34 12:55 WBC 18.77 H (4.0-11.0) K/uL RBC 3.40 L (4.30-5.90) M/uL Hgb 10.5 L (12.0-16.0) g/dL Hct 31.4 L (36.0-46.0) % MCV 92.4 (80.0-98.0) fL MCH 30.9 (27.0-32.0) pg MCHC 33.4 (31.0-37.0) g/dL RDW Std Deviation 48.9 (28.0-62.0) fl RDW Coeff of Yovani 15 (11.0-15.0) % Plt Count 98 L (150-400) K/uL MPV 10.20 (7.40-12.00) fL Neut % (Auto) 96.1 H (48.0-80.0) % Lymph % (Auto) 2.0 L (16.0-40.0) % Irion % (Auto) 1.8 (0.0-15.0) % Eos % (Auto) 0.0 (0.0-7.0) % Baso % (Auto) 0.1 (0.0-1.5) % Neut # (Auto) 18.1 H (1.4-5.7) K/uL Lymph # (Auto) 0.4 L (0.6-2.4) K/uL Irion # (Auto) 0.3 (0.0-0.8) K/uL Eos # (Auto) 0.0 (0.0-0.7) K/uL Baso # (Auto) 0.0 (0.0-0.1) K/uL Nucleated RBC % 0.0 /100WBC Nucleated RBCs # 0 K/uL Sodium (136-145) mmol/L Potassium (3.5-5.1) mmol/L Chloride (98-107) mmol/L Carbon Dioxide (21.0-32.0) mmol/L BUN (7.0-18.0) mg/dL Creatinine (0.6-1.0) mg/dL Est Cr Clr Drug Dosing mL/min Estimated GFR (MDRD) ml/min Glucose (74-106) mg/dL POC Glucose 310 H 332 H (70-99) mg/dL Lactic Acid (0.4-2.0) mmol/L Calcium (8.5-10.1) mg/dL Phosphorus (2.6-4.7) mg/dL Magnesium (1.8-2.4) mg/dL Total Bilirubin (0.2-1.0) mg/dL AST (15-37) IU/L ALT (14-63) IU/L Alkaline Phosphatase (46-116) U/L B-Natriuretic Peptide (<100) PG/ML Total Protein (6.4-8.2) g/dL Albumin (3.4-5.0) g/dL Globulin (2.6-4.0) g/dL Albumin/Globulin Ratio (0.9-1.6) Urine Color Urine Appearance Urine pH (5.0-8.0) Ur Specific Green[place] (1.001-1.035) Urine Protein (NEGATIVE) mg/dL Urine Glucose (UA) (NEGATIVE) mg/dL Urine Ketones (NEGATIVE) mg/dL Urine Occult Blood (NEGATIVE) Urine Nitrite (NEGATIVE) Urine Bilirubin (NEGATIVE) Urine Urobilinogen (<2.0) EU/dL Ur Leukocyte Esterase (NEGATIVE) Urine RBC (0-2/HPF) Urine WBC (0-5/HPF) Ur Epithelial Cells (NONE-FEW) Urine Bacteria (NEGATIVE) Soy Results Last 24 Hours: Microbiology 03/18/21 15:41 Aerobic Blood Culture - Preliminary Blood - Venous - Lab Draw Anaerobic Blood Culture - Preliminary NO GROWTH AFTER 1 DAY 03/18/21 15:32 Aerobic Blood Culture - Preliminary Blood - Venous Anaerobic Blood Culture - Preliminary NO GROWTH AFTER 1 DAY 03/19/21 09:20 C. difficile Antigen & Toxins A,B - Final Stool / Feces Med Orders - Current: Current Medications Acetaminophen (Acetaminophen 325 Mg Tab) 650 mg PO Q4H PRN PRN Reason: Pain/Fever Last Admin: 03/19/21 05:42 Dose: 650 mg Documented by: Albuterol/Ipratropium (Albuterol/Ipratropium 3.0-0.5 Mg/3 Ml Neb Soln) 3 ml NEB Q4HRRT PRN PRN Reason: Shortness Of Breath/wheezing Apixaban (Apixaban 5 Mg Tab) 5 mg PO BID [facility] Last Admin: 03/19/21 08:59 Dose: 5 mg Documented by: Budesonide (Budesonide 0.5 Mg/2 Ml Neb Susp) 0.5 mg NEB BIDRT [facility] Last Admin: 03/19/21 08:35 Dose: 0.5 mg Documented by: Clonazepam (Clonazepam 0.5 Mg Tab) 0.5 mg PO BEDTIME PRN PRN Reason: Anxiety Dextrose/Water (50% Dextrose In Water 50 Ml Syringe) 50 ml IVPUSH ASDIRECTED PRN PRN Reason: Hypoglycemia Diltiazem HCl (Diltiazem Ir 30 Mg Tab) 30 mg PO Q6HR [facility] Last Admin: 03/19/21 12:28 Dose: 30 mg Documented by: Glucagon (Glucagon,Human Recombinant 1 Mg Vial) 1 mg IM ASDIRECTED PRN PRN Reason: Hypoglycemia Cefepime HCl 2 gm/ Premix 50 mls @ 100 mls/hr IV Q8H [facility] Last Admin: 03/19/21 15:48 Dose: 100 mls/hr Documented by: Sodium Chloride (Normal Saline) 500 mls @ 50 mls/hr IV ASDIRECTED [facility] Last Infusion: 03/19/21 05:39 Dose: 0 mls/hr Documented by: Insulin Aspart (Insulin Aspart 100 Units/Ml 3 Ml Pen) 0 unit SUBCUT TIDAC [facility]; Protocol Last Admin: 03/19/21 13:19 Dose: 4 unit Documented by: Omeprazole (Omeprazole 20 Mg Cap.Cr) 20 mg PO ACBREAKFAST [facility] Last Admin: 03/19/21 07:51 Dose: 20 mg Documented by: Simvastatin (Simvastatin 40 Mg Tab) 40 mg PO BEDTIME [facility] Sodium Chloride (Sodium Chloride 0.9% 10 Ml Syringe) 10 ml FLUSH ASDIRECTED PRN PRN Reason: Keep Vein Open Sodium Chloride (Sodium Chloride 0.9% 2.5 Ml Syringe) 2.5 ml FLUSH ASDIRECTED PRN PRN Reason: Keep Vein Open Discontinued Medications Acetaminophen (Acetaminophen 325 Mg Tab) 975 mg PO NOW ONE Stop: 03/18/21 15:36 Last Admin: 03/18/21 15:57 Dose: 975 mg Documented by: Albuterol/Ipratropium (Albuterol/Ipratropium 3.0-0.5 Mg/3 Ml Neb Soln) 3 ml NEB ONETIME ONE Stop: 03/18/21 16:35 Last Admin: 03/18/21 17:07 Dose: Not Given Documented by: Aspirin (Aspirin 81 Mg Tab.Ec) 81 mg PO DAILY [facility] Last Admin: 03/19/21 08:59 Dose: Not Given Documented by: Carvedilol (Carvedilol 25 Mg Tab) 25 mg PO BID [facility] Last Admin: 03/18/21 21:10 Dose: Not Given Documented by: Diltiazem HCl (Diltiazem 25 Mg/5 Ml Sdv) 5 mg IVPUSH ONETIME ONE Stop: 03/18/21 15:44 Last Admin: 03/18/21 15:56 Dose: 5 mg Documented by: Diltiazem HCl (Diltiazem 25 Mg/5 Ml Sdv) 5 mg IVPUSH ONETIME ONE Stop: 03/18/21 17:06 Last Admin: 03/18/21 17:07 Dose: 5 mg Documented by: Diltiazem HCl (Diltiazem 120 Mg Cap.Cd) 120 mg PO DAILY [facility] Lactated Ringer's (Ringers, Lactated) 500 mls @ 999 mls/min IV .BOLUS ONE Stop: 03/18/21 15:39 Last Admin: 03/18/21 15:56 Dose: 999 mls/min Documented by: Cefepime HCl 2 gm/ Premix 50 mls @ 100 mls/hr IV ONETIME ONE Stop: 03/18/21 16:11 Last Admin: 03/18/21 16:33 Dose: 100 mls/hr Documented by: Diltiazem HCl 5 mg/ Sodium (Chloride) 101 mls @ 5 mls/hr IV NOW STA Stop: 03/19/21 12:45 Last Admin: 03/18/21 17:07 Dose: Not Given Documented by: Sodium Chloride (Normal Saline) 500 mls @ 999 mls/min IV STAT STA Stop: 03/18/21 18:19 Last Admin: 03/18/21 18:23 Dose: Not Given Documented by: Sodium Chloride (Normal Saline) 1,000 mls @ 250 mls/hr IV .Bolus ONE Stop: 03/18/21 22:31 Last Admin: 03/18/21 18:37 Dose: Not Given Documented by: Lactated Ringer's (Ringers, Lactated) 1,000 mls @ 250 mls/hr IV ASDIRECTED [facility] Last Admin: 03/18/21 18:20 Dose: 250 mls/hr Documented by: Magnesium Sulfate 2 gm/ Premix 50 mls @ 12.5 mls/hr IV ONETIME ONE Stop: 03/18/21 23:17 Last Admin: 03/18/21 19:27 Dose: 12.5 mls/hr Documented by: Cefepime HCl 2 gm/ Premix 50 mls @ 100 mls/hr IV Q8H [facility] Cefepime HCl 2 gm/ Premix 50 mls @ 100 mls/hr IV Q8H [facility] Cefepime HCl 2 gm/ Premix 50 mls @ 100 mls/hr IV Q8H [facility] Sodium Chloride (Normal Saline) 500 mls @ 999 mls/hr IV ONETIME ONE Stop: 03/18/21 21:50 Last Admin: 03/18/21 21:40 Dose: 999 mls/hr Documented by: Magnesium Sulfate 2 gm/ Premix 50 mls @ 12.5 mls/hr IV ONETIME ONE Stop: 03/19/21 04:31 Last Infusion: 03/19/21 03:00 Dose: 0 mls/hr Documented by: Potassium Chloride 40 meq/ (Premix) 100 mls @ 25 mls/hr IV ONETIME ONE Stop: 03/19/21 04:31 Last Admin: 03/19/21 00:52 Dose: 25 mls/hr Documented by: Sodium Chloride (Normal Saline) 1,000 mls @ 50 mls/hr IV ASDIRECTED [facility] Methylprednisolone Sodium Succinate (Methylprednisolone Sodium Succinate 125 Mg/2 Ml Sdv) 125 mg IVPUSH ONETIME ONE Stop: 03/18/21 16:37 Last Admin: 03/18/21 17:30 Dose: 125 mg Documented by: Potassium Chloride (Potassium Chloride 20 Meq Tab.Er) 40 meq PO ONETIME ONE Stop: 03/18/21 20:53 Last Admin: 03/18/21 21:25 Dose: 40 meq Documented by: - Exam Quality Assessment: Supplemental Oxygen (2L ) General: Alert, Oriented Lungs: Clear to Auscultation, Normal Respiratory Effort Cardiovascular: Regular Rate, Irregular Rhythm GI/Abdominal Exam: Soft, Non-Tender Extremities: No Pedal Edema Psy/Mental Status: Alert - Patient Data Lab Results Last 24 hrs: Laboratory Results - last 24 hr 03/18/21 03/18/21 03/18/21 Range/Units 15:32 15:32 17:40 WBC (4.0-11.0) K/uL RBC (4.30-5.90) M/uL Hgb (12.0-16.0) g/dL Hct (36.0-46.0) % MCV (80.0-98.0) fL MCH (27.0-32.0) pg MCHC (31.0-37.0) g/dL RDW Std Deviation (28.0-62.0) fl RDW Coeff of Yovani (11.0-15.0) % Plt Count (150-400) K/uL MPV (7.40-12.00) fL Neut % (Auto) (48.0-80.0) % Lymph % (Auto) (16.0-40.0) % Irion % (Auto) (0.0-15.0) % Eos % (Auto) (0.0-7.0) % Baso % (Auto) (0.0-1.5) % Neut # (Auto) (1.4-5.7) K/uL Lymph # (Auto) (0.6-2.4) K/uL Irion # (Auto) (0.0-0.8) K/uL Eos # (Auto) (0.0-0.7) K/uL Baso # (Auto) (0.0-0.1) K/uL Nucleated RBC % /100WBC Nucleated RBCs # K/uL Sodium (136-145) mmol/L Potassium (3.5-5.1) mmol/L Chloride (98-107) mmol/L Carbon Dioxide (21.0-32.0) mmol/L BUN (7.0-18.0) mg/dL Creatinine (0.6-1.0) mg/dL Est Cr Clr Drug Dosing mL/min Estimated GFR (MDRD) ml/min Glucose (74-106) mg/dL POC Glucose (70-99) mg/dL Lactic Acid (0.4-2.0) mmol/L Calcium (8.5-10.1) mg/dL Phosphorus (2.6-4.7) mg/dL Magnesium 0.8 L (1.8-2.4) mg/dL Total Bilirubin (0.2-1.0) mg/dL AST (15-37) IU/L ALT (14-63) IU/L Alkaline Phosphatase (46-116) U/L B-Natriuretic Peptide 232 H (<100) PG/ML Total Protein (6.4-8.2) g/dL Albumin (3.4-5.0) g/dL Globulin (2.6-4.0) g/dL Albumin/Globulin Ratio (0.9-1.6) Urine Color YELLOW Urine Appearance CLOUDY Urine pH 6.0 (5.0-8.0) Ur Specific [place] 1.020 (1.001-1.035) Urine Protein 100 H (NEGATIVE) mg/dL Urine Glucose (UA) NEGATIVE (NEGATIVE) mg/dL Urine Ketones NEGATIVE (NEGATIVE) mg/dL Urine Occult Blood LARGE H (NEGATIVE) Urine Nitrite NEGATIVE (NEGATIVE) Urine Bilirubin NEGATIVE (NEGATIVE) Urine Urobilinogen 0.2 (<2.0) EU/dL Ur Leukocyte Esterase LARGE H (NEGATIVE) Urine RBC 5-10 (0-2/HPF) Urine WBC TO NUMEROUS TO COUNT H (0-5/HPF) Ur Epithelial Cells FEW (NONE-FEW) Urine Bacteria FEW (NEGATIVE) 03/18/21 03/18/21 03/19/21 Range/Units 20:28 23:04 06:10 WBC (4.0-11.0) K/uL RBC (4.30-5.90) M/uL Hgb (12.0-16.0) g/dL Hct (36.0-46.0) % MCV (80.0-98.0) fL MCH (27.0-32.0) pg MCHC (31.0-37.0) g/dL RDW Std Deviation (28.0-62.0) fl RDW Coeff of Yovani (11.0-15.0) % Plt Count (150-400) K/uL MPV (7.40-12.00) fL Neut % (Auto) (48.0-80.0) % Lymph % (Auto) (16.0-40.0) % Irion % (Auto) (0.0-15.0) % Eos % (Auto) (0.0-7.0) % Baso % (Auto) (0.0-1.5) % Neut # (Auto) (1.4-5.7) K/uL Lymph # (Auto) (0.6-2.4) K/uL Irion # (Auto) (0.0-0.8) K/uL Eos # (Auto) (0.0-0.7) K/uL Baso # (Auto) (0.0-0.1) K/uL Nucleated RBC % /100WBC Nucleated RBCs # K/uL Sodium 130 L 132 L (136-145) mmol/L Potassium 3.2 L 3.9 (3.5-5.1) mmol/L Chloride 90 L 94 L (98-107) mmol/L Carbon Dioxide 28.6 28.9 (21.0-32.0) mmol/L BUN 49 H 53 H (7.0-18.0) mg/dL Creatinine 2.2 H 2.0 H (0.6-1.0) mg/dL Est Cr Clr Drug Dosing 18.01 19.81 mL/min Estimated GFR (MDRD) 21.9 24.4 ml/min Glucose 242 H 286 H (74-106) mg/dL POC Glucose (70-99) mg/dL Lactic Acid 0.7 (0.4-2.0) mmol/L Calcium 7.8 L 8.1 L (8.5-10.1) mg/dL Phosphorus 4.4 (2.6-4.7) mg/dL Magnesium 1.5 L 1.8 (1.8-2.4) mg/dL Total Bilirubin 0.8 (0.2-1.0) mg/dL AST 15 (15-37) IU/L ALT 16 (14-63) IU/L Alkaline Phosphatase 57 (46-116) U/L B-Natriuretic Peptide (<100) PG/ML Total Protein 7.3 (6.4-8.2) g/dL Albumin 3.2 L (3.4-5.0) g/dL Globulin 4.1 H (2.6-4.0) g/dL Albumin/Globulin Ratio 0.8 L (0.9-1.6) Urine Color Urine Appearance Urine pH (5.0-8.0) Ur Specific [place] (1.001-1.035) Urine Protein (NEGATIVE) mg/dL Urine Glucose (UA) (NEGATIVE) mg/dL Urine Ketones (NEGATIVE) mg/dL Urine Occult Blood (NEGATIVE) Urine Nitrite (NEGATIVE) Urine Bilirubin (NEGATIVE) Urine Urobilinogen (<2.0) EU/dL Ur Leukocyte Esterase (NEGATIVE) Urine RBC (0-2/HPF) Urine WBC (0-5/HPF) Ur Epithelial Cells (NONE-FEW) Urine Bacteria (NEGATIVE) 03/19/21 03/19/21 03/19/21 Range/Units 06:10 07:34 12:55 WBC 18.77 H (4.0-11.0) K/uL RBC 3.40 L (4.30-5.90) M/uL Hgb 10.5 L (12.0-16.0) g/dL Hct 31.4 L (36.0-46.0) % MCV 92.4 (80.0-98.0) fL MCH 30.9 (27.0-32.0) pg MCHC 33.4 (31.0-37.0) g/dL RDW Std Deviation 48.9 (28.0-62.0) fl RDW Coeff of Yovani 15 (11.0-15.0) % Plt Count 98 L (150-400) K/uL MPV 10.20 (7.40-12.00) fL Neut % (Auto) 96.1 H (48.0-80.0) % Lymph % (Auto) 2.0 L (16.0-40.0) % Irion % (Auto) 1.8 (0.0-15.0) % Eos % (Auto) 0.0 (0.0-7.0) % Baso % (Auto) 0.1 (0.0-1.5) % Neut # (Auto) 18.1 H (1.4-5.7) K/uL Lymph # (Auto) 0.4 L (0.6-2.4) K/uL Irion # (Auto) 0.3 (0.0-0.8) K/uL Eos # (Auto) 0.0 (0.0-0.7) K/uL Baso # (Auto) 0.0 (0.0-0.1) K/uL Nucleated RBC % 0.0 /100WBC Nucleated RBCs # 0 K/uL Sodium (136-145) mmol/L Potassium (3.5-5.1) mmol/L Chloride (98-107) mmol/L Carbon Dioxide (21.0-32.0) mmol/L BUN (7.0-18.0) mg/dL Creatinine (0.6-1.0) mg/dL Est Cr Clr Drug Dosing mL/min Estimated GFR (MDRD) ml/min Glucose (74-106) mg/dL POC Glucose 310 H 332 H (70-99) mg/dL Lactic Acid (0.4-2.0) mmol/L Calcium (8.5-10.1) mg/dL Phosphorus (2.6-4.7) mg/dL Magnesium (1.8-2.4) mg/dL Total Bilirubin (0.2-1.0) mg/dL AST (15-37) IU/L ALT (14-63) IU/L Alkaline Phosphatase (46-116) U/L B-Natriuretic Peptide (<100) PG/ML Total Protein (6.4-8.2) g/dL Albumin (3.4-5.0) g/dL Globulin (2.6-4.0) g/dL Albumin/Globulin Ratio (0.9-1.6) Urine Color Urine Appearance Urine pH (5.0-8.0) Ur Specific [place] (1.001-1.035) Urine Protein (NEGATIVE) mg/dL Urine Glucose (UA) (NEGATIVE) mg/dL Urine Ketones (NEGATIVE) mg/dL Urine Occult Blood (NEGATIVE) Urine Nitrite (NEGATIVE) Urine Bilirubin (NEGATIVE) Urine Urobilinogen (<2.0) EU/dL Ur Leukocyte Esterase (NEGATIVE) Urine RBC (0-2/HPF) Urine WBC (0-5/HPF) Ur Epithelial Cells (NONE-FEW) Urine Bacteria (NEGATIVE) Result Diagrams: 03/19/21 06:10 03/19/21 06:10 Soy Results Last 24 hrs: Microbiology 03/18/21 15:41 Aerobic Blood Culture - Preliminary Blood - Venous - Lab Draw Anaerobic Blood Culture - Preliminary NO GROWTH AFTER 1 DAY 03/18/21 15:32 Aerobic Blood Culture - Preliminary Blood - Venous Anaerobic Blood Culture - Preliminary NO GROWTH AFTER 1 DAY 03/19/21 09:20 C. difficile Antigen & Toxins A,B - Final Stool / Feces Sepsis Event Note - Evaluation Sepsis Screening Result: Sepsis Risk - Focused Exam Vital Signs: Vital Signs Temp Resp BP Pulse Ox 03/19/21 16:00 97.3 F 17 132/64 97 03/19/21 15:00 19 127/76 94 L 03/19/21 14:00 17 126/63 95 03/19/21 13:00 20 144/75 H 95 03/19/21 12:00 97.6 F 19 150/78 H 94 L 03/19/21 11:00 17 135/70 95 03/19/21 10:00 20 135/64 92 L 03/19/21 09:00 24 H 132/69 93 L 03/19/21 08:00 97.7 F 17 126/54 L 95 03/19/21 07:00 19 130/58 L 92 L 03/19/21 06:00 16 127/62 93 L - Problem List & Annotations (1) COPD (chronic obstructive pulmonary disease) SNOMED Code(s): 25770812 Code(s): J44.9 - CHRONIC OBSTRUCTIVE PULMONARY DISEASE, UNSPECIFIED Status: Acute Current Visit: Yes (2) Atrial fibrillation with RVR SNOMED Code(s): 933225588568581 Code(s): I48.91 - UNSPECIFIED ATRIAL FIBRILLATION Status: Acute Priority: High Current Visit: Yes (3) Atypical chest pain SNOMED Code(s): 413105627 Code(s): R07.89 - OTHER CHEST PAIN Status: Acute Current Visit: No (4) Hypokalemia SNOMED Code(s): 55606150 Code(s): E87.6 - HYPOKALEMIA Status: Acute Current Visit: Yes (5) Hypomagnesemia SNOMED Code(s): 806108159 Code(s): E83.42 - HYPOMAGNESEMIA Status: Acute Priority: High Current Visit: Yes (6) UTI (urinary tract infection) SNOMED Code(s): 72835863 Code(s): N39.0 - URINARY TRACT INFECTION, SITE NOT SPECIFIED Status: Acute Current Visit: Yes Qualifiers: Urinary tract infection type: acute cystitis Hematuria presence: without hematuria Qualified Code(s): N30.00 - Acute cystitis without hematuria (7) Anticoagulation adequate SNOMED Code(s): 501248727, 355904084 Code(s): Z79.01 - REFRIGERATION MANAGER (CURRENT) USE OF ANTICOAGULANTS Status: Chronic Current Visit: Yes (8) Congestive heart failure SNOMED Code(s): 86080096 Code(s): I50.9 - HEART FAILURE, UNSPECIFIED Status: Chronic Current Visit: Yes (9) DM type 2 (diabetes mellitus, type 2) SNOMED Code(s): 65861839 Code(s): E11.9 - TYPE 2 DIABETES MELLITUS WITHOUT COMPLICATIONS Status: Chronic Current Visit: Yes Qualifiers: Diabetes mellitus senior living insulin use: without senior living use Diabetes mellitus complication status: with kidney complications (10) GERD (gastroesophageal reflux disease) SNOMED Code(s): 220331259 Code(s): K21.9 - GASTRO-ESOPHAGEAL REFLUX DISEASE WITHOUT ESOPHAGITIS Status: Chronic Current Visit: Yes Qualifiers: Esophagitis presence: without esophagitis Qualified Code(s): K21.9 - Gastro-esophageal reflux disease without esophagitis (11) HLD (hyperlipidemia) SNOMED Code(s): 22869866 Code(s): E78.5 - HYPERLIPIDEMIA, UNSPECIFIED Status: Chronic Current Visit: Yes Qualifiers: Hyperlipidemia type: mixed hyperlipidemia Qualified Code(s): E78.2 - Mixed hyperlipidemia (12) Hypertension SNOMED Code(s): 11576689 Code(s): I10 - ESSENTIAL (PRIMARY) HYPERTENSION Status: Chronic Priority: High Current Visit: Yes Qualifiers: Hypertension type: essential hypertension (13) Morbid obesity SNOMED Code(s): 547944379 Code(s): E66.01 - MORBID (SEVERE) OBESITY DUE TO EXCESS CALORIES Status: Chronic Current Visit: Yes - Problem List Review Problem List Initiated/Reviewed/Updated: Yes - My Orders Last 24 Hours: My Active Orders 03/18/21 20:27 Albuterol/Ipratropium [DuoNeb 3.0-0.5 MG/3 ML] 3 ml NEB Q4HRRT PRN 03/18/21 20:28 Oxygen Therapy [RC] PRN VTE/DVT Education [RC] PER UNIT ROUTINE Vital Signs [RC] Q1H 03/18/21 20:29 Accu Check [Blood Glucose Check, Bedside] [RC] WITHMEALSANDBED 03/18/21 20:40 Code Status [Resuscitation Status] Routine 03/18/21 20:43 Intake and Output Strict [RC] Q12H 03/18/21 20:45 ClonazePAM [KlonoPIN] 0.5 mg PO BEDTIME PRN 03/18/21 21:00 Apixaban [Eliquis] 5 mg PO BID 03/18/21 21:09 Acetaminophen [TylenoL] 650 mg PO Q4H PRN 03/18/21 21:27 RT Aerosol Therapy [RC] ASDIRECTED 03/19/21 00:00 Cefepime [Maxipime in D5W 2 GM/50 ML] 2 gm Premix Bag 1 bag IV Q8H 03/19/21 07:30 Omeprazole 20 mg PO ACBREAKFAST 03/19/21 09:00 Budesonide [Pulmicort] 0.5 mg NEB BIDRT 03/19/21 21:00 Simvastatin [Zocor] 40 mg PO BEDTIME - Plan Plan:: Sepsiscontinue cefepime 2 g every 8HR, blood cultures positive for gram- negative rods. Stool culture negative for C. difficile. EUGENE- Trend daily BMP, IV fluids as needed CHF-we will hold diuretics including Lasix and bumetanide. Carvedilol to be restarted based on blood pressure value, Monitor electrolytes, potassium over 4+, magnesium over 2+, strict I&O [id number] home medications include Eliquis 5 mg twice daily, diltiazem 30 mg every 6HR COPD-patient states 3 L oxygen supplementation at home, will provide oxygen supplementation as needed to maintain O2 sats above 90%, Resume home medication of PulMurphy phelps PRN.
[2021-03-19] MEDS: Simvastatin 40 MG Tab PO SCH (20:35)
[2021-03-20 06:21] LABS: CARBON DIOXIDE,CO2 30.7 mmol/L (21.0-32.0); POTASSIUM,K 3.6 mmol/L (3.5-5.1)
[2021-03-20] MEDS: Budesonide 0.5 MG/2 ML Neb Susp NEB SCH ×2 (06:34→20:21)
[2021-03-20] MEDS: Omeprazole 20 MG Cap.CR PO SCH (06:37)
[2021-03-20] MEDS: Diltiazem IR 30 MG Tab PO SCH ×4 (06:37→23:12)
[2021-03-20] MEDS: Insulin Aspart 100 Units/ML 3 ML Pen SUBCUT SCH ×3 (07:52→17:58)
[2021-03-20] MEDS: Cefepime 2 GM in Premix Bag 1 BAG IV SCH ×3 (08:33→23:13)
[2021-03-20] MEDS: Carvedilol 25 MG Tab PO SCH ×2 (08:33→20:21)
[2021-03-20] MEDS: Apixaban 5 MG Tab PO SCH ×2 (08:35→20:21)
--- NOTE | 2021-03-20 14:02 | PCM.PN ---
- General Info Date of Service: 03/20/21 Subjective Update: Patient states that she feels better. Denies chest pain, denies shortness of breath, denies fever, denies chills, denies dysuria. - Review of Systems General: Denies: Fever, Chills Pulmonary: Denies: Shortness of Breath, Pleuritic Chest Pain, Cough Cardiovascular: Reports: Dyspnea on Exertion, Edema. Denies: Chest Pain Gastrointestinal: Denies: Abdominal Pain, Nausea, Vomiting Neurological: Denies: Confusion, Dizziness, Headache - Patient Data Vitals - Most Recent: Last Vital Signs Temp 98.1 F 03/20/21 08:00 Pulse 96 03/20/21 08:33 Resp 18 03/20/21 10:00 BP 117/63 03/20/21 10:00 Pulse Ox 95 03/20/21 10:00 Weight - Most Recent: 243 lb 2.718 oz I&O - Last 24 Hours: Intake & Output 03/19/21 03/20/21 03/20/21 22:59 06:59 14:59 Intake Total 850 430 50 Output Total 1200 1350 Balance -350 -920 50 Lab Results Last 24 Hours: Laboratory Results - last 24 hr 03/19/21 03/20/21 03/20/21 Range/Units 17:26 05:00 05:00 WBC 13.99 H (4.0-11.0) K/uL RBC 3.30 L (4.30-5.90) M/uL Hgb 10.4 L (12.0-16.0) g/dL Hct 30.5 L (36.0-46.0) % MCV 92.4 (80.0-98.0) fL MCH 31.5 (27.0-32.0) pg MCHC 34.1 (31.0-37.0) g/dL RDW Std Deviation 49.0 (28.0-62.0) fl RDW Coeff of Yovani 15 (11.0-15.0) % Plt Count 115 L (150-400) K/uL MPV 10.60 (7.40-12.00) fL Neut % (Auto) 91.2 H (48.0-80.0) % Lymph % (Auto) 3.4 L (16.0-40.0) % Talbot % (Auto) 5.4 (0.0-15.0) % Eos % (Auto) 0.0 (0.0-7.0) % Baso % (Auto) 0.0 (0.0-1.5) % Neut # (Auto) 12.8 H (1.4-5.7) K/uL Lymph # (Auto) 0.5 L (0.6-2.4) K/uL Talbot # (Auto) 0.8 (0.0-0.8) K/uL Eos # (Auto) 0.0 (0.0-0.7) K/uL Baso # (Auto) 0.0 (0.0-0.1) K/uL Nucleated RBC % 0.0 /100WBC Nucleated RBCs # 0 K/uL Sodium 136 (136-145) mmol/L Potassium 3.6 (3.5-5.1) mmol/L Chloride 97 L (98-107) mmol/L Carbon Dioxide 30.7 (21.0-32.0) mmol/L BUN 54 H (7.0-18.0) mg/dL Creatinine 1.7 H (0.6-1.0) mg/dL Est Cr Clr Drug Dosing 23.31 mL/min Estimated GFR (MDRD) 29.5 ml/min Glucose 242 H (74-106) mg/dL POC Glucose 284 H (70-99) mg/dL Calcium 8.5 (8.5-10.1) mg/dL Magnesium 1.8 (1.8-2.4) mg/dL 03/20/21 03/20/21 Range/Units 06:35 11:58 WBC (4.0-11.0) K/uL RBC (4.30-5.90) M/uL Hgb (12.0-16.0) g/dL Hct (36.0-46.0) % MCV (80.0-98.0) fL MCH (27.0-32.0) pg MCHC (31.0-37.0) g/dL RDW Std Deviation (28.0-62.0) fl RDW Coeff of Yovani (11.0-15.0) % Plt Count (150-400) K/uL MPV (7.40-12.00) fL Neut % (Auto) (48.0-80.0) % Lymph % (Auto) (16.0-40.0) % Talbot % (Auto) (0.0-15.0) % Eos % (Auto) (0.0-7.0) % Baso % (Auto) (0.0-1.5) % Neut # (Auto) (1.4-5.7) K/uL Lymph # (Auto) (0.6-2.4) K/uL Talbot # (Auto) (0.0-0.8) K/uL Eos # (Auto) (0.0-0.7) K/uL Baso # (Auto) (0.0-0.1) K/uL Nucleated RBC % /100WBC Nucleated RBCs # K/uL Sodium (136-145) mmol/L Potassium (3.5-5.1) mmol/L Chloride (98-107) mmol/L Carbon Dioxide (21.0-32.0) mmol/L BUN (7.0-18.0) mg/dL Creatinine (0.6-1.0) mg/dL Est Cr Clr Drug Dosing mL/min Estimated GFR (MDRD) ml/min Glucose (74-106) mg/dL POC Glucose 224 H 230 H (70-99) mg/dL Calcium (8.5-10.1) mg/dL Magnesium (1.8-2.4) mg/dL Soy Results Last 24 Hours: Microbiology 03/19/21 09:20 Shiga Toxin I & II - Final Stool / Feces 03/19/21 10:21 Aerobic Blood Culture - Preliminary Blood - Venous - Lab Draw NO GROWTH AFTER 1 DAY Anaerobic Blood Culture - Preliminary NO GROWTH AFTER 1 DAY 03/19/21 10:12 Aerobic Blood Culture - Preliminary Blood - Venous NO GROWTH AFTER 1 DAY Anaerobic Blood Culture - Preliminary NO GROWTH AFTER 1 DAY 03/18/21 15:41 Blood Culture Identification Panel - Preliminary Blood Gram Negative Rods 03/18/21 15:32 Blood Culture Identification Panel - Preliminary Blood Gram Negative Rods 03/18/21 15:41 Aerobic Blood Culture - Preliminary Blood - Venous - Lab Draw Anaerobic Blood Culture - Preliminary NO GROWTH AFTER 1 DAY 03/18/21 15:32 Aerobic Blood Culture - Preliminary Blood - Venous Anaerobic Blood Culture - Preliminary NO GROWTH AFTER 1 DAY 03/19/21 09:20 C. difficile Antigen & Toxins A,B - Final Stool / Feces Med Orders - Current: Current Medications Acetaminophen (Acetaminophen 325 Mg Tab) 650 mg PO Q4H PRN PRN Reason: Pain/Fever Last Admin: 03/19/21 05:42 Dose: 650 mg Documented by: Albuterol/Ipratropium (Albuterol/Ipratropium 3.0-0.5 Mg/3 Ml Neb Soln) 3 ml NEB Q4HRRT PRN PRN Reason: Shortness Of Breath/wheezing Apixaban (Apixaban 5 Mg Tab) 5 mg PO BID [facility] Last Admin: 03/20/21 08:35 Dose: 5 mg Documented by: Budesonide (Budesonide 0.5 Mg/2 Ml Neb Susp) 0.5 mg NEB BIDRT [facility] Last Admin: 03/20/21 06:34 Dose: 0.5 mg Documented by: Carvedilol (Carvedilol 25 Mg Tab) 25 mg PO BID [facility] Last Admin: 03/20/21 08:33 Dose: 25 mg Documented by: Clonazepam (Clonazepam 0.5 Mg Tab) 0.5 mg PO BEDTIME PRN PRN Reason: Anxiety Dextrose/Water (50% Dextrose In Water 50 Ml Syringe) 50 ml IVPUSH ASDIRECTED PRN PRN Reason: Hypoglycemia Diltiazem HCl (Diltiazem Ir 30 Mg Tab) 30 mg PO Q6HR [facility] Last Admin: 03/20/21 12:03 Dose: 30 mg Documented by: Glucagon (Glucagon,Human Recombinant 1 Mg Vial) 1 mg IM ASDIRECTED PRN PRN Reason: Hypoglycemia Cefepime HCl 2 gm/ Premix 50 mls @ 100 mls/hr IV Q8H [facility] Last Admin: 03/20/21 08:33 Dose: 100 mls/hr Documented by: Sodium Chloride (Normal Saline) 500 mls @ 50 mls/hr IV ASDIRECTED [facility] Last Infusion: 03/19/21 05:39 Dose: 0 mls/hr Documented by: Insulin Aspart (Insulin Aspart 100 Units/Ml 3 Ml Pen) 0 unit SUBCUT TIDAC [facility]; Protocol Last Admin: 03/20/21 12:00 Dose: 2 unit Documented by: Omeprazole (Omeprazole 20 Mg Cap.Cr) 20 mg PO ACBREAKFAST [facility] Last Admin: 03/20/21 06:37 Dose: 20 mg Documented by: Simvastatin (Simvastatin 40 Mg Tab) 40 mg PO BEDTIME [facility] Last Admin: 03/19/21 20:35 Dose: 40 mg Documented by: Sodium Chloride (Sodium Chloride 0.9% 10 Ml Syringe) 10 ml FLUSH ASDIRECTED PRN PRN Reason: Keep Vein Open Sodium Chloride (Sodium Chloride 0.9% 2.5 Ml Syringe) 2.5 ml FLUSH ASDIRECTED PRN PRN Reason: Keep Vein Open Discontinued Medications Acetaminophen (Acetaminophen 325 Mg Tab) 975 mg PO NOW ONE Stop: 03/18/21 15:36 Last Admin: 03/18/21 15:57 Dose: 975 mg Documented by: Albuterol/Ipratropium (Albuterol/Ipratropium 3.0-0.5 Mg/3 Ml Neb Soln) 3 ml NEB ONETIME ONE Stop: 03/18/21 16:35 Last Admin: 03/18/21 17:07 Dose: Not Given Documented by: Aspirin (Aspirin 81 Mg Tab.Ec) 81 mg PO DAILY [facility] Last Admin: 03/19/21 08:59 Dose: Not Given Documented by: Carvedilol (Carvedilol 25 Mg Tab) 25 mg PO BID [facility] Last Admin: 03/18/21 21:10 Dose: Not Given Documented by: Diltiazem HCl (Diltiazem 25 Mg/5 Ml Sdv) 5 mg IVPUSH ONETIME ONE Stop: 03/18/21 15:44 Last Admin: 03/18/21 15:56 Dose: 5 mg Documented by: Diltiazem HCl (Diltiazem 25 Mg/5 Ml Sdv) 5 mg IVPUSH ONETIME ONE Stop: 03/18/21 17:06 Last Admin: 03/18/21 17:07 Dose: 5 mg Documented by: Diltiazem HCl (Diltiazem 120 Mg Cap.Cd) 120 mg PO DAILY [facility] Lactated Ringer's (Ringers, Lactated) 500 mls @ 999 mls/min IV .BOLUS ONE Stop: 03/18/21 15:39 Last Admin: 03/18/21 15:56 Dose: 999 mls/min Documented by: Cefepime HCl 2 gm/ Premix 50 mls @ 100 mls/hr IV ONETIME ONE Stop: 03/18/21 16:11 Last Admin: 03/18/21 16:33 Dose: 100 mls/hr Documented by: Diltiazem HCl 5 mg/ Sodium (Chloride) 101 mls @ 5 mls/hr IV NOW STA Stop: 03/19/21 12:45 Last Admin: 03/18/21 17:07 Dose: Not Given Documented by: Sodium Chloride (Normal Saline) 500 mls @ 999 mls/min IV STAT STA Stop: 03/18/21 18:19 Last Admin: 03/18/21 18:23 Dose: Not Given Documented by: Sodium Chloride (Normal Saline) 1,000 mls @ 250 mls/hr IV .Bolus ONE Stop: 03/18/21 22:31 Last Admin: 03/18/21 18:37 Dose: Not Given Documented by: Lactated Ringer's (Ringers, Lactated) 1,000 mls @ 250 mls/hr IV ASDIRECTED [facility] Last Admin: 03/18/21 18:20 Dose: 250 mls/hr Documented by: Magnesium Sulfate 2 gm/ Premix 50 mls @ 12.5 mls/hr IV ONETIME ONE Stop: 03/18/21 23:17 Last Admin: 03/18/21 19:27 Dose: 12.5 mls/hr Documented by: Cefepime HCl 2 gm/ Premix 50 mls @ 100 mls/hr IV Q8H [facility] Cefepime HCl 2 gm/ Premix 50 mls @ 100 mls/hr IV Q8H [facility] Cefepime HCl 2 gm/ Premix 50 mls @ 100 mls/hr IV Q8H [facility] Sodium Chloride (Normal Saline) 500 mls @ 999 mls/hr IV ONETIME ONE Stop: 03/18/21 21:50 Last Admin: 03/18/21 21:40 Dose: 999 mls/hr Documented by: Magnesium Sulfate 2 gm/ Premix 50 mls @ 12.5 mls/hr IV ONETIME ONE Stop: 03/19/21 04:31 Last Infusion: 03/19/21 03:00 Dose: 0 mls/hr Documented by: Potassium Chloride 40 meq/ (Premix) 100 mls @ 25 mls/hr IV ONETIME ONE Stop: 03/19/21 04:31 Last Admin: 03/19/21 00:52 Dose: 25 mls/hr Documented by: Sodium Chloride (Normal Saline) 1,000 mls @ 50 mls/hr IV ASDIRECTED [facility] Methylprednisolone Sodium Succinate (Methylprednisolone Sodium Succinate 125 Mg/2 Ml Sdv) 125 mg IVPUSH ONETIME ONE Stop: 03/18/21 16:37 Last Admin: 03/18/21 17:30 Dose: 125 mg Documented by: Potassium Chloride (Potassium Chloride 20 Meq Tab.Er) 40 meq PO ONETIME ONE Stop: 03/18/21 20:53 Last Admin: 03/18/21 21:25 Dose: 40 meq Documented by: - Exam Quality Assessment: Supplemental Oxygen (2L, COPD Hx) Urinary Catheter Total Time: 1Days 21Hours General: Alert, Oriented Lungs: Clear to Auscultation, Normal Respiratory Effort Cardiovascular: Regular Rate, Regular Rhythm GI/Abdominal Exam: Soft, Non-Tender Psy/Mental Status: Alert - Patient Data Lab Results Last 24 hrs: Laboratory Results - last 24 hr 03/19/21 03/20/21 03/20/21 Range/Units 17:26 05:00 05:00 WBC 13.99 H (4.0-11.0) K/uL RBC 3.30 L (4.30-5.90) M/uL Hgb 10.4 L (12.0-16.0) g/dL Hct 30.5 L (36.0-46.0) % MCV 92.4 (80.0-98.0) fL MCH 31.5 (27.0-32.0) pg MCHC 34.1 (31.0-37.0) g/dL RDW Std Deviation 49.0 (28.0-62.0) fl RDW Coeff of Yovani 15 (11.0-15.0) % Plt Count 115 L (150-400) K/uL MPV 10.60 (7.40-12.00) fL Neut % (Auto) 91.2 H (48.0-80.0) % Lymph % (Auto) 3.4 L (16.0-40.0) % Talbot % (Auto) 5.4 (0.0-15.0) % Eos % (Auto) 0.0 (0.0-7.0) % Baso % (Auto) 0.0 (0.0-1.5) % Neut # (Auto) 12.8 H (1.4-5.7) K/uL Lymph # (Auto) 0.5 L (0.6-2.4) K/uL Talbot # (Auto) 0.8 (0.0-0.8) K/uL Eos # (Auto) 0.0 (0.0-0.7) K/uL Baso # (Auto) 0.0 (0.0-0.1) K/uL Nucleated RBC % 0.0 /100WBC Nucleated RBCs # 0 K/uL Sodium 136 (136-145) mmol/L Potassium 3.6 (3.5-5.1) mmol/L Chloride 97 L (98-107) mmol/L Carbon Dioxide 30.7 (21.0-32.0) mmol/L BUN 54 H (7.0-18.0) mg/dL Creatinine 1.7 H (0.6-1.0) mg/dL Est Cr Clr Drug Dosing 23.31 mL/min Estimated GFR (MDRD) 29.5 ml/min Glucose 242 H (74-106) mg/dL POC Glucose 284 H (70-99) mg/dL Calcium 8.5 (8.5-10.1) mg/dL Magnesium 1.8 (1.8-2.4) mg/dL 03/20/21 03/20/21 Range/Units 06:35 11:58 WBC (4.0-11.0) K/uL RBC (4.30-5.90) M/uL Hgb (12.0-16.0) g/dL Hct (36.0-46.0) % MCV (80.0-98.0) fL MCH (27.0-32.0) pg MCHC (31.0-37.0) g/dL RDW Std Deviation (28.0-62.0) fl RDW Coeff of Yovani (11.0-15.0) % Plt Count (150-400) K/uL MPV (7.40-12.00) fL Neut % (Auto) (48.0-80.0) % Lymph % (Auto) (16.0-40.0) % Talbot % (Auto) (0.0-15.0) % Eos % (Auto) (0.0-7.0) % Baso % (Auto) (0.0-1.5) % Neut # (Auto) (1.4-5.7) K/uL Lymph # (Auto) (0.6-2.4) K/uL Talbot # (Auto) (0.0-0.8) K/uL Eos # (Auto) (0.0-0.7) K/uL Baso # (Auto) (0.0-0.1) K/uL Nucleated RBC % /100WBC Nucleated RBCs # K/uL Sodium (136-145) mmol/L Potassium (3.5-5.1) mmol/L Chloride (98-107) mmol/L Carbon Dioxide (21.0-32.0) mmol/L BUN (7.0-18.0) mg/dL Creatinine (0.6-1.0) mg/dL Est Cr Clr Drug Dosing mL/min Estimated GFR (MDRD) ml/min Glucose (74-106) mg/dL POC Glucose 224 H 230 H (70-99) mg/dL Calcium (8.5-10.1) mg/dL Magnesium (1.8-2.4) mg/dL Result Diagrams: 03/20/21 05:00 03/20/21 05:00 Soy Results Last 24 hrs: Microbiology 03/19/21 09:20 Shiga Toxin I & II - Final Stool / Feces 03/19/21 10:21 Aerobic Blood Culture - Preliminary Blood - Venous - Lab Draw NO GROWTH AFTER 1 DAY Anaerobic Blood Culture - Preliminary NO GROWTH AFTER 1 DAY 03/19/21 10:12 Aerobic Blood Culture - Preliminary Blood - Venous NO GROWTH AFTER 1 DAY Anaerobic Blood Culture - Preliminary NO GROWTH AFTER 1 DAY 03/18/21 15:41 Blood Culture Identification Panel - Preliminary Blood Gram Negative Rods 03/18/21 15:32 Blood Culture Identification Panel - Preliminary Blood Gram Negative Rods 03/18/21 15:41 Aerobic Blood Culture - Preliminary Blood - Venous - Lab Draw Anaerobic Blood Culture - Preliminary NO GROWTH AFTER 1 DAY 03/18/21 15:32 Aerobic Blood Culture - Preliminary Blood - Venous Anaerobic Blood Culture - Preliminary NO GROWTH AFTER 1 DAY 03/19/21 09:20 C. difficile Antigen & Toxins A,B - Final Stool / Feces Sepsis Event Note - Evaluation Sepsis Screening Result: Sepsis Risk - Focused Exam Vital Signs: Vital Signs Temp Pulse Resp BP BP Pulse Ox Pulse Ox 03/20/21 10:00 18 117/63 95 03/20/21 09:00 16 126/60 93 L 03/20/21 08:33 96 132/67 03/20/21 08:00 98.1 F 21 H 132/67 92 L 03/20/21 07:00 17 148/68 H 95 03/20/21 06:00 13 139/63 92 L 96 03/20/21 05:00 18 146/82 H 96 03/20/21 04:00 98.2 F 13 132/69 94 L 03/20/21 03:00 14 132/72 93 L 03/20/21 02:00 15 132/78 92 L - Problem List & Annotations (1) COPD (chronic obstructive pulmonary disease) SNOMED Code(s): 81385041 Code(s): J44.9 - CHRONIC OBSTRUCTIVE PULMONARY DISEASE, UNSPECIFIED Status: Acute Current Visit: Yes (2) Atrial fibrillation with RVR SNOMED Code(s): 224180201965090 Code(s): I48.91 - UNSPECIFIED ATRIAL FIBRILLATION Status: Acute Priority: High Current Visit: Yes (3) Atypical chest pain SNOMED Code(s): 774327165 Code(s): R07.89 - OTHER CHEST PAIN Status: Acute Current Visit: No (4) Hypokalemia SNOMED Code(s): 69155375 Code(s): E87.6 - HYPOKALEMIA Status: Acute Current Visit: Yes (5) Hypomagnesemia SNOMED Code(s): 130667850 Code(s): E83.42 - HYPOMAGNESEMIA Status: Acute Priority: High Current Visit: Yes (6) UTI (urinary tract infection) SNOMED Code(s): 91036618 Code(s): N39.0 - URINARY TRACT INFECTION, SITE NOT SPECIFIED Status: Acute Current Visit: Yes Qualifiers: Urinary tract infection type: acute cystitis Hematuria presence: without hematuria Qualified Code(s): N30.00 - Acute cystitis without hematuria (7) Anticoagulation adequate SNOMED Code(s): 461268293, 480331359 Code(s): Z79.01 - DIRECTOR MULTIPLE SCLEROSIS CENTER (CURRENT) USE OF ANTICOAGULANTS Status: Chronic Current Visit: Yes (8) Congestive heart failure SNOMED Code(s): 79556852 Code(s): I50.9 - HEART FAILURE, UNSPECIFIED Status: Chronic Current Visit: Yes (9) DM type 2 (diabetes mellitus, type 2) SNOMED Code(s): 19793087 Code(s): E11.9 - TYPE 2 DIABETES MELLITUS WITHOUT COMPLICATIONS Status: Chronic Current Visit: Yes Qualifiers: Diabetes mellitus supervisor intermediates insulin use: without group home use Diabetes mellitus complication status: with kidney complications (10) GERD (gastroesophageal reflux disease) SNOMED Code(s): 968578333 Code(s): K21.9 - GASTRO-ESOPHAGEAL REFLUX DISEASE WITHOUT ESOPHAGITIS Status: Chronic Current Visit: Yes Qualifiers: Esophagitis presence: without esophagitis Qualified Code(s): K21.9 - Gastro-esophageal reflux disease without esophagitis (11) HLD (hyperlipidemia) SNOMED Code(s): 26176735 Code(s): E78.5 - HYPERLIPIDEMIA, UNSPECIFIED Status: Chronic Current Visit: Yes Qualifiers: Hyperlipidemia type: mixed hyperlipidemia Qualified Code(s): E78.2 - Mixed hyperlipidemia (12) Hypertension SNOMED Code(s): 49881963 Code(s): I10 - ESSENTIAL (PRIMARY) HYPERTENSION Status: Chronic Priority: High Current Visit: Yes Qualifiers: Hypertension type: essential hypertension (13) Morbid obesity SNOMED Code(s): 707318639 Code(s): E66.01 - MORBID (SEVERE) OBESITY DUE TO EXCESS CALORIES Status: Chronic Current Visit: Yes - Problem List Review Problem List Initiated/Reviewed/Updated: Yes - My Orders Last 24 Hours: My Active Orders 03/19/21 21:00 Simvastatin [Zocor] 40 mg PO BEDTIME 03/20/21 09:00 carvediloL [Coreg] 25 mg PO BID - Plan Plan:: Sepsiscontinue cefepime 2 g every 8HR, blood cultures positive for gram- negative rods. SOY pending CHF-we will hold diuretics including Lasix and bumetanide.Will resume based on I&O. Carvedilol restarted, 25mg BID. Monitor electrolytes, potassium over 4+, magnesium over 2+, strict I&O [id number] home medications include Eliquis 5 mg twice daily, diltiazem 30 mg every 6HR COPD-patient states 3 L oxygen supplementation at home, will provide oxygen supplementation as needed to maintain O2 sats above 90%, Resume home medication of Pulmicort, Duo Neb PRN. Patient has been downgraded to MED/SURG status
[2021-03-20] MEDS: Simvastatin 40 MG Tab PO SCH (20:21)
[2021-03-21] MEDS: Diltiazem IR 30 MG Tab PO SCH ×3 (05:11→19:30)
[2021-03-21 06:56] LABS: CARBON DIOXIDE,CO2 32.5 mmol/L (21.0-32.0); POTASSIUM,K 3.4 mmol/L (3.5-5.1)
[2021-03-21] MEDS: Omeprazole 20 MG Cap.CR PO SCH (06:59)
[2021-03-21] MEDS: Budesonide 0.5 MG/2 ML Neb Susp NEB SCH ×2 (07:00→20:15)
[2021-03-21] MEDS ORDERED: Potassium Chloride 20 MEQ Tab.ER PO ONE ×2 (07:32→14:04)
[2021-03-21] MEDS: Insulin Aspart 100 Units/ML 3 ML Pen SUBCUT SCH ×3 (07:40→17:42)
[2021-03-21] MEDS: Carvedilol 25 MG Tab PO SCH ×2 (08:09→20:13)
[2021-03-21] MEDS: Apixaban 5 MG Tab PO SCH ×2 (08:09→20:13)
[2021-03-21] MEDS: Cefepime 2 GM in Premix Bag 1 BAG IV SCH ×2 (08:12→15:47)
--- NOTE | 2021-03-21 13:39 | PCM.PN ---
- General Info Date of Service: 03/21/21 Subjective Update: Patient states she feels better. Denies chest pain, states mild shortness of breath with activity. Denies fever, chills, nausea, vomiting. Patient states episodes of intermittent light bleeding which is either either rectal, vaginal, urethral in origin. Patient states she is had this for many months. - Review of Systems General: Denies: Fever, Chills Pulmonary: Reports: Shortness of Breath (with activity) Gastrointestinal: Denies: Abdominal Pain, Nausea, Vomiting Neurological: Denies: Confusion, Dizziness, Headache - Patient Data Vitals - Most Recent: Last Vital Signs Temp 97.4 F 03/21/21 13:00 Pulse 88 03/21/21 13:00 Resp 18 03/21/21 13:00 BP 106/61 03/21/21 13:00 Pulse Ox 96 03/21/21 13:00 Weight - Most Recent: 240 lb 3.2 oz I&O - Last 24 Hours: Intake & Output 03/20/21 03/21/21 03/21/21 22:59 06:59 14:59 Intake Total 780 950 50 Output Total 1000 1100 Balance -220 -150 50 Lab Results Last 24 Hours: Laboratory Results - last 24 hr 03/20/21 03/20/21 03/21/21 Range/Units 17:55 20:42 06:20 WBC 10.66 (4.0-11.0) K/uL RBC 3.21 L (4.30-5.90) M/uL Hgb 10.0 L (12.0-16.0) g/dL Hct 30.1 L (36.0-46.0) % MCV 93.8 (80.0-98.0) fL MCH 31.2 (27.0-32.0) pg MCHC 33.2 (31.0-37.0) g/dL RDW Std Deviation 49.5 (28.0-62.0) fl RDW Coeff of Yovani 14 (11.0-15.0) % Plt Count 121 L (150-400) K/uL MPV 10.00 (7.40-12.00) fL Neut % (Auto) 84.7 H (48.0-80.0) % Lymph % (Auto) 7.3 L (16.0-40.0) % Clinch % (Auto) 6.8 (0.0-15.0) % Eos % (Auto) 1.1 (0.0-7.0) % Baso % (Auto) 0.1 (0.0-1.5) % Neut # (Auto) 9.0 H (1.4-5.7) K/uL Lymph # (Auto) 0.8 (0.6-2.4) K/uL Clinch # (Auto) 0.7 (0.0-0.8) K/uL Eos # (Auto) 0.1 (0.0-0.7) K/uL Baso # (Auto) 0.0 (0.0-0.1) K/uL Nucleated RBC % 0.0 /100WBC Nucleated RBCs # 0 K/uL Sodium (136-145) mmol/L Potassium (3.5-5.1) mmol/L Chloride (98-107) mmol/L Carbon Dioxide (21.0-32.0) mmol/L BUN (7.0-18.0) mg/dL Creatinine (0.6-1.0) mg/dL Est Cr Clr Drug Dosing mL/min Estimated GFR (MDRD) ml/min Glucose (74-106) mg/dL POC Glucose 193 H 217 H (70-99) mg/dL Calcium (8.5-10.1) mg/dL Magnesium (1.8-2.4) mg/dL 03/21/21 03/21/21 03/21/21 Range/Units 06:20 06:20 06:53 WBC (4.0-11.0) K/uL RBC (4.30-5.90) M/uL Hgb (12.0-16.0) g/dL Hct (36.0-46.0) % MCV (80.0-98.0) fL MCH (27.0-32.0) pg MCHC (31.0-37.0) g/dL RDW Std Deviation (28.0-62.0) fl RDW Coeff of Yovani (11.0-15.0) % Plt Count (150-400) K/uL MPV (7.40-12.00) fL Neut % (Auto) (48.0-80.0) % Lymph % (Auto) (16.0-40.0) % Clinch % (Auto) (0.0-15.0) % Eos % (Auto) (0.0-7.0) % Baso % (Auto) (0.0-1.5) % Neut # (Auto) (1.4-5.7) K/uL Lymph # (Auto) (0.6-2.4) K/uL Clinch # (Auto) (0.0-0.8) K/uL Eos # (Auto) (0.0-0.7) K/uL Baso # (Auto) (0.0-0.1) K/uL Nucleated RBC % /100WBC Nucleated RBCs # K/uL Sodium 138 (136-145) mmol/L Potassium 3.4 L (3.5-5.1) mmol/L Chloride 99 (98-107) mmol/L Carbon Dioxide 32.5 H (21.0-32.0) mmol/L BUN 59 H (7.0-18.0) mg/dL Creatinine 1.8 H (0.6-1.0) mg/dL Est Cr Clr Drug Dosing 22.02 mL/min Estimated GFR (MDRD) 27.6 ml/min Glucose 149 H (74-106) mg/dL POC Glucose 152 H (70-99) mg/dL Calcium 8.7 (8.5-10.1) mg/dL Magnesium 1.7 L (1.8-2.4) mg/dL 03/21/21 Range/Units 11:01 WBC (4.0-11.0) K/uL RBC (4.30-5.90) M/uL Hgb (12.0-16.0) g/dL Hct (36.0-46.0) % MCV (80.0-98.0) fL MCH (27.0-32.0) pg MCHC (31.0-37.0) g/dL RDW Std Deviation (28.0-62.0) fl RDW Coeff of Yovani (11.0-15.0) % Plt Count (150-400) K/uL MPV (7.40-12.00) fL Neut % (Auto) (48.0-80.0) % Lymph % (Auto) (16.0-40.0) % Clinch % (Auto) (0.0-15.0) % Eos % (Auto) (0.0-7.0) % Baso % (Auto) (0.0-1.5) % Neut # (Auto) (1.4-5.7) K/uL Lymph # (Auto) (0.6-2.4) K/uL Clinch # (Auto) (0.0-0.8) K/uL Eos # (Auto) (0.0-0.7) K/uL Baso # (Auto) (0.0-0.1) K/uL Nucleated RBC % /100WBC Nucleated RBCs # K/uL Sodium (136-145) mmol/L Potassium (3.5-5.1) mmol/L Chloride (98-107) mmol/L Carbon Dioxide (21.0-32.0) mmol/L BUN (7.0-18.0) mg/dL Creatinine (0.6-1.0) mg/dL Est Cr Clr Drug Dosing mL/min Estimated GFR (MDRD) ml/min Glucose (74-106) mg/dL POC Glucose 168 H (70-99) mg/dL Calcium (8.5-10.1) mg/dL Magnesium (1.8-2.4) mg/dL Soy Results Last 24 Hours: Microbiology 03/19/21 10:21 Aerobic Blood Culture - Preliminary Blood - Venous - Lab Draw NO GROWTH AFTER 2 DAYS Anaerobic Blood Culture - Preliminary NO GROWTH AFTER 2 DAYS 03/19/21 10:12 Aerobic Blood Culture - Preliminary Blood - Venous NO GROWTH AFTER 2 DAYS Anaerobic Blood Culture - Preliminary NO GROWTH AFTER 2 DAYS 03/18/21 15:41 Blood Culture Identification Panel - Preliminary Blood Escherichia Coli 03/18/21 15:32 Blood Culture Identification Panel - Preliminary Blood Escherichia Coli 03/18/21 17:40 Urine Culture - Preliminary Urine Gram Negative Rods 03/18/21 15:41 Aerobic Blood Culture - Preliminary Blood - Venous - Lab Draw Anaerobic Blood Culture - Preliminary NO GROWTH AFTER 2 DAYS 03/18/21 15:32 Aerobic Blood Culture - Preliminary Blood - Venous Anaerobic Blood Culture - Preliminary NO GROWTH AFTER 2 DAYS 03/19/21 09:20 Shiga Toxin I & II - Final Stool / Feces Med Orders - Current: Current Medications Acetaminophen (Acetaminophen 325 Mg Tab) 650 mg PO Q4H PRN PRN Reason: Pain/Fever Last Admin: 03/19/21 05:42 Dose: 650 mg Documented by: Albuterol/Ipratropium (Albuterol/Ipratropium 3.0-0.5 Mg/3 Ml Neb Soln) 3 ml NEB Q4HRRT PRN PRN Reason: Shortness Of Breath/wheezing Apixaban (Apixaban 5 Mg Tab) 5 mg PO BID [facility] Last Admin: 03/21/21 08:09 Dose: 5 mg Documented by: Budesonide (Budesonide 0.5 Mg/2 Ml Neb Susp) 0.5 mg NEB BIDRT [facility] Last Admin: 03/21/21 07:00 Dose: 0.5 mg Documented by: Carvedilol (Carvedilol 25 Mg Tab) 25 mg PO BID [facility] Last Admin: 03/21/21 08:09 Dose: 25 mg Documented by: Clonazepam (Clonazepam 0.5 Mg Tab) 0.5 mg PO BEDTIME PRN PRN Reason: Anxiety Dextrose/Water (50% Dextrose In Water 50 Ml Syringe) 50 ml IVPUSH ASDIRECTED PRN PRN Reason: Hypoglycemia Diltiazem HCl (Diltiazem Ir 30 Mg Tab) 30 mg PO Q6HR [facility] Last Admin: 03/21/21 12:03 Dose: 30 mg Documented by: Glucagon (Glucagon,Human Recombinant 1 Mg Vial) 1 mg IM ASDIRECTED PRN PRN Reason: Hypoglycemia Cefepime HCl 2 gm/ Premix 50 mls @ 100 mls/hr IV Q8H [facility] Last Admin: 03/21/21 08:12 Dose: 100 mls/hr Documented by: Sodium Chloride (Normal Saline) 500 mls @ 50 mls/hr IV ASDIRECTED [facility] Last Infusion: 03/19/21 05:39 Dose: 0 mls/hr Documented by: Insulin Aspart (Insulin Aspart 100 Units/Ml 3 Ml Pen) 0 unit SUBCUT TIDAC [facility]; Protocol Last Admin: 03/21/21 07:40 Dose: 1 unit Documented by: Omeprazole (Omeprazole 20 Mg Cap.Cr) 20 mg PO ACBREAKFAST [facility] Last Admin: 03/21/21 06:59 Dose: 20 mg Documented by: Simvastatin (Simvastatin 40 Mg Tab) 40 mg PO BEDTIME [facility] Last Admin: 03/20/21 20:21 Dose: 40 mg Documented by: Sodium Chloride (Sodium Chloride 0.9% 10 Ml Syringe) 10 ml FLUSH ASDIRECTED PRN PRN Reason: Keep Vein Open Sodium Chloride (Sodium Chloride 0.9% 2.5 Ml Syringe) 2.5 ml FLUSH ASDIRECTED PRN PRN Reason: Keep Vein Open Discontinued Medications Acetaminophen (Acetaminophen 325 Mg Tab) 975 mg PO NOW ONE Stop: 03/18/21 15:36 Last Admin: 03/18/21 15:57 Dose: 975 mg Documented by: Albuterol/Ipratropium (Albuterol/Ipratropium 3.0-0.5 Mg/3 Ml Neb Soln) 3 ml NEB ONETIME ONE Stop: 03/18/21 16:35 Last Admin: 03/18/21 17:07 Dose: Not Given Documented by: Aspirin (Aspirin 81 Mg Tab.Ec) 81 mg PO DAILY [facility] Last Admin: 03/19/21 08:59 Dose: Not Given Documented by: Carvedilol (Carvedilol 25 Mg Tab) 25 mg PO BID [facility] Last Admin: 03/18/21 21:10 Dose: Not Given Documented by: Diltiazem HCl (Diltiazem 25 Mg/5 Ml Sdv) 5 mg IVPUSH ONETIME ONE Stop: 03/18/21 15:44 Last Admin: 03/18/21 15:56 Dose: 5 mg Documented by: Diltiazem HCl (Diltiazem 25 Mg/5 Ml Sdv) 5 mg IVPUSH ONETIME ONE Stop: 03/18/21 17:06 Last Admin: 03/18/21 17:07 Dose: 5 mg Documented by: Diltiazem HCl (Diltiazem 120 Mg Cap.Cd) 120 mg PO DAILY [facility] Lactated Ringer's (Ringers, Lactated) 500 mls @ 999 mls/min IV .BOLUS ONE Stop: 03/18/21 15:39 Last Admin: 03/18/21 15:56 Dose: 999 mls/min Documented by: Cefepime HCl 2 gm/ Premix 50 mls @ 100 mls/hr IV ONETIME ONE Stop: 03/18/21 16:11 Last Admin: 03/18/21 16:33 Dose: 100 mls/hr Documented by: Diltiazem HCl 5 mg/ Sodium (Chloride) 101 mls @ 5 mls/hr IV NOW STA Stop: 03/19/21 12:45 Last Admin: 03/18/21 17:07 Dose: Not Given Documented by: Sodium Chloride (Normal Saline) 500 mls @ 999 mls/min IV STAT STA Stop: 03/18/21 18:19 Last Admin: 03/18/21 18:23 Dose: Not Given Documented by: Sodium Chloride (Normal Saline) 1,000 mls @ 250 mls/hr IV .Bolus ONE Stop: 03/18/21 22:31 Last Admin: 03/18/21 18:37 Dose: Not Given Documented by: Lactated Ringer's (Ringers, Lactated) 1,000 mls @ 250 mls/hr IV ASDIRECTED [facility] Last Admin: 03/18/21 18:20 Dose: 250 mls/hr Documented by: Magnesium Sulfate 2 gm/ Premix 50 mls @ 12.5 mls/hr IV ONETIME ONE Stop: 03/18/21 23:17 Last Admin: 03/18/21 19:27 Dose: 12.5 mls/hr Documented by: Cefepime HCl 2 gm/ Premix 50 mls @ 100 mls/hr IV Q8H [facility] Cefepime HCl 2 gm/ Premix 50 mls @ 100 mls/hr IV Q8H [facility] Cefepime HCl 2 gm/ Premix 50 mls @ 100 mls/hr IV Q8H [facility] Sodium Chloride (Normal Saline) 500 mls @ 999 mls/hr IV ONETIME ONE Stop: 03/18/21 21:50 Last Admin: 03/18/21 21:40 Dose: 999 mls/hr Documented by: Magnesium Sulfate 2 gm/ Premix 50 mls @ 12.5 mls/hr IV ONETIME ONE Stop: 03/19/21 04:31 Last Infusion: 03/19/21 03:00 Dose: 0 mls/hr Documented by: Potassium Chloride 40 meq/ (Premix) 100 mls @ 25 mls/hr IV ONETIME ONE Stop: 03/19/21 04:31 Last Admin: 03/19/21 00:52 Dose: 25 mls/hr Documented by: Sodium Chloride (Normal Saline) 1,000 mls @ 50 mls/hr IV ASDIRECTED [facility] Methylprednisolone Sodium Succinate (Methylprednisolone Sodium Succinate 125 Mg/2 Ml Sdv) 125 mg IVPUSH ONETIME ONE Stop: 03/18/21 16:37 Last Admin: 03/18/21 17:30 Dose: 125 mg Documented by: Potassium Chloride (Potassium Chloride 20 Meq Tab.Er) 40 meq PO ONETIME ONE Stop: 03/18/21 20:53 Last Admin: 03/18/21 21:25 Dose: 40 meq Documented by: Potassium Chloride (Potassium Chloride 20 Meq Tab.Er) 40 meq PO ONETIME ONE Stop: 03/21/21 07:33 Last Admin: 03/21/21 08:09 Dose: 40 meq Documented by: - Exam Quality Assessment: Supplemental Oxygen (2L ) Urinary Catheter Total Time: 2Days 4Hours General: Alert, Oriented Lungs: Clear to Auscultation, Normal Respiratory Effort Cardiovascular: Regular Rate, Regular Rhythm GI/Abdominal Exam: Soft, Non-Tender - Patient Data Lab Results Last 24 hrs: Laboratory Results - last 24 hr 03/20/21 03/20/21 03/21/21 Range/Units 17:55 20:42 06:20 WBC 10.66 (4.0-11.0) K/uL RBC 3.21 L (4.30-5.90) M/uL Hgb 10.0 L (12.0-16.0) g/dL Hct 30.1 L (36.0-46.0) % MCV 93.8 (80.0-98.0) fL MCH 31.2 (27.0-32.0) pg MCHC 33.2 (31.0-37.0) g/dL RDW Std Deviation 49.5 (28.0-62.0) fl RDW Coeff of Yovani 14 (11.0-15.0) % Plt Count 121 L (150-400) K/uL MPV 10.00 (7.40-12.00) fL Neut % (Auto) 84.7 H (48.0-80.0) % Lymph % (Auto) 7.3 L (16.0-40.0) % Clinch % (Auto) 6.8 (0.0-15.0) % Eos % (Auto) 1.1 (0.0-7.0) % Baso % (Auto) 0.1 (0.0-1.5) % Neut # (Auto) 9.0 H (1.4-5.7) K/uL Lymph # (Auto) 0.8 (0.6-2.4) K/uL Clinch # (Auto) 0.7 (0.0-0.8) K/uL Eos # (Auto) 0.1 (0.0-0.7) K/uL Baso # (Auto) 0.0 (0.0-0.1) K/uL Nucleated RBC % 0.0 /100WBC Nucleated RBCs # 0 K/uL Sodium (136-145) mmol/L Potassium (3.5-5.1) mmol/L Chloride (98-107) mmol/L Carbon Dioxide (21.0-32.0) mmol/L BUN (7.0-18.0) mg/dL Creatinine (0.6-1.0) mg/dL Est Cr Clr Drug Dosing mL/min Estimated GFR (MDRD) ml/min Glucose (74-106) mg/dL POC Glucose 193 H 217 H (70-99) mg/dL Calcium (8.5-10.1) mg/dL Magnesium (1.8-2.4) mg/dL 03/21/21 03/21/21 03/21/21 Range/Units 06:20 06:20 06:53 WBC (4.0-11.0) K/uL RBC (4.30-5.90) M/uL Hgb (12.0-16.0) g/dL Hct (36.0-46.0) % MCV (80.0-98.0) fL MCH (27.0-32.0) pg MCHC (31.0-37.0) g/dL RDW Std Deviation (28.0-62.0) fl RDW Coeff of Yovani (11.0-15.0) % Plt Count (150-400) K/uL MPV (7.40-12.00) fL Neut % (Auto) (48.0-80.0) % Lymph % (Auto) (16.0-40.0) % Clinch % (Auto) (0.0-15.0) % Eos % (Auto) (0.0-7.0) % Baso % (Auto) (0.0-1.5) % Neut # (Auto) (1.4-5.7) K/uL Lymph # (Auto) (0.6-2.4) K/uL Clinch # (Auto) (0.0-0.8) K/uL Eos # (Auto) (0.0-0.7) K/uL Baso # (Auto) (0.0-0.1) K/uL Nucleated RBC % /100WBC Nucleated RBCs # K/uL Sodium 138 (136-145) mmol/L Potassium 3.4 L (3.5-5.1) mmol/L Chloride 99 (98-107) mmol/L Carbon Dioxide 32.5 H (21.0-32.0) mmol/L BUN 59 H (7.0-18.0) mg/dL Creatinine 1.8 H (0.6-1.0) mg/dL Est Cr Clr Drug Dosing 22.02 mL/min Estimated GFR (MDRD) 27.6 ml/min Glucose 149 H (74-106) mg/dL POC Glucose 152 H (70-99) mg/dL Calcium 8.7 (8.5-10.1) mg/dL Magnesium 1.7 L (1.8-2.4) mg/dL 03/21/21 Range/Units 11:01 WBC (4.0-11.0) K/uL RBC (4.30-5.90) M/uL Hgb (12.0-16.0) g/dL Hct (36.0-46.0) % MCV (80.0-98.0) fL MCH (27.0-32.0) pg MCHC (31.0-37.0) g/dL RDW Std Deviation (28.0-62.0) fl RDW Coeff of Yovani (11.0-15.0) % Plt Count (150-400) K/uL MPV (7.40-12.00) fL Neut % (Auto) (48.0-80.0) % Lymph % (Auto) (16.0-40.0) % Clinch % (Auto) (0.0-15.0) % Eos % (Auto) (0.0-7.0) % Baso % (Auto) (0.0-1.5) % Neut # (Auto) (1.4-5.7) K/uL Lymph # (Auto) (0.6-2.4) K/uL Clinch # (Auto) (0.0-0.8) K/uL Eos # (Auto) (0.0-0.7) K/uL Baso # (Auto) (0.0-0.1) K/uL Nucleated RBC % /100WBC Nucleated RBCs # K/uL Sodium (136-145) mmol/L Potassium (3.5-5.1) mmol/L Chloride (98-107) mmol/L Carbon Dioxide (21.0-32.0) mmol/L BUN (7.0-18.0) mg/dL Creatinine (0.6-1.0) mg/dL Est Cr Clr Drug Dosing mL/min Estimated GFR (MDRD) ml/min Glucose (74-106) mg/dL POC Glucose 168 H (70-99) mg/dL Calcium (8.5-10.1) mg/dL Magnesium (1.8-2.4) mg/dL Result Diagrams: 03/21/21 06:20 03/21/21 06:20 Soy Results Last 24 hrs: Microbiology 03/19/21 10:21 Aerobic Blood Culture - Preliminary Blood - Venous - Lab Draw NO GROWTH AFTER 2 DAYS Anaerobic Blood Culture - Preliminary NO GROWTH AFTER 2 DAYS 03/19/21 10:12 Aerobic Blood Culture - Preliminary Blood - Venous NO GROWTH AFTER 2 DAYS Anaerobic Blood Culture - Preliminary NO GROWTH AFTER 2 DAYS 03/18/21 15:41 Blood Culture Identification Panel - Preliminary Blood Escherichia Coli 03/18/21 15:32 Blood Culture Identification Panel - Preliminary Blood Escherichia Coli 03/18/21 17:40 Urine Culture - Preliminary Urine Gram Negative Rods 03/18/21 15:41 Aerobic Blood Culture - Preliminary Blood - Venous - Lab Draw Anaerobic Blood Culture - Preliminary NO GROWTH AFTER 2 DAYS 03/18/21 15:32 Aerobic Blood Culture - Preliminary Blood - Venous Anaerobic Blood Culture - Preliminary NO GROWTH AFTER 2 DAYS 03/19/21 09:20 Shiga Toxin I & II - Final Stool / Feces Sepsis Event Note - Evaluation Sepsis Screening Result: No Definite Risk - Focused Exam Vital Signs: Vital Signs Temp Pulse Pulse Pulse Resp BP BP 03/21/21 13:00 97.4 F 88 18 106/61 03/21/21 12:34 03/21/21 09:07 97.2 F 85 85 18 114/62 03/21/21 08:09 85 114/62 03/21/21 05:07 97.2 F 88 20 120/56 L Pulse Ox Pulse Ox 03/21/21 13:00 96 03/21/21 12:34 96 03/21/21 09:07 96 03/21/21 08:09 03/21/21 05:07 94 L - Problem List & Annotations (1) COPD (chronic obstructive pulmonary disease) SNOMED Code(s): 15284709 Code(s): J44.9 - CHRONIC OBSTRUCTIVE PULMONARY DISEASE, UNSPECIFIED Status: Acute Current Visit: Yes (2) Atrial fibrillation with RVR SNOMED Code(s): 104842260010787 Code(s): I48.91 - UNSPECIFIED ATRIAL FIBRILLATION Status: Acute Priority: High Current Visit: Yes (3) Atypical chest pain SNOMED Code(s): 783830466 Code(s): R07.89 - OTHER CHEST PAIN Status: Acute Current Visit: No (4) Hypokalemia SNOMED Code(s): 53290395 Code(s): E87.6 - HYPOKALEMIA Status: Acute Current Visit: Yes (5) Hypomagnesemia SNOMED Code(s): 987835597 Code(s): E83.42 - HYPOMAGNESEMIA Status: Acute Priority: High Current Visit: Yes (6) UTI (urinary tract infection) SNOMED Code(s): 64828721 Code(s): N39.0 - URINARY TRACT INFECTION, SITE NOT SPECIFIED Status: Acute Current Visit: Yes Qualifiers: Urinary tract infection type: acute cystitis Hematuria presence: without hematuria Qualified Code(s): N30.00 - Acute cystitis without hematuria (7) Anticoagulation adequate SNOMED Code(s): 842632110, 873727998 Code(s): Z79.01 - 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 TEST 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) USE OF ANTICOAGULANTS Status: Chronic Current Visit: Yes (8) Congestive heart failure SNOMED Code(s): 60285015 Code(s): I50.9 - HEART FAILURE, UNSPECIFIED Status: Chronic Current Visit: Yes (9) DM type 2 (diabetes mellitus, type 2) SNOMED Code(s): 72473279 Code(s): E11.9 - TYPE 2 DIABETES MELLITUS WITHOUT COMPLICATIONS Status: Chronic Current Visit: Yes Qualifiers: Diabetes mellitus manager intermediate insulin use: without half-way use Diabetes mellitus complication status: with kidney complications (10) GERD (gastroesophageal reflux disease) SNOMED Code(s): 678535714 Code(s): K21.9 - GASTRO-ESOPHAGEAL REFLUX DISEASE WITHOUT ESOPHAGITIS Status: Chronic Current Visit: Yes Qualifiers: Esophagitis presence: without esophagitis Qualified Code(s): K21.9 - Gastro-esophageal reflux disease without esophagitis (11) HLD (hyperlipidemia) SNOMED Code(s): 69552810 Code(s): E78.5 - HYPERLIPIDEMIA, UNSPECIFIED Status: Chronic Current Visit: Yes Qualifiers: Hyperlipidemia type: mixed hyperlipidemia Qualified Code(s): E78.2 - Mixed hyperlipidemia (12) Hypertension SNOMED Code(s): 97702376 Code(s): I10 - ESSENTIAL (PRIMARY) HYPERTENSION Status: Chronic Priority: High Current Visit: Yes Qualifiers: Hypertension type: essential hypertension (13) Morbid obesity SNOMED Code(s): 455482469 Code(s): E66.01 - MORBID (SEVERE) OBESITY DUE TO EXCESS CALORIES Status: Chronic Current Visit: Yes - Problem List Review Problem List Initiated/Reviewed/Updated: Yes - Plan Plan:: Sepsiscontinue cefepime 2 g every 8HR, blood cultures positive for gram- negative rods. SOY pending CHF-we will hold diuretics, Lasix and bumetanide for now as patient is currently not exhibiting any signs of fluid retention continue to monitor I&O. Carvedilol restarted, 25mg BID. Monitor electrolytes, potassium over 4+, magnesium over 2+, strict I&O [id number] home medications include Eliquis 5 mg twice daily, diltiazem 30 mg every 6HR COPD-patient states 3 L oxygen supplementation at home, will provide oxygen supplementation as needed to maintain O2 sats above 90%, Resume home medication of Pulmicort, Duo Neb PRN.
[2021-03-21] MEDS ORDERED: Magnesium Sulfate/Water 2 GM in Premix Bag 1 BAG IV ONE (14:04)
[2021-03-21] MEDS: Simvastatin 40 MG Tab PO SCH (20:13)
[2021-03-22] MEDS: Diltiazem IR 30 MG Tab PO SCH ×5 (00:08→23:28)
[2021-03-22] MEDS: Cefepime 2 GM in Premix Bag 1 BAG IV SCH ×4 (00:10→23:35)
[2021-03-22] MEDS: Budesonide 0.5 MG/2 ML Neb Susp NEB SCH ×2 (06:13→20:26)
[2021-03-22 06:59] LABS: POTASSIUM,K 3.8 mmol/L (3.5-5.1)
[2021-03-22] MEDS: Omeprazole 20 MG Cap.CR PO SCH (07:00)
[2021-03-22] MEDS: Insulin Aspart 100 Units/ML 3 ML Pen SUBCUT SCH ×3 (07:52→17:00)
[2021-03-22] MEDS: Carvedilol 25 MG Tab PO SCH ×2 (08:38→20:25)
[2021-03-22] MEDS: Apixaban 5 MG Tab PO SCH ×2 (08:38→20:25)
--- NOTE | 2021-03-22 12:45 | PCM.PN ---
- General Info Date of Service: 03/22/21 - Review of Systems Systems Review Comment:: strength is improving, no fevers, no pain, no shortness of breath - Patient Data Vitals - Most Recent: Last Vital Signs Temp 36.6 C 03/22/21 10:12 Pulse 83 03/22/21 10:12 Resp 18 03/22/21 10:12 BP 123/68 03/22/21 10:12 Pulse Ox 95 03/22/21 12:17 Weight - Most Recent: 108.908 kg I&O - Last 24 Hours: Intake & Output 03/21/21 03/22/21 03/22/21 22:59 06:59 14:59 Intake Total 1130 970 Output Total 1000 1600 Balance 130 -630 Lab Results Last 24 Hours: Laboratory Results - last 24 hr 03/21/21 03/21/21 03/22/21 Range/Units 17:14 20:11 06:25 WBC 9.70 (4.0-11.0) K/uL RBC 3.30 L (4.30-5.90) M/uL Hgb 10.1 L (12.0-16.0) g/dL Hct 31.1 L (36.0-46.0) % MCV 94.2 (80.0-98.0) fL MCH 30.6 (27.0-32.0) pg MCHC 32.5 (31.0-37.0) g/dL RDW Std Deviation 49.1 (28.0-62.0) fl RDW Coeff of Yovani 14 (11.0-15.0) % Plt Count 132 L (150-400) K/uL MPV 10.00 (7.40-12.00) fL Neut % (Auto) 85.0 H (48.0-80.0) % Lymph % (Auto) 5.9 L (16.0-40.0) % Haakon % (Auto) 6.7 (0.0-15.0) % Eos % (Auto) 2.2 (0.0-7.0) % Baso % (Auto) 0.2 (0.0-1.5) % Neut # (Auto) 8.3 H (1.4-5.7) K/uL Lymph # (Auto) 0.6 (0.6-2.4) K/uL Haakon # (Auto) 0.7 (0.0-0.8) K/uL Eos # (Auto) 0.2 (0.0-0.7) K/uL Baso # (Auto) 0.0 (0.0-0.1) K/uL Nucleated RBC % 0.0 /100WBC Nucleated RBCs # 0 K/uL Sodium (136-145) mmol/L Potassium (3.5-5.1) mmol/L Chloride (98-107) mmol/L Carbon Dioxide (21.0-32.0) mmol/L BUN (7.0-18.0) mg/dL Creatinine (0.6-1.0) mg/dL Est Cr Clr Drug Dosing mL/min Estimated GFR (MDRD) ml/min Glucose (74-106) mg/dL POC Glucose 167 H 181 H (70-99) mg/dL Calcium (8.5-10.1) mg/dL Magnesium (1.8-2.4) mg/dL 03/22/21 03/22/21 03/22/21 Range/Units 06:25 06:59 11:49 WBC (4.0-11.0) K/uL RBC (4.30-5.90) M/uL Hgb (12.0-16.0) g/dL Hct (36.0-46.0) % MCV (80.0-98.0) fL MCH (27.0-32.0) pg MCHC (31.0-37.0) g/dL RDW Std Deviation (28.0-62.0) fl RDW Coeff of Yovani (11.0-15.0) % Plt Count (150-400) K/uL MPV (7.40-12.00) fL Neut % (Auto) (48.0-80.0) % Lymph % (Auto) (16.0-40.0) % Haakon % (Auto) (0.0-15.0) % Eos % (Auto) (0.0-7.0) % Baso % (Auto) (0.0-1.5) % Neut # (Auto) (1.4-5.7) K/uL Lymph # (Auto) (0.6-2.4) K/uL Haakon # (Auto) (0.0-0.8) K/uL Eos # (Auto) (0.0-0.7) K/uL Baso # (Auto) (0.0-0.1) K/uL Nucleated RBC % /100WBC Nucleated RBCs # K/uL Sodium 137 (136-145) mmol/L Potassium 3.8 (3.5-5.1) mmol/L Chloride 102 (98-107) mmol/L Carbon Dioxide 31.0 (21.0-32.0) mmol/L BUN 53 H (7.0-18.0) mg/dL Creatinine 1.4 H (0.6-1.0) mg/dL Est Cr Clr Drug Dosing 28.31 mL/min Estimated GFR (MDRD) 36.9 ml/min Glucose 151 H (74-106) mg/dL POC Glucose 156 H 157 H (70-99) mg/dL Calcium 9.0 (8.5-10.1) mg/dL Magnesium 1.8 (1.8-2.4) mg/dL Soy Results Last 24 Hours: Microbiology 03/19/21 10:21 Aerobic Blood Culture - Preliminary Blood - Venous - Lab Draw NO GROWTH AFTER 3 DAYS Anaerobic Blood Culture - Preliminary NO GROWTH AFTER 3 DAYS 03/19/21 10:12 Aerobic Blood Culture - Preliminary Blood - Venous NO GROWTH AFTER 3 DAYS Anaerobic Blood Culture - Preliminary NO GROWTH AFTER 3 DAYS 03/19/21 09:20 Stool Culture - Preliminary Stool / Feces Shiga Toxin I & II - Final 03/18/21 15:41 Blood Culture Identification Panel - Final Blood Escherichia Coli 03/18/21 15:32 Blood Culture Identification Panel - Final Blood Escherichia Coli 03/18/21 15:41 Aerobic Blood Culture - Preliminary Blood - Venous - Lab Draw Anaerobic Blood Culture - Preliminary NO GROWTH AFTER 3 DAYS 03/18/21 15:32 Aerobic Blood Culture - Preliminary Blood - Venous Anaerobic Blood Culture - Preliminary NO GROWTH AFTER 3 DAYS 03/18/21 17:40 Urine Culture - Preliminary Urine Gram Negative Rods Med Orders - Current: Current Medications Acetaminophen (Acetaminophen 325 Mg Tab) 650 mg PO Q4H PRN PRN Reason: Pain/Fever Last Admin: 03/19/21 05:42 Dose: 650 mg Documented by: Albuterol/Ipratropium (Albuterol/Ipratropium 3.0-0.5 Mg/3 Ml Neb Soln) 3 ml NEB Q4HRRT PRN PRN Reason: Shortness Of Breath/wheezing Apixaban (Apixaban 5 Mg Tab) 5 mg PO BID [facility] Last Admin: 03/21/21 20:13 Dose: 5 mg Documented by: Budesonide (Budesonide 0.5 Mg/2 Ml Neb Susp) 0.5 mg NEB BIDRT [facility] Last Admin: 03/22/21 06:13 Dose: 0.5 mg Documented by: Carvedilol (Carvedilol 25 Mg Tab) 25 mg PO BID [facility] Last Admin: 03/22/21 08:38 Dose: 25 mg Documented by: Clonazepam (Clonazepam 0.5 Mg Tab) 0.5 mg PO BEDTIME PRN PRN Reason: Anxiety Dextrose/Water (50% Dextrose In Water 50 Ml Syringe) 50 ml IVPUSH ASDIRECTED PRN PRN Reason: Hypoglycemia Diltiazem HCl (Diltiazem Ir 30 Mg Tab) 30 mg PO Q6HR [facility] Last Admin: 03/22/21 05:33 Dose: 30 mg Documented by: Glucagon (Glucagon,Human Recombinant 1 Mg Vial) 1 mg IM ASDIRECTED PRN PRN Reason: Hypoglycemia Cefepime HCl 2 gm/ Premix 50 mls @ 100 mls/hr IV Q8H [facility] Last Admin: 03/22/21 09:50 Dose: 100 mls/hr Documented by: Sodium Chloride (Normal Saline) 500 mls @ 50 mls/hr IV ASDIRECTED [facility] Last Infusion: 03/19/21 05:39 Dose: 0 mls/hr Documented by: Insulin Aspart (Insulin Aspart 100 Units/Ml 3 Ml Pen) 0 unit SUBCUT TIDAC [facility]; Protocol Last Admin: 03/22/21 12:35 Dose: Not Given Documented by: Omeprazole (Omeprazole 20 Mg Cap.Cr) 20 mg PO ACBREAKFAST [facility] Last Admin: 03/22/21 07:00 Dose: 20 mg Documented by: Simvastatin (Simvastatin 40 Mg Tab) 40 mg PO BEDTIME [facility] Last Admin: 03/21/21 20:13 Dose: 40 mg Documented by: Sodium Chloride (Sodium Chloride 0.9% 10 Ml Syringe) 10 ml FLUSH ASDIRECTED PRN PRN Reason: Keep Vein Open Sodium Chloride (Sodium Chloride 0.9% 2.5 Ml Syringe) 2.5 ml FLUSH ASDIRECTED PRN PRN Reason: Keep Vein Open Discontinued Medications Acetaminophen (Acetaminophen 325 Mg Tab) 975 mg PO NOW ONE Stop: 03/18/21 15:36 Last Admin: 03/18/21 15:57 Dose: 975 mg Documented by: Albuterol/Ipratropium (Albuterol/Ipratropium 3.0-0.5 Mg/3 Ml Neb Soln) 3 ml NEB ONETIME ONE Stop: 03/18/21 16:35 Last Admin: 03/18/21 17:07 Dose: Not Given Documented by: Aspirin (Aspirin 81 Mg Tab.Ec) 81 mg PO DAILY [facility] Last Admin: 03/19/21 08:59 Dose: Not Given Documented by: Carvedilol (Carvedilol 25 Mg Tab) 25 mg PO BID [facility] Last Admin: 03/18/21 21:10 Dose: Not Given Documented by: Diltiazem HCl (Diltiazem 25 Mg/5 Ml Sdv) 5 mg IVPUSH ONETIME ONE Stop: 03/18/21 15:44 Last Admin: 03/18/21 15:56 Dose: 5 mg Documented by: Diltiazem HCl (Diltiazem 25 Mg/5 Ml Sdv) 5 mg IVPUSH ONETIME ONE Stop: 03/18/21 17:06 Last Admin: 03/18/21 17:07 Dose: 5 mg Documented by: Diltiazem HCl (Diltiazem 120 Mg Cap.Cd) 120 mg PO DAILY [facility] Lactated Ringer's (Ringers, Lactated) 500 mls @ 999 mls/min IV .BOLUS ONE Stop: 03/18/21 15:39 Last Admin: 03/18/21 15:56 Dose: 999 mls/min Documented by: Cefepime HCl 2 gm/ Premix 50 mls @ 100 mls/hr IV ONETIME ONE Stop: 03/18/21 16:11 Last Admin: 03/18/21 16:33 Dose: 100 mls/hr Documented by: Diltiazem HCl 5 mg/ Sodium (Chloride) 101 mls @ 5 mls/hr IV NOW STA Stop: 03/19/21 12:45 Last Admin: 03/18/21 17:07 Dose: Not Given Documented by: Sodium Chloride (Normal Saline) 500 mls @ 999 mls/min IV STAT STA Stop: 03/18/21 18:19 Last Admin: 03/18/21 18:23 Dose: Not Given Documented by: Sodium Chloride (Normal Saline) 1,000 mls @ 250 mls/hr IV .Bolus ONE Stop: 03/18/21 22:31 Last Admin: 03/18/21 18:37 Dose: Not Given Documented by: Lactated Ringer's (Ringers, Lactated) 1,000 mls @ 250 mls/hr IV ASDIRECTED KOBE Last Admin: 03/18/21 18:20 Dose: 250 mls/hr Documented by: Magnesium Sulfate 2 gm/ Premix 50 mls @ 12.5 mls/hr IV ONETIME ONE Stop: 03/18/21 23:17 Last Admin: 03/18/21 19:27 Dose: 12.5 mls/hr Documented by: Cefepime HCl 2 gm/ Premix 50 mls @ 100 mls/hr IV Q8H KOBE Cefepime HCl 2 gm/ Premix 50 mls @ 100 mls/hr IV Q8H KOBE Cefepime HCl 2 gm/ Premix 50 mls @ 100 mls/hr IV Q8H KOBE Sodium Chloride (Normal Saline) 500 mls @ 999 mls/hr IV ONETIME ONE Stop: 03/18/21 21:50 Last Admin: 03/18/21 21:40 Dose: 999 mls/hr Documented by: Magnesium Sulfate 2 gm/ Premix 50 mls @ 12.5 mls/hr IV ONETIME ONE Stop: 03/19/21 04:31 Last Infusion: 03/19/21 03:00 Dose: 0 mls/hr Documented by: Potassium Chloride 40 meq/ (Premix) 100 mls @ 25 mls/hr IV ONETIME ONE Stop: 03/19/21 04:31 Last Admin: 03/19/21 00:52 Dose: 25 mls/hr Documented by: Sodium Chloride (Normal Saline) 1,000 mls @ 50 mls/hr IV ASDIRECTED KOBE Magnesium Sulfate 2 gm/ Premix 50 mls @ 12.5 mls/hr IV ONETIME ONE Stop: 03/21/21 18:03 Last Admin: 03/21/21 14:51 Dose: 12.5 mls/hr Documented by: Methylprednisolone Sodium Succinate (Methylprednisolone Sodium Succinate 125 Mg/2 Ml Sdv) 125 mg IVPUSH ONETIME ONE Stop: 03/18/21 16:37 Last Admin: 03/18/21 17:30 Dose: 125 mg Documented by: Potassium Chloride (Potassium Chloride 20 Meq Tab.Er) 40 meq PO ONETIME ONE Stop: 03/18/21 20:53 Last Admin: 03/18/21 21:25 Dose: 40 meq Documented by: Potassium Chloride (Potassium Chloride 20 Meq Tab.Er) 40 meq PO ONETIME ONE Stop: 03/21/21 07:33 Last Admin: 03/21/21 08:09 Dose: 40 meq Documented by: Potassium Chloride (Potassium Chloride 20 Meq Tab.Er) 40 meq PO ONETIME ONE Stop: 03/21/21 14:05 - Exam Urinary Catheter Total Time: 2Days 4Hours General: Alert, Oriented Neck: Supple Lungs: Clear to Auscultation, Normal Respiratory Effort Cardiovascular: Regular Rate, Regular Rhythm GI/Abdominal Exam: Soft, Non-Tender Extremities: Pedal Edema (+1) Skin: Warm, Dry, Intact Neurological: No New Focal Deficit - Patient Data Lab Results Last 24 hrs: Laboratory Results - last 24 hr 03/21/21 03/21/21 03/22/21 Range/Units 17:14 20:11 06:25 WBC 9.70 (4.0-11.0) K/uL RBC 3.30 L (4.30-5.90) M/uL Hgb 10.1 L (12.0-16.0) g/dL Hct 31.1 L (36.0-46.0) % MCV 94.2 (80.0-98.0) fL MCH 30.6 (27.0-32.0) pg MCHC 32.5 (31.0-37.0) g/dL RDW Std Deviation 49.1 (28.0-62.0) fl RDW Coeff of Yovani 14 (11.0-15.0) % Plt Count 132 L (150-400) K/uL MPV 10.00 (7.40-12.00) fL Neut % (Auto) 85.0 H (48.0-80.0) % Lymph % (Auto) 5.9 L (16.0-40.0) % Haakon % (Auto) 6.7 (0.0-15.0) % Eos % (Auto) 2.2 (0.0-7.0) % Baso % (Auto) 0.2 (0.0-1.5) % Neut # (Auto) 8.3 H (1.4-5.7) K/uL Lymph # (Auto) 0.6 (0.6-2.4) K/uL Haakon # (Auto) 0.7 (0.0-0.8) K/uL Eos # (Auto) 0.2 (0.0-0.7) K/uL Baso # (Auto) 0.0 (0.0-0.1) K/uL Nucleated RBC % 0.0 /100WBC Nucleated RBCs # 0 K/uL Sodium (136-145) mmol/L Potassium (3.5-5.1) mmol/L Chloride (98-107) mmol/L Carbon Dioxide (21.0-32.0) mmol/L BUN (7.0-18.0) mg/dL Creatinine (0.6-1.0) mg/dL Est Cr Clr Drug Dosing mL/min Estimated GFR (MDRD) ml/min Glucose (74-106) mg/dL POC Glucose 167 H 181 H (70-99) mg/dL Calcium (8.5-10.1) mg/dL Magnesium (1.8-2.4) mg/dL 03/22/21 03/22/21 03/22/21 Range/Units 06:25 06:59 11:49 WBC (4.0-11.0) K/uL RBC (4.30-5.90) M/uL Hgb (12.0-16.0) g/dL Hct (36.0-46.0) % MCV (80.0-98.0) fL MCH (27.0-32.0) pg MCHC (31.0-37.0) g/dL RDW Std Deviation (28.0-62.0) fl RDW Coeff of Yovani (11.0-15.0) % Plt Count (150-400) K/uL MPV (7.40-12.00) fL Neut % (Auto) (48.0-80.0) % Lymph % (Auto) (16.0-40.0) % Haakon % (Auto) (0.0-15.0) % Eos % (Auto) (0.0-7.0) % Baso % (Auto) (0.0-1.5) % Neut # (Auto) (1.4-5.7) K/uL Lymph # (Auto) (0.6-2.4) K/uL Haakon # (Auto) (0.0-0.8) K/uL Eos # (Auto) (0.0-0.7) K/uL Baso # (Auto) (0.0-0.1) K/uL Nucleated RBC % /100WBC Nucleated RBCs # K/uL Sodium 137 (136-145) mmol/L Potassium 3.8 (3.5-5.1) mmol/L Chloride 102 (98-107) mmol/L Carbon Dioxide 31.0 (21.0-32.0) mmol/L BUN 53 H (7.0-18.0) mg/dL Creatinine 1.4 H (0.6-1.0) mg/dL Est Cr Clr Drug Dosing 28.31 mL/min Estimated GFR (MDRD) 36.9 ml/min Glucose 151 H (74-106) mg/dL POC Glucose 156 H 157 H (70-99) mg/dL Calcium 9.0 (8.5-10.1) mg/dL Magnesium 1.8 (1.8-2.4) mg/dL Result Diagrams: 03/22/21 06:25 03/22/21 06:25 Soy Results Last 24 hrs: Microbiology 03/19/21 10:21 Aerobic Blood Culture - Preliminary Blood - Venous - Lab Draw NO GROWTH AFTER 3 DAYS Anaerobic Blood Culture - Preliminary NO GROWTH AFTER 3 DAYS 03/19/21 10:12 Aerobic Blood Culture - Preliminary Blood - Venous NO GROWTH AFTER 3 DAYS Anaerobic Blood Culture - Preliminary NO GROWTH AFTER 3 DAYS 03/19/21 09:20 Stool Culture - Preliminary Stool / Feces Shiga Toxin I & II - Final 03/18/21 15:41 Blood Culture Identification Panel - Final Blood Escherichia Coli 03/18/21 15:32 Blood Culture Identification Panel - Final Blood Escherichia Coli 03/18/21 15:41 Aerobic Blood Culture - Preliminary Blood - Venous - Lab Draw Anaerobic Blood Culture - Preliminary NO GROWTH AFTER 3 DAYS 03/18/21 15:32 Aerobic Blood Culture - Preliminary Blood - Venous Anaerobic Blood Culture - Preliminary NO GROWTH AFTER 3 DAYS 03/18/21 17:40 Urine Culture - Preliminary Urine Gram Negative Rods Sepsis Event Note - Evaluation Sepsis Screening Result: No Definite Risk - Focused Exam Vital Signs: Vital Signs Temp Pulse Pulse Pulse Resp BP BP 03/22/21 12:17 03/22/21 10:12 36.6 C 80 83 18 123/68 03/22/21 08:38 80 120/71 03/22/21 05:20 18 137/66 Pulse Ox Pulse Ox 03/22/21 12:17 95 03/22/21 10:12 95 03/22/21 08:38 03/22/21 05:20 94 L - Problem List Review Problem List Initiated/Reviewed/Updated: Yes - My Orders Last 24 Hours: My Active Orders 03/23/21 05:11 BASIC METABOLIC PANEL,BMP [CHEM] AM CBC WITH AUTO DIFF [HEME] AM - Plan Plan:: 75 yo female admitted for sepsis due to Ecoli UTI. Sepsis is resolving, SepsisWill continue cefepime as awaiting sensitivities CHF-we will hold diuretics, Lasix and bumetanide for now as patient is currently not exhibiting any signs of fluid retention continue to monitor I&O. Carvedilol restarted, 25mg BID. [id number] home medications include Eliquis 5 mg twice daily, diltiazem 30 mg every 6HR but will switch diltaizem to 120 daily tomorrow dispo: likely home tomorrow.
[2021-03-22] MEDS: Simvastatin 40 MG Tab PO SCH (20:25)
[2021-03-23 06:10] LABS: POTASSIUM,K 3.5 mmol/L (3.5-5.1)
[2021-03-23] MEDS: Omeprazole 20 MG Cap.CR PO SCH ×2 (06:21→07:19)
[2021-03-23] MEDS: Budesonide 0.5 MG/2 ML Neb Susp NEB SCH (07:17)
[2021-03-23] MEDS: Cefepime 2 GM in Premix Bag 1 BAG IV SCH (08:17)
[2021-03-23] MEDS: Insulin Aspart 100 Units/ML 3 ML Pen SUBCUT SCH ×2 (08:18→11:42)
[2021-03-23] MEDS: Apixaban 5 MG Tab PO SCH (08:25)
[2021-03-23] MEDS: Carvedilol 25 MG Tab PO SCH (08:25)
[2021-03-23] MEDS: Sodium Chloride 0.9% 2.5 ML Syringe FLUSH PRN ×2 (08:25→08:26)
[2021-03-23] MEDS ORDERED: Diltiazem 120 MG Cap.CD PO SCH (09:00)
[2021-03-23 11:41] VITALS: BP 115/63; PULSE 85
--- NOTE | 2021-03-23 13:53 | PCM.DCSUM1 ---
<Brennan Corona - Last Filed: 03/23/21 18:55> Discharge Summary - Hospital Course Free Text/Narrative:: 75-year-old female presents emergency department due to dizziness, low oxygen saturation (family member noted O2 saturation to be 87% at home) generalized weakness, and a fall, no head trauma noted.. Patient also states that she has not taken her Lasix medication for the past 2 days because pharmacy would not renew prescription. Patient admitted to the medical floor for sepsis, EUGENE, CHF. Past medical history to include A. fib teated with Eliquis, heart murmur, hypertension, CHF, COPD, GERD, diabetes type 2. Upon admission patient denies chest pain, fever, chills, nausea, vomiting, a bdominal pain. Patient denies dysuria, hematuria, denies suprapubic pain. Patient states mild shortness of breath, orthopnea, generalized fatigue. Laboratory findings include white blood cell count 12.5, sodium 129, potassium 2.2, BUN 51, creatinine 2.1, magnesium 0.8. Initial lactic acid noted to be 2.8 will recheck. BNP elevated at 232. Urinalysis positive for urine protein, urine occult blood, leukocyte Estrace, urine white blood cell. CT abdomen pelvis impression to include hepatomegaly, stable ground-glass and reticular opacities throughout the lung bases, diffuse bladder wall thickening. Chest x-ray impression, cardiomegaly stable. Left lower lung atelectasis or scarring. Interstitial opacities in the lower lungs which may represent interstitial infiltrates or edema. EKG interpretation to include atrial fibrillation with RVR, nonspecific ST/T findings. Blood cultures pending. In the ED patient was given 1 L fluid, cefepime 2 g, diltiazem 5 mg IV push, Solu-Medrol 125 mg X 1. Patient also started on 2 g magnesium. Patient's admission course included treatment with IV cefepime 2g every 8 hours, trend daily BMPs, IV fluids as needed, resume home medications for CHF and A. fib, cardiac telemetry, strict I's and O's. Urine cultures grew E. coli, patient discharged home on levofloxacin 500 mg every 48 hours 5 tablets. Patient advised to discuss magnesium supplementation with PCP at next follow-up visit due to severe magnesium deficiency on admission. Patient also advised to discuss current diuretic regimen including Lasix and Bumex dosages. - Discharge Data Discharge Date: 03/23/21 Discharge Disposition: Home, Self-Care 01 Condition: Good - Referral to Home Health Primary Care Physician: PCP None - Discharge Diagnosis/Problem(s) (1) COPD (chronic obstructive pulmonary disease) SNOMED Code(s): 79333060 ICD Code: J44.9 - CHRONIC OBSTRUCTIVE PULMONARY DISEASE, UNSPECIFIED Status: Acute (2) Atrial fibrillation with RVR SNOMED Code(s): 612999363285897 ICD Code: I48.91 - UNSPECIFIED ATRIAL FIBRILLATION Status: Acute Priority: High (3) Atypical chest pain SNOMED Code(s): 751497691 ICD Code: R07.89 - OTHER CHEST PAIN Status: Acute (4) Hypokalemia SNOMED Code(s): 28267577 ICD Code: E87.6 - HYPOKALEMIA Status: Acute (5) Hypomagnesemia SNOMED Code(s): 018294623 ICD Code: E83.42 - HYPOMAGNESEMIA Status: Acute Priority: High (6) UTI (urinary tract infection) SNOMED Code(s): 28157423 ICD Code: N39.0 - URINARY TRACT INFECTION, SITE NOT SPECIFIED Status: Acute Qualifiers: Urinary tract infection type: acute cystitis Hematuria presence: without hematuria Qualified Code(s): N30.00 - Acute cystitis without hematuria (7) Anticoagulation adequate SNOMED Code(s): 851406760, 860089814 ICD Code: Z79.01 - ENVIRONMENTAL PROTECTION SPECIALIST (CURRENT) USE OF ANTICOAGULANTS Status: Chronic (8) Congestive heart failure SNOMED Code(s): 95823316 ICD Code: I50.9 - HEART FAILURE, UNSPECIFIED Status: Chronic (9) DM type 2 (diabetes mellitus, type 2) SNOMED Code(s): 13131008 ICD Code: E11.9 - TYPE 2 DIABETES MELLITUS WITHOUT COMPLICATIONS Status: Chronic Qualifiers: Diabetes mellitus moth exterminator insulin use: without moth exterminator use Diabetes mellitus complication status: with kidney complications (10) GERD (gastroesophageal reflux disease) SNOMED Code(s): 416756146 ICD Code: K21.9 - GASTRO-ESOPHAGEAL REFLUX DISEASE WITHOUT ESOPHAGITIS Status: Chronic Qualifiers: Esophagitis presence: without esophagitis Qualified Code(s): K21.9 - Gastro-esophageal reflux disease without esophagitis (11) HLD (hyperlipidemia) SNOMED Code(s): 99385297 ICD Code: E78.5 - HYPERLIPIDEMIA, UNSPECIFIED Status: Chronic Qualifiers: Hyperlipidemia type: mixed hyperlipidemia Qualified Code(s): E78.2 - Mixed hyperlipidemia (12) Hypertension SNOMED Code(s): 83751756 ICD Code: I10 - ESSENTIAL (PRIMARY) HYPERTENSION Status: Chronic Priority: High Qualifiers: Hypertension type: essential hypertension (13) Morbid obesity SNOMED Code(s): 944096874 ICD Code: E66.01 - MORBID (SEVERE) OBESITY DUE TO EXCESS CALORIES Status: Chronic - Patient Instructions Diet: Usual Diet as Tolerated Activity: As Tolerated Showering/Bathing: May Shower Notify Provider of: Fever, Swelling and Redness, Nausea and/or Vomiting Other/Special Instructions: RESUME HOME MEDICATIONS PRESCRIBED. REVIEW WITH PCP AT NEXT VISIT. PATIENT HAD VERY LOW MAGNESIUM LEVELS DURING ADMISISION. DISCUSS TAKING DAILY MAGNESIUM SUPPLEMENT WITH PCP AT NEXT VISIT. PATIENT DISCHARGED HOME WITH LEVOFLOXACIN ANTIBIOTIC. PATIENT TO START MEDICATION TODAY AND TAKE ONE TABLET EVERY 48 HRS. (TODAY, TUESDAY, TUESDAY ETC...) UNTIL COMPLETED. REPORT TO THE ED IF EXPIERENCING SEVERE SHORTNESS OF BREATH, CHEST PAIN. REPORT SYMPTOMS OF FEVER, CHILLS, NAUSEA TO PCP. - Discharge Plan *PRESCRIPTION DRUG MONITORING PROGRAM REVIEWED*: Not Applicable *COPY OF PRESCRIPTION DRUG MONITORING REPORT IN PATIENT JULISSA: Not Applicable Prescriptions/Med Rec: Levofloxacin 750 mg PO Q48H 10 Days #5 tablet Home Medications: Home Meds Omeprazole 20 mg PO ACBREAKFAST 02/27/14 [History] Carvedilol [Coreg] 25 mg PO BID 09/03/16 [History] Potassium Chloride 24 meq PO BID 09/03/16 [History] Apixaban [Eliquis] 5 mg PO BID 07/17/19 [History] Furosemide 120 mg PO DAILY 07/17/19 [History] allopurinoL [Zyloprim] 200 mg PO DAILY 07/17/19 [History] glipiZIDE [Glucotrol XL] 10 mg PO DAILY 07/17/19 [History] Bumetanide 1 mg PO TID 01/28/20 [History] ClonazePAM [KlonoPIN] 0.5 mg PO BEDTIME PRN 01/28/20 [History] Diltiazem [Dilacor XR] 120 mg PO DAILY 01/28/20 [History] Insulin Detemir [Levemir Flextouch] 30 unit SQ QAM 01/28/20 [History] metOLazone [Metolazone] 2.5 mg PO DAILY 01/28/20 [History] Aspirin [Lo-Dose Aspirin EC] 81 mg PO DAILY 30 Days #30 tablet. 01/29/20 [Rx] Albuterol [Ventolin HFA] 1 - 2 inhalation IH Q4H PRN 05/14/20 [History] Benzonatate 100 mg PO TID PRN 05/14/20 [History] Budesonide [Pulmicort] 0.5 mg NEB BID 05/14/20 [History] Cyanocobalamin (Vitamin B-12) [Cyanocobalamin Injection] 1,000 mcg IM Q30D 04/23 11/08 [History] Mometasone Furoate 1 applic TOP DAILY PRN 05/14/20 [History] levalbuterol HCL [Levalbuterol HCl] 1.25 mg NEB Q6H PRN 05/14/20 [History] Folic Acid 1 mg PO BEDTIME #30 tablet 05/15/20 [Rx] Simvastatin 40 mg PO BEDTIME #30 tablet 05/15/20 [Rx] Thiamine [Vitamin B-1] 100 mg PO BEDTIME #30 tablet 05/15/20 [Rx] nitrofurantoin macrocrystaL [Nitrofurantoin] 100 mg PO BID #8 capsule 05/15/20 [Rx] Diltiazem [Cardizem CD] 120 mg PO DAILY cap.cd 03/23/21 [Rx] Levofloxacin 750 mg PO Q48H 10 Days #5 tablet 03/23/21 [Rx] Patient Handouts: Hypertension, Adult, [id number], Levofloxacin tablets Referrals: Mercedes Peres MD [Physician] - 05/04/21 3:00 pm - Discharge Summary/Plan Comment DC Time >30 min.: Yes - Review of Systems General: Denies: Fever, Chills Pulmonary: Denies: Shortness of Breath, Cough, Wheezing Cardiovascular: Denies: Chest Pain, Edema Gastrointestinal: Denies: Abdominal Pain, Nausea, Vomiting Genitourinary: Denies: Dysuria, Burning Neurological: Denies: Confusion, Dizziness, Headache - Patient Data Vitals - Most Recent: Last Vital Signs Temp 97.2 F 03/23/21 11:40 Pulse 85 03/23/21 11:40 Resp 16 03/23/21 11:40 BP 115/63 03/23/21 11:40 Pulse Ox 96 03/23/21 11:40 Weight - Most Recent: 108 kg I&O - Last 24 hours: Intake & Output 03/22/21 03/23/21 03/23/21 22:59 06:59 14:59 Intake Total 1220 620 Output Total 1050 1400 Balance 170 -780 Lab Results - Last 24 hrs: Laboratory Results - last 24 hr 03/22/21 03/22/21 03/23/21 Range/Units 16:58 20:37 05:25 WBC 9.54 (4.0-11.0) K/uL RBC 3.23 L (4.30-5.90) M/uL Hgb 10.0 L (12.0-16.0) g/dL Hct 30.6 L (36.0-46.0) % MCV 94.7 (80.0-98.0) fL MCH 31.0 (27.0-32.0) pg MCHC 32.7 (31.0-37.0) g/dL RDW Std Deviation 49.5 (28.0-62.0) fl RDW Coeff of Yovani 14 (11.0-15.0) % Plt Count 126 L (150-400) K/uL MPV 9.80 (7.40-12.00) fL Neut % (Auto) 82.9 H (48.0-80.0) % Lymph % (Auto) 7.0 L (16.0-40.0) % Ocean % (Auto) 6.7 (0.0-15.0) % Eos % (Auto) 3.2 (0.0-7.0) % Baso % (Auto) 0.2 (0.0-1.5) % Neut # (Auto) 7.9 H (1.4-5.7) K/uL Lymph # (Auto) 0.7 (0.6-2.4) K/uL Ocean # (Auto) 0.6 (0.0-0.8) K/uL Eos # (Auto) 0.3 (0.0-0.7) K/uL Baso # (Auto) 0.0 (0.0-0.1) K/uL Nucleated RBC % 0.0 /100WBC Nucleated RBCs # 0 K/uL Sodium (136-145) mmol/L Potassium (3.5-5.1) mmol/L Chloride (98-107) mmol/L Carbon Dioxide (21.0-32.0) mmol/L BUN (7.0-18.0) mg/dL Creatinine (0.6-1.0) mg/dL Est Cr Clr Drug Dosing mL/min Estimated GFR (MDRD) ml/min Glucose (74-106) mg/dL POC Glucose 164 H 166 H (70-99) mg/dL Calcium (8.5-10.1) mg/dL 03/23/21 03/23/21 03/23/21 Range/Units 05:25 06:19 11:40 WBC (4.0-11.0) K/uL RBC (4.30-5.90) M/uL Hgb (12.0-16.0) g/dL Hct (36.0-46.0) % MCV (80.0-98.0) fL MCH (27.0-32.0) pg MCHC (31.0-37.0) g/dL RDW Std Deviation (28.0-62.0) fl RDW Coeff of Yovani (11.0-15.0) % Plt Count (150-400) K/uL MPV (7.40-12.00) fL Neut % (Auto) (48.0-80.0) % Lymph % (Auto) (16.0-40.0) % Ocean % (Auto) (0.0-15.0) % Eos % (Auto) (0.0-7.0) % Baso % (Auto) (0.0-1.5) % Neut # (Auto) (1.4-5.7) K/uL Lymph # (Auto) (0.6-2.4) K/uL Ocean # (Auto) (0.0-0.8) K/uL Eos # (Auto) (0.0-0.7) K/uL Baso # (Auto) (0.0-0.1) K/uL Nucleated RBC % /100WBC Nucleated RBCs # K/uL Sodium 137 (136-145) mmol/L Potassium 3.5 (3.5-5.1) mmol/L Chloride 101 (98-107) mmol/L Carbon Dioxide 31.0 (21.0-32.0) mmol/L BUN 46 H (7.0-18.0) mg/dL Creatinine 1.3 H (0.6-1.0) mg/dL Est Cr Clr Drug Dosing 30.48 mL/min Estimated GFR (MDRD) 40.2 ml/min Glucose 151 H (74-106) mg/dL POC Glucose 156 H 176 H (70-99) mg/dL Calcium 8.7 (8.5-10.1) mg/dL MARISA Results - Last 24 hrs: Microbiology 03/19/21 10:21 Aerobic Blood Culture - Preliminary Blood - Venous - Lab Draw NO GROWTH AFTER 4 DAYS Anaerobic Blood Culture - Preliminary NO GROWTH AFTER 4 DAYS 03/19/21 10:12 Aerobic Blood Culture - Preliminary Blood - Venous NO GROWTH AFTER 4 DAYS Anaerobic Blood Culture - Preliminary NO GROWTH AFTER 4 DAYS 03/18/21 15:41 Aerobic Blood Culture - Preliminary Blood - Venous - Lab Draw Anaerobic Blood Culture - Preliminary NO GROWTH AFTER 4 DAYS 03/18/21 15:32 Aerobic Blood Culture - Preliminary Blood - Venous Anaerobic Blood Culture - Preliminary NO GROWTH AFTER 4 DAYS 03/18/21 17:40 Urine Culture - Final Urine Escherichia Coli Mixed Gram Positive Addl Isol 03/19/21 09:20 Stool Culture - Preliminary Stool / Feces Shiga Toxin I & II - Final Med Orders - Current: Current Medications Acetaminophen (Acetaminophen 325 Mg Tab) 650 mg PO Q4H PRN PRN Reason: Pain/Fever Last Admin: 03/19/21 05:42 Dose: 650 mg Documented by: Albuterol/Ipratropium (Albuterol/Ipratropium 3.0-0.5 Mg/3 Ml Neb Soln) 3 ml NEB Q4HRRT PRN PRN Reason: Shortness Of Breath/wheezing Apixaban (Apixaban 5 Mg Tab) 5 mg PO BID [facility] Last Admin: 03/23/21 08:25 Dose: 5 mg Documented by: Budesonide (Budesonide 0.5 Mg/2 Ml Neb Susp) 0.5 mg NEB BIDRT [facility] Last Admin: 03/23/21 07:17 Dose: 0.5 mg Documented by: Carvedilol (Carvedilol 25 Mg Tab) 25 mg PO BID [facility] Last Admin: 03/23/21 08:25 Dose: 25 mg Documented by: Clonazepam (Clonazepam 0.5 Mg Tab) 0.5 mg PO BEDTIME PRN PRN Reason: Anxiety Dextrose/Water (50% Dextrose In Water 50 Ml Syringe) 50 ml IVPUSH ASDIRECTED PRN PRN Reason: Hypoglycemia Diltiazem HCl (Diltiazem 120 Mg Cap.Cd) 120 mg PO DAILY [facility] Last Admin: 03/23/21 08:26 Dose: 120 mg Documented by: Glucagon (Glucagon,Human Recombinant 1 Mg Vial) 1 mg IM ASDIRECTED PRN PRN Reason: Hypoglycemia Sodium Chloride (Normal Saline) 500 mls @ 50 mls/hr IV ASDIRECTED [facility] Last Infusion: 03/19/21 05:39 Dose: 0 mls/hr Documented by: Cefepime HCl 2 gm/ Premix 50 mls @ 100 mls/hr IV Q24H [facility] Insulin Aspart (Insulin Aspart 100 Units/Ml 3 Ml Pen) 0 unit SUBCUT TIDAC [facility]; Protocol Last Admin: 03/23/21 11:42 Dose: 1 unit Documented by: Omeprazole (Omeprazole 20 Mg Cap.Cr) 20 mg PO ACBREAKFAST [facility] Last Admin: 03/23/21 07:19 Dose: Not Given Documented by: Simvastatin (Simvastatin 40 Mg Tab) 40 mg PO BEDTIME [facility] Last Admin: 03/22/21 20:25 Dose: 40 mg Documented by: Sodium Chloride (Sodium Chloride 0.9% 10 Ml Syringe) 10 ml FLUSH ASDIRECTED PRN PRN Reason: Keep Vein Open Sodium Chloride (Sodium Chloride 0.9% 2.5 Ml Syringe) 2.5 ml FLUSH ASDIRECTED PRN PRN Reason: Keep Vein Open Last Admin: 03/23/21 08:26 Dose: 2.5 ml Documented by: Discontinued Medications Acetaminophen (Acetaminophen 325 Mg Tab) 975 mg PO NOW ONE Stop: 03/18/21 15:36 Last Admin: 03/18/21 15:57 Dose: 975 mg Documented by: Albuterol/Ipratropium (Albuterol/Ipratropium 3.0-0.5 Mg/3 Ml Neb Soln) 3 ml NEB ONETIME ONE Stop: 03/18/21 16:35 Last Admin: 03/18/21 17:07 Dose: Not Given Documented by: Aspirin (Aspirin 81 Mg Tab.Ec) 81 mg PO DAILY [facility] Last Admin: 03/19/21 08:59 Dose: Not Given Documented by: Carvedilol (Carvedilol 25 Mg Tab) 25 mg PO BID [facility] Last Admin: 03/18/21 21:10 Dose: Not Given Documented by: Diltiazem HCl (Diltiazem 25 Mg/5 Ml Sdv) 5 mg IVPUSH ONETIME ONE Stop: 03/18/21 15:44 Last Admin: 03/18/21 15:56 Dose: 5 mg Documented by: Diltiazem HCl (Diltiazem 25 Mg/5 Ml Sdv) 5 mg IVPUSH ONETIME ONE Stop: 03/18/21 17:06 Last Admin: 03/18/21 17:07 Dose: 5 mg Documented by: Diltiazem HCl (Diltiazem 120 Mg Cap.Cd) 120 mg PO DAILY [facility] Diltiazem HCl (Diltiazem Ir 30 Mg Tab) 30 mg PO Q6HR KOBE Stop: 03/23/21 02:00 Last Admin: 03/22/21 23:28 Dose: 30 mg Documented by: Lactated Ringer's (Ringers, Lactated) 500 mls @ 999 mls/min IV .BOLUS ONE Stop: 03/18/21 15:39 Last Admin: 03/18/21 15:56 Dose: 999 mls/min Documented by: Cefepime HCl 2 gm/ Premix 50 mls @ 100 mls/hr IV ONETIME ONE Stop: 03/18/21 16:11 Last Admin: 03/18/21 16:33 Dose: 100 mls/hr Documented by: Diltiazem HCl 5 mg/ Sodium (Chloride) 101 mls @ 5 mls/hr IV NOW STA Stop: 03/19/21 12:45 Last Admin: 03/18/21 17:07 Dose: Not Given Documented by: Sodium Chloride (Normal Saline) 500 mls @ 999 mls/min IV STAT STA Stop: 03/18/21 18:19 Last Admin: 03/18/21 18:23 Dose: Not Given Documented by: Sodium Chloride (Normal Saline) 1,000 mls @ 250 mls/hr IV .Bolus ONE Stop: 03/18/21 22:31 Last Admin: 03/18/21 18:37 Dose: Not Given Documented by: Lactated Ringer's (Ringers, Lactated) 1,000 mls @ 250 mls/hr IV ASDIRECTED KOBE Last Admin: 03/18/21 18:20 Dose: 250 mls/hr Documented by: Magnesium Sulfate 2 gm/ Premix 50 mls @ 12.5 mls/hr IV ONETIME ONE Stop: 03/18/21 23:17 Last Admin: 03/18/21 19:27 Dose: 12.5 mls/hr Documented by: Cefepime HCl 2 gm/ Premix 50 mls @ 100 mls/hr IV Q8H KOBE Cefepime HCl 2 gm/ Premix 50 mls @ 100 mls/hr IV Q8H KOBE Cefepime HCl 2 gm/ Premix 50 mls @ 100 mls/hr IV Q8H KOBE Cefepime HCl 2 gm/ Premix 50 mls @ 100 mls/hr IV Q8H KOBE Last Admin: 03/23/21 08:17 Dose: Not Given Documented by: Sodium Chloride (Normal Saline) 500 mls @ 999 mls/hr IV ONETIME ONE Stop: 03/18/21 21:50 Last Admin: 03/18/21 21:40 Dose: 999 mls/hr Documented by: Magnesium Sulfate 2 gm/ Premix 50 mls @ 12.5 mls/hr IV ONETIME ONE Stop: 03/19/21 04:31 Last Infusion: 03/19/21 03:00 Dose: 0 mls/hr Documented by: Potassium Chloride 40 meq/ (Premix) 100 mls @ 25 mls/hr IV ONETIME ONE Stop: 03/19/21 04:31 Last Admin: 03/19/21 00:52 Dose: 25 mls/hr Documented by: Sodium Chloride (Normal Saline) 1,000 mls @ 50 mls/hr IV ASDIRECTED KOBE Magnesium Sulfate 2 gm/ Premix 50 mls @ 12.5 mls/hr IV ONETIME ONE Stop: 03/21/21 18:03 Last Admin: 03/21/21 14:51 Dose: 12.5 mls/hr Documented by: Methylprednisolone Sodium Succinate (Methylprednisolone Sodium Succinate 125 Mg/2 Ml Sdv) 125 mg IVPUSH ONETIME ONE Stop: 03/18/21 16:37 Last Admin: 03/18/21 17:30 Dose: 125 mg Documented by: Potassium Chloride (Potassium Chloride 20 Meq Tab.Er) 40 meq PO ONETIME ONE Stop: 03/18/21 20:53 Last Admin: 03/18/21 21:25 Dose: 40 meq Documented by: Potassium Chloride (Potassium Chloride 20 Meq Tab.Er) 40 meq PO ONETIME ONE Stop: 03/21/21 07:33 Last Admin: 03/21/21 08:09 Dose: 40 meq Documented by: Potassium Chloride (Potassium Chloride 20 Meq Tab.Er) 40 meq PO ONETIME ONE Stop: 03/21/21 14:05 - Exam General: Reports: Alert, Oriented Lungs: Reports: Clear to Auscultation, Normal Respiratory Effort Cardiovascular: Reports: Regular Rate, Irregular Rhythm GI/Abdominal Exam: Soft, Non-Tender Extremities: No Pedal Edema Psy/Mental Status: Reports: Alert <Amadeo Fraser - Last Filed: 03/24/21 19:42> Discharge Summary - Referral to Home Health Primary Care Physician: PCP None - Patient Data Vitals - Most Recent: Last Vital Signs Temp 36.2 C 03/23/21 11:40 Pulse 85 03/23/21 11:40 Resp 16 03/23/21 11:40 BP 115/63 03/23/21 11:40 Pulse Ox 96 03/23/21 11:40 MARISA Results - Last 24 hrs: Microbiology 03/19/21 09:20 Stool Culture - Final Stool / Feces Shiga Toxin I & II - Final 03/19/21 10:21 Aerobic Blood Culture - Final Blood - Venous - Lab Draw NO GROWTH AFTER 5 DAYS Anaerobic Blood Culture - Final NO GROWTH AFTER 5 DAYS 03/19/21 10:12 Aerobic Blood Culture - Final Blood - Venous NO GROWTH AFTER 5 DAYS Anaerobic Blood Culture - Final NO GROWTH AFTER 5 DAYS 03/18/21 15:41 Aerobic Blood Culture - Preliminary Blood - Venous - Lab Draw Anaerobic Blood Culture - Final NO GROWTH AFTER 5 DAYS 03/18/21 15:32 Aerobic Blood Culture - Preliminary Blood - Venous Anaerobic Blood Culture - Final NO GROWTH AFTER 5 DAYS Med Orders - Current: Current Medications Discontinued Medications Acetaminophen (Acetaminophen 325 Mg Tab) 975 mg PO NOW ONE Stop: 03/18/21 15:36 Last Admin: 03/18/21 15:57 Dose: 975 mg Documented by: Acetaminophen (Acetaminophen 325 Mg Tab) 650 mg PO Q4H PRN PRN Reason: Pain/Fever Last Admin: 03/19/21 05:42 Dose: 650 mg Documented by: Albuterol/Ipratropium (Albuterol/Ipratropium 3.0-0.5 Mg/3 Ml Neb Soln) 3 ml NEB ONETIME ONE Stop: 03/18/21 16:35 Last Admin: 03/18/21 17:07 Dose: Not Given Documented by: Albuterol/Ipratropium (Albuterol/Ipratropium 3.0-0.5 Mg/3 Ml Neb Soln) 3 ml NEB Q4HRRT PRN PRN Reason: Shortness Of Breath/wheezing Apixaban (Apixaban 5 Mg Tab) 5 mg PO BID [facility] Last Admin: 03/23/21 08:25 Dose: 5 mg Documented by: Aspirin (Aspirin 81 Mg Tab.Ec) 81 mg PO DAILY [facility] Last Admin: 03/19/21 08:59 Dose: Not Given Documented by: Budesonide (Budesonide 0.5 Mg/2 Ml Neb Susp) 0.5 mg NEB BIDRT [facility] Last Admin: 03/23/21 07:17 Dose: 0.5 mg Documented by: Carvedilol (Carvedilol 25 Mg Tab) 25 mg PO BID [facility] Last Admin: 03/18/21 21:10 Dose: Not Given Documented by: Carvedilol (Carvedilol 25 Mg Tab) 25 mg PO BID [facility] Last Admin: 03/23/21 08:25 Dose: 25 mg Documented by: Clonazepam (Clonazepam 0.5 Mg Tab) 0.5 mg PO BEDTIME PRN PRN Reason: Anxiety Dextrose/Water (50% Dextrose In Water 50 Ml Syringe) 50 ml IVPUSH ASDIRECTED PRN PRN Reason: Hypoglycemia Diltiazem HCl (Diltiazem 25 Mg/5 Ml Sdv) 5 mg IVPUSH ONETIME ONE Stop: 03/18/21 15:44 Last Admin: 03/18/21 15:56 Dose: 5 mg Documented by: Diltiazem HCl (Diltiazem 25 Mg/5 Ml Sdv) 5 mg IVPUSH ONETIME ONE Stop: 03/18/21 17:06 Last Admin: 03/18/21 17:07 Dose: 5 mg Documented by: Diltiazem HCl (Diltiazem 120 Mg Cap.Cd) 120 mg PO DAILY [facility] Diltiazem HCl (Diltiazem Ir 30 Mg Tab) 30 mg PO Q6HR KOBE Stop: 03/23/21 02:00 Last Admin: 03/22/21 23:28 Dose: 30 mg Documented by: Diltiazem HCl (Diltiazem 120 Mg Cap.Cd) 120 mg PO DAILY [facility] Last Admin: 03/23/21 08:26 Dose: 120 mg Documented by: Glucagon (Glucagon,Human Recombinant 1 Mg Vial) 1 mg IM ASDIRECTED PRN PRN Reason: Hypoglycemia Lactated Ringer's (Ringers, Lactated) 500 mls @ 999 mls/min IV .BOLUS ONE Stop: 03/18/21 15:39 Last Admin: 03/18/21 15:56 Dose: 999 mls/min Documented by: Cefepime HCl 2 gm/ Premix 50 mls @ 100 mls/hr IV ONETIME ONE Stop: 03/18/21 16:11 Last Admin: 03/18/21 16:33 Dose: 100 mls/hr Documented by: Diltiazem HCl 5 mg/ Sodium (Chloride) 101 mls @ 5 mls/hr IV NOW STA Stop: 03/19/21 12:45 Last Admin: 03/18/21 17:07 Dose: Not Given Documented by: Sodium Chloride (Normal Saline) 500 mls @ 999 mls/min IV STAT STA Stop: 03/18/21 18:19 Last Admin: 03/18/21 18:23 Dose: Not Given Documented by: Sodium Chloride (Normal Saline) 1,000 mls @ 250 mls/hr IV .Bolus ONE Stop: 03/18/21 22:31 Last Admin: 03/18/21 18:37 Dose: Not Given Documented by: Lactated Ringer's (Ringers, Lactated) 1,000 mls @ 250 mls/hr IV ASDIRECTED [facility] Last Admin: 03/18/21 18:20 Dose: 250 mls/hr Documented by: Magnesium Sulfate 2 gm/ Premix 50 mls @ 12.5 mls/hr IV ONETIME ONE Stop: 03/18/21 23:17 Last Admin: 03/18/21 19:27 Dose: 12.5 mls/hr Documented by: Cefepime HCl 2 gm/ Premix 50 mls @ 100 mls/hr IV Q8H KOBE Cefepime HCl 2 gm/ Premix 50 mls @ 100 mls/hr IV Q8H KOEB Cefepime HCl 2 gm/ Premix 50 mls @ 100 mls/hr IV Q8H KO[facility] Cefepime HCl 2 gm/ Premix 50 mls @ 100 mls/hr IV Q8H KOBE Last Admin: 03/23/21 08:17 Dose: Not Given Documented by: Sodium Chloride (Normal Saline) 500 mls @ 999 mls/hr IV ONETIME ONE Stop: 03/18/21 21:50 Last Admin: 03/18/21 21:40 Dose: 999 mls/hr Documented by: Magnesium Sulfate 2 gm/ Premix 50 mls @ 12.5 mls/hr IV ONETIME ONE Stop: 03/19/21 04:31 Last Infusion: 03/19/21 03:00 Dose: 0 mls/hr Documented by: Potassium Chloride 40 meq/ (Premix) 100 mls @ 25 mls/hr IV ONETIME ONE Stop: 03/19/21 04:31 Last Admin: 03/19/21 00:52 Dose: 25 mls/hr Documented by: Sodium Chloride (Normal Saline) 1,000 mls @ 50 mls/hr IV ASDIRECTED [facility] Sodium Chloride (Normal Saline) 500 mls @ 50 mls/hr IV ASDIRECTED [facility] Last Infusion: 03/19/21 05:39 Dose: 0 mls/hr Documented by: Magnesium Sulfate 2 gm/ Premix 50 mls @ 12.5 mls/hr IV ONETIME ONE Stop: 03/21/21 18:03 Last Admin: 03/21/21 14:51 Dose: 12.5 mls/hr Documented by: Cefepime HCl 2 gm/ Premix 50 mls @ 100 mls/hr IV Q24H [facility] Insulin Aspart (Insulin Aspart 100 Units/Ml 3 Ml Pen) 0 unit SUBCUT TIDAC [facility]; Protocol Last Admin: 03/23/21 11:42 Dose: 1 unit Documented by: Methylprednisolone Sodium Succinate (Methylprednisolone Sodium Succinate 125 Mg /2 Ml Sdv) 125 mg IVPUSH ONETIME ONE Stop: 03/18/21 16:37 Last Admin: 03/18/21 17:30 Dose: 125 mg Documented by: Omeprazole (Omeprazole 20 Mg Cap.Cr) 20 mg PO ACBREAKFAST [facility] Last Admin: 03/23/21 07:19 Dose: Not Given Documented by: Potassium Chloride (Potassium Chloride 20 Meq Tab.Er) 40 meq PO ONETIME ONE Stop: 03/18/21 20:53 Last Admin: 03/18/21 21:25 Dose: 40 meq Documented by: Potassium Chloride (Potassium Chloride 20 Meq Tab.Er) 40 meq PO ONETIME ONE Stop: 03/21/21 07:33 Last Admin: 03/21/21 08:09 Dose: 40 meq Documented by: Potassium Chloride (Potassium Chloride 20 Meq Tab.Er) 40 meq PO ONETIME ONE Stop: 03/21/21 14:05 Simvastatin (Simvastatin 40 Mg Tab) 40 mg PO BEDTIME [facility] Last Admin: 03/22/21 20:25 Dose: 40 mg Documented by: Sodium Chloride (Sodium Chloride 0.9% 10 Ml Syringe) 10 ml FLUSH ASDIRECTED PRN PRN Reason: Keep Vein Open Sodium Chloride (Sodium Chloride 0.9% 2.5 Ml Syringe) 2.5 ml FLUSH ASDIRECTED PRN PRN Reason: Keep Vein Open Last Admin: 03/23/21 08:26 Dose: 2.5 ml Documented by: - Free Text/Narrative Note: I have seen and examined the patient with the resident. I have discussed fi ndings and treatment plan with resident. I agree with the assessment and plan as outlined in the following note.
[2021-03-24] MEDS ORDERED: Cefepime 2 GM in Premix Bag 1 BAG IV SCH ×2
== END 2021-03-23 13:45 | disposition home or self-care (01) | DRG 872 ==
LOC: MW.ED 15:30 → MW.ICU 18:20 → MW.MS 03-20 17:13
PROVIDERS: ADMIT Internal Medicine; ATTEND Internal Medicine
DX: A41.9 Sepsis, unspecified organism (principal); N17.9 Acute kidney failure, unspecified; N30.00 Acute cystitis without hematuria; I50.9 Heart failure, unspecified; I48.91 Unspecified atrial fibrillation; I11.0 Hypertensive heart disease with heart failure; J44.9 Chronic obstructive pulmonary disease, unspecified; E11.42 Type 2 diabetes mellitus with diabetic polyneuropathy; F32.9 Major depressive disorder, single episode, unspecified; Z88.1 Allergy status to other antibiotic agents; Z88.6 Allergy status to analgesic agent; K21.9 Gastro-esophageal reflux disease without esophagitis; Z79.82 Long term (current) use of aspirin; B96.20 Unspecified Escherichia coli [E. coli] as the cause of diseases classified elsewhere; Z79.51 Long term (current) use of inhaled steroids; E87.6 Hypokalemia; E83.42 Hypomagnesemia; Z96.659 Presence of unspecified artificial knee joint; E78.5 Hyperlipidemia, unspecified; E11.21 Type 2 diabetes mellitus with diabetic nephropathy; E78.2 Mixed hyperlipidemia; E66.01 Morbid (severe) obesity due to excess calories; Z79.4 Long term (current) use of insulin; Z79.899 Other long term (current) drug therapy; Z88.0 Allergy status to penicillin; Z79.01 Long term (current) use of anticoagulants; Z88.5 Allergy status to narcotic agent; Z87.01 Personal history of pneumonia (recurrent); Z90.49 Acquired absence of other specified parts of digestive tract; Z90.710 Acquired absence of both cervix and uterus; R07.89 Other chest pain; Z20.822 Contact with and (suspected) exposure to COVID-19; W19.XXXA Unspecified fall, initial encounter
CPT/HCPCS: 0240U; 36415; 71045; 74176; 80048; 80053; 81001; 82947; 83605; 83690; 83735; 83880; 84100; 84484; 85025; 85610; 87040; 87045; 87046; 87077; 87086; 87088; 87186; 87324; 87449; 87899; 93005; 94640; 96365; 96375; 96376; 99291; A9270-GY; G0390; J0692; J1815-GY; J2930; J3475; J3480; J3490; J7030; J7040; J7120

== ENCOUNTER 2021-09-07 14:40 | Emergency (ER) | payer MEDICARE, OTHER ==
[2021-09-07 17:08] VITALS: BP 145/79; PULSE 80
== END 2021-09-07 17:11 | disposition home or self-care (01) ==
LOC: MW.ED 14:40
DX: U07.1 COVID-19 (principal); J12.82 Pneumonia due to coronavirus disease 2019; R09.02 Hypoxemia; I48.91 Unspecified atrial fibrillation; I11.0 Hypertensive heart disease with heart failure; I50.9 Heart failure, unspecified; J44.9 Chronic obstructive pulmonary disease, unspecified; K21.9 Gastro-esophageal reflux disease without esophagitis; E11.21 Type 2 diabetes mellitus with diabetic nephropathy; Z88.5 Allergy status to narcotic agent; Z88.0 Allergy status to penicillin; Z79.01 Long term (current) use of anticoagulants; Z79.899 Other long term (current) drug therapy; Z79.82 Long term (current) use of aspirin; Z79.84 Long term (current) use of oral hypoglycemic drugs
CPT/HCPCS: 71045; 71045-26; 93005; 99285-25

== ENCOUNTER 2021-12-03 15:20 | Inpatient (IN) | payer MEDICARE, OTHER ==
[2021-12-03] MEDS ORDERED: Acetaminophen 500 MG Tab PO ONE (15:26)
[2021-12-03] MEDS ORDERED: Cefepime 2 GM in Sodium Chloride 0.9% 50 ML IV ONE (15:29)
[2021-12-03] MEDS ORDERED: Sodium Chloride 0.9% 500 ML IV ONE (16:17)
[2021-12-03 17:01] LABS: CARBON DIOXIDE,CO2 27.8 mmol/L (21.0-32.0); POTASSIUM,K 3.9 mmol/L (3.5-5.1)
[2021-12-03] MEDS ORDERED: Sodium Chloride 0.9% 1,000 ML IV ONE (17:31)
[2021-12-03] MEDS ORDERED: Magnesium Sulfate/Water 2 GM in Premix Bag 1 BAG IV ONE (17:33)
[2021-12-03] MEDS ORDERED: VANCOmycin 1.5 GM/300 ML 1.5 GM in Premix Bag 1 BAG IV ONE (17:45)
[2021-12-03 18:03] LABS: CORONAVIRUS COVID-19 NAA NEGATIVE (NEGATIVE); INFLUENZA A NAA NEGATIVE (NEGATIVE); INFLUENZA B NAA NEGATIVE (NEGATIVE)
[2021-12-03] MEDS ORDERED: Ondansetron 4 MG/2 ML SDV IVPUSH PRN (18:19)
[2021-12-03] MEDS ORDERED: Fluconazole 100 MG Tab PO ONE (18:25)
[2021-12-03] MEDS ORDERED: Lactated Ringers 1,000 ML IV SCH (18:30)
[2021-12-03] MEDS: Simvastatin 40 MG Tab PO SCH (21:26)
[2021-12-03] MEDS: Nystatin Topical Powder 15 GM Bottle TOP SCH (21:26)
[2021-12-03] MEDS: Budesonide 0.5 MG/2 ML Neb Susp NEB SCH (21:26)
[2021-12-03] MEDS: Cefepime 2 GM in Sodium Chloride 0.9% 50 ML IV SCH (23:22)
[2021-12-04] MEDS: Cefepime 2 GM in Sodium Chloride 0.9% 50 ML IV SCH ×3 (06:13→23:18)
[2021-12-04] MEDS: Nystatin Topical Powder 15 GM Bottle TOP SCH ×3 (06:14→21:16)
[2021-12-04 06:25] LABS: CARBON DIOXIDE,CO2 28.6 mmol/L (21.0-32.0); POTASSIUM,K 3.5 mmol/L (3.5-5.1)
[2021-12-04] MEDS ORDERED: Insulin Detemir 100 Units/ML 3 ML Pen SUBCUT SCH ×2 (09:00→11:00)
[2021-12-04] MEDS: Pantoprazole 40 MG in Sodium Chloride 0.9% 10 ML IVPUSH SCH (09:04)
[2021-12-04] MEDS: Aspirin 81 MG Tab.EC PO SCH (09:08)
[2021-12-04] MEDS: Budesonide 0.5 MG/2 ML Neb Susp NEB SCH ×2 (09:35→21:26)
[2021-12-04] MEDS ORDERED: Glucagon,Human Recombinant 1 MG Vial IM PRN (10:33)
[2021-12-04] MEDS ORDERED: 50% Dextrose in Water 50 ML Syringe IVPUSH PRN (10:33)
[2021-12-04] MEDS: Heparin Sodium 5,000 Units/ML Vial SUBCUT SCH ×2 (11:35→21:25)
[2021-12-04] MEDS: Insulin Aspart 100 Units/ML 3 ML Pen SUBCUT SCH ×2 (12:08→17:59)
[2021-12-04] MEDS: Simvastatin 40 MG Tab PO SCH (21:26)
[2021-12-05] MEDS: Nystatin Topical Powder 15 GM Bottle TOP SCH ×3 (06:15→21:46)
[2021-12-05] MEDS: Cefepime 2 GM in Sodium Chloride 0.9% 50 ML IV SCH ×3 (06:15→23:01)
[2021-12-05 06:21] LABS: CARBON DIOXIDE,CO2 26.2 mmol/L (21.0-32.0); POTASSIUM,K 3.2 mmol/L (3.5-5.1)
[2021-12-05] MEDS: Insulin Aspart 100 Units/ML 3 ML Pen SUBCUT SCH ×3 (06:57→17:38)
[2021-12-05] MEDS: Pantoprazole 40 MG in Sodium Chloride 0.9% 10 ML IVPUSH SCH (09:37)
[2021-12-05] MEDS: Aspirin 81 MG Tab.EC PO SCH (09:37)
[2021-12-05] MEDS: Heparin Sodium 5,000 Units/ML Vial SUBCUT SCH ×2 (09:37→21:46)
[2021-12-05] MEDS: Budesonide 0.5 MG/2 ML Neb Susp NEB SCH ×2 (09:56→21:45)
[2021-12-05] MEDS: Diltiazem 120 MG Cap.CD PO SCH (11:51)
[2021-12-05] MEDS: Acetaminophen 325 MG Tab PO PRN (14:34)
[2021-12-05] MEDS: VANCOmycin 1.5 GM/300 ML 1.5 GM in Premix Bag 1 BAG IV SCH (16:03)
[2021-12-05] MEDS: Benzonatate 100 MG Cap PO PRN (17:42)
[2021-12-05] MEDS: Albuterol/Ipratropium 3.0-0.5 MG/3 ML Neb Soln NEB PRN (17:42)
[2021-12-05] MEDS: Simvastatin 40 MG Tab PO SCH (21:45)
[2021-12-05] MEDS: ClonazePAM 0.5 MG Tab PO PRN (21:45)
[2021-12-06] MEDS: Benzonatate 100 MG Cap PO PRN ×3 (03:29→22:02)
[2021-12-06] MEDS: Acetaminophen 325 MG Tab PO PRN ×2 (03:30→10:39)
[2021-12-06] MEDS: Nystatin Topical Powder 15 GM Bottle TOP SCH ×3 (06:07→22:04)
[2021-12-06] MEDS: Cefepime 2 GM in Sodium Chloride 0.9% 50 ML IV SCH ×3 (06:08→22:05)
[2021-12-06 06:16] LABS: CARBON DIOXIDE,CO2 29.5 mmol/L (21.0-32.0); POTASSIUM,K 3.1 mmol/L (3.5-5.1)
[2021-12-06] MEDS: Insulin Aspart 100 Units/ML 3 ML Pen SUBCUT SCH ×3 (08:02→20:46)
[2021-12-06] MEDS: Diltiazem 120 MG Cap.CD PO SCH (08:04)
[2021-12-06] MEDS: Aspirin 81 MG Tab.EC PO SCH (08:04)
[2021-12-06] MEDS: Pantoprazole 40 MG in Sodium Chloride 0.9% 10 ML IVPUSH SCH (08:07)
[2021-12-06] MEDS: Heparin Sodium 5,000 Units/ML Vial SUBCUT SCH ×2 (08:08→20:46)
[2021-12-06] MEDS ORDERED: Sodium Chloride 0.9% 500 ML IV SCH (08:30)
[2021-12-06] MEDS: Budesonide 0.5 MG/2 ML Neb Susp NEB SCH ×2 (08:44→20:47)
[2021-12-06] MEDS ORDERED: Potassium Chloride 20 MEQ Tab.ER PO ONE (08:53)
[2021-12-06] MEDS: Albuterol/Ipratropium 3.0-0.5 MG/3 ML Neb Soln NEB PRN (15:57)
[2021-12-06] MEDS: Simvastatin 40 MG Tab PO SCH (20:46)
[2021-12-06] MEDS: ClonazePAM 0.5 MG Tab PO PRN (22:02)
[2021-12-07 06:03] LABS: CARBON DIOXIDE,CO2 29.7 mmol/L (21.0-32.0); POTASSIUM,K 3.4 mmol/L (3.5-5.1)
[2021-12-07] MEDS: Cefepime 2 GM in Sodium Chloride 0.9% 50 ML IV SCH ×3 (06:55→22:27)
[2021-12-07] MEDS: Nystatin Topical Powder 15 GM Bottle TOP SCH ×3 (06:56→22:27)
[2021-12-07] MEDS: Insulin Aspart 100 Units/ML 3 ML Pen SUBCUT SCH ×3 (07:38→17:48)
[2021-12-07] MEDS: Pantoprazole 40 MG in Sodium Chloride 0.9% 10 ML IVPUSH SCH (08:16)
[2021-12-07] MEDS: Diltiazem 120 MG Cap.CD PO SCH (08:17)
[2021-12-07] MEDS: Aspirin 81 MG Tab.EC PO SCH (08:17)
[2021-12-07] MEDS: Heparin Sodium 5,000 Units/ML Vial SUBCUT SCH ×2 (08:17→20:38)
[2021-12-07] MEDS: Benzonatate 100 MG Cap PO PRN (08:24)
[2021-12-07] MEDS ORDERED: Codeine/guaiFENesin 10-100 MG/5 ML Syrup 5 ML Cup PO PRN (08:46)
[2021-12-07] MEDS: Budesonide 0.5 MG/2 ML Neb Susp NEB SCH ×2 (09:41→20:36)
[2021-12-07] MEDS: Carvedilol 25 MG Tab PO SCH ×2 (09:41→20:37)
[2021-12-07] MEDS ORDERED: VANCOmycin 1.75 GM/350 ML 1.75 GM in Premix Bag 1 BAG IV SCH (16:30)
[2021-12-07] MEDS: VANCOmycin 1.5 GM/300 ML 1.5 GM in Premix Bag 1 BAG IV SCH (17:07)
[2021-12-07] MEDS: Simvastatin 40 MG Tab PO SCH (20:36)
[2021-12-07] MEDS: ClonazePAM 0.5 MG Tab PO PRN (22:44)
[2021-12-08] MEDS: Albuterol/Ipratropium 3.0-0.5 MG/3 ML Neb Soln NEB PRN (03:43)
[2021-12-08] MEDS: Cefepime 2 GM in Sodium Chloride 0.9% 50 ML IV SCH (06:18)
[2021-12-08 06:21] LABS: POTASSIUM,K 3.5 mmol/L (3.5-5.1)
[2021-12-08] MEDS: Nystatin Topical Powder 15 GM Bottle TOP SCH ×2 (06:48→14:07)
[2021-12-08] MEDS: Insulin Aspart 100 Units/ML 3 ML Pen SUBCUT SCH ×2 (08:15→11:54)
[2021-12-08] MEDS: Diltiazem 120 MG Cap.CD PO SCH (08:18)
[2021-12-08] MEDS: Pantoprazole 40 MG in Sodium Chloride 0.9% 10 ML IVPUSH SCH (08:19)
[2021-12-08] MEDS: Carvedilol 25 MG Tab PO SCH (08:19)
[2021-12-08] MEDS: Aspirin 81 MG Tab.EC PO SCH (08:19)
[2021-12-08] MEDS: Budesonide 0.5 MG/2 ML Neb Susp NEB SCH (08:19)
[2021-12-08] MEDS: Heparin Sodium 5,000 Units/ML Vial SUBCUT SCH (08:20)
[2021-12-08] MEDS ORDERED: Polyethylene Glycol 3350 Powder 17 GM Packet PO ONE (10:04)
[2021-12-08 12:04] VITALS: BP 114/50; PULSE 77
== END 2021-12-08 14:55 | disposition home or self-care (01) | DRG 871 ==
LOC: MW.ED 15:20 → MW.MS 17:58
PROVIDERS: ADMIT Student in an Organized Health Care Education/Training Program; ATTEND Student in an Organized Health Care Education/Training Program
DX: A41.9 Sepsis, unspecified organism (principal); J18.9 Pneumonia, unspecified organism; N17.9 Acute kidney failure, unspecified; I11.0 Hypertensive heart disease with heart failure; E87.1 Hypo-osmolality and hyponatremia; I13.0 Hypertensive heart and chronic kidney disease with heart failure and stage 1 through stage 4 chronic kidney disease, or unspecified chronic kidney disease; E11.21 Type 2 diabetes mellitus with diabetic nephropathy; E11.42 Type 2 diabetes mellitus with diabetic polyneuropathy; J44.0 Chronic obstructive pulmonary disease with (acute) lower respiratory infection; I50.9 Heart failure, unspecified; I48.91 Unspecified atrial fibrillation; Z79.01 Long term (current) use of anticoagulants; E66.01 Morbid (severe) obesity due to excess calories; Z79.4 Long term (current) use of insulin; Z79.51 Long term (current) use of inhaled steroids; E78.5 Hyperlipidemia, unspecified; K21.9 Gastro-esophageal reflux disease without esophagitis; F32.A Depression, unspecified; Z96.653 Presence of artificial knee joint, bilateral; I27.20 Pulmonary hypertension, unspecified; R65.20 Severe sepsis without septic shock; E83.42 Hypomagnesemia; N18.9 Chronic kidney disease, unspecified; E11.22 Type 2 diabetes mellitus with diabetic chronic kidney disease; Z20.822 Contact with and (suspected) exposure to COVID-19; Z79.899 Other long term (current) drug therapy; Z86.16 Personal history of COVID-19; Z88.1 Allergy status to other antibiotic agents; Z88.8 Allergy status to other drugs, medicaments and biological substances; Z79.82 Long term (current) use of aspirin; Z90.710 Acquired absence of both cervix and uterus; Z90.49 Acquired absence of other specified parts of digestive tract; Z99.81 Dependence on supplemental oxygen
CPT/HCPCS: 0240U; 36415; 70450; 71045; 72125; 80048; 80053; 80202; 81001; 82550; 82947; 83605; 83735; 84100; 84484; 85025; 86140; 87040; 93005; 94640; 96365; 96375; 97110; 97112; 97116; 97163; 97530; 99285; A9270-GY; C9113; J0692; J1644; J1815-GY; J3370; J3475; J3490; J7030; J7120; J7620-GY

== ENCOUNTER 2021-12-09 12:50 | Emergency (ER) | payer MEDICARE, OTHER ==
[2021-12-09 15:09] LABS: POTASSIUM,K 4.3 mmol/L (3.5-5.1)
[2021-12-09 15:51] VITALS: BP 129/59; PULSE 80
[2021-12-09] MEDS ORDERED: LORazepam 2 MG/ML SDV IVPUSH PRN (17:01)
[2021-12-09] MEDS ORDERED: Sodium Chloride 0.9% 2.5 ML Syringe FLUSH PRN (17:01)
[2021-12-09] MEDS ORDERED: Ondansetron 4 MG/2 ML SDV IVPUSH PRN (17:01)
[2021-12-09] MEDS ORDERED: Sodium Chloride 0.9% 10 ML Syringe FLUSH PRN (17:01)
[2021-12-09] MEDS ORDERED: Acetaminophen 325 MG Tab PO PRN (17:01)
[2021-12-09] MEDS ORDERED: Rivaroxaban 15 MG Tab PO SCH (17:30)
[2021-12-09] MEDS ORDERED: Albuterol/Ipratropium 3.0-0.5 MG/3 ML Neb Soln NEB PRN (18:00)
[2021-12-09] MEDS ORDERED: Cephalexin 500 MG Cap PO SCH (21:00)
[2021-12-09] MEDS ORDERED: Simvastatin 40 MG Tab PO SCH (21:00)
[2021-12-09] MEDS ORDERED: Carvedilol 25 MG Tab PO SCH (21:00)
[2021-12-09] MEDS ORDERED: Docusate Sodium 100 MG Cap PO PRN (21:00)
[2021-12-10] MEDS ORDERED: Azithromycin 250 MG Tab PO SCH (09:00)
[2021-12-10] MEDS ORDERED: Omeprazole 20 MG Cap.CR PO SCH (11:30)
== END 2021-12-09 17:10 | disposition other institution (70) ==
LOC: MW.ED 12:50 → MW.MS 16:57 → UNDOADMOB 16:57 → UNDODISOB 19:03
DX: R53.1 Weakness (principal); F81.81 Disorder of written expression
CPT/HCPCS: 36415; 80053; 80307; 82607; 83735; 85025; 85610; 85730; 93005; 99285-25

== ENCOUNTER 2022-02-19 12:39 | Emergency (ER) | payer MEDICARE, OTHER ==
[2022-02-19] MEDS ORDERED: Sodium Chloride 0.9% 1,000 ML IV ONE (13:20)
[2022-02-19] MEDS ORDERED: Sodium Chloride 0.9% 2.5 ML Syringe FLUSH PRN (13:20)
[2022-02-19] MEDS ORDERED: Sodium Chloride 0.9% 10 ML Syringe FLUSH PRN (13:20)
[2022-02-19 13:50] LABS: POTASSIUM,K 3.8 mmol/L (3.5-5.1)
[2022-02-19] MEDS ORDERED: Ondansetron 4 MG/2 ML SDV IVPUSH ONE (14:25)
[2022-02-19] MEDS ORDERED: Morphine 4 MG/ML VIAL IVPUSH ONE ×2 (14:25→17:05)
[2022-02-19] MEDS ORDERED: Furosemide 40 MG/4 ML VIAL IVPUSH ONE (18:02)
[2022-02-19] MEDS ORDERED: Sulfamethoxazole/Trimethoprim 800-160 MG Tab PO ONE (18:02)
[2022-02-19 18:30] VITALS: BP 128/59; PULSE 81
== END 2022-02-19 18:51 | disposition home or self-care (01) ==
LOC: MW.ED 12:39
DX: L73.2 Hidradenitis suppurativa (principal); I11.0 Hypertensive heart disease with heart failure; I50.9 Heart failure, unspecified; E11.21 Type 2 diabetes mellitus with diabetic nephropathy; I48.91 Unspecified atrial fibrillation; Z20.822 Contact with and (suspected) exposure to COVID-19; Z79.899 Other long term (current) drug therapy; Z88.0 Allergy status to penicillin; Z88.5 Allergy status to narcotic agent
CPT/HCPCS: 36415; 71045; 72192; 74176; 80053; 81001; 83605; 84443; 84484; 85025; 87040; 93005; 96361; 96374; 96375; 96376; 99284; A9270; J1940; J2270; J2405; J3490; J7030; U0002

== ENCOUNTER 2022-04-17 15:49 | Observation (INO) | payer MEDICARE, OTHER ==
[2022-04-17] MEDS ORDERED: Morphine 4 MG/ML VIAL IVPUSH STA (15:54)
[2022-04-17 17:13] LABS: BLOOD UREA NITROGEN,BUN 64 mg/dL (7.0-18.0); CARBON DIOXIDE,CO2 36.7 mmol/L (21.0-32.0); CHLORIDE,CL 93 mmol/L (98-107); GLUCOSE RANDOM 221 mg/dL (74-106); POTASSIUM,K 3.2 mmol/L (3.5-5.1); SODIUM,NA 137 mmol/L (136-145)
[2022-04-17 17:14] LABS: ESTIMATED GFR 20 mL/min (>60)
[2022-04-17] MEDS ORDERED: Acetaminophen/HYDROcodone 325-5 MG Tab PO ONE (21:04)
[2022-04-17] MEDS ORDERED: Morphine 2 MG/ML SYRINGE IVPUSH PRN (21:43)
[2022-04-17] MEDS ORDERED: Simvastatin 40 MG Tab PO ONE (22:30)
[2022-04-17] MEDS ORDERED: Rivaroxaban 15 MG Tab PO ONE (22:30)
[2022-04-17] MEDS ORDERED: Rivaroxaban 15 MG Tab ONE (22:55)
[2022-04-17] MEDS ORDERED: Allopurinol 100 MG Tab PO ONE (23:00)
[2022-04-17] MEDS ORDERED: Doxycycline 100 MG Cap PO ONE (23:00)
[2022-04-17] MEDS: Carvedilol 25 MG Tab PO SCH (23:03)
[2022-04-18] MEDS: Acetaminophen/HYDROcodone 325-5 MG Tab PO PRN ×4 (04:42→23:32)
[2022-04-18 06:57] LABS: POTASSIUM,K 2.9 mmol/L (3.5-5.1)
[2022-04-18] MEDS ORDERED: Potassium Chloride 20 MEQ Tab.ER PO ONE (07:01)
[2022-04-18] MEDS ORDERED: Magnesium Oxide 400 MG Tab PO ONE (07:02)
[2022-04-18] MEDS: Doxycycline 100 MG Cap PO SCH ×2 (08:58→20:39)
[2022-04-18] MEDS ORDERED: Allopurinol 100 MG Tab PO SCH (09:00)
[2022-04-18] MEDS ORDERED: Rivaroxaban 15 MG Tab PO SCH (09:00)
[2022-04-18] MEDS ORDERED: Sodium Chloride 0.9% 500 ML IV SCH ×2 (09:58→10:15)
[2022-04-18] MEDS: Diltiazem 120 MG Cap.CD PO SCH (10:12)
[2022-04-18] MEDS: Carvedilol 25 MG Tab PO SCH ×2 (13:39→20:39)
[2022-04-18] MEDS: Rivaroxaban 15 MG Tab PO SCH (20:39)
[2022-04-18] MEDS: Simvastatin 40 MG Tab PO SCH (20:39)
[2022-04-18] MEDS: Allopurinol 100 MG Tab PO SCH (20:40)
[2022-04-19 06:19] LABS: CARBON DIOXIDE,CO2 35.4 mmol/L (21.0-32.0)
[2022-04-19] MEDS: Acetaminophen/HYDROcodone 325-5 MG Tab PO PRN ×2 (06:38→21:42)
[2022-04-19] MEDS ORDERED: Potassium Chloride 10% 20 MEQ/15 ML Soln 30 ML UD Cup PO ONE (07:39)
[2022-04-19] MEDS ORDERED: Sodium Chloride 0.9% 500 ML IV SCH (08:00)
[2022-04-19] MEDS ORDERED: Potassium Chloride 20 MEQ Tab.ER PO ONE (08:45)
[2022-04-19] MEDS: Potassium Chloride 100 ML IV SCH ×2 (08:54→12:53)
[2022-04-19] MEDS: Doxycycline 100 MG Cap PO SCH ×2 (08:54→21:42)
[2022-04-19] MEDS: Carvedilol 25 MG Tab PO SCH ×2 (09:04→21:43)
[2022-04-19] MEDS: Diltiazem 120 MG Cap.CD PO SCH (09:04)
[2022-04-19] MEDS ORDERED: Magnesium Sulfate/Water 2 GM in Premix Bag 1 BAG IV ONE (09:15)
[2022-04-19] MEDS ORDERED: 50% Dextrose in Water 50 ML Syringe IVPUSH PRN (20:33)
[2022-04-19] MEDS ORDERED: Glucagon,Human Recombinant 1 MG Vial IM PRN (20:33)
[2022-04-19] MEDS: Rivaroxaban 15 MG Tab PO SCH (21:41)
[2022-04-19] MEDS: Simvastatin 40 MG Tab PO SCH (21:42)
[2022-04-19] MEDS: Allopurinol 100 MG Tab PO SCH (21:42)
[2022-04-20 06:15] LABS: CARBON DIOXIDE,CO2 32.4 mmol/L (21.0-32.0); POTASSIUM,K 3.3 mmol/L (3.5-5.1)
[2022-04-20] MEDS ORDERED: Magnesium Oxide 400 MG Tab PO ONE (06:51)
[2022-04-20] MEDS ORDERED: Potassium Chloride 20 MEQ Tab.ER PO ONE (07:30)
[2022-04-20] MEDS: Insulin Aspart 100 Units/ML 3 ML Pen SUBCUT SCH ×3 (08:06→16:53)
[2022-04-20] MEDS: Doxycycline 100 MG Cap PO SCH ×2 (08:10→21:26)
[2022-04-20] MEDS: Diltiazem 120 MG Cap.CD PO SCH (09:37)
[2022-04-20] MEDS: Carvedilol 25 MG Tab PO SCH ×2 (09:37→22:17)
[2022-04-20] MEDS: Acetaminophen/HYDROcodone 325-5 MG Tab PO PRN ×2 (13:43→21:26)
[2022-04-20] MEDS ORDERED: Rivaroxaban 10 MG Tab PO SCH (17:30)
[2022-04-20] MEDS: Allopurinol 100 MG Tab PO SCH (21:26)
[2022-04-20] MEDS: Simvastatin 40 MG Tab PO SCH (21:26)
[2022-04-21 05:57] LABS: CARBON DIOXIDE,CO2 29.9 mmol/L (21.0-32.0); POTASSIUM,K 3.5 mmol/L (3.5-5.1)
[2022-04-21] MEDS: Acetaminophen/HYDROcodone 325-5 MG Tab PO PRN (07:28)
[2022-04-21] MEDS: Insulin Aspart 100 Units/ML 3 ML Pen SUBCUT SCH ×2 (07:39→11:35)
[2022-04-21] MEDS: Doxycycline 100 MG Cap PO SCH (08:56)
[2022-04-21] MEDS: Diltiazem 120 MG Cap.CD PO SCH (09:33)
[2022-04-21] MEDS: Carvedilol 25 MG Tab PO SCH (09:33)
[2022-04-21] MEDS ORDERED: Magnesium Sulfate/Water 2 GM in Premix Bag 1 BAG IV ONE (11:22)
[2022-04-21 11:35] VITALS: BP 102/56; PULSE 87
== END 2022-04-21 15:10 | disposition home or self-care (01) ==
LOC: MW.ED 15:49 → MW.MS 20:56
PROVIDERS: ADMIT Internal Medicine; ATTEND Internal Medicine
DX: S82.832A Other fracture of upper and lower end of left fibula, initial encounter for closed fracture (principal); R55 Syncope and collapse; M47.812 Spondylosis without myelopathy or radiculopathy, cervical region; M48.02 Spinal stenosis, cervical region; I13.0 Hypertensive heart and chronic kidney disease with heart failure and stage 1 through stage 4 chronic kidney disease, or unspecified chronic kidney disease; E11.22 Type 2 diabetes mellitus with diabetic chronic kidney disease; I50.9 Heart failure, unspecified; N18.9 Chronic kidney disease, unspecified; N17.9 Acute kidney failure, unspecified; E11.42 Type 2 diabetes mellitus with diabetic polyneuropathy; E78.5 Hyperlipidemia, unspecified; I27.20 Pulmonary hypertension, unspecified; J44.9 Chronic obstructive pulmonary disease, unspecified; K21.9 Gastro-esophageal reflux disease without esophagitis; F32.A Depression, unspecified; I48.91 Unspecified atrial fibrillation; E66.9 Obesity, unspecified; Z68.41 Body mass index [BMI] 40.0-44.9, adult; Z79.4 Long term (current) use of insulin; Z79.899 Other long term (current) drug therapy; Z79.02 Long term (current) use of antithrombotics/antiplatelets; Z88.0 Allergy status to penicillin; Z88.5 Allergy status to narcotic agent; Z79.01 Long term (current) use of anticoagulants; Z90.49 Acquired absence of other specified parts of digestive tract; Z98.890 Other specified postprocedural states; Z90.710 Acquired absence of both cervix and uterus; Z96.659 Presence of unspecified artificial knee joint; Z20.822 Contact with and (suspected) exposure to COVID-19; Z86.79 Personal history of other diseases of the circulatory system; W19.XXXA Unspecified fall, initial encounter
CPT/HCPCS: 36415; 70450; 71045; 72125; 72170; 73610; 80048; 80053; 80307; 81001; 82947; 83735; 83880; 84443; 84484; 85025; 85610; 93005; 96374; 97110; 97161; 99285; A9270; J1815; J2270; J3475; J3480; J7030; J7040; U0002; 93010

== ENCOUNTER 2022-06-16 06:07 | Day surgery (SDC) | payer MEDICARE, OTHER ==
[~2022-06-16 06:07] MED LIST: Lactated Ringers 1,000 ML IV SCH
[2022-06-16] MEDS ORDERED: Propofol 200 MG/20 ML SDV ONE ×2 (07:02→08:47)
[2022-06-16] MEDS ORDERED: fentaNYL 250 MCG/5 ML SDV ONE (07:02)
[2022-06-16] MEDS ORDERED: Lidocaine 2% 5 ML SDV ONE (07:03)
[2022-06-16] MEDS ORDERED: Ropivacaine 0.5% 5 MG/ML 30 ML SDV ONE (07:15)
[2022-06-16] MEDS ORDERED: Lidocaine 1% 5 ML VIAL ONE (07:23)
[2022-06-16] MEDS ORDERED: fentaNYL 50 MCG/ML SDV IVPUSH PRN (07:26)
[2022-06-16] MEDS ORDERED: Ondansetron 4 MG/2 ML SDV IVPUSH PRN (07:26)
[2022-06-16] MEDS ORDERED: Morphine 2 MG/ML SYRINGE IVPUSH PRN (07:26)
[2022-06-16] MEDS ORDERED: Naloxone 0.4 MG/ML SDV IVPUSH PRN (07:26)
[2022-06-16] MEDS ORDERED: HYDROmorphone 1 MG/ML Syringe IVPUSH PRN (07:26)
[2022-06-16] MEDS ORDERED: Metoclopramide 10 MG/2 ML SDV IVPUSH PRN (07:26)
[2022-06-16] MEDS ORDERED: Albuterol 0.083% 2.5 MG/3 ML Neb Soln NEB PRN (07:26)
[2022-06-16] MEDS ORDERED: ceFAZolin 2 GM in Premix Bag 1 BAG IV SCH (08:00)
[2022-06-16 10:26] VITALS: BP 140/64; PULSE 79
== END 2022-06-16 10:34 | disposition home or self-care (01) ==
LOC: MW.SDS 06:07
PROVIDERS: ATTEND Orthopaedic Surgery
DX: S82.832G Other fracture of upper and lower end of left fibula, subsequent encounter for closed fracture with delayed healing (principal); I10 Essential (primary) hypertension; E11.40 Type 2 diabetes mellitus with diabetic neuropathy, unspecified; E78.5 Hyperlipidemia, unspecified; I48.91 Unspecified atrial fibrillation; J44.9 Chronic obstructive pulmonary disease, unspecified; K21.9 Gastro-esophageal reflux disease without esophagitis; M19.90 Unspecified osteoarthritis, unspecified site; F32.A Depression, unspecified; Z90.710 Acquired absence of both cervix and uterus; Z98.890 Other specified postprocedural states; Z96.659 Presence of unspecified artificial knee joint; Z87.891 Personal history of nicotine dependence; Z88.5 Allergy status to narcotic agent; Z88.1 Allergy status to other antibiotic agents; Z90.49 Acquired absence of other specified parts of digestive tract; Z79.899 Other long term (current) drug therapy
CPT/HCPCS: 27726; C1713; J2704; J2795; J7120; 01480; 64450; 76942; 99100; J3010

== ENCOUNTER 2023-03-29 16:53 | Emergency (ER) | payer MEDICARE, OTHER ==
[2023-03-29] MEDS ORDERED: Morphine 2 MG/ML SYRINGE IVPUSH ONE ×2 (17:12→17:58)
[2023-03-29] MEDS ORDERED: Albuterol/Ipratropium 3.0-0.5 MG/3 ML Neb Soln NEB ONE (17:22)
[2023-03-29 17:35] LABS: BASOPHILS ABSOLUTE AUTO 0.1 K/uL (0.0-0.1); BASOPHILS PERCENT AUTO 0.6 % (0.0-1.5); EOSINOPHILS ABSOLUTE AUTO 0.5 K/uL (0.0-0.7); EOSINOPHILS PERCENT AUTO 5.5 % (0.0-7.0); HEMATOCRIT 26.6 % (36.0-46.0); HEMOGLOBIN 7.9 g/dL (12.0-16.0); LYMPHOCYTES ABSOLUTE AUTO 1.3 K/uL (0.6-2.4); LYMPHOCYTES PERCENT AUTO 16.1 % (16.0-40.0); MEAN CORPUSCULAR HEMOGLOBIN 25.6 pg (27.0-32.0); MEAN CORPUSCULAR HGB CONC 29.7 g/dL (31.0-37.0); MEAN CORPUSCULAR VOLUME 86.4 fL (80.0-98.0); MONOCYTES ABSOLUTE AUTO 0.4 K/uL (0.0-0.8); MONOCYTES PERCENT AUTO 5.1 % (0.0-15.0); NEUTROPHILS PERCENT AUTO 72.7 % (48.0-80.0); NRBC ABSOLUTE 0 K/uL; PLATELET COUNT,PLT 191 K/uL (150-400); RED BLOOD CELL COUNT 3.08 M/uL (4.30-5.90)
[2023-03-29 17:41] LABS: LACTIC ACID 2.3 mmol/L (0.4-2.0)
[2023-03-29 17:42] LABS: BASE EXCESS VENOUS -1.1 (-2.0-3.0); BICARBONATE,VENOUS 26 mEq/L (23-28); PCO2 VENOUS 58 mmHG (41-51); PH,VENOUS 7.26 (7.31-7.41); PO2 VENOUS < 30 mmHG
[2023-03-29 17:52] LABS: A/G RATIO 0.5 (0.9-1.6); ALBUMIN 2.8 g/dL (3.4-5.0); BILIRUBIN TOTAL 0.3 mg/dL (0.2-1.0); CALCIUM 8.9 mg/dL (8.5-10.1); CARBON DIOXIDE,CO2 26.7 mmol/L (21.0-32.0); CREATININE 1.8 mg/dL (0.6-1.0); EST CRCL DRUG DOSING (CG) 20.38 mL/min; POTASSIUM,K 6.3 mmol/L (3.5-5.1); PROTEIN TOTAL,TP 8.9 g/dL (6.4-8.2)
[2023-03-29] MEDS ORDERED: Sodium Chloride 0.9% 500 ML IV SCH (18:00)
[2023-03-29] MEDS ORDERED: Insulin Regular, Human 100 Units/ML 10 ML Vial IVPUSH ONE (18:23)
[2023-03-29] MEDS ORDERED: 50% Dextrose in Water 50 ML Syringe IVPUSH PRN (18:23)
[2023-03-29] MEDS ORDERED: Albuterol 0.083% 2.5 MG/3 ML Neb Soln NEB ONE (18:31)
[2023-03-29 19:08] LABS: INR 1.48 (0.86-1.11)
[2023-03-29 21:18] VITALS: BP 149/82; PULSE 94
== END 2023-03-29 23:01 ==
LOC: MW.ED 16:53
DX: R55 Syncope and collapse (principal); R77.8 Other specified abnormalities of plasma proteins; J44.9 Chronic obstructive pulmonary disease, unspecified; I48.91 Unspecified atrial fibrillation; I11.0 Hypertensive heart disease with heart failure; K21.9 Gastro-esophageal reflux disease without esophagitis; E11.21 Type 2 diabetes mellitus with diabetic nephropathy; Z86.73 Personal history of transient ischemic attack (TIA), and cerebral infarction without residual deficits; Z88.5 Allergy status to narcotic agent; Z79.01 Long term (current) use of anticoagulants; Z79.84 Long term (current) use of oral hypoglycemic drugs; Z79.899 Other long term (current) drug therapy
CPT/HCPCS: 36415; 71045; 80053; 82803; 82947; 83605; 83735; 84484; 85025; 85610; 85730; 86850; 86900; 86901; 96361; 96374; 96375; 96376; 99285; J1815; J2270; J7040; 93010; J3490; J7620-GY

== ENCOUNTER 2023-04-18 11:07 | Emergency (ER) | payer MEDICARE, OTHER ==
[2023-04-18] MEDS ORDERED: Sodium Chloride 0.9% 1,000 ML IV ONE (11:41)
[2023-04-18] MEDS ORDERED: Sodium Chloride 0.9% 500 ML IV ONE (11:50)
[2023-04-18 12:20] LABS: BASOPHILS ABSOLUTE AUTO 0.1 K/uL (0.0-0.1); EOSINOPHILS ABSOLUTE AUTO 0.5 K/uL (0.0-0.7); EOSINOPHILS PERCENT AUTO 8.8 % (0.0-7.0); HEMATOCRIT 28.8 % (36.0-46.0); HEMOGLOBIN 8.4 g/dL (12.0-16.0); LYMPHOCYTES ABSOLUTE AUTO 1.2 K/uL (0.6-2.4); LYMPHOCYTES PERCENT AUTO 20.9 % (16.0-40.0); MEAN CORPUSCULAR HEMOGLOBIN 25.8 pg (27.0-32.0); MEAN CORPUSCULAR HGB CONC 29.2 g/dL (31.0-37.0); MEAN CORPUSCULAR VOLUME 88.6 fL (80.0-98.0); MONOCYTES ABSOLUTE AUTO 0.5 K/uL (0.0-0.8); MONOCYTES PERCENT AUTO 7.9 % (0.0-15.0); NEUTROPHILS ABSOLUTE AUTO 3.6 K/uL (1.4-5.7); NEUTROPHILS PERCENT AUTO 61.4 % (48.0-80.0); NRBC ABSOLUTE 0 K/uL; PLATELET COUNT,PLT 169 K/uL (150-400); RED BLOOD CELL COUNT 3.25 M/uL (4.30-5.90); WHITE BLOOD CELL COUNT,WBC 5.79 K/uL (4.0-11.0)
[2023-04-18] MEDS ORDERED: Acetaminophen 500 MG Tab PO ONE (12:52)
[2023-04-18 13:07] LABS: A/G RATIO 0.4 (0.9-1.6); ALBUMIN 2.8 g/dL (3.4-5.0); BILIRUBIN TOTAL 0.2 mg/dL (0.2-1.0); CALCIUM 9.2 mg/dL (8.5-10.1); CARBON DIOXIDE,CO2 30.8 mmol/L (21.0-32.0); CREATININE 1.5 mg/dL (0.6-1.0); EST CRCL DRUG DOSING (CG) 25.63 mL/min; MAGNESIUM 1.9 mg/dL (1.8-2.4); POTASSIUM,K 5.2 mmol/L (3.5-5.1); PROTEIN TOTAL,TP 9.1 g/dL (6.4-8.2)
[2023-04-18 13:51] LABS: APPEARANCE,URINE SLT CLOUDY; BILIRUBIN,URINE NEGATIVE (NEGATIVE); COLOR,URINE YELLOW; GLUCOSE,URINE NEGATIVE (NEGATIVE); KETONES,URINE NEGATIVE (NEGATIVE); LEUKOCYTE ESTERASE,URINE TRACE (NEGATIVE); NITRITE,URINE POSITIVE (NEGATIVE); OCCULT BLOOD,URINE TRACE-INTACT (NEGATIVE); PROTEIN,URINE NEGATIVE (NEGATIVE); UROBILINOGEN,URINE 0.2 EU/dL (<2.0)
[2023-04-18 14:09] LABS: BACTERIA,URINE 3+ (NEGATIVE); EPITHELIAL CELLS,URINE OCCASIONAL (NONE-FEW); MUCUS,URINE LIGHT (NONE-MOD); WBC,URINE 0-2 (0-5/HPF)
[2023-04-18 14:57] VITALS: BP 150/73; PULSE 85
== END 2023-04-18 14:55 | disposition home or self-care (01) ==
LOC: MW.ED 11:07
DX: N30.00 Acute cystitis without hematuria (principal); J44.9 Chronic obstructive pulmonary disease, unspecified; I11.0 Hypertensive heart disease with heart failure; I50.9 Heart failure, unspecified; K21.9 Gastro-esophageal reflux disease without esophagitis; I48.91 Unspecified atrial fibrillation; E11.21 Type 2 diabetes mellitus with diabetic nephropathy; E11.42 Type 2 diabetes mellitus with diabetic polyneuropathy; M10.9 Gout, unspecified; Z88.5 Allergy status to narcotic agent; Z88.0 Allergy status to penicillin; Z79.899 Other long term (current) drug therapy; Z79.01 Long term (current) use of anticoagulants; Z79.84 Long term (current) use of oral hypoglycemic drugs
CPT/HCPCS: 36415; 80053; 81001; 83735; 85025; 86850; 86900; 86901; 87086; 93005; 96360; 99283; A9270; J7030; 87088; 87186; 93010

== ENCOUNTER 2024-10-22 10:11 | Inpatient (IN) | payer MEDICARE, OTHER ==
[2024-10-22 10:23] LABS: BASOPHILS ABSOLUTE AUTO 0.02 K/uL (0.00-0.20); BASOPHILS PERCENT AUTO 0.4 % (0.0-1.0); EOSINOPHILS ABSOLUTE AUTO 0.06 K/uL (0.00-0.45); EOSINOPHILS PERCENT AUTO 1.3 % (0.0-6.0); HEMOGLOBIN 9.9 g/dL (12.0-16.0); IMMATURE GRAN ABSOLUTE AUTO 0.02 K/uL (0.00-0.05); IMMATURE GRAN PERCENT AUTO 0.4 % (0.0-0.4); LYMPHOCYTES ABSOLUTE AUTO 0.67 K/uL (1.00-4.80); LYMPHOCYTES PERCENT AUTO 14.1 % (24.0-44.0); MEAN CORPUSCULAR HEMOGLOBIN 29.3 pg (28.0-32.0); MEAN CORPUSCULAR HGB CONC 31.9 g/dL (32.0-36.0); MEAN CORPUSCULAR VOLUME 91.7 fL (83.0-99.0); MEAN PLATELET VOLUME 10.4 fL (9.4-12.3); MONOCYTES PERCENT AUTO 8.4 % (0.0-8.0); NEUTROPHILS ABSOLUTE AUTO 3.58 K/uL (1.80-7.70); NEUTROPHILS PERCENT AUTO 75.4 % (41.0-71.0); PLATELET COUNT,PLT 113 K/uL (150-400); RED BLOOD CELL COUNT 3.38 M/uL (4.10-5.30); WHITE BLOOD CELL COUNT,WBC 4.75 K/uL (3.9-11.3)
[2024-10-22 11:02] LABS: CORONAVIRUS COVID-19 NAA POSITIVE (NEGATIVE); INFLUENZA A NAA NEGATIVE (NEGATIVE); INFLUENZA B NAA NEGATIVE (NEGATIVE)
[2024-10-22 11:04] LABS: A/G RATIO 0.7 (0.9-1.6); ALANINE AMINOTRANSFERASE,ALT 14 IU/L (14-63); ALBUMIN 3.2 g/dL (3.4-5.0); ALKALINE PHOSPHATASE 80 U/L (46-116); ASPARTATE AMNIOTRANSFERASE,AST 13 IU/L (15-37); BILIRUBIN TOTAL 0.4 mg/dL (0.2-1.0); BLOOD UREA NITROGEN,BUN 50 mg/dL (7.0-18.0); CALCIUM 8.6 mg/dL (8.5-10.1); CARBON DIOXIDE,CO2 25.8 mmol/L (21.0-32.0); CHLORIDE,CL 100 mmol/L (98-107); CREATININE 2.8 mg/dL (0.6-1.0); GLUCOSE RANDOM 59 mg/dL (74-106); MAGNESIUM 1.8 mg/dL (1.8-2.4); POTASSIUM,K 4.4 mmol/L (3.5-5.1); PRO B-TYPE NATRIUR PEPT,BNPPRO 19149 pg/mL (0-450); PROTEIN TOTAL,TP 7.9 g/dL (6.4-8.2); SODIUM,NA 135 mmol/L (136-145); TSH ULTRASENSITIVE 2.14 uIU/mL (0.36-3.74)
[2024-10-22 11:11] LABS: ESTIMATED GFR 17 mL/min (>60)
[2024-10-22] MEDS: Albuterol/Ipratropium 3.0-0.5 MG/3 ML Neb Soln NEB ONE (12:00)
[2024-10-22] MEDS: Furosemide 40 MG/4 ML VIAL IVPUSH ONE (12:14)
[2024-10-22] MEDS ORDERED: Sodium Chloride 0.9% 2.5 ML Syringe FLUSH PRN (15:49)
[2024-10-22] MEDS ORDERED: Acetaminophen 325 MG Tab PO PRN (15:49)
[2024-10-22] MEDS ORDERED: Sodium Chloride 0.9% 10 ML Syringe FLUSH PRN (15:49)
[2024-10-22] MEDS: REMDESIVIR 200 MG in Sodium Chloride 0.9% 250 ML IV ONE (17:19)
[2024-10-22] MEDS: methylPREDNISolone Sodium Succinate 40 MG/1 ML SDV IVPUSH SCH (17:20)
[2024-10-22] MEDS: Furosemide 40 MG/4 ML VIAL IVPUSH SCH (17:20)
[2024-10-22] MEDS: Rivaroxaban 10 MG Tab PO SCH (17:20)
[2024-10-22] MEDS: Albuterol/Ipratropium 3.0-0.5 MG/3 ML Neb Soln NEB SCH (17:35)
[2024-10-22 18:44] LABS: APPEARANCE,URINE SLT CLOUDY; BILIRUBIN,URINE NEGATIVE (NEGATIVE); COLOR,URINE YELLOW; GLUCOSE,URINE NEGATIVE (NEGATIVE); KETONES,URINE NEGATIVE (NEGATIVE); LEUKOCYTE ESTERASE,URINE SMALL (NEGATIVE); NITRITE,URINE NEGATIVE (NEGATIVE); OCCULT BLOOD,URINE SMALL (NEGATIVE); PROTEIN,URINE NEGATIVE (NEGATIVE); UROBILINOGEN,URINE 0.2 EU/dL (<2.0)
[2024-10-22 18:54] LABS: BACTERIA,URINE 3+ (NEGATIVE); EPITHELIAL CELLS,URINE RARE (NONE-FEW); RBC,URINE 0-1 (0-2/HPF); WBC,URINE 15-20 (0-5/HPF)
[2024-10-22] MEDS: atorvaSTATin 20 MG Tab PO SCH (20:24)
[2024-10-22] MEDS: Carvedilol 25 MG Tab PO SCH (20:25)
[2024-10-22] MEDS: Nystatin Topical Powder 15 GM Bottle TOP SCH (20:29)
[2024-10-22] MEDS: Magnesium Oxide 400 MG Tab PO SCH (20:29)
[2024-10-23] MEDS: Benzonatate 100 MG Cap PO PRN (03:15)
[2024-10-23 06:03] LABS: HEMATOCRIT 29.5 % (37.0-47.0); HEMOGLOBIN 9.8 g/dL (12.0-16.0); IMMATURE GRAN ABSOLUTE AUTO 0.02 K/uL (0.00-0.05); IMMATURE GRAN PERCENT AUTO 0.5 % (0.0-0.4); LYMPHOCYTES ABSOLUTE AUTO 0.37 K/uL (1.00-4.80); LYMPHOCYTES PERCENT AUTO 8.9 % (24.0-44.0); MEAN CORPUSCULAR HGB CONC 33.2 g/dL (32.0-36.0); MEAN CORPUSCULAR VOLUME 90.2 fL (83.0-99.0); MEAN PLATELET VOLUME 10.8 fL (9.4-12.3); MONOCYTES ABSOLUTE AUTO 0.24 K/uL (0.00-0.80); MONOCYTES PERCENT AUTO 5.8 % (0.0-8.0); NEUTROPHILS ABSOLUTE AUTO 3.52 K/uL (1.80-7.70); NEUTROPHILS PERCENT AUTO 84.8 % (41.0-71.0); PLATELET COUNT,PLT 120 K/uL (150-400); RED BLOOD CELL COUNT 3.27 M/uL (4.10-5.30); WHITE BLOOD CELL COUNT,WBC 4.15 K/uL (3.9-11.3)
[2024-10-23 06:38] LABS: A/G RATIO 0.7 (0.9-1.6); ALBUMIN 3.1 g/dL (3.4-5.0); BILIRUBIN TOTAL 0.4 mg/dL (0.2-1.0); CALCIUM 8.6 mg/dL (8.5-10.1); CARBON DIOXIDE,CO2 27.8 mmol/L (21.0-32.0); CREATININE 2.7 mg/dL (0.6-1.0); EST CRCL DRUG DOSING (CG) 13.17 mL/min; PHOSPHORUS 5.2 mg/dL (2.6-4.7); PROTEIN TOTAL,TP 7.9 g/dL (6.4-8.2)
[2024-10-23] MEDS ORDERED: 50% Dextrose in Water 50 ML Syringe IVPUSH PRN (08:01)
[2024-10-23] MEDS ORDERED: Glucagon,Human Recombinant 1 MG Vial IM PRN (08:01)
[2024-10-23] MEDS: Ferrous Sulfate 325 MG Tab PO SCH (08:25)
[2024-10-23] MEDS: Ondansetron 4 MG/2 ML SDV IVPUSH PRN (08:26)
[2024-10-23] MEDS: Insulin Aspart 100 Units/ML 3 ML Pen SUBCUT SCH (08:38)
[2024-10-23] MEDS: Pantoprazole 40 MG Tab.CR PO SCH (12:48)
[2024-10-23] MEDS: guaiFENesin 600 MG Tab.ER PO SCH (12:49)
[2024-10-23] MEDS: Insulin Glargine,Human Rec. Analog 100 Units/ML 3 ML Pen SUBCUT ONE (12:49)
[2024-10-23] MEDS: cefTRIAXone 1 GM in Sodium Chloride 0.9% 50 ML IV SCH (12:49)
[2024-10-23] MEDS: REMDESIVIR 100 MG in Sodium Chloride 0.9% 100 ML IV SCH (12:51)
[2024-10-24 05:49] LABS: HEMOGLOBIN 9.8 g/dL (12.0-16.0); IMMATURE GRAN ABSOLUTE AUTO 0.01 K/uL (0.00-0.05); IMMATURE GRAN PERCENT AUTO 0.2 % (0.0-0.4); LYMPHOCYTES ABSOLUTE AUTO 0.63 K/uL (1.00-4.80); LYMPHOCYTES PERCENT AUTO 12.9 % (24.0-44.0); MEAN CORPUSCULAR HEMOGLOBIN 28.7 pg (28.0-32.0); MEAN CORPUSCULAR HGB CONC 31.6 g/dL (32.0-36.0); MEAN CORPUSCULAR VOLUME 90.9 fL (83.0-99.0); MEAN PLATELET VOLUME 10.1 fL (9.4-12.3); MONOCYTES ABSOLUTE AUTO 0.65 K/uL (0.00-0.80); MONOCYTES PERCENT AUTO 13.3 % (0.0-8.0); NEUTROPHILS ABSOLUTE AUTO 3.61 K/uL (1.80-7.70); NEUTROPHILS PERCENT AUTO 73.6 % (41.0-71.0); NRBC ABSOLUTE 0.02 K/uL (0.00-0.02); NRBC PERCENT 0.4 /100WBC (0.0-0.2); PLATELET COUNT,PLT 130 K/uL (150-400); RED BLOOD CELL COUNT 3.41 M/uL (4.10-5.30)
[2024-10-24] MEDS: methylPREDNISolone Sodium Succinate 40 MG/1 ML SDV IVPUSH SCH (05:49)
[2024-10-24 06:19] LABS: A/G RATIO 0.6 (0.9-1.6); ALBUMIN 2.9 g/dL (3.4-5.0); BILIRUBIN TOTAL 0.2 mg/dL (0.2-1.0); CALCIUM 8.8 mg/dL (8.5-10.1); CARBON DIOXIDE,CO2 29.3 mmol/L (21.0-32.0); CREATININE 2.4 mg/dL (0.6-1.0); EST CRCL DRUG DOSING (CG) 14.81 mL/min; MAGNESIUM 1.8 mg/dL (1.8-2.4); PHOSPHORUS 3.9 mg/dL (2.6-4.7); POTASSIUM,K 4.6 mmol/L (3.5-5.1); PROTEIN TOTAL,TP 7.6 g/dL (6.4-8.2)
[2024-10-24] MEDS: Insulin Glargine,Human Rec. Analog 100 Units/ML 3 ML Pen SUBCUT SCH (21:00)
[2024-10-25 05:44] LABS: HEMATOCRIT 32.1 % (37.0-47.0); HEMOGLOBIN 10.4 g/dL (12.0-16.0); IMMATURE GRAN ABSOLUTE AUTO 0.03 K/uL (0.00-0.05); IMMATURE GRAN PERCENT AUTO 0.6 % (0.0-0.4); LYMPHOCYTES ABSOLUTE AUTO 0.73 K/uL (1.00-4.80); LYMPHOCYTES PERCENT AUTO 14.5 % (24.0-44.0); MEAN CORPUSCULAR HEMOGLOBIN 29.4 pg (28.0-32.0); MEAN CORPUSCULAR HGB CONC 32.4 g/dL (32.0-36.0); MEAN CORPUSCULAR VOLUME 90.7 fL (83.0-99.0); MEAN PLATELET VOLUME 10.2 fL (9.4-12.3); MONOCYTES ABSOLUTE AUTO 0.73 K/uL (0.00-0.80); MONOCYTES PERCENT AUTO 14.5 % (0.0-8.0); NEUTROPHILS ABSOLUTE AUTO 3.56 K/uL (1.80-7.70); NEUTROPHILS PERCENT AUTO 70.4 % (41.0-71.0); PLATELET COUNT,PLT 147 K/uL (150-400); RED BLOOD CELL COUNT 3.54 M/uL (4.10-5.30); WHITE BLOOD CELL COUNT,WBC 5.05 K/uL (3.9-11.3)
[2024-10-25 06:17] LABS: A/G RATIO 0.6 (0.9-1.6); BILIRUBIN TOTAL 0.3 mg/dL (0.2-1.0); CARBON DIOXIDE,CO2 31.6 mmol/L (21.0-32.0); CREATININE 2.2 mg/dL (0.6-1.0); EST CRCL DRUG DOSING (CG) 16.16 mL/min; MAGNESIUM 1.7 mg/dL (1.8-2.4); PHOSPHORUS 3.4 mg/dL (2.6-4.7); POTASSIUM,K 4.3 mmol/L (3.5-5.1); PROTEIN TOTAL,TP 7.7 g/dL (6.4-8.2)
[2024-10-25] MEDS ORDERED: Magnesium Sulf/Wat 2 GM/50 mL 2 GM in Premix Bag 1 BAG IV ONE (10:06)
[2024-10-25] MEDS: Metolazone 5 MG Tab PO ONE ×2 (16:30→16:31)
[2024-10-25] MEDS: hydrOXYzine Pamoate 25 MG Cap PO PRN (19:06)
[2024-10-25] MEDS: MINOCYCLINE HCL 50 MG PO SCH (22:21)
[2024-10-26 05:48] LABS: BASOPHILS ABSOLUTE AUTO 0.01 K/uL (0.00-0.20); BASOPHILS PERCENT AUTO 0.2 % (0.0-1.0); HEMATOCRIT 35.5 % (37.0-47.0); HEMOGLOBIN 11.4 g/dL (12.0-16.0); IMMATURE GRAN ABSOLUTE AUTO 0.03 K/uL (0.00-0.05); IMMATURE GRAN PERCENT AUTO 0.5 % (0.0-0.4); LYMPHOCYTES ABSOLUTE AUTO 0.86 K/uL (1.00-4.80); LYMPHOCYTES PERCENT AUTO 13.9 % (24.0-44.0); MEAN CORPUSCULAR HEMOGLOBIN 28.9 pg (28.0-32.0); MEAN CORPUSCULAR HGB CONC 32.1 g/dL (32.0-36.0); MEAN CORPUSCULAR VOLUME 90.1 fL (83.0-99.0); MEAN PLATELET VOLUME 10.4 fL (9.4-12.3); MONOCYTES ABSOLUTE AUTO 0.64 K/uL (0.00-0.80); MONOCYTES PERCENT AUTO 10.4 % (0.0-8.0); NEUTROPHILS ABSOLUTE AUTO 4.63 K/uL (1.80-7.70); PLATELET COUNT,PLT 172 K/uL (150-400); RED BLOOD CELL COUNT 3.94 M/uL (4.10-5.30); WHITE BLOOD CELL COUNT,WBC 6.17 K/uL (3.9-11.3)
[2024-10-26 06:25] LABS: A/G RATIO 0.7 (0.9-1.6); ALBUMIN 3.3 g/dL (3.4-5.0); BILIRUBIN TOTAL 0.3 mg/dL (0.2-1.0); CALCIUM 9.4 mg/dL (8.5-10.1); CREATININE 2.2 mg/dL (0.6-1.0); EST CRCL DRUG DOSING (CG) 16.16 mL/min; MAGNESIUM 1.7 mg/dL (1.8-2.4); PHOSPHORUS 3.2 mg/dL (2.6-4.7); POTASSIUM,K 4.3 mmol/L (3.5-5.1); PROTEIN TOTAL,TP 8.2 g/dL (6.4-8.2)
[2024-10-26] MEDS: Furosemide 40 MG Tab PO SCH ×2 (10:24→13:10)
[2024-10-26] MEDS: Magnesium Sulf/Wat 2 GM/50 mL 2 GM in Premix Bag 1 BAG IV ONE (13:52)
[2024-10-26] MEDS: Albuterol/Ipratropium 3.0-0.5 MG/3 ML Neb Soln NEB SCH (17:30)
[2024-10-27 06:18] LABS: EOSINOPHILS ABSOLUTE AUTO 0.01 K/uL (0.00-0.45); EOSINOPHILS PERCENT AUTO 0.1 % (0.0-6.0); HEMATOCRIT 35.9 % (37.0-47.0); IMMATURE GRAN ABSOLUTE AUTO 0.09 K/uL (0.00-0.05); IMMATURE GRAN PERCENT AUTO 1.1 % (0.0-0.4); LYMPHOCYTES ABSOLUTE AUTO 1.01 K/uL (1.00-4.80); LYMPHOCYTES PERCENT AUTO 11.8 % (24.0-44.0); MEAN CORPUSCULAR HEMOGLOBIN 30.4 pg (28.0-32.0); MEAN CORPUSCULAR HGB CONC 33.4 g/dL (32.0-36.0); MEAN CORPUSCULAR VOLUME 90.9 fL (83.0-99.0); MEAN PLATELET VOLUME 10.5 fL (9.4-12.3); MONOCYTES ABSOLUTE AUTO 0.73 K/uL (0.00-0.80); MONOCYTES PERCENT AUTO 8.5 % (0.0-8.0); NEUTROPHILS ABSOLUTE AUTO 6.71 K/uL (1.80-7.70); NEUTROPHILS PERCENT AUTO 78.5 % (41.0-71.0); PLATELET COUNT,PLT 202 K/uL (150-400); RED BLOOD CELL COUNT 3.95 M/uL (4.10-5.30); WHITE BLOOD CELL COUNT,WBC 8.55 K/uL (3.9-11.3)
[2024-10-27 06:47] LABS: A/G RATIO 0.6 (0.9-1.6); ALBUMIN 3.1 g/dL (3.4-5.0); BILIRUBIN TOTAL 0.4 mg/dL (0.2-1.0); CALCIUM 9.4 mg/dL (8.5-10.1); EST CRCL DRUG DOSING (CG) 17.78 mL/min; MAGNESIUM 2.3 mg/dL (1.8-2.4); PHOSPHORUS 3.4 mg/dL (2.6-4.7); POTASSIUM,K 4.1 mmol/L (3.5-5.1); PROTEIN TOTAL,TP 8.1 g/dL (6.4-8.2)
[2024-10-27] MEDS ORDERED: Benzocaine/Cetylpyridinium/Menthol Lozenge MUCMEM PRN (08:35)
[2024-10-27] MEDS: predniSONE 20 MG Tab PO SCH (09:53)
[2024-10-28 06:37] LABS: BASOPHILS ABSOLUTE AUTO 0.01 K/uL (0.00-0.20); BASOPHILS PERCENT AUTO 0.1 % (0.0-1.0); EOSINOPHILS ABSOLUTE AUTO 0.01 K/uL (0.00-0.45); EOSINOPHILS PERCENT AUTO 0.1 % (0.0-6.0); HEMATOCRIT 35.6 % (37.0-47.0); HEMOGLOBIN 12.4 g/dL (12.0-16.0); IMMATURE GRAN ABSOLUTE AUTO 0.09 K/uL (0.00-0.05); IMMATURE GRAN PERCENT AUTO 0.8 % (0.0-0.4); LYMPHOCYTES ABSOLUTE AUTO 1.14 K/uL (1.00-4.80); LYMPHOCYTES PERCENT AUTO 10.3 % (24.0-44.0); MEAN CORPUSCULAR HEMOGLOBIN 31.3 pg (28.0-32.0); MEAN CORPUSCULAR HGB CONC 34.8 g/dL (32.0-36.0); MEAN CORPUSCULAR VOLUME 89.9 fL (83.0-99.0); MONOCYTES ABSOLUTE AUTO 0.69 K/uL (0.00-0.80); MONOCYTES PERCENT AUTO 6.2 % (0.0-8.0); NEUTROPHILS ABSOLUTE AUTO 9.13 K/uL (1.80-7.70); NEUTROPHILS PERCENT AUTO 82.5 % (41.0-71.0); PLATELET COUNT,PLT 223 K/uL (150-400); RED BLOOD CELL COUNT 3.96 M/uL (4.10-5.30); WHITE BLOOD CELL COUNT,WBC 11.07 K/uL (3.9-11.3)
[2024-10-28 07:17] LABS: CALCIUM 9.4 mg/dL (8.5-10.1); CARBON DIOXIDE,CO2 33.1 mmol/L (21.0-32.0); EST CRCL DRUG DOSING (CG) 17.78 mL/min; MAGNESIUM 2.1 mg/dL (1.8-2.4); POTASSIUM,K 4.3 mmol/L (3.5-5.1)
[2024-10-29 05:45] LABS: EOSINOPHILS ABSOLUTE AUTO 0.05 K/uL (0.00-0.45); EOSINOPHILS PERCENT AUTO 0.5 % (0.0-6.0); HEMATOCRIT 37.1 % (37.0-47.0); HEMOGLOBIN 12.7 g/dL (12.0-16.0); IMMATURE GRAN ABSOLUTE AUTO 0.08 K/uL (0.00-0.05); IMMATURE GRAN PERCENT AUTO 0.8 % (0.0-0.4); LYMPHOCYTES ABSOLUTE AUTO 1.38 K/uL (1.00-4.80); LYMPHOCYTES PERCENT AUTO 12.9 % (24.0-44.0); MEAN CORPUSCULAR HGB CONC 34.2 g/dL (32.0-36.0); MEAN CORPUSCULAR VOLUME 90.5 fL (83.0-99.0); MEAN PLATELET VOLUME 9.9 fL (9.4-12.3); MONOCYTES PERCENT AUTO 9.4 % (0.0-8.0); NEUTROPHILS ABSOLUTE AUTO 8.15 K/uL (1.80-7.70); NEUTROPHILS PERCENT AUTO 76.4 % (41.0-71.0); NRBC ABSOLUTE 0.02 K/uL (0.00-0.02); NRBC PERCENT 0.2 /100WBC (0.0-0.2); PLATELET COUNT,PLT 241 K/uL (150-400); WHITE BLOOD CELL COUNT,WBC 10.66 K/uL (3.9-11.3)
[2024-10-29 06:03] LABS: CALCIUM 9.5 mg/dL (8.5-10.1); CARBON DIOXIDE,CO2 32.7 mmol/L (21.0-32.0); EST CRCL DRUG DOSING (CG) 17.78 mL/min
[2024-10-29 12:54] VITALS: BP 119/77; PULSE 96
== END 2024-10-29 13:45 | disposition home or self-care (01) | DRG 177 ==
LOC: MW.ED 10:11 → MW.ICU 15:02 → MW.MS 10-23 16:03
PROVIDERS: ADMIT Family Medicine; ATTEND Family Medicine
PROC: XW033E5 Introduction of Remdesivir Anti-infective into Peripheral Vein, Percutaneous Approach, New Technology Group 5 (ICD-10-PCS; principal; 2024-10-22)
DX: U07.1 COVID-19 (principal); D64.9 Anemia, unspecified; I50.31 Acute diastolic (congestive) heart failure; J44.9 Chronic obstructive pulmonary disease, unspecified; J12.82 Pneumonia due to coronavirus disease 2019; J96.21 Acute and chronic respiratory failure with hypoxia; E11.42 Type 2 diabetes mellitus with diabetic polyneuropathy; J44.1 Chronic obstructive pulmonary disease with (acute) exacerbation; N17.9 Acute kidney failure, unspecified; I50.33 Acute on chronic diastolic (congestive) heart failure; Z68.41 Body mass index [BMI] 40.0-44.9, adult; Z79.84 Long term (current) use of oral hypoglycemic drugs; N30.01 Acute cystitis with hematuria; Z88.5 Allergy status to narcotic agent; J44.0 Chronic obstructive pulmonary disease with (acute) lower respiratory infection; Z75.8 Other problems related to medical facilities and other health care; I48.91 Unspecified atrial fibrillation; K21.9 Gastro-esophageal reflux disease without esophagitis; I35.0 Nonrheumatic aortic (valve) stenosis; I11.0 Hypertensive heart disease with heart failure; E66.01 Morbid (severe) obesity due to excess calories; M10.9 Gout, unspecified; E11.22 Type 2 diabetes mellitus with diabetic chronic kidney disease; K74.60 Unspecified cirrhosis of liver; K57.90 Diverticulosis of intestine, part unspecified, without perforation or abscess without bleeding; E11.649 Type 2 diabetes mellitus with hypoglycemia without coma; E78.2 Mixed hyperlipidemia; B96.20 Unspecified Escherichia coli [E. coli] as the cause of diseases classified elsewhere; F32.A Depression, unspecified; I27.20 Pulmonary hypertension, unspecified; I65.21 Occlusion and stenosis of right carotid artery; N18.9 Chronic kidney disease, unspecified; M19.90 Unspecified osteoarthritis, unspecified site; Z98.49 Cataract extraction status, unspecified eye; Z98.890 Other specified postprocedural states; Z90.49 Acquired absence of other specified parts of digestive tract; Z88.0 Allergy status to penicillin; Z79.899 Other long term (current) drug therapy; Z88.8 Allergy status to other drugs, medicaments and biological substances; Z90.710 Acquired absence of both cervix and uterus; Z96.659 Presence of unspecified artificial knee joint; Z79.01 Long term (current) use of anticoagulants; Z79.4 Long term (current) use of insulin; Z99.81 Dependence on supplemental oxygen
CPT/HCPCS: 0240U; 36415; 71045; 74176; 80048; 80053; 81001; 82947; 83735; 83880; 84100; 84443; 85025; 87086; 87088; 87186; 93005; 94640; 94667; 94668; 96374; 97110; 97162; 97530; 99285; 93010; 99223; 99232; 99233; 99239; 99284; A9270-GY; J0248; J0696; J1815-GY; J1940; J2405; J2919; J3475; J3490